=== PATIENT | female | born 1955 | race Caucasian/White ===

== ENCOUNTER → 2016-06-16 | Outpatient (CLI) | payer MEDICARE ==
[~2016-06-16] MED LIST: /CELE20CA PO; AFRI0.052; AMIT25TA10 PO; CELE-19 PO; CYCL10TA PO; FLON0.054; NEUR300C PO; OXYC15TA76 PO; OXYC20TA8 PO; PANT20TA PO; POTA75TA PO; REQU0.5T PO; SOMA350T PO; VITA100072 PO; VITA500T88 PO; amoxicillin PO; combination cream TOP; vitaminD PO
--- NOTE | 2016-07-06 02:08 | ECWPNPC ---
PATIENT NAME: ZANDER DUTTA : 1955 GENDER: FEMALE VISIT DATE: 06/16/2016 DISCHARGE DATE: 06/16/16 1444 VISIT LOCKED DATE TIME: PHYSICIAN: DANIELA COBURN PHYSICIAN PAGER NO: [phone] RESOURCE: DANIELA COBURN REASON FOR APPOINTMENT 1. BACK HISTORY OF PRESENT ILLNESS HISTORY OF PRESENT ILLNESS: PAIN THE PATIENT DESCRIBES THE PAIN... FALL RISK SCREENING: SCREENING :NO FALLS IN THE PAST YEAR TODAY'S VISIT: NOTES: RATES PAIN TODAY 6/10. NOTES PAIN ACROSS UPPER MID BACK AND ACROSS SHOULDERS AND BASE OF NECK. REPORTS MEDS ARE HELPFUL TO KEEP PAIN CONTROLLED. DENIES ADVERSE EFECTS WITH MEDS.. CURRENT MEDICATIONS TAKING PROAIR HFA 108 (90 BASE) MCG/ACT AEROSOL SOLUTION 2 PUFFS NEEDED INHALATION EVERY 6 HRS PRN COUGH WHEEZE TAKING SYMBICORT 80-4.5 MCG/ACT AEROSOL 2 PUFFS INHALATION TWICE A DAY TAKING FLONASE 50 MCG/DOSE INHALER 1 SPRAY IN EACH NOSTRIL NASALLY DAILY TAKING VITAMIN D 2000 UNIT TABLET 1 TABLET ORALLY ONCE A DAY TAKING VITAMIN B 12 1000 MCG TABLET 1 TAB(S) ORALLY DAILY TAKING MIRALAX 1 POWDER DIRECTED ORALLY TAKE 17 GRAMS IN 8 OZ FLIUD DAILY FOR CONSTIPATION LARGE BOTTLE TAKING CARISOPRODOL 350 MG TABLET 1 TABLET NEEDED ORALLY BEFORE BEDTIME TAKING PROTONIX 20 MG TABLET DELAYED RELEASE 1 TABLET ORALLY TWO TIMES A DAY SUSANA TAKING CELEBREX 200 MG CAPSULE 1 CAPSULE ORALLY ONCE A DAY NEEDED TAKING VITAMIN C 500 MG CAPSULE 1 CAPSULE ORALLY ONCE A DAY TAKING OXYCONTIN 20 MG TABLET EXTENDED RELEASE 12 HOUR 1 TABLET ORALLY EVERY 8 HOURS NEEDED, MDD 3 SUSANA TAKING OXYCODONE HCL 15 MG TABLET 1 TABLET ORALLY EVERY 6 - 8 HOURS PRN PAIN MDD =2 TAKING PREDNISONE 20 MG TABLET 2 TABS DAILY X 3 DAYS, THEN 1 TAB DAILY X 3 DAYS, THEN 1/2 TAB DAILY X 4 DAYS, THEN STOP ORALLY ONCE A DAY DIRECTED TAKING TESSALON PERLES 100 MG CAPSULE 1 CAPSULE NEEDED ORALLY Q8HRS PRN COUGH TAKING CEFDINIR 300 MG CAPSULE 1 CAPSULE ORALLY EVERY 12 HRS NOT-TAKING OXYCODONE HCL ER 20 MG TABLET ER 12 HOUR ABUSE-DETERRENT 1 TABLET ORALLY EVERY 8 HRS MDD=3 CHRONIC PAIN NOT-TAKING OXYCODONE HCL ER 20 MG TABLET ER 12 HOUR ABUSE-DETERRENT 1 TABLET ORALLY Q8H MDD3 NOT-TAKING LEVOFLOXACIN 500 MG TABLET 1 TABLET ORALLY ONCE A DAY NOT-TAKING AZELASTINE HCL 0.1 % SOLUTION 1 PUFF IN EACH NOSTRIL NASALLY TWICE A DAY NOT-TAKING AUGMENTIN 875-125 MG TABLET 1 TABLET ORALLY EVERY 12 HRS NOT-TAKING FLEXERIL 10 MG TABLET 1 TABLET ORALLY BID NOT-TAKING [id number] SUSPENSION 4 DROPS INTO AFFECTED EAR OTIC THREE TIMES A DAY NOT-TAKING PREDNISONE 20 MG TABLET 2 ORALLY ONCE A DAY MEDICATION LIST REVIEWED AND RECONCILED WITH THE PATIENT PAST MEDICAL HISTORY GERD RSD WITH CHRONIC NECK AND UE PAIN THYROID NODULE KIDNEY STONES S/P ESWL 03/2003, STENTS VITAMIN D DEFICIENCY MIGRAINES COPD FEV1 = 1.93 2005 SMOKER GENERALIZED OSTEOARTHRITIS HIPS, NECK, BACK, HANDS + LUPUS ANTICOAGULANT (CONFIRMED) 07/[address] CHEST 10/05; F/U PENDING 04/07 ALLERGIES REQUIP: DIZZINESS: SIDE EFFECTS SOCIAL HISTORY GENERAL: TOBACCO USE ARE YOU A:CURRENT SMOKER LEARNING BARRIERS / SPECIAL NEEDS ORIENTED TO PLAN OF CARE: PATIENT, PAIN MANAGEMENT PATIENT, ORIENTED TO PLAN OF CARE: PATIENT, PAIN MANAGEMENT PATIENT. NEW PATIENT PAIN DIARY TODAY'S VISITNOTES FROM 0-10, WHAT LEVEL IS YOUR PAIN TODAY?0 PAIN CLINIC PFS, CLERGY, PUBLIC HEALTH REFERRALS PFS REFERRAL NEEDED?NO CLERGY REFERRAL NEEDED?NO PUBLIC HEALTH REFERRAL NEEDED?NO WAS THE PROVIDER NOTIFIED OF ANY PERTINENT INFO?NO PFS REFERRAL NEEDED?NO CLERGY REFERRAL NEEDED?NO PUBLIC HEALTH REFERRAL NEEDED?NO WAS THE PROVIDER NOTIFIED OF ANY PERTINENT INFO?NO REVIEW OF SYSTEMS CONSTITUTIONAL: ANY CHANGE IN YOUR MEDICAL CONDITION? NO . CHILLS NO . FEVER NO . INFECTION: DO YOU HAVE NEW INFECTIONS? NO . DO YOU HAVE HISTORY OF MRSA? NO . MUSCULOSKELETAL: ANY NEW PATTERNS OF PAIN OR NUMBNESS? YES PAIN BETWEEN SHOULDER (BEEN GOING ON FOR COUPLE WEKS) . GASTROENTEROLOGY: ANY NEW CHANGE IN BOWEL CONTROL? NO - OCCASIONAL CONSTIPATION - USES MIRALAX WHEN NEEDED . ABDOMINAL PAIN SHARP EPIGASTRIC PAIN WITH RADIATION TO RIGHT UPPER QUADRANT . DIFFICULTY SWALLOWING INTERMITTANT - FEELS IF FOOD IS GETTIG STUCK . GENITOURINARY: ANY NEW CHANGE IN BLADDER CONTROL? NO . IS THERE A CHANCE YOU COULD BE ? NO . HEMATOLOGY/LYMPH: DO YOU TAKE ANY BLOOD THINNERS? (FOR EXAMPLE- COUMADIN, PLAVIX, AGGRENOX, PLATEL, PRADAXA, OR XARELTO) NO . WHEN WAS YOUR LAST DOSE? DATE: TIME: . NEUROLOGY: HAVE YOU FALLEN IN THE PAST 6 MONTHS? NO . ANY NEW EXTREMITY NUMBNESS OR WEAKNESS? NO . CARDIOLOGY: DO YOU HAVE A PACEMAKER OR DEFIBRILLATOR? NO . RESPIRATORY: HAVE YOU BEEN SICK IN THE PAST WEEK? NO . FEVER NO . FLU LIKE SYMPTOMS? NO . COUGH NO . INTEGUMENTARY: DO YOU HAVE ANY RASHES OR OPEN SORES? NO . ALLERGIC/IMMUNO: ARE YOU ALLERGIC TO SHELLFISH OR IV DYE? NO . ANY NEW ALLERGIES? NO . PSYCHIATRIC: DO YOU HAVE THOUGHTS OF HURTING YOURSELF OR SOMEONE ELSE? NO . ARE YOU ABUSED, NEGLECTED, OR IN AN UNSAFE ENVIRONMENT? NO . ENDOCRINOLOGY: ARE YOU DIABETIC? NO . OTHER: DO YOU NEED ANY PRESCRIPTIONS? NO . IF YES, PLEASE LIST: ____ . ANY NEW PROBLEMS WITH YOUR MEDICATIONS? NO . WHEN DID YOU LAST EAT? ____ . WHEN DID YOU LAST DRINK? ____ . WHAT DID YOU LAST DRINK? ____ . NAME OF PERSON DRIVING YOU HOME? ____ . DO YOU HAVE ANY OTHER QUESTIONS OR CONCERNS NO . REVIEWED BY: PROVIDER: DANIELA FATIMA . VITAL SIGNS WT 106.2 LBS, HT 61 IN, BMI 20.06 INDEX, BP 130/72 MM HG, HR 91 /MIN, RR 16 /MIN, TEMP 96.8 F, OXYGEN SAT % 99, NA INITIALS TL 1357. EXAMINATION GENERAL EXAMINATION: GENERAL APPEARANCE:COLOR IS PALE, APPEARS FATIGUED. PSYCHALERT , ORIENTED X 3 , APPROPRIATE MOOD AND AFFECT , SLIGHTLY ANXIOUS. LUNGS:CLEAR TO AUSCULTATION BILATERALLY. HEART:HEART RATE REGULAR. MUSCULOSKELETAL:WEAKNESS RIGHT UPPER EXTREMITY DISATALLY AND PROXIMALY, TRIGGER POINTS:, ELICITED WITH PALPATION OVER CERVICAL SPINOUS PROCESSES AND ACROSS THE TRAPEZIUS MUSCLES BILATERALLY. RESTRICTION OF ROM IS NOTED. AUDIBLE CREPITUS WITH ROTATION OF SHOULDERS.. ASSESSMENTS CERVICALGIA - M54.2 (PRIMARY) CHRONIC USE OF OPIATE DRUGS THERAPEUTIC PURPOSES - Z79.899 LOW BACK PAIN - M54.5 LUMBAR RADICULOPATHY - M54.16 TREATMENT CERVICALGIA REFILL OXYCONTIN TABLET EXTENDED RELEASE 12 HOUR, 20 MG, 1 TABLET, ORALLY, EVERY 8 HOURS NEEDED, MDD 3 SUSANA, 30 DAYS, 90, REFILLS 0 REFILL OXYCODONE HCL TABLET, 15 MG, 1 TABLET, ORALLY, EVERY 6 - 8 HOURS PRN PAIN MDD =2, 30 DAY(S), 60, REFILLS 0 TRIGGER POINT 3 + JOÃOELANDRO HONGLOS Lindsay 06/16/2016 2:26:45 PM > NECK, MID THORACIC NOTES: STOP SMOKING START YOGA. PROCEDURE CODES FA211 ESTABILISHED PATIENT [facility] CHARGE FOLLOW UP 4-6 WEEKS (REASON: CHECK AUTH FOR TPI - PT VERY CONCERND ABOUT CO-PAYS) ELECTRONICALLY SIGNED BY HAYLEY GANDARA ON 07/05/2016 AT 11:50 AM EST DISCLAIMER : THIS IS A VISIT SUMMARY EXTRACTED FROM THE [employer] CHART. IT IS NOT A COPY OF THE [employer] PROGRESS NOTE. ROBINSON
== END ==
LOC: M PAIN 14:20
PROVIDERS: ATTEND Nurse Practitioner Family
DX: Z09 Encounter for follow-up examination after completed treatment for conditions other than malignant neoplasm (principal); G89.29 Other chronic pain; M54.2 Cervicalgia; M54.16 Radiculopathy, lumbar region; K21.9 Gastro-esophageal reflux disease without esophagitis; G90.519 Complex regional pain syndrome I of unspecified upper limb; G43.909 Migraine, unspecified, not intractable, without status migrainosus; E55.9 Vitamin D deficiency, unspecified; J44.9 Chronic obstructive pulmonary disease, unspecified; F17.200 Nicotine dependence, unspecified, uncomplicated; M15.0 Primary generalized (osteo)arthritis; M32.9 Systemic lupus erythematosus, unspecified; R91.1 Solitary pulmonary nodule; Z88.8 Allergy status to other drugs, medicaments and biological substances; Z79.52 Long term (current) use of systemic steroids; Z79.891 Long term (current) use of opiate analgesic; Z79.899 Other long term (current) drug therapy

== ENCOUNTER → 2016-07-27 | Outpatient (REF) | payer OTHER ==
[2016-07-27 12:58] LABS: MEAN CORPUSCULAR HEMOGLOBIN 30.6 pg (27.0-33.0); MEAN CORPUSCULAR HGB CONC 34.4 g/dl (32.0-36.5); MEAN CORPUSCULAR VOLUME 89.1 fl (80.0-96.0); RED CELL DISTRIBUTION WIDTH 16.6 % (11.5-14.5); WHITE BLOOD COUNT 3.5 K/mm3 (4.0-10.0)
[2016-07-27 13:06] LABS: ALBUMIN/GLOBULIN RATIO 1.67 (1.00-1.93); ALKALINE PHOSPHATASE 59 U/L (45-117); ALT/SGPT 12 U/L (12-78); ANION GAP 5 MEQ/L (8-16); AST/SGOT 14 U/L (15-37); BLOOD UREA NITROGEN 8 MG/DL (7-18); CALCIUM LEVEL 8.7 MG/DL (8.8-10.2); CARBON DIOXIDE LEVEL 30 MEQ/L (21-32); CHLORIDE LEVEL 108 MEQ/L (98-107); CREATININE FOR GFR 0.64 MG/DL (0.55-1.02); GLOMERULAR FILTRATION RATE > 60.0 (>45); GLUCOSE, FASTING 92 MG/DL (80-110); POTASSIUM SERUM 4.9 MEQ/L (3.5-5.1); SODIUM LEVEL 143 MEQ/L (136-145); TOTAL PROTEIN 6.4 GM/DL (6.4-8.2)
== END ==
LOC: M SFHCADAM 10:50
PROVIDERS: ATTEND Family Medicine
DX: R10.13 Epigastric pain (principal)

== ENCOUNTER → 2016-08-12 | Outpatient (CLI) | payer MEDICARE, OTHER ==
--- NOTE | 2016-08-13 00:25 | ECWPNPC ---
PATIENT NAME: ZANDER DUTTA : 1955 GENDER: FEMALE VISIT DATE: 08/12/2016 DISCHARGE DATE: 08/12/16 1035 VISIT LOCKED DATE TIME: PHYSICIAN: DANIELA COBURN PHYSICIAN PAGER NO: [phone] RESOURCE: DANIELA COBURN REASON FOR APPOINTMENT 1. FOLLOW UP HISTORY OF PRESENT ILLNESS HISTORY OF PRESENT ILLNESS: PAIN THE PATIENT DESCRIBES THE PAIN... FALL RISK SCREENING: SCREENING :NO FALLS IN THE PAST YEAR TODAY'S VISIT: NOTES: RATES PAIN TODAY 7/10. DESCRIBES PAIN INTERMITTANT, ACHING, BURNING. PAIN IS CENTERED AT BASE OF NECK AND INTO RIGHT ARM, ABDOMENAL PAIN, AND LEFT LEG. . CURRENT MEDICATIONS TAKING PROAIR HFA 108 (90 BASE) MCG/ACT AEROSOL SOLUTION 2 PUFFS NEEDED INHALATION EVERY 6 HRS PRN COUGH WHEEZE TAKING SYMBICORT 80-4.5 MCG/ACT AEROSOL 2 PUFFS INHALATION TWICE A DAY TAKING FLONASE 50 MCG/DOSE INHALER 1 SPRAY IN EACH NOSTRIL NASALLY DAILY TAKING VITAMIN D 2000 UNIT TABLET 1 TABLET ORALLY ONCE A DAY TAKING VITAMIN B 12 1000 MCG TABLET 1 TAB(S) ORALLY DAILY TAKING MIRALAX 1 POWDER DIRECTED ORALLY TAKE 17 GRAMS IN 8 OZ FLIUD DAILY FOR CONSTIPATION LARGE BOTTLE TAKING CARISOPRODOL 350 MG TABLET 1 TABLET NEEDED ORALLY BEFORE BEDTIME TAKING PROTONIX 20 MG TABLET DELAYED RELEASE 1 TABLET ORALLY TWO TIMES A DAY PRN SUSANA TAKING CELEBREX 200 MG CAPSULE 1 CAPSULE ORALLY ONCE A DAY NEEDED TAKING VITAMIN C 500 MG CAPSULE 1 CAPSULE ORALLY ONCE A DAY TAKING OXYCODONE HCL 15 MG TABLET 1 TABLET ORALLY EVERY 6 - 8 HOURS PRN PAIN MDD =2 TAKING TESSALON PERLES 100 MG CAPSULE 1 CAPSULE NEEDED ORALLY Q8HRS PRN COUGH TAKING OXYCONTIN 20 MG TABLET ER 12 HOUR ABUSE-DETERRENT ORALLY BID TAKING AMOXICILLIN 1 TAB ORAL Q 12 H MEDICATION LIST REVIEWED AND RECONCILED WITH THE PATIENT PAST MEDICAL HISTORY GERD RSD WITH CHRONIC NECK AND UE PAIN THYROID NODULE KIDNEY STONES S/P ESWL 03/2003, STENTS VITAMIN D DEFICIENCY MIGRAINES COPD FEV1 = 1.93 2005 SMOKER GENERALIZED OSTEOARTHRITIS HIPS, NECK, BACK, HANDS + LUPUS ANTICOAGULANT (CONFIRMED) 07/[address] CHEST 10/05; F/U PENDING 04/07 ALLERGIES REQUIP: DIZZINESS: SIDE EFFECTS REVIEW OF SYSTEMS CONSTITUTIONAL: ANY CHANGE IN YOUR MEDICAL CONDITION? NO . CHILLS NO . FEVER NO . INFECTION: DO YOU HAVE NEW INFECTIONS? NO . DO YOU HAVE HISTORY OF MRSA? NO . MUSCULOSKELETAL: ANY NEW PATTERNS OF PAIN OR NUMBNESS? YES, PAIN IN NECK HAS INCREASED . GASTROENTEROLOGY: ANY NEW CHANGE IN BOWEL CONTROL? NO . ABDOMINAL PAIN SEVERE GI PAIN - WAITING ON REFERRAL TO GI FOR SCOPE. . GENITOURINARY: ANY NEW CHANGE IN BLADDER CONTROL? NO . IS THERE A CHANCE YOU COULD BE ? NO . HEMATOLOGY/LYMPH: DO YOU TAKE ANY BLOOD THINNERS? (FOR EXAMPLE- COUMADIN, PLAVIX, AGGRENOX, PLATEL, PRADAXA, OR XARELTO) NO . WHEN WAS YOUR LAST DOSE? DATE: TIME: . NEUROLOGY: HAVE YOU FALLEN IN THE PAST 6 MONTHS? NO . ANY NEW EXTREMITY NUMBNESS OR WEAKNESS? NO . CARDIOLOGY: DO YOU HAVE A PACEMAKER OR DEFIBRILLATOR? NO . RESPIRATORY: HAVE YOU BEEN SICK IN THE PAST WEEK? YES, SINUS INFECTION X 2 MONTHS. ON THIRD ANTIBIOTIC . FEVER NO . FLU LIKE SYMPTOMS? NO . DO YOU USE ANY TYPE OF TOBACCO (SMOKE, SMOKELESS, CHEW)? QUIT 2 WEEKS . COUGH NO . INTEGUMENTARY: DO YOU HAVE ANY RASHES OR OPEN SORES? NO . ALLERGIC/IMMUNO: ARE YOU ALLERGIC TO SHELLFISH OR IV DYE? NO . ANY NEW ALLERGIES? NO . PSYCHIATRIC: DO YOU HAVE THOUGHTS OF HURTING YOURSELF OR SOMEONE ELSE? NO . ARE YOU ABUSED, NEGLECTED, OR IN AN UNSAFE ENVIRONMENT? NO . ENDOCRINOLOGY: ARE YOU DIABETIC? NO . OTHER: DO YOU NEED ANY PRESCRIPTIONS? YES . IF YES, PLEASE LIST: ____OXYCODONE AND OXYCONTIN . ANY NEW PROBLEMS WITH YOUR MEDICATIONS? NO . WHEN DID YOU LAST EAT? ____ . WHEN DID YOU LAST DRINK? ____ . WHAT DID YOU LAST DRINK? ____ . NAME OF PERSON DRIVING YOU HOME? ____ . DO YOU HAVE ANY OTHER QUESTIONS OR CONCERNS NO . SKIN: EASY BRUISING LARGE [place] AREA OVER LEFT DORSAL SURFACE OF THE HAND . REVIEWED BY: PROVIDER: DANIELA FATIMA . VITAL SIGNS WT 107 LBS, HT 61 IN, BMI 20.22 INDEX, BP 129/64 MM HG, HR 77 /MIN, RR 16 /MIN, TEMP 98.8 F, OXYGEN SAT % 99%, NA INITIALS FL 09:59, REVIEWED BY: ELINA. EXAMINATION GENERAL EXAMINATION: GENERAL APPEARANCE:COLOR IS PALE, APPEARS FATIGUED. PSYCHALERT , ORIENTED X 3 , APPROPRIATE MOOD AND AFFECT , SLIGHTLY ANXIOUS. HEENT:VOICE RASPY. LUNGS:CLEAR TO AUSCULTATION BILATERALLY. HEART:HEART RATE REGULAR. MUSCULOSKELETAL:WEAKNESS RIGHT UPPER EXTREMITY DISATALLY AND PROXIMALY, TRIGGER POINTS:, ELICITED WITH PALPATION OVER CERVICAL SPINOUS PROCESSES AND ACROSS THE TRAPEZIUS MUSCLES BILATERALLY. RESTRICTION OF ROM IS NOTED. AUDIBLE CREPITUS WITH ROTATION OF SHOULDERS.. ASSESSMENTS CERVICALGIA - M54.2 (PRIMARY) MYALGIA - M79.1 TREATMENT CERVICALGIA STOP CELEBREX CAPSULE, 200 MG, 1 CAPSULE, ORALLY, ONCE A DAY NEEDED START DULOXETINE HCL CAPSULE DELAYED RELEASE PARTICLES, 30 MG, 1 CAPSULE, ORALLY, DAILY, 30 DAY(S), 30 CAPSULE, REFILLS 1 REFILL OXYCONTIN TABLET ER 12 HOUR ABUSE-DETERRENT, 20 MG, 1 TAB, ORALLY, BID MDD=2, 30 DAY(S), 60, REFILLS 0 NOTES: NO MORE THAN 3000 MG PER DAY OF TYLENOL. CLINICAL NOTES: ISTOP REGISTRY REVIEWED AND DEMNOSTRATES COMPLLIANCE. BRINGS IN MEDICATIONS WHICH IS APPROPRIATE FOR WHAT WAS DISPENSED. RECENT URINE TOXICOLOGY REVIEWED. NO UNAUTHORIZED MEDICATIONS. NO ILLICIT SUBSTANCES AND PRESCRIBED MEDICATIONS WERE PRESENT. PROCEDURE CODES FA211 ESTABILISHED PATIENT [facility] CHARGE DISPOSITION & COMMUNICATION FOLLOW UP 1 MONTH ELECTRONICALLY SIGNED BY HAYLEY GANDARA ON 08/12/2016 AT 04:33 PM EDT DISCLAIMER : THIS IS A VISIT SUMMARY EXTRACTED FROM THE [employer] CHART. IT IS NOT A COPY OF THE [employer] PROGRESS NOTE. ROBINSON
== END ==
LOC: M PAIN 09:40
PROVIDERS: ATTEND Nurse Practitioner Family
DX: Z09 Encounter for follow-up examination after completed treatment for conditions other than malignant neoplasm (principal); G89.29 Other chronic pain; M54.2 Cervicalgia; M79.1 Myalgia; K21.9 Gastro-esophageal reflux disease without esophagitis; E55.9 Vitamin D deficiency, unspecified; G43.909 Migraine, unspecified, not intractable, without status migrainosus; J44.9 Chronic obstructive pulmonary disease, unspecified; M19.90 Unspecified osteoarthritis, unspecified site; E53.8 Deficiency of other specified B group vitamins; D68.62 Lupus anticoagulant syndrome; Z79.899 Other long term (current) drug therapy; F17.210 Nicotine dependence, cigarettes, uncomplicated

== ENCOUNTER → 2016-09-15 | Outpatient (REF) | payer MEDICARE ==
[2016-09-15 19:58] LABS: RETIC HEMOGLOBIN CONTENT CHr 33.1 PG (24-36); RETICULOCYTE % ADVIA2120 3.5 % (0.5-1.5)
[2016-09-15 20:54] LABS: FOLATE 8.6 NG/ML
[2016-09-15 21:08] LABS: PERCENT SATURATION 20.7 % (13.2-37.4)
== END ==
LOC: M SFHCADAM 12:37
PROVIDERS: ATTEND Family Medicine
DX: D64.9 Anemia, unspecified (principal); M54.5 Low back pain; N39.0 Urinary tract infection, site not specified

== ENCOUNTER → 2016-09-16 | Outpatient (CLI) | payer MEDICARE ==
--- NOTE | 2016-10-05 00:53 | ECWPNPC ---
PATIENT NAME: ZANDER DUTTA : 1955 GENDER: FEMALE VISIT DATE: 09/16/2016 DISCHARGE DATE: 09/16/16 0000 VISIT LOCKED DATE TIME: PHYSICIAN: DANIELA COBURN PHYSICIAN PAGER NO: [phone] RESOURCE: DANIELA COBURN REASON FOR APPOINTMENT 1. CHRONIC PAIN HISTORY OF PRESENT ILLNESS HISTORY OF PRESENT ILLNESS: PAIN THE PATIENT DESCRIBES THE PAIN... FALL RISK SCREENING: SCREENING :NO FALLS IN THE PAST YEAR TODAY'S VISIT: NOTES: RATES PAIN TODAY 8/10. NOTES PAIN RADIATING DOWN LEFT ARM, SPINE AND ARM. . CURRENT MEDICATIONS TAKING PROAIR HFA 108 (90 BASE) MCG/ACT AEROSOL SOLUTION 2 PUFFS NEEDED INHALATION EVERY 6 HRS PRN COUGH WHEEZE TAKING SYMBICORT 80-4.5 MCG/ACT AEROSOL 2 PUFFS INHALATION TWICE A DAY TAKING VITAMIN D 2000 UNIT TABLET 1 TABLET ORALLY ONCE A DAY TAKING VITAMIN B 12 1000 MCG TABLET 1 TAB(S) ORALLY DAILY TAKING MIRALAX 1 POWDER DIRECTED ORALLY TAKE 17 GRAMS IN 8 OZ FLIUD DAILY FOR CONSTIPATION LARGE BOTTLE TAKING VITAMIN C 500 MG CAPSULE 1 CAPSULE ORALLY ONCE A DAY TAKING DULOXETINE HCL 30 MG CAPSULE DELAYED RELEASE PARTICLES 1 CAPSULE ORALLY DAILY TAKING OXYCONTIN 20 MG TABLET ER 12 HOUR ABUSE-DETERRENT 1 TAB ORALLY BID MDD=2 TAKING OXYCODONE HCL 15 MG TABLET 1 TABLET ORALLY TWICE A DAY MDD =2 TAKING FLONASE 50 MCG/DOSE INHALER 1 SPRAY IN EACH NOSTRIL NASALLY DAILY TAKING CLARITIN 10 MG TABLET 1 TABLET ORALLY ONCE A DAY TAKING PROTONIX 20 MG TABLET DELAYED RELEASE 1 TABLET ORALLY TWO TIMES A DAY PRN SUSANA TAKING MACROBID 100 MG CAPSULE 1 CAPSULE WITH FOOD ORALLY EVERY 12 HRS NOT-TAKING CARISOPRODOL 350 MG TABLET 1 TABLET NEEDED ORALLY BEFORE BEDTIME NOT-TAKING TESSALON PERLES 100 MG CAPSULE 1 CAPSULE NEEDED ORALLY Q8HRS PRN COUGH NOT-TAKING AMOXICILLIN 1 TAB ORAL Q 12 H MEDICATION LIST REVIEWED AND RECONCILED WITH THE PATIENT PAST MEDICAL HISTORY GERD RSD WITH CHRONIC NECK AND UE PAIN THYROID NODULE KIDNEY STONES S/P ESWL 03/2003, STENTS VITAMIN D DEFICIENCY MIGRAINES COPD FEV1 = 1.93 2005 SMOKER GENERALIZED OSTEOARTHRITIS HIPS, NECK, BACK, HANDS + LUPUS ANTICOAGULANT (CONFIRMED) 07/[address] CHEST 10/05; F/U PENDING 04/07 ALLERGIES REQUIP: DIZZINESS: ALLERGY REVIEW OF SYSTEMS CONSTITUTIONAL: ANY CHANGE IN YOUR MEDICAL CONDITION? YES,SINUS AND UTI ON ANTIBIOTICS . CHILLS NO . FEVER NO . INFECTION: DO YOU HAVE NEW INFECTIONS? NO . DO YOU HAVE HISTORY OF MRSA? NO . MUSCULOSKELETAL: ANY NEW PATTERNS OF PAIN OR NUMBNESS? YES, PAIN GOING IN LEFT HAND MORE . GASTROENTEROLOGY: ANY NEW CHANGE IN BOWEL CONTROL? NO . GENITOURINARY: ANY NEW CHANGE IN BLADDER CONTROL? NO . IS THERE A CHANCE YOU COULD BE ? NO . HEMATOLOGY/LYMPH: DO YOU TAKE ANY BLOOD THINNERS? (FOR EXAMPLE- COUMADIN, PLAVIX, AGGRENOX, PLATEL, PRADAXA, OR XARELTO) NO . WHEN WAS YOUR LAST DOSE? DATE: TIME: . NEUROLOGY: HAVE YOU FALLEN IN THE PAST 6 MONTHS? NO . ANY NEW EXTREMITY NUMBNESS OR WEAKNESS? NO . CARDIOLOGY: DO YOU HAVE A PACEMAKER OR DEFIBRILLATOR? NO . RESPIRATORY: HAVE YOU BEEN SICK IN THE PAST WEEK? NO . FEVER NO . FLU LIKE SYMPTOMS? NO . COUGH NO . INTEGUMENTARY: DO YOU HAVE ANY RASHES OR OPEN SORES? NO . ALLERGIC/IMMUNO: ARE YOU ALLERGIC TO SHELLFISH OR IV DYE? NO . ANY NEW ALLERGIES? NO . PSYCHIATRIC: DO YOU HAVE THOUGHTS OF HURTING YOURSELF OR SOMEONE ELSE? NO . ARE YOU ABUSED, NEGLECTED, OR IN AN UNSAFE ENVIRONMENT? NO . ENDOCRINOLOGY: ARE YOU DIABETIC? NO . OTHER: DO YOU NEED ANY PRESCRIPTIONS? YES . IF YES, PLEASE LIST: OXYCONTIN 20 MG . ANY NEW PROBLEMS WITH YOUR MEDICATIONS? NO . WHEN DID YOU LAST EAT? ____ . WHEN DID YOU LAST DRINK? ____ . WHAT DID YOU LAST DRINK? ____ . NAME OF PERSON DRIVING YOU HOME? ____ . DO YOU HAVE ANY OTHER QUESTIONS OR CONCERNS NO . REVIEWED BY: PROVIDER: DANIELA FATIMA . VITAL SIGNS WT 106 LBS, HT 61 IN, BMI 20.03 INDEX, BP 136/68 MM HG, HR 82 /MIN, RR 18 /MIN, TEMP 97.5 F, OXYGEN SAT % 98%, REVIEWED BY: CS. EXAMINATION GENERAL EXAMINATION: GENERAL APPEARANCE:COLOR IS PALE, APPEARS FATIGUED. PSYCHALERT , ORIENTED X 3 , APPROPRIATE MOOD AND AFFECT , SLIGHTLY ANXIOUS. HEENT:VOICE RASPY. LUNGS:CLEAR TO AUSCULTATION BILATERALLY. HEART:HEART RATE REGULAR. MUSCULOSKELETAL:WEAKNESS RIGHT UPPER EXTREMITY DISATALLY AND PROXIMALY, TRIGGER POINTS:, ELICITED WITH PALPATION OVER CERVICAL SPINOUS PROCESSES AND ACROSS THE TRAPEZIUS MUSCLES BILATERALLY. RESTRICTION OF ROM IS NOTED. AUDIBLE CREPITUS WITH ROTATION OF SHOULDERS.. ASSESSMENTS CERVICALGIA - M54.2 (PRIMARY) MYALGIA - M79.1 TREATMENT CERVICALGIA REFILL OXYCONTIN TABLET ER 12 HOUR ABUSE-DETERRENT, 20 MG, 1 TAB, ORALLY, BID MDD=2 CHRONIC PAIN, 30 DAY(S), 60, REFILLS 0 NOTES: STOP IBUPROFEN, STOP ALL SODA/ PEPSI. CLINICAL NOTES: ISTOP REGISTRY REVIEWED AND DEMNOSTRATES COMPLLIANCE. BRINGS IN MEDICATIONS WHICH IS APPROPRIATE FOR WHAT WAS DISPENSED. RECENT URINE TOXICOLOGY REVIEWED. NO UNAUTHORIZED MEDICATIONS. NO ILLICIT SUBSTANCES AND PRESCRIBED MEDICATIONS WERE PRESENT. PROCEDURE CODES FA211 ESTABILISHED PATIENT [facility] FACILITY CHARGE DISPOSITION & COMMUNICATION FOLLOW UP MID OCTOBER ELECTRONICALLY SIGNED BY HAYLEY GANDARA ON 10/04/2016 AT 05:45 PM EDT DISCLAIMER : THIS IS A VISIT SUMMARY EXTRACTED FROM THE [employer] CHART. IT IS NOT A COPY OF THE [employer] PROGRESS NOTE. ROBINSON
== END ==
LOC: M PAIN 14:20
PROVIDERS: ATTEND Nurse Practitioner Family
DX: G89.29 Other chronic pain (principal); M54.2 Cervicalgia; M79.1 Myalgia; K21.9 Gastro-esophageal reflux disease without esophagitis; E55.9 Vitamin D deficiency, unspecified; G43.909 Migraine, unspecified, not intractable, without status migrainosus; J44.9 Chronic obstructive pulmonary disease, unspecified; F17.291 Nicotine dependence, other tobacco product, in remission; M16.10 Unilateral primary osteoarthritis, unspecified hip; Z88.8 Allergy status to other drugs, medicaments and biological substances; G90.59 Complex regional pain syndrome I of other specified site; Z79.891 Long term (current) use of opiate analgesic; Z79.899 Other long term (current) drug therapy

== ENCOUNTER → 2016-10-11 | Outpatient (REF) | payer MEDICARE | LOC: M SFHCADAM 11:05 | PROVIDERS: ATTEND Family Medicine | DX: Z11.9 Encounter for screening for infectious and parasitic diseases, unspecified (principal); B95.2 Enterococcus as the cause of diseases classified elsewhere; Z79.899 Other long term (current) drug therapy ==

== ENCOUNTER → 2016-11-12 | Outpatient (CLI) | payer MEDICARE ==
[~2016-11-12] MED LIST changes: +ASPI81TA85 PO; -CELE-19 PO; +CELE1CAP4 PO; +CYMB1CAP5 PO; +FLON50SP; +LEVA1TAB2 PO; +LORA10TA2 PO; +NITR100C2 PO; +OXYC-141 PO; +OXYC-404 PO; +PHEN-501 PO; -REQU0.5T PO; +REQU1TAB15 PO; +SYMB80INH INH; +TYLE650T35 PO; +VITA100066 PO
--- NOTE | 2016-12-01 00:47 | ECWPNPC ---
PATIENT NAME: ZANDER DUTTA : 1955 GENDER: FEMALE VISIT DATE: 11/12/2016 DISCHARGE DATE: 11/12/16 1051 VISIT LOCKED DATE TIME: PHYSICIAN: DANIELA COBURN PHYSICIAN PAGER NO: [phone] RESOURCE: DANIELA COBURN HISTORY OF PRESENT ILLNESS HISTORY OF PRESENT ILLNESS: PAIN THE PATIENT DESCRIBES THE PAIN... FALL RISK SCREENING: SCREENING :NO FALLS IN THE PAST YEAR TODAY'S VISIT: NOTES: RATES PAIN LEVEL TODAY 8/10.PAIN IS CENTERED AT BASE OF NECK WITH RADIATION TO BOTH ARMS. DESCRIBES PAIN INTEMITTANT, SHARP, STABBING, ACHING, AND THROBBING. STATES HER PAIN MEDS KEEP THE PAIN MANAGEBLE AND THAT SHE HASNO ADVERSE REACTIONS. CURRENT MEDICATIONS TAKING PROAIR HFA 108 (90 BASE) MCG/ACT AEROSOL SOLUTION 2 PUFFS NEEDED INHALATION EVERY 6 HRS PRN COUGH WHEEZE TAKING SYMBICORT 80-4.5 MCG/ACT AEROSOL 2 PUFFS INHALATION TWICE A DAY TAKING VITAMIN D 2000 UNIT TABLET 1 TABLET ORALLY ONCE A DAY TAKING VITAMIN B 12 1000 MCG TABLET 1 TAB(S) ORALLY DAILY TAKING MIRALAX 1 POWDER DIRECTED ORALLY TAKE 17 GRAMS IN 8 OZ FLIUD DAILY FOR CONSTIPATION LARGE BOTTLE TAKING VITAMIN C 500 MG CAPSULE 1 CAPSULE ORALLY ONCE A DAY TAKING DULOXETINE HCL 30 MG CAPSULE DELAYED RELEASE PARTICLES 1 CAPSULE ORALLY DAILY, NOTES: NOT TAKING CONSISTENTLY TAKING FLONASE 50 MCG/DOSE INHALER 1 SPRAY IN EACH NOSTRIL NASALLY DAILY TAKING CLARITIN 10 MG TABLET 1 TABLET ORALLY ONCE A DAY TAKING PROTONIX 20 MG TABLET DELAYED RELEASE 1 TABLET ORALLY TWO TIMES A DAY PRN SUSANA TAKING MACROBID 100 MG CAPSULE 1 CAPSULE WITH FOOD ORALLY EVERY 12 HRS TAKING OXYCODONE HCL 15 MG TABLET 1 TABLET ORALLY EVERY 8-12 HOURS PRN PAIN MDD =2 TAKING OXYCONTIN 20 MG TABLET ER 12 HOUR ABUSE-DETERRENT 1 TAB ORALLY BID MDD=2 CHRONIC PAIN NOT-TAKING CARISOPRODOL 350 MG TABLET 1 TABLET NEEDED ORALLY BEFORE BEDTIME NOT-TAKING TESSALON PERLES 100 MG CAPSULE 1 CAPSULE NEEDED ORALLY Q8HRS PRN COUGH NOT-TAKING AMOXICILLIN 1 TAB ORAL Q 12 H MEDICATION LIST REVIEWED AND RECONCILED WITH THE PATIENT PAST MEDICAL HISTORY GERD 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 CONSTITUTIONAL: ANY CHANGE IN YOUR MEDICAL CONDITION? NO . CHILLS NO . FEVER NO . INFECTION: DO YOU HAVE NEW INFECTIONS? NO . DO YOU HAVE HISTORY OF MRSA? NO . MUSCULOSKELETAL: ANY NEW PATTERNS OF PAIN OR NUMBNESS? YES, NUMBNESS INTO RIGHT ARM.. HEAD AND NECK PAIN IS BAD . GASTROENTEROLOGY: ANY NEW CHANGE IN BOWEL CONTROL? NO . GENITOURINARY: ANY NEW CHANGE IN BLADDER CONTROL? NO . IS THERE A CHANCE YOU COULD BE ? NO . HEMATOLOGY/LYMPH: DO YOU TAKE ANY BLOOD THINNERS? (FOR EXAMPLE- COUMADIN, PLAVIX, AGGRENOX, PLATEL, PRADAXA, OR XARELTO) NO . WHEN WAS YOUR LAST DOSE? DATE: TIME: . NEUROLOGY: HAVE YOU FALLEN IN THE PAST 6 MONTHS? NO . ANY NEW EXTREMITY NUMBNESS OR WEAKNESS? NO . CARDIOLOGY: DO YOU HAVE A PACEMAKER OR DEFIBRILLATOR? NO . RESPIRATORY: HAVE YOU BEEN SICK IN THE PAST WEEK? NO . FEVER NO . FLU LIKE SYMPTOMS? NO . DO YOU USE ANY TYPE OF TOBACCO (SMOKE, SMOKELESS, CHEW)? IS WANTING TO QUITTING. TOOK SOME CHANTIX SHE HAD AT HOME BUT WHEN IT DIDN'T WORK AFTER 3 DAYS, STOPPED IT. . COUGH NO . INTEGUMENTARY: DO YOU HAVE ANY RASHES OR OPEN SORES? NO . ALLERGIC/IMMUNO: ARE YOU ALLERGIC TO SHELLFISH OR IV DYE? NO . ANY NEW ALLERGIES? NO . PSYCHIATRIC: DO YOU HAVE THOUGHTS OF HURTING YOURSELF OR SOMEONE ELSE? NO . ARE YOU ABUSED, NEGLECTED, OR IN AN UNSAFE ENVIRONMENT? NO . ENDOCRINOLOGY: ARE YOU DIABETIC? NO . OTHER: DO YOU NEED ANY PRESCRIPTIONS? YES . IF YES, PLEASE LIST: OXYCODONE , OXYCONTIN . ANY NEW PROBLEMS WITH YOUR MEDICATIONS? NO . WHEN DID YOU LAST EAT? ____ . WHEN DID YOU LAST DRINK? ____ . WHAT DID YOU LAST DRINK? ____ . NAME OF PERSON DRIVING YOU HOME? ____ . DO YOU HAVE ANY OTHER QUESTIONS OR CONCERNS NO . PSYCHOLOGY: DEPRESSION STATES IS HAVING PROBLEMS WITH DEPRESSION - REPORTS SHE IS WAKING OUP IN THE NIGHT WITH CRYING. HAS RIGHT EAR AND THROAT PAIN. . VITAL SIGNS WT 106.2 LBS, HT 61 IN, BMI 20.06 INDEX, BP 134/65 MM HG, HR 86 /MIN, RR 18 /MIN, TEMP 98.9 F, OXYGEN SAT % 98%, NA INITIALS SC 10:18, REVIEWED BY: NL. EXAMINATION GENERAL EXAMINATION: GENERAL APPEARANCE:COLOR IS PALE, APPEARS FATIGUED. PSYCHALERT , ORIENTED X 3 , APPROPRIATE MOOD AND AFFECT , SLIGHTLY ANXIOUS. HEENT:VOICE RASPY. LUNGS:CLEAR TO AUSCULTATION BILATERALLY. HEART:HEART RATE REGULAR. MUSCULOSKELETAL:WEAKNESS RIGHT UPPER EXTREMITY DISATALLY AND PROXIMALY, TRIGGER POINTS:, ELICITED WITH PALPATION OVER CERVICAL SPINOUS PROCESSES AND ACROSS THE TRAPEZIUS MUSCLES BILATERALLY. RESTRICTION OF ROM IS NOTED. AUDIBLE CREPITUS WITH ROTATION OF SHOULDERS.. ASSESSMENTS CERVICALGIA - M54.2 (PRIMARY) MYALGIA - M79.1 CHRONIC PRESCRIPTION OPIATE USE - Z79.891 TREATMENT CERVICALGIA REFILL OXYCODONE HCL TABLET, 15 MG, 1 TABLET, ORALLY, EVERY 8-12 HOURS PRN PAIN MDD =2, 30 DAY(S), 60, REFILLS 0 REFILL OXYCONTIN TABLET ER 12 HOUR ABUSE-DETERRENT, 20 MG, 1 TAB, ORALLY, BID MDD=2 CHRONIC PAIN, 30 DAY(S), 60, REFILLS 0 NOTES: TAKE DULOXETINE AT BEDTIME. CLINICAL NOTES: ISTOP REGISTRY REVIEWED AND DEMNOSTRATES COMPLLIANCE. BRINGS IN MEDICATIONS WHICH IS APPROPRIATE FOR WHAT WAS DISPENSED. RECENT URINE TOXICOLOGY REVIEWED. NO UNAUTHORIZED MEDICATIONS. NO ILLICIT SUBSTANCES AND PRESCRIBED MEDICATIONS WERE PRESENT. [facility] TO[facility] RE[facility]ON:RIGHT HAND NUMBNESS- EVAL FOR CARPAL TUNNEL SYNDROME PROCEDURE CODES FA211 ESTABILISHED PATIENT [facility] FACILITY CHARGE G8783 BP SCR PRFRM RCMDD DEFIND SCR INTVL G8730 PAIN ASSESS POS TOOL F/U PLAN DOC 3016F PT SCRND UNHLTHY OH USE G8509 DOC PAIN ASSESS NO DOC F/U PLAN RNS 1123F ACP DISCUSS/DSCN MKR DOCD G8427 DOC MEDS VERIFIED W/PT OR RE G8420 BMI<30 AND >=22 CALC & DOCU 4004F PT TOBACCO SCREEN RCVD TLK DISPOSITION & COMMUNICATION FOLLOW UP 26-28 DAYS (REASON: NECK BACK PAIN) ELECTRONICALLY SIGNED BY HAYLEY GANDARA ON 11/30/2016 AT 06:44 PM EDT DISCLAIMER : THIS IS A VISIT SUMMARY EXTRACTED FROM THE [employer] CHART. IT IS NOT A COPY OF THE [employer] PROGRESS NOTE. ROBINSON
== END ==
LOC: M PAIN 10:40
PROVIDERS: ATTEND Nurse Practitioner Family
DX: M54.2 Cervicalgia (principal); M79.1 Myalgia; Z79.891 Long term (current) use of opiate analgesic; Z79.899 Other long term (current) drug therapy; Z88.8 Allergy status to other drugs, medicaments and biological substances; J44.9 Chronic obstructive pulmonary disease, unspecified; K21.9 Gastro-esophageal reflux disease without esophagitis

== ENCOUNTER → 2016-12-10 | Outpatient (CLI) | payer MEDICARE ==
[~2016-12-10] MED LIST changes: +PHEN1SUP6 PR; +ZOFR4TAB3 PO
--- NOTE | 2017-01-07 01:59 | ECWPNPC ---
PATIENT NAME: ZANDER DUTTA : 1955 GENDER: FEMALE VISIT DATE: 12/10/2016 DISCHARGE DATE: 12/10/16 1144 VISIT LOCKED DATE TIME: PHYSICIAN: DANIELA COBURN PHYSICIAN PAGER NO: [phone] RESOURCE: DANIELA COBURN REASON FOR APPOINTMENT 1. NECK BACK PAIN HISTORY OF PRESENT ILLNESS HISTORY OF PRESENT ILLNESS: PAIN THE PATIENT DESCRIBES THE PAIN... FALL RISK SCREENING: SCREENING :NO FALLS IN THE PAST YEAR TODAY'S VISIT: NOTES: HAD RECURRENT SINUS INFECTION. TO SEE ENT NEXT MONTH. HAD EPISODE INCREASED LOW BACK BILATERALLY AND WAS IN BED FOR 3 DAYS. RATES BACK PAIN 6/10. DESCRIBES PAIN INTERMITTANT, ACHING, BURNING, SHARP, STABBING., TENDER AND SHOOTING.. CURRENT MEDICATIONS TAKING PROAIR HFA 108 (90 BASE) MCG/ACT AEROSOL SOLUTION 2 PUFFS NEEDED INHALATION EVERY 6 HRS PRN COUGH WHEEZE TAKING SYMBICORT 80-4.5 MCG/ACT AEROSOL 2 PUFFS INHALATION TWICE A DAY TAKING VITAMIN D 2000 UNIT TABLET 1 TABLET ORALLY ONCE A DAY TAKING VITAMIN B 12 1000 MCG TABLET 1 TAB(S) ORALLY DAILY TAKING MIRALAX 1 POWDER DIRECTED ORALLY TAKE 17 GRAMS IN 8 OZ FLIUD DAILY FOR CONSTIPATION LARGE BOTTLE TAKING VITAMIN C 500 MG CAPSULE 1 CAPSULE ORALLY ONCE A DAY TAKING DULOXETINE HCL 30 MG CAPSULE DELAYED RELEASE PARTICLES 1 CAPSULE ORALLY DAILY, NOTES: TAKES AT NIGHT TAKING FLONASE 50 MCG/DOSE INHALER 1 SPRAY IN EACH NOSTRIL NASALLY DAILY TAKING CLARITIN 10 MG TABLET 1 TABLET ORALLY ONCE A DAY TAKING PROTONIX 20 MG TABLET DELAYED RELEASE 1 TABLET ORALLY TWO TIMES A DAY PRN SUSANA TAKING OXYCODONE HCL 15 MG TABLET 1 TABLET ORALLY EVERY 8-12 HOURS PRN PAIN MDD =2, NOTES: PAIN CENTER TAKING OXYCONTIN 20 MG TABLET ER 12 HOUR ABUSE-DETERRENT 1 TAB ORALLY BID MDD=2 CHRONIC PAIN, NOTES: PAINCENTER TAKING CHANTIX STARTING MONTH SERJIO 0.5 MG X 11 & 1 MG X 42 TABLET DIRECTED ORALLY DIRECTED TAKING VARENICLINE TARTRATE 1 MG TABLET 1 TABLET ORALLY TWICE A DAY, NOTES: (THIS IS CHANTIX) TAKING CYCLOBENZAPRINE HCL 10 MG TABLET 1 TABLET NEEDED ORALLY BID NOT-TAKING AMOXICILLIN 875 MG TABLET 1 TABLET ORALLY EVERY 12 HRS NOT-TAKING MACROBID 100 MG CAPSULE 1 CAPSULE WITH FOOD ORALLY EVERY 12 HRS NOT-TAKING CARISOPRODOL 350 MG TABLET 1 TABLET NEEDED ORALLY BEFORE BEDTIME NOT-TAKING TESSALON PERLES 100 MG CAPSULE 1 CAPSULE NEEDED ORALLY Q8HRS PRN COUGH NOT-TAKING AMOXICILLIN 1 TAB ORAL Q 12 H MEDICATION LIST REVIEWED AND RECONCILED WITH THE PATIENT PAST MEDICAL HISTORY GERD 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 CONSTITUTIONAL: ANY CHANGE IN YOUR MEDICAL CONDITION? YES . CHILLS NO . FEVER NO . INFECTION: DO YOU HAVE NEW INFECTIONS? NO . DO YOU HAVE HISTORY OF MRSA? NO . MUSCULOSKELETAL: ANY NEW PATTERNS OF PAIN OR NUMBNESS? YES . GASTROENTEROLOGY: ANY NEW CHANGE IN BOWEL CONTROL? NO . GENITOURINARY: ANY NEW CHANGE IN BLADDER CONTROL? NO . IS THERE A CHANCE YOU COULD BE ? NO . HEMATOLOGY/LYMPH: DO YOU TAKE ANY BLOOD THINNERS? (FOR EXAMPLE- COUMADIN, PLAVIX, AGGRENOX, PLATEL, PRADAXA, OR XARELTO) NO . WHEN WAS YOUR LAST DOSE? DATE: TIME: . NEUROLOGY: HAVE YOU FALLEN IN THE PAST 6 MONTHS? NO . ANY NEW EXTREMITY NUMBNESS OR WEAKNESS? NO . CARDIOLOGY: DO YOU HAVE A PACEMAKER OR DEFIBRILLATOR? NO . RESPIRATORY: HAVE YOU BEEN SICK IN THE PAST WEEK? NO . FEVER NO . FLU LIKE SYMPTOMS? NO . COUGH NO . INTEGUMENTARY: DO YOU HAVE ANY RASHES OR OPEN SORES? YES . ALLERGIC/IMMUNO: ARE YOU ALLERGIC TO SHELLFISH OR IV DYE? NO . ANY NEW ALLERGIES? NO . PSYCHIATRIC: DO YOU HAVE THOUGHTS OF HURTING YOURSELF OR SOMEONE ELSE? NO . ARE YOU ABUSED, NEGLECTED, OR IN AN UNSAFE ENVIRONMENT? NO . ENDOCRINOLOGY: ARE YOU DIABETIC? NO . OTHER: DO YOU NEED ANY PRESCRIPTIONS? YES . IF YES, PLEASE LIST: OXYCODONE, OXYCONTIN, DULOXETINE . ANY NEW PROBLEMS WITH YOUR MEDICATIONS? NO . WHEN DID YOU LAST EAT? ____ . WHEN DID YOU LAST DRINK? ____ . WHAT DID YOU LAST DRINK? ____ . NAME OF PERSON DRIVING YOU HOME? ____ . DO YOU HAVE ANY OTHER QUESTIONS OR CONCERNS GOING ON CHANTIX . VITAL SIGNS WT 106.0 LBS, HT 61 IN, BMI 20.03 INDEX, BP 116/62 MM HG, HR 80 /MIN, RR 16 /MIN, TEMP 98.9 F, OXYGEN SAT % 98%, NA INITIALS TL 1113. EXAMINATION GENERAL EXAMINATION: GENERAL APPEARANCE:COLOR IS PALE, APPEARS FATIGUED. PSYCHALERT , ORIENTED X 3 , APPROPRIATE MOOD AND AFFECT , SLIGHTLY ANXIOUS. HEENT:VOICE RASPY. LUNGS:CLEAR TO AUSCULTATION BILATERALLY. HEART:HEART RATE REGULAR. MUSCULOSKELETAL:WEAKNESS RIGHT UPPER EXTREMITY DISATALLY AND PROXIMALY, TRIGGER POINTS:, ELICITED WITH PALPATION OVER CERVICAL SPINOUS PROCESSES AND ACROSS THE TRAPEZIUS MUSCLES BILATERALLY. RESTRICTION OF ROM IS NOTED. AUDIBLE CREPITUS WITH ROTATION OF SHOULDERS.. ASSESSMENTS CERVICALGIA - M54.2 (PRIMARY) MYALGIA - M79.1 CHRONIC PRESCRIPTION OPIATE USE - Z79.891 TREATMENT CERVICALGIA REFILL OXYCODONE HCL TABLET, 15 MG, 1 TABLET, ORALLY, EVERY 8-12 HOURS PRN PAIN MDD =2, 30 DAY(S), 60, REFILLS 0 REFILL OXYCONTIN TABLET ER 12 HOUR ABUSE-DETERRENT, 20 MG, 1 TAB, ORALLY, BID MDD=2 CHRONIC PAIN, 30 DAY(S), 60, REFILLS 0 NOTES: ASPERCREME TO LOW BACK. CLINICAL NOTES: ISTOP REGISTRY REVIEWED AND DEMNOSTRATES COMPLLIANCE. BRINGS IN MEDICATIONS WHICH IS APPROPRIATE FOR WHAT WAS DISPENSED. RECENT URINE TOXICOLOGY REVIEWED. NO UNAUTHORIZED MEDICATIONS. NO ILLICIT SUBSTANCES AND PRESCRIBED MEDICATIONS WERE PRESENT. PROCEDURE CODES FA211 ESTABILISHED PATIENT [facility] FACILITY CHARGE G8730 PAIN ASSESS POS TOOL F/U PLAN DOC G8427 DOC MEDS VERIFIED W/PT OR RE DISPOSITION & COMMUNICATION FOLLOW UP 26-28 DAYS (REASON: NECK/BACK PAIN) ELECTRONICALLY SIGNED BY HAYLEY GANDARA ON 01/06/2017 AT 08:10 PM EDT DISCLAIMER : THIS IS A VISIT SUMMARY EXTRACTED FROM THE [employer] CHART. IT IS NOT A COPY OF THE [employer] PROGRESS NOTE. [facility]
== END ==
LOC: M PAIN 10:20
PROVIDERS: ATTEND Nurse Practitioner Family
DX: M54.2 Cervicalgia (principal); M79.1 Myalgia; Z79.891 Long term (current) use of opiate analgesic; Z79.899 Other long term (current) drug therapy; Z88.8 Allergy status to other drugs, medicaments and biological substances; Z79.2 Long term (current) use of antibiotics

== ENCOUNTER → 2017-01-06 | Outpatient (REF) | payer MEDICARE | LOC: M LAB REF 16:12 | PROVIDERS: ATTEND Dermatology | DX: D49.2 Neoplasm of unspecified behavior of bone, soft tissue, and skin (principal) | CPT/HCPCS: 11100; 88305; G0463 ==

== ENCOUNTER → 2017-01-10 | Outpatient (CLI) | payer MEDICARE ==
--- NOTE | 2017-01-14 23:58 | ECWPNPC ---
PATIENT NAME: ZANDER DUTTA : 1955 GENDER: FEMALE VISIT DATE: 01/10/2017 DISCHARGE DATE: 01/10/17 1214 VISIT LOCKED DATE TIME: PHYSICIAN: DANIELA COBURN PHYSICIAN PAGER NO: [phone] RESOURCE: DANIELA COBURN REASON FOR APPOINTMENT 1. NECK BACK PAIN HISTORY OF PRESENT ILLNESS HISTORY OF PRESENT ILLNESS: PAIN THE PATIENT DESCRIBES THE PAIN... FALL RISK SCREENING: SCREENING :NO FALLS IN THE PAST YEAR TODAY'S VISIT: NOTES: RATES PAIN LEVEL 7/10. DESCRIBES PAIN INTERMITTANT, SHARP, ACHING, TENDER AND THROBBING. PAIN IS CENTERED AT BASE OF NECK LEFT SIDE, AND LOW BACK, LEFT SIDE.. CURRENT MEDICATIONS TAKING PROAIR HFA 108 (90 BASE) MCG/ACT AEROSOL SOLUTION 2 PUFFS NEEDED INHALATION EVERY 6 HRS PRN COUGH WHEEZE TAKING SYMBICORT 80-4.5 MCG/ACT AEROSOL 2 PUFFS INHALATION TWICE A DAY TAKING VITAMIN D 2000 UNIT TABLET 1 TABLET ORALLY ONCE A DAY TAKING VITAMIN B 12 1000 MCG TABLET 1 TAB(S) ORALLY DAILY TAKING MIRALAX 1 POWDER DIRECTED ORALLY TAKE 17 GRAMS IN 8 OZ FLIUD DAILY FOR CONSTIPATION LARGE BOTTLE TAKING VITAMIN C 500 MG CAPSULE 1 CAPSULE ORALLY ONCE A DAY TAKING DULOXETINE HCL 30 MG CAPSULE DELAYED RELEASE PARTICLES 1 CAPSULE ORALLY DAILY, NOTES: TAKES AT NIGHT TAKING FLONASE 50 MCG/DOSE INHALER 1 SPRAY IN EACH NOSTRIL NASALLY DAILY TAKING CLARITIN 10 MG TABLET 1 TABLET ORALLY ONCE A DAY TAKING PROTONIX 20 MG TABLET DELAYED RELEASE 1 TABLET ORALLY TWO TIMES A DAY PRN SUSANA TAKING CHANTIX STARTING MONTH SERJIO 0.5 MG X 11 & 1 MG X 42 TABLET DIRECTED ORALLY DIRECTED TAKING VARENICLINE TARTRATE 1 MG TABLET 1 TABLET ORALLY TWICE A DAY, NOTES: (THIS IS CHANTIX) TAKING CYCLOBENZAPRINE HCL 10 MG TABLET 1 TABLET NEEDED ORALLY BID TAKING OXYCODONE HCL 15 MG TABLET 1 TABLET ORALLY EVERY 8-12 HOURS PRN PAIN MDD =2 TAKING OXYCONTIN 20 MG TABLET ER 12 HOUR ABUSE-DETERRENT 1 TAB ORALLY BID MDD=2 CHRONIC PAIN NOT-TAKING AMOXICILLIN 875 MG TABLET 1 TABLET ORALLY EVERY 12 HRS NOT-TAKING MACROBID 100 MG CAPSULE 1 CAPSULE WITH FOOD ORALLY EVERY 12 HRS NOT-TAKING CARISOPRODOL 350 MG TABLET 1 TABLET NEEDED ORALLY BEFORE BEDTIME NOT-TAKING TESSALON PERLES 100 MG CAPSULE 1 CAPSULE NEEDED ORALLY Q8HRS PRN COUGH NOT-TAKING AMOXICILLIN 1 TAB ORAL Q 12 H PAST MEDICAL HISTORY GERD 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 . GASTROENTEROLOGY: TO SEE DR ALVES . PSYCHOLOGY: POSITIVE FOR, ANXIETY, HIGH STRESS LEVEL . REVIEWED BY: PROVIDER: DANIELA FATIMA . CONSTITUTIONAL: ANY CHANGE IN YOUR MEDICAL CONDITION? YES, BX DONE ON RIGHT SHOULDER AREA LAST TUESDAY . CHILLS NO . FEVER NO . INFECTION: DO YOU HAVE NEW INFECTIONS? NO . DO YOU HAVE HISTORY OF MRSA? NO . MUSCULOSKELETAL: ANY NEW PATTERNS OF PAIN OR NUMBNESS? NO . GASTROENTEROLOGY: ANY NEW CHANGE IN BOWEL CONTROL? NO . GENITOURINARY: ANY NEW CHANGE IN BLADDER CONTROL? NO . IS THERE A CHANCE YOU COULD BE ? NO . HEMATOLOGY/LYMPH: DO YOU TAKE ANY BLOOD THINNERS? (FOR EXAMPLE- COUMADIN, PLAVIX, AGGRENOX, PLATEL, PRADAXA, OR XARELTO) NO . WHEN WAS YOUR LAST DOSE? DATE: TIME: . NEUROLOGY: HAVE YOU FALLEN IN THE PAST 6 MONTHS? NO . ANY NEW EXTREMITY NUMBNESS OR WEAKNESS? NO . CARDIOLOGY: DO YOU HAVE A PACEMAKER OR DEFIBRILLATOR? NO . RESPIRATORY: HAVE YOU BEEN SICK IN THE PAST WEEK? NO . FEVER NO . FLU LIKE SYMPTOMS? NO . COUGH NO . INTEGUMENTARY: DO YOU HAVE ANY RASHES OR OPEN SORES? NO . ALLERGIC/IMMUNO: ARE YOU ALLERGIC TO SHELLFISH OR IV DYE? NO . ANY NEW ALLERGIES? NO . PSYCHIATRIC: DO YOU HAVE THOUGHTS OF HURTING YOURSELF OR SOMEONE ELSE? NO . ARE YOU ABUSED, NEGLECTED, OR IN AN UNSAFE ENVIRONMENT? NO . ENDOCRINOLOGY: ARE YOU DIABETIC? NO . OTHER: DO YOU NEED ANY PRESCRIPTIONS? YES . IF YES, PLEASE LIST: OXYCODONE , OXYCONTIN . ANY NEW PROBLEMS WITH YOUR MEDICATIONS? NO . WHEN DID YOU LAST EAT? ____ . WHEN DID YOU LAST DRINK? ____ . WHAT DID YOU LAST DRINK? ____ . NAME OF PERSON DRIVING YOU HOME? ____ . DO YOU HAVE ANY OTHER QUESTIONS OR CONCERNS NO . VITAL SIGNS WT 107 LBS, HT 61 IN, BMI 20.22 INDEX, BP 141/63 MM HG, HR 82 /MIN, RR 16 /MIN, TEMP 98.6 F, OXYGEN SAT % 100%, NA INITIALS SC 11:30, REVIEWED BY: NL. EXAMINATION GENERAL EXAMINATION: GENERAL APPEARANCE:COLOR IS PALE, APPEARS FATIGUED. PSYCHALERT , ORIENTED X 3 , APPROPRIATE MOOD AND AFFECT , SLIGHTLY ANXIOUS. LUNGS:CLEAR TO AUSCULTATION BILATERALLY. HEART:HEART RATE REGULAR. MUSCULOSKELETAL:WEAKNESS RIGHT UPPER EXTREMITY DISATALLY AND PROXIMALY, TRIGGER POINTS:, ELICITED WITH PALPATION OVER CERVICAL SPINOUS PROCESSES AND ACROSS THE TRAPEZIUS MUSCLES BILATERALLY. RESTRICTION OF ROM IS NOTED. AUDIBLE CREPITUS WITH ROTATION OF SHOULDERS.. ASSESSMENTS CERVICALGIA - M54.2 (PRIMARY) MYALGIA - M79.1 CHRONIC PRESCRIPTION OPIATE USE - Z79.891 TREATMENT CERVICALGIA REFILL CYCLOBENZAPRINE HCL TABLET, 10 MG, 1 TABLET NEEDED, ORALLY, BID, 30 DAY(S), 60 TABLET, REFILLS 1 REFILL OXYCODONE HCL TABLET, 15 MG, 1 TABLET, ORALLY, EVERY 8-12 HOURS PRN PAIN MDD =2, 30 DAY(S), 60, REFILLS 0 REFILL OXYCONTIN TABLET ER 12 HOUR ABUSE-DETERRENT, 20 MG, 1 TAB, ORALLY, BID MDD=2 CHRONIC PAIN, 30 DAY(S), 60, REFILLS 0 NOTES: UTOX TODAY. CLINICAL NOTES: ISTOP REGISTRY REVIEWED AND DEMNOSTRATES COMPLLIANCE. DOES NO BRINGS IN MEDICATIONS. INSTRUCTED THAT THIS IS REQUIRED. RECENT URINE TOXICOLOGY REVIEWED. NO UNAUTHORIZED MEDICATIONS. NO ILLICIT SUBSTANCES AND PRESCRIBED MEDICATIONS WERE PRESENT. PROCEDURE CODES FA211 ESTABILISHED PATIENT [facility] FACILITY CHARGE G8730 PAIN ASSESS POS TOOL F/U PLAN DOC G8427 DOC MEDS VERIFIED W/PT OR RE DISPOSITION & COMMUNICATION FOLLOW UP FEB 10 (REASON: NECK PAIN) ELECTRONICALLY SIGNED BY HAYLEY GANDARA ON 01/14/2017 AT 07:20 PM EDT DISCLAIMER : THIS IS A VISIT SUMMARY EXTRACTED FROM THE [employer] CHART. IT IS NOT A COPY OF THE [employer] PROGRESS NOTE. [place]
== END ==
LOC: M PAIN 11:30
PROVIDERS: ATTEND Nurse Practitioner Family
DX: G90.59 Complex regional pain syndrome I of other specified site (principal); M54.2 Cervicalgia; M79.1 Myalgia; Z79.891 Long term (current) use of opiate analgesic; K21.9 Gastro-esophageal reflux disease without esophagitis; E04.1 Nontoxic single thyroid nodule; E55.9 Vitamin D deficiency, unspecified; J44.9 Chronic obstructive pulmonary disease, unspecified; M15.0 Primary generalized (osteo)arthritis; Z79.899 Other long term (current) drug therapy; Z88.8 Allergy status to other drugs, medicaments and biological substances

== ENCOUNTER 2017-02-08 09:31 | Outpatient (CLI) | payer MEDICARE ==
[~2017-02-08] VITALS: Ht 162.6 cm; Wt 47.2 kg
[~2017-02-08 09:31] MED LIST changes: -ASPI81TA85 PO; -LEVA1TAB2 PO; -LORA10TA2 PO; -NITR100C2 PO; -OXYC-404 PO; -PHEN-501 PO; -PHEN1SUP6 PR; -TYLE650T35 PO; -VITA100066 PO; -ZOFR4TAB3 PO
[2017-02-08] MEDS ORDERED: NS 1,000 ML IV SCH (09:45)
[2017-02-08] MEDS ORDERED: ASPI81TA85 PO (10:37)
[2017-02-08] MEDS ORDERED: PROPOFOL 200 MG/20 ML VIAL As Ordered ONE (11:00)
[2017-02-08] MEDS ORDERED: LIDOCAINE 2% INJ 100 MG/5 ML SDV (FOR ANES.) As Ordered ONE (11:00)
--- NOTE | 2017-02-08 11:10 | ROOR ---
Patient Name: Adelaide Montoya Procedure Date: 02/08/2017 10:58 AM Date of : 1955 Age: 62 Room: [facility] Gender: Female Note Status: Finalized Procedure: Upper GI endoscopy Indications: Dysphagia, Heartburn Providers: Pipe STEINBERG MD Referring MD: Kody Chacon MD Requesting Provider: Medicines: Monitored Anesthesia Care Complications: No immediate complications. Procedure: Pre-Anesthesia Assessment: - The heart rate, respiratory rate, oxygen saturations, blood pressure, adequacy of pulmonary ventilation, and response to care were monitored throughout the procedure. The Endoscope was introduced through the mouth, and advanced to the third part of duodenum. The upper GI endoscopy was accomplished without difficulty. The patient tolerated the procedure well. Findings: The esophagus was normal. The stomach was normal. The examined duodenum was normal. Impression: - Normal esophagus. - Normal stomach. - Normal examined duodenum. - No specimens collected. Recommendation: - Observe patient's clinical course. - Continue present medications. Pipe Steinberg MD Pipe STEINBERG MD 02/08/2017 11:09:55 AM This report has been signed electronically. Number of Addenda: 0 Note Initiated On: 02/08/2017 10:58 AM Estimated Blood Loss: Estimated blood loss: none.
--- NOTE | 2017-02-08 11:26 | ROOR ---
Patient Name: Adelaide Montoya Procedure Date: 02/08/2017 10:59 AM Date of : 1955 Age: 62 Room: [facility] Gender: Female Note Status: Finalized Procedure: Colonoscopy Indications: Screening for colorectal malignant neoplasm Providers: Pipe STEINBERG MD Referring MD: Kody Chacon MD Requesting Provider: Medicines: Monitored Anesthesia Care Complications: No immediate complications. Procedure: Pre-Anesthesia Assessment: - The heart rate, respiratory rate, oxygen saturations, blood pressure, adequacy of pulmonary ventilation, and response to care were monitored throughout the procedure. The Colonoscope was introduced through the anus and advanced to 8 cm into the ileum. The colonoscopy was performed without difficulty. The patient tolerated the procedure well. The quality of the bowel preparation was good. Findings: The perianal and digital rectal examinations were normal. The terminal ileum appeared normal. The entire examined colon appeared normal on direct and retroflexion views. Impression: - The examined portion of the ileum was normal. - Small internal hemorrhoids. - The entire colon is normal on direct and retroflexion views. - No specimens collected. Recommendation: - Repeat colonoscopy in 10 years for screening purposes. Pipe Steinberg MD Pipe STEINBERG MD 02/08/2017 11:26:45 AM This report has been signed electronically. Number of Addenda: 0 Note Initiated On: 02/08/2017 10:59 AM Estimated Blood Loss: Estimated blood loss: none.
[2017-02-08 11:55] VITALS: BP 124/65
[2017-03-31] MEDS ORDERED: ZOFR4TAB3 PO (03:21)
== END 2017-02-08 11:57 | disposition home or self-care (01) ==
LOC: M OPP 09:31
PROVIDERS: ATTEND Internal Medicine Gastroenterology
DX: Z12.11 Encounter for screening for malignant neoplasm of colon (principal); K64.8 Other hemorrhoids; R13.10 Dysphagia, unspecified; R12 Heartburn; K21.9 Gastro-esophageal reflux disease without esophagitis; R19.4 Change in bowel habit; D64.9 Anemia, unspecified; M19.90 Unspecified osteoarthritis, unspecified site; M54.9 Dorsalgia, unspecified; R51 Headache; R06.02 Shortness of breath; Z95.1 Presence of aortocoronary bypass graft; Z87.442 Personal history of urinary calculi; F17.210 Nicotine dependence, cigarettes, uncomplicated; Z79.899 Other long term (current) drug therapy; Z79.891 Long term (current) use of opiate analgesic; Z79.82 Long term (current) use of aspirin; Z88.1 Allergy status to other antibiotic agents; Z80.0 Family history of malignant neoplasm of digestive organs; Z80.3 Family history of malignant neoplasm of breast
CPT/HCPCS: 43235; G0121

== ENCOUNTER 2017-02-21 19:49 | Inpatient (IN) | payer MEDICARE ==
[~2017-02-21] VITALS: Ht 152.4 cm; Wt 68.2 kg
[~2017-02-21 19:49] MED LIST changes: -LEVA1TAB2 PO; -LORA10TA2 PO; -NITR100C2 PO; -OXYC-404 PO; -PHEN-501 PO; -PHEN1SUP6 PR; -TYLE650T35 PO; -VITA100066 PO; -ZOFR4TAB3 PO
[2017-02-21] MEDS ORDERED: PHEN-501 PO (20:05)
[2017-02-21] MEDS ORDERED: NITR100C2 PO (20:05)
[2017-02-21] MEDS ORDERED: rOPINIRole 0.25 MG TAB(REQUIP) PO SCH (21:00)
[2017-02-21] MEDS: SYMBICORT 80/4.5MCG INHALER 6GM INH SCH (21:00)
[2017-02-21] MEDS ORDERED: NS 1,000 ML IV ONE (21:15)
[2017-02-21] MEDS ORDERED: KETOROLAC 30 MG/ML VIAL (J1885) IV ONE (21:15)
[2017-02-21] MEDS ORDERED: ONDANSETRON 4MG/2ML VIAL (J2405) IV ONE (21:15)
[2017-02-21 21:33] LABS: BASO # 0.1 10^3/uL (0.0-0.2); BASO % 0.4 % (0.0-1.0); EOS # 0.1 10^3/uL (0.0-0.50); EOS % 0.9 % (0.0-3.0); IMMATURE GRANULOCYTE % 0.7 % (0-0); LYMPH # 0.7 10^3/uL (1.5-4.5); LYMPH % 5.8 % (24.0-44.0); MEAN CORPUSCULAR HEMOGLOBIN 30.5 pg (27.0-33.0); MEAN CORPUSCULAR HGB CONC 32.8 g/dl (32.0-36.5); MEAN CORPUSCULAR VOLUME 92.8 fl (80.0-96.0); MONO # 0.4 10^3/uL (0.0-0.8); MONO % 3.7 % (0.0-5.0); NEUTROPHILS # 10.3 10^3/uL (1.8-7.7); NEUTROPHILS % 88.5 % (36.0-66.0); PLATELET COUNT, AUTOMATED 161 10^3/uL (150-450); RED CELL DISTRIBUTION WIDTH 17.3 % (11.5-14.5); WHITE BLOOD COUNT 11.7 10^3/uL (4.0-10.0)
--- NOTE | 2017-02-21 21:50 | REPUSA ---
CT of the abdomen and pelvis without contrast Clinical statement: Pain. Technique: Multiple axial CT images were obtained from the base of the lungs to the floor of the pelv is utilizing 5 mm axial slices without administration of contrast. Coronal and sagittal reconstructio ns were also obtained. Comparison: 11/04/2015. Findings: Chest: The visualized lung bases are clear. Abdomen: The kidneys are normal in size bilaterally. There our several large stones in the right kidn ey. The largest of these measures 1.9 cm in diameter. There is severe right-sided hydronephrosis, cau sed by 2 small stone in the right ureterovesical junction measuring up to 3 mm. The liver, spleen, pa ncreas, gallbladder and adrenal glands are unremarkable. The aorta demonstrates normal caliber and co ntour. There is no abdominal lymphadenopathy or ascites. Pelvis: The bowel is unremarkable, with no obstructive or inflammatory changes. The urinary bladder i s within normal limits. There is no pelvic lymphadenopathy or ascites. The other pelvic structures ap pear unremarkable. Bones: There are no suspicious osseous abnormalities seen. There is mild degenerative disc disease at L4/L5 with a small disc bulge noted. Impression: 1. Severe right-sided hydronephrosis caused by several small stones of the right ureterovesical junct ion. Additionally, there are several large new stones in the right renal pelvis, the largest measurin g 1.9 cm in diameter. 2. The left renal collecting system is unremarkable. 3. No obstructive or inflammatory bowel changes. 4. Mild stable degenerative disc disease at L4/L5 with small disc bulge appreciated.
[2017-02-21 21:59] LABS: ANION GAP 4 MEQ/L (8-16); BLOOD UREA NITROGEN 13 MG/DL (7-18); CALCIUM LEVEL 9.1 MG/DL (8.8-10.2); CARBON DIOXIDE LEVEL 30 MEQ/L (21-32); CHLORIDE LEVEL 105 MEQ/L (98-107); CREATININE FOR GFR 0.69 MG/DL (0.55-1.02); GLOMERULAR FILTRATION RATE > 60.0 (>45); GLUCOSE, FASTING 106 MG/DL (80-110); POTASSIUM SERUM 3.7 MEQ/L (3.5-5.1); SODIUM LEVEL 139 MEQ/L (136-145)
[2017-02-21] MEDS ORDERED: cefTRIAXone SOD 1 GM in D5W 50 ML IV ONE (22:30)
[2017-02-21] MEDS ORDERED: VITA100066 PO (23:36)
[2017-02-21] MEDS ORDERED: OXYC-404 PO (23:36)
[2017-02-21] MEDS ORDERED: LORA10TA2 PO (23:36)
[2017-02-22] VITALS (7 sets, daily range): BP systolic 126–150; BP diastolic 58–72
[2017-02-22] MEDS ORDERED: ONDANSETRON 4MG/2ML VIAL (J2405) IV PRN ×3 (00:15→20:30)
[2017-02-22] MEDS: KCL 20MEQ IN D5/0.45NS 1000ML 1,000 ML IV SCH ×3 (00:22→21:49)
[2017-02-22] MEDS: MORPHINE 4 MG/ML 1ML SYRINGE IV PRN ×4 (00:23→15:33)
[2017-02-22] MEDS: KETOROLAC 30 MG/ML VIAL (J1885) IV SCH ×3 (06:01→22:08)
[2017-02-22 07:02] LABS: MEAN CORPUSCULAR HEMOGLOBIN 30.4 pg (27.0-33.0); MEAN CORPUSCULAR HGB CONC 32.8 g/dl (32.0-36.5); MEAN CORPUSCULAR VOLUME 92.7 fl (80.0-96.0); RED CELL DISTRIBUTION WIDTH 17.2 % (11.5-14.5); WHITE BLOOD COUNT 6.4 10^3/uL (4.0-10.0)
[2017-02-22] MEDS: SYMBICORT 80/4.5MCG INHALER 6GM INH SCH ×2 (07:17→22:58)
[2017-02-22 07:33] LABS: ANION GAP 4 MEQ/L (8-16); BLOOD UREA NITROGEN 8 MG/DL (7-18); CALCIUM LEVEL 8.1 MG/DL (8.8-10.2); CARBON DIOXIDE LEVEL 27 MEQ/L (21-32); CHLORIDE LEVEL 111 MEQ/L (98-107); CREATININE FOR GFR 0.49 MG/DL (0.55-1.02); GLOMERULAR FILTRATION RATE > 60.0 (>45); GLUCOSE, FASTING 110 MG/DL (80-110); POTASSIUM SERUM 3.9 MEQ/L (3.5-5.1); SODIUM LEVEL 142 MEQ/L (136-145)
[2017-02-22] MEDS ORDERED: PANTOPRAZOLE 40MG INJ (PROTONIX) (C9113) IV SCH (09:00)
--- NOTE | 2017-02-22 12:33 | HPE ---
DATE OF ADMISSION: 02/21/2017 CHIEF COMPLAINT: Right flank pain. HISTORY OF PRESENT ILLNESS: This is a 62-year-old female patient that came to the emergency department at [facility] because of right flank pain, some chills and nausea. For this reason, a CT scan of the abdomen and pelvis was done without contrast and showed severe right sided hydronephrosis caused by several small stones of the right ureterovesical junction. Additionally, there are several large stones in the right renal pelvis, the largest measuring 1.9 cm in diameter. They also found the left renal collecting system, which is unremarkable. There is no obstructive or inflammatory bowel changes. There is mild stable degenerative disc disease at L4-L5 with small disc bulges appreciated also on the CT scan. The patient was given IV Rocephin 1 gram and pain medications. Due to her intractable pain, she was admitted to the urology service. ALLERGIES: 1. Known allergy to DOXYCYCLINE. PREVIOUS SURGICAL HISTORY: Thyroid, partial right side. Dorsal column stimulator. Bypass. Esophagogastroduodenoscopy (EGD). Colonoscopy. PAST MEDICAL HISTORY: Negative for glaucoma. Negative for thyroid disease. Negative for hypertension, heart disease, lung disease. Negative for diabetes. She has some history of gastrointestinal (GI) disease with reflux. Negative for liver disease. Negative for kidney disease except for stones. No steroid usage. No neurological disease. Has back problems due to herniations in the back. Negative for genitourinary () or bleeding disorders. She has arthritis, back problems and heart bypass also. FAMILY HISTORY: Family history of heart disease, diabetes, breast and colon cancer. REVIEW OF SYSTEMS: We have reviewed the 12 review of systems. There is no other symptomatology other than the history of present illness. PHYSICAL EXAMINATION: She is awake, oriented times three. Well nourished. Well hydrated. HEENT: Without alterations. LUNGS: Clear to auscultation. Respiratory movements are symmetrical. HEART: Regular rate and rhythm. S1 and S2 normal. No murmurs heard. ABDOMEN: Soft, nontender, nondistended. Right flank pain on percussion on the right side. MUSCULOSKELETAL: No restriction to active and passive movement of the upper and lower extremities. NEUROLOGICAL: Intact. IMPRESSION/PLAN: This is a patient with right flank pain and right hydronephrosis due to distal ureteral stones. The plan will be to admit the patient, treat the pain and give her IV antibiotics. Urine cultures have been sent. The patient will remain nothing by mouth after midnight. If the pain continues we will have to actively put a right ureteral stent in an elective fashion. The patient has agreed on this and we will actively observe how her pain and primary chief complaint evolves. At that moment in time, we will do medical therapy only versus a right double J stent placement.
[2017-02-22] MEDS ORDERED: GENTAMICIN SULF INJ 80MG/2ML VIAL (J1580) As Ordered ONE (18:39)
[2017-02-22] MEDS ORDERED: ONDANSETRON 4MG/2ML VIAL (J2405) As Ordered ONE (19:32)
[2017-02-22] MEDS ORDERED: dexameTHASONE 4 MG/ML 1ML VIAL (J1100) As Ordered ONE ×2 (19:32→19:33)
[2017-02-22] MEDS ORDERED: LIDOCAINE 2% INJ 100 MG/5 ML SDV (FOR ANES.) As Ordered ONE (19:33)
[2017-02-22] MEDS ORDERED: METOCLOPRAMIDE INJ 10MG/2ML VIAL (J2765) As Ordered ONE (19:33)
[2017-02-22] MEDS ORDERED: PROPOFOL 200 MG/20 ML VIAL As Ordered ONE (19:33)
[2017-02-22] MEDS ORDERED: LR 1,000 ML IV SCH (20:30)
[2017-02-22] MEDS ORDERED: PERCOCET 5MG/325MG TAB PO PRN (20:30)
[2017-02-22] MEDS ORDERED: fentaNYL 100 MCG/2 ML INJECTION (J3010) IV PRN (20:30)
[2017-02-22] MEDS ORDERED: METOCLOPRAMIDE INJ 10MG/2ML VIAL (J2765) IV PRN (20:30)
--- NOTE | 2017-02-22 20:41 | REP ---
Retrograde pyelogram: The study is performed by the urologist, Dr. Beltrán. There is a single intraoperative fluoroscopic view demonstrating a right ureteral stent with the proximal and distal pigtails in satisfactory locations. Fluoroscopic exposure time is 3 seconds. Fluoroscopic images performed with last image hold technology and requires no additional radiation. Signed by Rashaad Funes MD 02/22/2017 08:32 P
[2017-02-22] MEDS ORDERED: cefTRIAXone SOD 1 GM in D5W 50 ML IV SCH ×4 (21:00)
[2017-02-22] MEDS: oxyCODONE 5MG TAB PO PRN (21:48)
[2017-02-22] MEDS: ACETAMINOPHEN 650MG ER TAB (TYLENOL ARTHRITIS) PO SCH (22:08)
[2017-02-23 00:45] VITALS: BP 129/72
[2017-02-23] MEDS: ACETAMINOPHEN 650MG ER TAB (TYLENOL ARTHRITIS) PO SCH ×2 (05:37→14:01)
[2017-02-23] MEDS: oxyCODONE 5MG TAB PO PRN ×3 (05:38→15:16)
[2017-02-23] MEDS: KETOROLAC 30 MG/ML VIAL (J1885) IV SCH ×2 (05:38→14:01)
[2017-02-23] MEDS: KCL 20MEQ IN D5/0.45NS 1000ML 1,000 ML IV SCH ×2 (05:39→16:05)
[2017-02-23 06:00] VITALS: BP 121/58
--- NOTE | 2017-02-23 06:49 | RO ---
DATE OF PROCEDURE: 02/21/2017 PREOPERATIVE DIAGNOSIS: Right hydronephrosis, right ureteral stone. POSTOPERATIVE DIAGNOSIS: Right hydronephrosis, right ureteral stone and right renal pelvis stone. SURGERY PERFORMED: Cystoscopy, plus right double J stent placement, #6-Indonesian Raymond Cook. SURGEON: Alejandro Rain MD PRIVACY DIRECTOR: ANESTHESIA: General. FINDINGS: Right renal pelvis stone and right ureteral stone, plus right hydronephrosis. COMPLICATIONS: None. ESTIMATED BLOOD LOSS (EBL): N/A. HISTORY OF PRESENT ILLNESS: 62-year-old female patient with fever, chills, nausea, vomiting and severe pain on the right side due to right hydronephrosis due to a right renal stone and a right ureteral stone. For this reason, she has consented for a cystoscopy, plus right double J stent placement. PROCEDURE DESCRIPTION: In a patient in supine modified low lithotomy position after prepping and draping the area of concern, which included the entire genitalia and abdomen, we started by inserting a 21-Indonesian cystoscope under videoendoscopic guidance with a 30-degree lens. The urethra and bladder neck were totally normal. The bladder had no tumors, no stones, no foreign objects. Both ureteral orifices were seen. We then passed a Pollack catheter, 5-Indonesian up to the right ureteral orifice and through the Pollack catheter we passed a guidewire up to the kidney. We removed the Pollack catheter and loaded a 6-Indonesian Raymond Cook on the right side up to the kidney. Once the stent was in good position, we took the guidewire out. We could see the curl in the kidney and the curl in the bladder. We could see the radiopaque image of the large stone in the right renal pelvis and also a stone about 7-8 mm in the distal right ureter. We then emptied the bladder and took the cystoscope out. PLAN: The patient will pass to recovery and then to the floor. Once she is tolerating a regular diet, ambulating very well and pain is under control, she will be discharged home. She will be following up at [facility] for definite therapy of the right renal stone and right ureteral stone.
[2017-02-23 07:04] LABS: MEAN CORPUSCULAR HEMOGLOBIN 30.2 pg (27.0-33.0); MEAN CORPUSCULAR HGB CONC 32.3 g/dl (32.0-36.5); MEAN CORPUSCULAR VOLUME 93.6 fl (80.0-96.0); RED CELL DISTRIBUTION WIDTH 16.7 % (11.5-14.5); WHITE BLOOD COUNT 3.7 10^3/uL (4.0-10.0)
[2017-02-23 07:28] LABS: ANION GAP 3 MEQ/L (8-16); BLOOD UREA NITROGEN 7 MG/DL (7-18); CALCIUM LEVEL 8.7 MG/DL (8.8-10.2); CARBON DIOXIDE LEVEL 28 MEQ/L (21-32); CHLORIDE LEVEL 109 MEQ/L (98-107); GLOMERULAR FILTRATION RATE > 60.0 (>45); GLUCOSE, FASTING 157 MG/DL (80-110); POTASSIUM SERUM 4.5 MEQ/L (3.5-5.1); SODIUM LEVEL 140 MEQ/L (136-145)
[2017-02-23] MEDS: SYMBICORT 80/4.5MCG INHALER 6GM INH SCH (08:44)
[2017-02-23] MEDS ORDERED: PANTOPRAZOLE 40MG INJ (PROTONIX) (C9113) IV SCH (09:00)
[2017-02-23 10:00] VITALS: BP 152/67
[2017-02-23 14:00] VITALS: BP 140/65
[2017-02-23] MEDS ORDERED: LEVA1TAB2 PO (16:44)
[2017-02-23] MEDS ORDERED: TYLE650T35 PO (16:44)
--- NOTE | 2017-02-23 18:01 | DSES ---
DATE OF ADMISSION: 02/21/2017 DATE OF DISCHARGE: 02/23/2017 ADMISSION DIAGNOSES: 1. Right hydronephrosis. 2. Right ureteral stone. DISCHARGE DIAGNOSES: 1. Right hydronephrosis. 2. Right ureteral stone. SURGERY PERFORMED: Cystoscopy plus right JJ stent. ADMITTING SURGEON: Dr. Alejandro Rain DISCHARGING SURGEON: Dr. Alejandro Rain HISTORY OF PRESENT ILLNESS: This is a 62-year-old female patient who came to the emergency department at [facility] due to severe right flank pain, hydronephrosis, right renal pelvis stone, and also right ureteral stone causing obstruction. Her urine culture came out positive. For this reason she was taken to the operating room (OR) for a cystoscopy plus stent placement that was carried out on 02/22/2017. After this she was admitted. DESCRIPTION OF PROCEDURE: With patient under general anesthesia in supine modified lithotomy position, we actually placed a stent. After this stent procedure, we actually admitted the patient. HOSPITALIZATION COURSE: The patient did very well. By postoperative day #1 she was tolerating a regular diet and ambulating very well. Pain was controlled with oral pain medication. She voided very well. At that moment in time, we decided to discharge her home. Microbiology of the urine culture came back positive for Klebsiella pneumoniae sensitive to Levaquin. For this reason, we will change the ceftriaxone which is given intravenous (IV) to Levaquin 500 mg one tablet by mouth daily for 10 days. She will followup at [facility] in 1 week. At that moment in time, once we clear her out from a urinary tract infection, she will schedule for a right percutaneous nephrolithotripsy to remove the stone in the right renal pelvis and also in the right distal ureteral area. The patient agreed on the plan. We will sent her home with Levaquin 500 mg one tablet by mouth daily for 10 days and Tylenol extended release one tablet by mouth every 8 hours. [facility]
[2017-03-31] MEDS ORDERED: ZOFR4TAB3 PO (03:21)
== END 2017-02-23 17:55 | disposition home or self-care (01) | DRG 694 ==
LOC: M ED 19:49 → M ED INP 22:56 → M MS5PR 23:50
PROVIDERS: ADMIT Urology; ATTEND Urology
PROC: 0T768DZ Dilation of Right Ureter with Intraluminal Device, Via Natural or Artificial Opening Endoscopic (ICD-10-PCS; principal; 2017-02-21)
DX: N13.2 Hydronephrosis with renal and ureteral calculous obstruction (principal); N39.0 Urinary tract infection, site not specified; B96.1 Klebsiella pneumoniae [K. pneumoniae] as the cause of diseases classified elsewhere; Z88.1 Allergy status to other antibiotic agents; Z98.84 Bariatric surgery status; K21.9 Gastro-esophageal reflux disease without esophagitis

== ENCOUNTER → 2017-02-21 | Outpatient (REF) | payer MEDICARE ==
[~2017-02-21] MED LIST changes: +ASPI81TA85 PO; +LEVA1TAB2 PO; +LORA10TA2 PO; +NITR100C2 PO; +OXYC-404 PO; +PHEN-501 PO; +PHEN1SUP6 PR; +TYLE650T35 PO; +VITA100066 PO; +ZOFR4TAB3 PO
== END ==
LOC: M SFHCPLAZ 11:25
PROVIDERS: ATTEND Nurse Practitioner Family
DX: N39.0 Urinary tract infection, site not specified (principal); B96.1 Klebsiella pneumoniae [K. pneumoniae] as the cause of diseases classified elsewhere

== ENCOUNTER → 2017-02-21 | Outpatient (CLI) | payer MEDICARE ==
--- NOTE | 2017-02-21 14:11 | REP ---
KUB: SINGLE VIEW. HISTORY: Kidney calculus. COMPARISON STUDY: August 11, 2015 FINDINGS: There are two large heterogeneously calcific densities projecting over the right kidney. The largest of these measures 2.3 cm in diameter. The smaller measures 1.3 cm. No definite ureteral stone is seen. There is some vascular calcification. No left renal calculi are seen. Psoas margins and flank stripes are intact. No mass or organomegaly is seen. Normal bowel gas pattern. IMPRESSION: Two large intrarenal calculi right kidney measuring up to 2.3 cm. Signed by Micah Wiggins MD 02/21/2017 03:07 P
== END ==
LOC: M RAD 12:33
PROVIDERS: ATTEND Nurse Practitioner Family
DX: N20.0 Calculus of kidney (principal); R31.9 Hematuria, unspecified

== ENCOUNTER → 2017-03-14 | Outpatient (CLI) | payer MEDICARE ==
[~2017-03-14] MED LIST changes: +LEVA1TAB2 PO; +LORA10TA2 PO; +NITR100C2 PO; +OXYC-404 PO; +PHEN-501 PO; +PHEN1SUP6 PR; +TYLE650T35 PO; +VITA100066 PO; +ZOFR4TAB3 PO
== END ==
LOC: M PAIN 10:15
PROVIDERS: ATTEND Nurse Practitioner Family
DX: N20.0 Calculus of kidney (principal); M54.2 Cervicalgia; E55.9 Vitamin D deficiency, unspecified; F17.210 Nicotine dependence, cigarettes, uncomplicated; Z79.899 Other long term (current) drug therapy; Z88.8 Allergy status to other drugs, medicaments and biological substances

== ENCOUNTER 2017-03-31 06:27 | Emergency (ER) | payer MEDICARE ==
[~2017-03-31] VITALS: Ht 154.9 cm; Wt 47.7 kg
[~2017-03-31 06:27] MED LIST changes: -PHEN1SUP6 PR
[2017-03-31 07:44] LABS: BASO % 0.2 % (0.0-1.0); EOS % 0.2 % (0.0-3.0); IMMATURE GRANULOCYTE % 0.4 % (0-0); LYMPH # 0.3 10^3/uL (1.5-4.5); LYMPH % 6.2 % (24.0-44.0); MEAN CORPUSCULAR HEMOGLOBIN 30.3 pg (27.0-33.0); MEAN CORPUSCULAR HGB CONC 33.8 g/dl (32.0-36.5); MEAN CORPUSCULAR VOLUME 89.7 fl (80.0-96.0); MONO # 0.3 10^3/uL (0.0-0.8); NEUTROPHILS # 4.5 10^3/uL (1.8-7.7); PLATELET COUNT, AUTOMATED 124 10^3/uL (150-450); RED CELL DISTRIBUTION WIDTH 16.5 % (11.5-14.5); WHITE BLOOD COUNT 5.2 10^3/uL (4.0-10.0)
[2017-03-31] MEDS ORDERED: METOCLOPRAMIDE INJ 10MG/2ML VIAL (J2765) IV ONE (07:45)
[2017-03-31] MEDS ORDERED: NS 1,000 ML IV ONE (07:45)
[2017-03-31 07:48] LABS: INR 1.09
[2017-03-31 07:59] LABS: ALBUMIN 3.6 GM/DL (3.2-5.2); ALBUMIN/GLOBULIN RATIO 1.06 (1.00-1.93); ALKALINE PHOSPHATASE 48 U/L (45-117); ALT/SGPT 13 U/L (12-78); ANION GAP 6 MEQ/L (8-16); AST/SGOT 13 U/L (7-37); BILIRUBIN,DIRECT 0.4 MG/DL (0.0-0.2); BILIRUBIN,TOTAL 1.8 MG/DL (0.2-1.0); BLOOD UREA NITROGEN 6 MG/DL (7-18); CALCIUM LEVEL 8.8 MG/DL (8.8-10.2); CARBON DIOXIDE LEVEL 26 MEQ/L (21-32); CHLORIDE LEVEL 105 MEQ/L (98-107); CREATININE FOR GFR 0.46 MG/DL (0.55-1.02); GLOMERULAR FILTRATION RATE > 60.0 (>45); GLUCOSE, FASTING 137 MG/DL (80-110); POTASSIUM SERUM 3.2 MEQ/L (3.5-5.1); SODIUM LEVEL 137 MEQ/L (136-145)
[2017-03-31] MEDS ORDERED: ISOVUE-370 76% 100ML VIAL (Q9967) As Ordered ONE (08:20)
--- NOTE | 2017-03-31 08:29 | REP ---
Acute abdominal series three views including PA chest and supine upright abdomen: Compares are the supine abdomen dated 06/2016.and comparison CT of the abdomen/ pelvis dated 02/21/2017. PA chest: The lung de la o are clear. Cardiac size is normal. The jayashree, mediastinum, and bony thorax are unremarkable. There is no free subdiaphragmatic air. Impression: Negative PA chest. Supine upright abdomen: On the comparison study there were large calcifications in the abdomen on the right. By CT these were renal calculi. These are no longer present on the current study. The bowel gas pattern is normal. Skeletal structures and soft tissues are otherwise unremarkable. Impression: The previous calcifications in the abdomen on the right are no longer present. Signed by Rashaad Funes MD 03/31/2017 08:21 A
[2017-03-31] MEDS ORDERED: POTASSIUM CHLORIDE 10 MEQ SR TABLET PO ONE (09:15)
[2017-03-31] MEDS ORDERED: ONDANSETRON 4MG/2ML VIAL (J2405) IV ONE (09:15)
[2017-03-31] MEDS ORDERED: PHEN1SUP6 PR (09:56)
[2017-03-31] MEDS ORDERED: SODIUM CHLORIDE 0.9% 1000 ML IV ONE (10:00)
--- NOTE | 2017-03-31 10:02 | REP ---
CT ABDOMEN AND PELVIS WITH IV BUT WITHOUT ORAL CONTRAST: HISTORY: Abdomen pain. Two days status post open kidney stone removal. COMPARISON: CT study, February 21, 2017. FINDINGS: Digital preliminary medical device radiograph is unremarkable. There is minimal linear platelike atelectasis in the lower lobes of the lungs. Lung bases are otherwise clear. The liver and the spleen are homogeneous in texture. The spleen is at the upper range of normal in size 12.0 cm. No pancreatic abnormality is seen. The gallbladder is unremarkable. No adrenal lesion is observed. Left kidney is unremarkable and enhances normally. The right kidney shows mild swelling. There is a surgical cleft-like defect in the posterior-inferior cortex of the left kidney. There is some corresponding edema in a linear fashion through the right flank soft tissues overlying this. There is minimal hydronephrosis of the right kidney; however, this is improved from February 21, 2017. The stones have been removed. Today's study does show mild thickening and contrast enhancement in the wall of the renal pelvis and intrarenal collecting system as well as in the wall of the proximal ureter consistent with pyeloureteritis, likely postoperative inflammation. No perirenal hematoma or fluid collection is seen. No retroperitoneal mass or adenopathy is seen. Small and large intestinal bowel loops are unremarkable. There is some post instrumentation air in the urinary bladder. IMPRESSION: Postsurgical changes including a small wedge-shaped defect in the parenchyma of the lower pole of the right kidney status post right nephrolithotomy. Improved right-sided hydronephrosis. Right-sided pyeloureteritis pattern with contrast enhancement and thickening of the collecting system wall on the right side. Question postoperative inflammation . No perirenal or retroperitoneal hematoma or abnormal fluid collection. Signed by Micah Wiggins MD 03/31/2017 05:20 P
[2017-03-31 10:11] VITALS: BP 143/73
--- NOTE | 2017-04-01 12:26 | ECGEPIP ---
Stationary ECG Study [facility] - ED Test Date: 2017-03-31 Pat Name: ZANDER DUTTA Department: Room: - Gender: F Section Hand Helper: YAZMIN : 1955 Requested By: Rosy Fisher Order Number: [id number] Reading MD: Rosy Fisher Measurements Intervals [place] Rate: 71 P: 77 HI: 184 QRS: -24 QRSD: 87 T: 48 QT: 368 QTc: 401 Interpretive Statements SINUS RHYTHM WITH SINUS ARRHYTHMIA BORDERLINE LEFT AXIS DEVIATION DELAYED R PROGRESSION NO PRIOR FOR COMPARISON Electronically Signed On 04-01-2017 12:26:27 EST by Rosy Fisher
== END 2017-03-31 10:14 | disposition home or self-care (01) ==
LOC: M ED 06:27
DX: R11.2 Nausea with vomiting, unspecified (principal); J44.9 Chronic obstructive pulmonary disease, unspecified; K21.9 Gastro-esophageal reflux disease without esophagitis; G90.50 Complex regional pain syndrome I, unspecified; E07.9 Disorder of thyroid, unspecified; F17.210 Nicotine dependence, cigarettes, uncomplicated; Z79.51 Long term (current) use of inhaled steroids; Z79.899 Other long term (current) drug therapy; Z88.1 Allergy status to other antibiotic agents; Z95.1 Presence of aortocoronary bypass graft; Z98.890 Other specified postprocedural states; Z96.9 Presence of functional implant, unspecified; Z83.3 Family history of diabetes mellitus
CPT/HCPCS: 36415; 74022; 74177; 80048; 80076; 81001; 83690; 85025; 85610; 87040; 87086; 93005; 96374; 96375; 99282; 99284; J2405; J2765; Q9967

== ENCOUNTER → 2017-04-08 | Outpatient (REF) | payer MEDICARE ==
[~2017-04-08] MED LIST changes: +PHEN1SUP6 PR
[2017-04-08 16:15] LABS: BASO % 0.7 % (0.0-1.0); EOS # 0.1 10^3/uL (0.0-0.50); EOS % 1.4 % (0.0-3.0); IMMATURE GRANULOCYTE % 0.9 % (0-0); LYMPH % 16.8 % (24.0-44.0); MEAN CORPUSCULAR HEMOGLOBIN 30.9 pg (27.0-33.0); MEAN CORPUSCULAR HGB CONC 32.5 g/dl (32.0-36.5); MONO # 0.4 10^3/uL (0.0-0.8); MONO % 6.3 % (0.0-5.0); NEUTROPHILS # 4.2 10^3/uL (1.8-7.7); NEUTROPHILS % 73.9 % (36.0-66.0); PLATELET COUNT, AUTOMATED 212 10^3/uL (150-450); RED CELL DISTRIBUTION WIDTH 17.2 % (11.5-14.5); RETIC HEMOGLOBIN EQUIVALENT 31.9 pg (24-36); RETICULOCYTE % 3.1 % (0.5-1.5); WHITE BLOOD COUNT 5.7 10^3/uL (4.0-10.0)
[2017-04-08 16:33] LABS: ALBUMIN/GLOBULIN RATIO 1.48 (1.00-1.93); ALKALINE PHOSPHATASE 54 U/L (45-117); ALT/SGPT 16 U/L (12-78); ANION GAP 7 MEQ/L (8-16); AST/SGOT 12 U/L (7-37); BILIRUBIN,TOTAL 1.4 MG/DL (0.2-1.0); BLOOD UREA NITROGEN 9 MG/DL (7-18); CALCIUM LEVEL 8.8 MG/DL (8.8-10.2); CARBON DIOXIDE LEVEL 29 MEQ/L (21-32); CHLORIDE LEVEL 104 MEQ/L (98-107); CHOLESTEROL LEVEL 126 MG/DL (<200); CREATININE FOR GFR 0.61 MG/DL (0.55-1.02); FERRITIN 506 NG/ML (8-252); FREE T4 1.07 NG/DL (0.76-1.46); GLOMERULAR FILTRATION RATE > 60.0 (>45); GLUCOSE, FASTING 89 MG/DL (80-110); PERCENT SATURATION 44.1 % (13.2-45.0); SODIUM LEVEL 140 MEQ/L (136-145); TOTAL IRON BINDING CAPACITY 202 UG/DL (250-450); TOTAL PROTEIN 6.7 GM/DL (6.4-8.2); TRIGLYCERIDES LEVEL 79 MG/DL (<150)
[2017-04-08 16:35] LABS: VITAMIN B12 LEVEL 1788 PG/ML (247-911)
[2017-04-12 13:43] LABS: ALBUMIN % 62.7 % (55.8-66.1); GAMMA GLOBULIN % 12.5 % (11.1-18.8)
[2017-04-13 01:08] LABS: FREE KAPPA LIGHT CHAINS SERUM 28.4 mg/L (3.3-19.4); FREE LAMBDA LIGHT CHAINS SERUM 27.2 mg/L (5.7-26.3); KAPPA/LAMBDA RATIO SERUM 1.04 (0.26-1.65)
== END ==
LOC: M SFHCPLAZ 11:03
PROVIDERS: ATTEND Family Medicine
DX: D61.818 Other pancytopenia (principal); I65.23 Occlusion and stenosis of bilateral carotid arteries; J44.9 Chronic obstructive pulmonary disease, unspecified; F17.291 Nicotine dependence, other tobacco product, in remission; N20.0 Calculus of kidney; K21.9 Gastro-esophageal reflux disease without esophagitis; R16.1 Splenomegaly, not elsewhere classified; F43.23 Adjustment disorder with mixed anxiety and depressed mood; Z23 Encounter for immunization; Z79.891 Long term (current) use of opiate analgesic; Z79.899 Other long term (current) drug therapy
CPT/HCPCS: 80053; 80061; 82607; 82728; 82746; 83550; 83883; 84165; 84439; 84443; 85025; 85046; 99406; G0463

== ENCOUNTER → 2017-04-12 | Outpatient (REF) | payer MEDICARE | LOC: M SMT 13:06 | PROVIDERS: ATTEND Nurse Practitioner Women's Health | DX: N20.0 Calculus of kidney (principal) | CPT/HCPCS: 81001; 87086; G0463 ==

== ENCOUNTER → 2017-04-21 | Outpatient (CLI) | payer MEDICARE | LOC: M PAIN 10:15 | PROVIDERS: ATTEND Nurse Practitioner Family | DX: M54.2 Cervicalgia (principal); Z79.891 Long term (current) use of opiate analgesic; Z79.899 Other long term (current) drug therapy; Z79.82 Long term (current) use of aspirin; Z79.2 Long term (current) use of antibiotics; R10.9 Unspecified abdominal pain; F17.210 Nicotine dependence, cigarettes, uncomplicated; Z88.8 Allergy status to other drugs, medicaments and biological substances ==

== ENCOUNTER → 2017-05-09 | Outpatient (CLI) | payer MEDICARE ==
[2017-05-09 08:32] LABS: MEAN CORPUSCULAR HEMOGLOBIN 30.7 pg (27.0-33.0); MEAN CORPUSCULAR HGB CONC 32.8 g/dl (32.0-36.5); MEAN CORPUSCULAR VOLUME 93.6 fl (80.0-96.0); PLATELET COUNT, AUTOMATED 148 10^3/uL (150-450); RED CELL DISTRIBUTION WIDTH 17.9 % (11.5-14.5); WHITE BLOOD COUNT 4.3 10^3/uL (4.0-10.0)
[2017-05-09 08:52] LABS: ANION GAP 7 MEQ/L (8-16); BLOOD UREA NITROGEN 10 MG/DL (7-18); CALCIUM LEVEL 8.3 MG/DL (8.8-10.2); CARBON DIOXIDE LEVEL 27 MEQ/L (21-32); CHLORIDE LEVEL 111 MEQ/L (98-107); CREATININE FOR GFR 0.62 MG/DL (0.55-1.02); GLOMERULAR FILTRATION RATE > 60.0 (>45); GLUCOSE, FASTING 90 MG/DL (80-110); POTASSIUM SERUM 3.5 MEQ/L (3.5-5.1); SODIUM LEVEL 145 MEQ/L (136-145)
== END ==
LOC: M LAB 08:07
DX: H81.01 Meniere's disease, right ear (principal); D64.9 Anemia, unspecified
CPT/HCPCS: 80048

== ENCOUNTER → 2017-05-18 | Outpatient (CLI) | payer MEDICARE ==
[~2017-05-18] MED LIST changes: +PROHANCE 279.3MG/ML 5ML VIAL (A9576) As Ordered ONE
--- NOTE | 2017-05-18 17:34 | REP ---
MR BRAIN WITHOUT CONTRAST: HISTORY: Meniere's disease. CONTRAST: ProHance 10 mL. Areas of increased signal intensity on T2 weighted images are present in the periventricular and subcortical white matter. This represents small vessel ischemic disease. There is no intraparenchymal hemorrhage, infarct mass, or midline shift. There is no abnormal enhancement. The ventricular system is normal in appearance. There is no extracerebral collection. There is no cerebellopontine angle mass. The inner ear structures are normal in appearance. The mastoid air cells and visualized sinuses are clear. IMPRESSION: Small vessel ischemic disease. Signed by Lizandro Fischer MD 05/18/2017 05:35 P
== END ==
LOC: M RAD 15:17
PROVIDERS: ATTEND Family Medicine
DX: H81.01 Meniere's disease, right ear (principal); I67.82 Cerebral ischemia
CPT/HCPCS: 70553; A9576

== ENCOUNTER → 2017-06-13 | Outpatient (CLI) | payer MEDICARE | LOC: M RAD 09:51 | DX: I65.23 Occlusion and stenosis of bilateral carotid arteries (principal); S45.101A Unspecified injury of brachial artery, right side, initial encounter; Y93.9 Activity, unspecified; Y92.9 Unspecified place or not applicable | CPT/HCPCS: 93880 ==

== ENCOUNTER → 2017-06-14 | Outpatient (CLI) | payer MEDICARE | LOC: M PAIN 13:30 | DX: M54.2 Cervicalgia (principal); K21.9 Gastro-esophageal reflux disease without esophagitis; E55.9 Vitamin D deficiency, unspecified; J44.9 Chronic obstructive pulmonary disease, unspecified; F17.210 Nicotine dependence, cigarettes, uncomplicated; Z79.82 Long term (current) use of aspirin; Z79.891 Long term (current) use of opiate analgesic; Z79.899 Other long term (current) drug therapy; Z88.8 Allergy status to other drugs, medicaments and biological substances | CPT/HCPCS: G0463 ==

== ENCOUNTER → 2017-06-16 | Outpatient (REF) | payer MEDICARE ==
[2017-06-16 17:47] LABS: TOTAL PROTEIN 6.4 GM/DL (6.4-8.2)
[2017-06-16 17:49] LABS: FOLATE 12.8 NG/ML; VITAMIN B12 LEVEL 1266 PG/ML
[2017-06-16 17:55] LABS: FERRITIN 409 NG/ML (8-252); IRON (FE) 51 UG/DL (50-170); PERCENT SATURATION 23.5 % (13.2-45.0); TOTAL IRON BINDING CAPACITY 217 UG/DL (250-450)
[2017-06-16 20:33] LABS: REASON FOR REVIEW COMPREHENSIVE REVIEW; SLIDE REVIEW Report; SOURCE PERIPHERAL SMEAR
[2017-06-18 08:06] LABS: HAPTOGLOBIN < 10 mg/dL (34-200)
[2017-06-21 11:00] LABS: ALBUMIN 4.22 GM/DL (3.29-5.55); ALBUMIN % 65.9 % (55.8-66.1); ALPHA-1-GLOBULIN % 4.9 % (2.9-4.9); ALPHA-1-GLOBULINS 0.31 GM/DL (0.17-0.41); ALPHA-2-GLOBULINS 0.51 GM/DL (0.42-0.99); ALPHA-2-GLOBULINS % 7.9 % (7.1-11.8); BETA-1-GLOBULINS 0.34 GM/DL (0.28-0.60); BETA-1-GLOBULINS % 5.3 % (4.7-7.2); BETA-2-GLOBULINS % 3.9 % (3.2-6.5); GAMMA GLOBULIN % 12.1 % (11.1-18.8)
[2017-06-21 11:01] LABS: BETA-2-GLOBULINS 0.25 GM/DL (0.19-0.55); GAMMA GLOBULINS 0.77 GM/DL (0.65-1.58)
== END ==
LOC: M LAB REF 16:42
DX: D64.9 Anemia, unspecified (principal)
CPT/HCPCS: 82746

== ENCOUNTER → 2017-06-27 | Outpatient (REF) | payer MEDICARE | LOC: M LAB REF 12:56 | DX: D64.9 Anemia, unspecified (principal) | CPT/HCPCS: 88300 ==

== ENCOUNTER → 2017-07-11 | Outpatient (REF) | payer MEDICARE ==
[2017-07-13 14:14] LABS: ANTINUCLEAR ANTIBODIES DIRECT Negative (Negative)
== END ==
LOC: M LAB REF 18:10
DX: D64.9 Anemia, unspecified (principal)
CPT/HCPCS: 86038

== ENCOUNTER → 2017-07-15 | Outpatient (CLI) | payer MEDICARE | LOC: M PAIN 13:30 | DX: G89.29 Other chronic pain (principal); M54.2 Cervicalgia; K21.9 Gastro-esophageal reflux disease without esophagitis; E04.1 Nontoxic single thyroid nodule; E55.9 Vitamin D deficiency, unspecified; G43.909 Migraine, unspecified, not intractable, without status migrainosus; J44.9 Chronic obstructive pulmonary disease, unspecified; F17.210 Nicotine dependence, cigarettes, uncomplicated; I65.23 Occlusion and stenosis of bilateral carotid arteries; M15.0 Primary generalized (osteo)arthritis; D64.9 Anemia, unspecified; Z86.718 Personal history of other venous thrombosis and embolism; Z79.891 Long term (current) use of opiate analgesic; Z87.442 Personal history of urinary calculi; Z79.82 Long term (current) use of aspirin; Z79.899 Other long term (current) drug therapy; Z88.8 Allergy status to other drugs, medicaments and biological substances | CPT/HCPCS: G0463 ==

== ENCOUNTER → 2017-07-18 | Outpatient (CLI) | payer MEDICARE | LOC: M SMT 13:12 | DX: N20.0 Calculus of kidney (principal) | CPT/HCPCS: 74018 ==

== ENCOUNTER → 2017-07-26 | Outpatient (REF) | payer MEDICARE ==
[2017-07-26 14:31] LABS: FERRITIN 502 NG/ML (8-252); IRON (FE) 73 UG/DL (50-170); PERCENT SATURATION 32.3 % (13.2-45.0); TOTAL IRON BINDING CAPACITY 226 UG/DL (250-450)
[2017-07-27 14:15] LABS: ANTI DOUBLE STRAND-DNA AB 1 IU/mL (0-9)
== END ==
LOC: M LAB REF 12:44
DX: D64.9 Anemia, unspecified (principal)
CPT/HCPCS: 83550

== ENCOUNTER → 2017-08-12 | Outpatient (CLI) | payer MEDICARE | LOC: M PAIN 10:15 | DX: M54.2 Cervicalgia (principal); K21.9 Gastro-esophageal reflux disease without esophagitis; E55.9 Vitamin D deficiency, unspecified; G43.909 Migraine, unspecified, not intractable, without status migrainosus; J44.9 Chronic obstructive pulmonary disease, unspecified; M16.10 Unilateral primary osteoarthritis, unspecified hip; M19.049 Primary osteoarthritis, unspecified hand; R76.0 Raised antibody titer; I65.23 Occlusion and stenosis of bilateral carotid arteries; F17.210 Nicotine dependence, cigarettes, uncomplicated; Z79.891 Long term (current) use of opiate analgesic; Z79.82 Long term (current) use of aspirin; Z79.899 Other long term (current) drug therapy; Z88.8 Allergy status to other drugs, medicaments and biological substances | CPT/HCPCS: G0463 ==

== ENCOUNTER → 2017-08-25 | Outpatient (REF) | payer MEDICARE ==
[2017-08-25 14:28] LABS: LDH LACTATE DEHYDROGENASE 219 U/L (84-246)
[2017-08-26 08:06] LABS: HAPTOGLOBIN < 10 mg/dL (34-200)
== END ==
LOC: M LAB REF 13:26
DX: D64.9 Anemia, unspecified (principal)
CPT/HCPCS: 83010

== ENCOUNTER → 2017-09-07 | Outpatient (REF) | payer MEDICARE ==
[2017-09-09 08:11] LABS: G6PD2 3.62 x10E6/uL (3.77-5.28); G6PD3 350 (146-376)
== END ==
LOC: M LAB REF 13:03
DX: D59.9 Acquired hemolytic anemia, unspecified (principal)
CPT/HCPCS: 82955

== ENCOUNTER → 2017-09-12 | Outpatient (CLI) | payer MEDICARE | LOC: M PAIN 09:45 | DX: M79.1 Myalgia (principal); G90.59 Complex regional pain syndrome I of other specified site; M54.2 Cervicalgia; K21.9 Gastro-esophageal reflux disease without esophagitis; E55.9 Vitamin D deficiency, unspecified; G43.909 Migraine, unspecified, not intractable, without status migrainosus; F44.9 Dissociative and conversion disorder, unspecified; F17.200 Nicotine dependence, unspecified, uncomplicated; M19.90 Unspecified osteoarthritis, unspecified site; D68.62 Lupus anticoagulant syndrome; I65.23 Occlusion and stenosis of bilateral carotid arteries; Z79.82 Long term (current) use of aspirin; Z79.891 Long term (current) use of opiate analgesic; Z79.899 Other long term (current) drug therapy; Z88.8 Allergy status to other drugs, medicaments and biological substances; Z86.718 Personal history of other venous thrombosis and embolism | CPT/HCPCS: G0463 ==

== ENCOUNTER → 2017-10-11 | Outpatient (CLI) | payer MEDICARE ==
[~2017-10-11] MED LIST changes: -/CELE20CA PO; -AFRI0.052; -AMIT25TA10 PO; -ASPI81TA85 PO; +BUPIVACAINE HCL 0.25% 30 ML VIAL As Ordered; -CELE1CAP4 PO; -CYCL10TA PO; -CYMB1CAP5 PO; -FLON0.054; -FLON50SP; +ISOVUE-M 300 61% 15ML VIAL (Q9967) As Ordered; -LEVA1TAB2 PO; +LIDOCAINE 1% SDV INJ 30 ML VIAL As Ordered; -LORA10TA2 PO; -NEUR300C PO; -NITR100C2 PO; -OXYC-141 PO; -OXYC-404 PO; -OXYC15TA76 PO; -OXYC20TA8 PO; -PANT20TA PO; -PHEN-501 PO; -PHEN1SUP6 PR; -POTA75TA PO; -PROHANCE 279.3MG/ML 5ML VIAL (A9576) As Ordered ONE; -REQU1TAB15 PO; -SOMA350T PO; -SYMB80INH INH; +TRIAMCINOLONE ACETONIDE SUSP 40 MG/ML VIAL (J3301) As Ordered; -TYLE650T35 PO; -VITA100066 PO; -VITA100072 PO; -VITA500T88 PO; -ZOFR4TAB3 PO; -amoxicillin PO; -combination cream TOP; -vitaminD PO
== END ==
LOC: M PAIN 08:30
DX: Z53.8 Procedure and treatment not carried out for other reasons (principal)

== ENCOUNTER → 2017-10-28 | Outpatient (REF) | payer MEDICARE ==
[2017-10-28 13:21] LABS: COLLAGEN EPINEPHRINE 110 SECONDS (74-162)
== END ==
LOC: M LAB REF 12:46
DX: D64.9 Anemia, unspecified (principal)
CPT/HCPCS: 85576

== ENCOUNTER → 2017-11-01 | Outpatient (CLI) | payer MEDICARE ==
[~2017-11-01] MED LIST changes: +MIDAZOLAM INJ 2 MG/2 ML VIAL (J2250) As Ordered; +ONDANSETRON 4 MG ORAL DISINTEGRATING TAB (Q0162 PER 1MG) As Ordered; +fentaNYL 100 MCG/2 ML INJECTION (J3010) As Ordered
== END ==
LOC: M PAIN 14:00
DX: G89.29 Other chronic pain (principal); M47.812 Spondylosis without myelopathy or radiculopathy, cervical region; K21.9 Gastro-esophageal reflux disease without esophagitis; E04.1 Nontoxic single thyroid nodule; E55.9 Vitamin D deficiency, unspecified; G43.909 Migraine, unspecified, not intractable, without status migrainosus; D58.9 Hereditary hemolytic anemia, unspecified; J44.9 Chronic obstructive pulmonary disease, unspecified; F17.210 Nicotine dependence, cigarettes, uncomplicated; D68.62 Lupus anticoagulant syndrome; M15.0 Primary generalized (osteo)arthritis; R91.8 Other nonspecific abnormal finding of lung field; I65.23 Occlusion and stenosis of bilateral carotid arteries; Z79.899 Other long term (current) drug therapy; Z79.891 Long term (current) use of opiate analgesic; Z79.52 Long term (current) use of systemic steroids; Z86.718 Personal history of other venous thrombosis and embolism; Z88.8 Allergy status to other drugs, medicaments and biological substances
CPT/HCPCS: J3301

== ENCOUNTER → 2017-11-10 | Outpatient (REF) | payer MEDICARE | LOC: M SFHCLERA 09:03 | DX: D23.5 Other benign neoplasm of skin of trunk (principal) | CPT/HCPCS: 88305 ==

== ENCOUNTER → 2017-12-01 | Outpatient (CLI) | payer MEDICARE ==
[2017-12-01 19:40] LABS: APPEARANCE, URINE CLEAR (CLEAR); BACTERIA, URINE AUTO NEGATIVE (NEGATIVE); BILIRUBIN, URINE AUTO NEGATIVE (NEGATIVE); BLOOD, URINE BLOOD 1+ (NEGATIVE); COLOR, URINE STRAW (YELLOW); GLUCOSE, URINE (UA) AUTO NEGATIVE (NEGATIVE); KETONE, URINE AUTO NEGATIVE (NEGATIVE); LEUKOCYTE ESTERASE, URINE AUTO NEGATIVE (NEGATIVE); NITRITE, URINE AUTO NEGATIVE (NEGATIVE); PROTEIN, URINE AUTO NEGATIVE (NEGATIVE); RBC, URINE AUTO 0 /HPF (0-3); SPECIFIC GRAVITY URINE AUTO 1.003 (1.002-1.035); SQUAMOUS EPITHELIAL CELL UR AU 0 /HPF (0-6); UROBILINOGEN, URINE AUTO 0.2 mg/dL (0.0-2.0); WBC, URINE AUTO 0 /HPF (0-3)
== END ==
LOC: M SMT 13:26
DX: R35.0 Frequency of micturition (principal); N20.0 Calculus of kidney
CPT/HCPCS: 81001

== ENCOUNTER → 2017-12-08 | Outpatient (CLI) | payer MEDICARE | LOC: M RAD 13:00 | DX: M54.9 Dorsalgia, unspecified (principal); N20.0 Calculus of kidney; I70.0 Atherosclerosis of aorta | CPT/HCPCS: 74176 ==

== ENCOUNTER → 2017-12-22 | Outpatient (CLI) | payer MEDICARE | LOC: M RAD 06:45 | DX: R10.13 Epigastric pain (principal); K82.8 Other specified diseases of gallbladder | CPT/HCPCS: 76705 ==

== ENCOUNTER → 2017-12-23 | Outpatient (REF) | payer MEDICARE ==
[2017-12-23 14:22] LABS: ERYTHROCYTE SEDIMENTATION RATE 29 mm/hr (0-30)
[2017-12-23 14:23] LABS: FERRITIN 378 NG/ML (8-252); IRON (FE) 52 UG/DL (50-170); PERCENT SATURATION 23.1 % (13.2-45.0); TOTAL IRON BINDING CAPACITY 225 UG/DL (250-450)
== END ==
LOC: M LAB REF 13:52
DX: D59.9 Acquired hemolytic anemia, unspecified (principal)
CPT/HCPCS: 83550

== ENCOUNTER → 2017-12-29 | Outpatient (CLI) | payer MEDICARE ==
[~2017-12-29] MED LIST changes: -BUPIVACAINE HCL 0.25% 30 ML VIAL As Ordered; +E-Z-GAS II EFFERVESCENT PACKET (SODIUM BICARB./CITRIC ACID/SIMETHICONE) As Ordered; +E-Z-HD 98% w/w 340GM SUSP BTL As Ordered; +E-Z-PAQUE 96% w/w SUSP 176GM BTL As Ordered; -ISOVUE-M 300 61% 15ML VIAL (Q9967) As Ordered; -LIDOCAINE 1% SDV INJ 30 ML VIAL As Ordered; -MIDAZOLAM INJ 2 MG/2 ML VIAL (J2250) As Ordered; -ONDANSETRON 4 MG ORAL DISINTEGRATING TAB (Q0162 PER 1MG) As Ordered; -TRIAMCINOLONE ACETONIDE SUSP 40 MG/ML VIAL (J3301) As Ordered; -fentaNYL 100 MCG/2 ML INJECTION (J3010) As Ordered
== END ==
LOC: M RAD 09:58
DX: M25.78 Osteophyte, vertebrae (principal); K21.9 Gastro-esophageal reflux disease without esophagitis
CPT/HCPCS: 74220

== ENCOUNTER → 2018-01-10 | Outpatient (CLI) | payer MEDICARE | LOC: M PAIN 08:45 | DX: M47.812 Spondylosis without myelopathy or radiculopathy, cervical region (principal); M79.1 Myalgia; E55.9 Vitamin D deficiency, unspecified; G43.909 Migraine, unspecified, not intractable, without status migrainosus; J44.9 Chronic obstructive pulmonary disease, unspecified; M15.0 Primary generalized (osteo)arthritis; R76.0 Raised antibody titer; D63.8 Anemia in other chronic diseases classified elsewhere; F17.210 Nicotine dependence, cigarettes, uncomplicated; Z79.52 Long term (current) use of systemic steroids; Z79.891 Long term (current) use of opiate analgesic; Z79.899 Other long term (current) drug therapy; Z88.8 Allergy status to other drugs, medicaments and biological substances | CPT/HCPCS: G0463 ==

== ENCOUNTER → 2018-01-18 | Outpatient (REF) | payer MEDICARE ==
[2018-01-18 15:07] LABS: FERRITIN 307 NG/ML (8-252); IRON (FE) 74 UG/DL (50-170); PERCENT SATURATION 31.9 % (13.2-45.0); TOTAL IRON BINDING CAPACITY 232 UG/DL (250-450)
[2018-01-21 00:07] LABS: HAPTOGLOBIN < 10 mg/dL (34-200); HEMOGLOBIN A 96.2 % (96.4-98.8); HEMOGLOBIN A2 2.6 % (1.8-3.2); HEMOGLOBIN F (FETAL) 1.2 % (0.0-2.0); HGB SOLUBILITY Negative (Negative)
== END ==
LOC: M LAB REF 13:30
DX: F64.9 Gender identity disorder, unspecified (principal); D59.9 Acquired hemolytic anemia, unspecified; J30.9 Allergic rhinitis, unspecified; Z79.899 Other long term (current) drug therapy
CPT/HCPCS: 83010

== ENCOUNTER 2018-01-20 07:52 | Day surgery (SDC) | payer MEDICARE ==
[2018-01-20] MEDS: NS 1,000 ML IV (08:32)
[2018-01-20] MEDS ORDERED: METOCLOPRAMIDE INJ 10MG/2ML VIAL (J2765) As Ordered (09:21)
[2018-01-20] MEDS ORDERED: ONDANSETRON 4MG/2ML VIAL (J2405) As Ordered (09:21)
[2018-01-20] MEDS ORDERED: LIDOCAINE 2% INJ 100 MG/5 ML SDV (FOR ANES.) As Ordered (09:21)
[2018-01-20] MEDS ORDERED: PROPOFOL 500 MG/50 ML VIAL As Ordered (09:21)
[2018-01-20] MEDS ORDERED: fentaNYL 100 MCG/2 ML INJECTION (J3010) As Ordered (09:21)
== END 2018-01-20 10:00 | disposition home or self-care (01) ==
LOC: M OPP 07:52
DX: R13.12 Dysphagia, oropharyngeal phase (principal); K22.8 Other specified diseases of esophagus; E04.1 Nontoxic single thyroid nodule; R10.13 Epigastric pain; K21.9 Gastro-esophageal reflux disease without esophagitis; R12 Heartburn; D58.9 Hereditary hemolytic anemia, unspecified; M19.90 Unspecified osteoarthritis, unspecified site; G90.50 Complex regional pain syndrome I, unspecified; M32.9 Systemic lupus erythematosus, unspecified; F41.9 Anxiety disorder, unspecified; R51 Headache; J44.9 Chronic obstructive pulmonary disease, unspecified; R06.02 Shortness of breath; Z87.442 Personal history of urinary calculi; R39.15 Urgency of urination; J01.90 Acute sinusitis, unspecified; F17.210 Nicotine dependence, cigarettes, uncomplicated; Z88.1 Allergy status to other antibiotic agents; Z79.899 Other long term (current) drug therapy; Z80.3 Family history of malignant neoplasm of breast; Z80.0 Family history of malignant neoplasm of digestive organs
CPT/HCPCS: 43450

== ENCOUNTER → 2018-02-01 | Outpatient (CLI) | payer MEDICARE | LOC: M RAD 13:53 | DX: J01.00 Acute maxillary sinusitis, unspecified (principal) | CPT/HCPCS: 71046 ==

== ENCOUNTER → 2018-03-10 | Outpatient (CLI) | payer MEDICARE | LOC: M PAIN 13:45 | DX: M54.2 Cervicalgia (principal); M47.812 Spondylosis without myelopathy or radiculopathy, cervical region; M79.18 Myalgia, other site; K21.9 Gastro-esophageal reflux disease without esophagitis; E55.9 Vitamin D deficiency, unspecified; G43.909 Migraine, unspecified, not intractable, without status migrainosus; J44.9 Chronic obstructive pulmonary disease, unspecified; M15.0 Primary generalized (osteo)arthritis; R76.0 Raised antibody titer; F17.210 Nicotine dependence, cigarettes, uncomplicated; Z79.52 Long term (current) use of systemic steroids; Z79.891 Long term (current) use of opiate analgesic; Z79.899 Other long term (current) drug therapy; Z88.8 Allergy status to other drugs, medicaments and biological substances; Z90.5 Acquired absence of kidney; Z86.79 Personal history of other diseases of the circulatory system | CPT/HCPCS: G0463 ==

== ENCOUNTER → 2018-03-31 | Outpatient (CLI) | payer MEDICARE | LOC: M RAD 12:37 | DX: J32.4 Chronic pansinusitis (principal); J34.2 Deviated nasal septum | CPT/HCPCS: 70486 ==

== ENCOUNTER → 2018-04-03 | Outpatient (CLI) | payer MEDICARE | LOC: M LAB 13:34 | DX: M50.322 Other cervical disc degeneration at C5-C6 level (principal); M50.323 Other cervical disc degeneration at C6-C7 level; M43.12 Spondylolisthesis, cervical region; M53.82 Other specified dorsopathies, cervical region; M25.78 Osteophyte, vertebrae | CPT/HCPCS: 72052 ==

== ENCOUNTER → 2018-04-06 | Outpatient (CLI) | payer MEDICARE | LOC: M WHC 09:51 | DX: Z13.820 Encounter for screening for osteoporosis (principal); M85.9 Disorder of bone density and structure, unspecified | CPT/HCPCS: 77080 ==

== ENCOUNTER 2018-04-18 09:24 | Outpatient (RCR) | payer MEDICARE | END 2018-04-21 | LOC: M PT 09:24 | DX: M54.2 Cervicalgia (principal) | CPT/HCPCS: 97110 ==

== ENCOUNTER → 2018-04-25 | Outpatient (CLI) | payer MEDICARE ==
[2018-04-25 09:46] LABS: ANION GAP 8 MEQ/L (8-16); BLOOD UREA NITROGEN 16 MG/DL (7-18); CALCIUM LEVEL 8.5 MG/DL (8.8-10.2); CARBON DIOXIDE LEVEL 29 MEQ/L (21-32); CHLORIDE LEVEL 105 MEQ/L (98-107); CREATININE FOR GFR 1.08 MG/DL (0.55-1.30); GLOMERULAR FILTRATION RATE 54.4 (>45); GLUCOSE, FASTING 121 MG/DL (70-100); MAGNESIUM LEVEL 1.5 MG/DL (1.8-2.4); POTASSIUM SERUM 3.1 MEQ/L (3.5-5.1); SODIUM LEVEL 142 MEQ/L (136-145)
== END ==
LOC: M LAB 07:50
DX: E87.6 Hypokalemia (principal)
CPT/HCPCS: 83735

== ENCOUNTER → 2018-04-27 | Outpatient (REF) | payer MEDICARE ==
[2018-04-27 14:09] LABS: APPEARANCE, URINE HAZY (CLEAR); BACTERIA, URINE AUTO NEGATIVE (NEGATIVE); BILIRUBIN, URINE AUTO NEGATIVE (NEGATIVE); BLOOD, URINE BLOOD 2+ (NEGATIVE); CALCIUM OXALATE CRYSTALS LARGE; COLOR, URINE YELLOW (YELLOW); GLUCOSE, URINE (UA) AUTO NEGATIVE (NEGATIVE); KETONE, URINE AUTO NEGATIVE (NEGATIVE); LEUKOCYTE ESTERASE, URINE AUTO NEGATIVE (NEGATIVE); MUCUS, URINE SMALL (NEGATIVE); NITRITE, URINE AUTO NEGATIVE (NEGATIVE); PROTEIN, URINE AUTO NEGATIVE (NEGATIVE); RBC, URINE AUTO 4 /HPF (0-3); SPECIFIC GRAVITY URINE AUTO 1.017 (1.002-1.035); SQUAMOUS EPITHELIAL CELL UR AU 1 /HPF (0-6); WBC, URINE AUTO 1 /HPF (0-3)
== END ==
LOC: M LAB REF 13:54
DX: R35.0 Frequency of micturition (principal)
CPT/HCPCS: 81001

== ENCOUNTER → 2018-04-27 | Outpatient (CLI) | payer MEDICARE | LOC: M SMT 08:25 | DX: N20.0 Calculus of kidney (principal) | CPT/HCPCS: 74018; 81001 ==

== ENCOUNTER 2018-05-09 08:45 | Outpatient (RCR) | payer MEDICARE ==
[~2018-05-09 08:45] MED LIST changes: -POTA1TAB23 PO; -REQU0.5T PO; +REQU1TAB15 PO
[2018-05-12] MEDS ORDERED: PRED10PA PO (10:54)
[2018-05-25] MEDS ORDERED: POTA1TAB23 PO (10:40)
[2018-05-25] MEDS ORDERED: AMOX875T2 PO (10:40)
[2018-05-25] MEDS ORDERED: HYDR-3363 PO (10:42)
== END 2018-05-22 ==
LOC: M PT 08:45
PROVIDERS: ATTEND Family Medicine
DX: M54.2 Cervicalgia (principal)

== ENCOUNTER → 2018-05-09 | Outpatient (REF) | payer MEDICARE ==
[~2018-05-09] MED LIST changes: +/CELE20CA PO; +AFRI0.052; +AMIT25TA10 PO; +AMOX875T2 PO; +ASPI81TA85 PO; +CBD OIL PO; +CELE1CAP4 PO; +CYCL10TA PO; +CYMB1CAP5 PO; +DITR1TAB PO; +DOXY100C PO; -E-Z-GAS II EFFERVESCENT PACKET (SODIUM BICARB./CITRIC ACID/SIMETHICONE) As Ordered; -E-Z-HD 98% w/w 340GM SUSP BTL As Ordered; -E-Z-PAQUE 96% w/w SUSP 176GM BTL As Ordered; +FLON0.054; +FLON50SP; +HYDR-3363 PO; +K-TA10TA2 PO; +LEVA1TAB2 PO; +LORA-243 PO; +NEUR300C PO; +NITR100C2 PO; +OXYC-141 PO; +OXYC-404 PO; +OXYC15TA76 PO; +OXYC20TA8 PO; +PANT20TA PO; +PHEN-501 PO; +PHEN1SUP6 PR; +POTA1TAB23 PO; +POTA75TA PO; +PRED10PA PO; +PRED20TA PO; +PRED5TA PO; +PROT20TA11 PO; +REQU0.5T PO; +SOMA350T PO; +SYMB80INH INH; +TYLE650T35 PO; +VITA100066 PO; +VITA100072 PO; +VITA500T88 PO; +ZOFR4TAB14 PO; +amoxicillin PO; +combination cream TOP; +vitaminD PO
[2018-05-09 13:26] LABS: HEMATOCRIT 40.3 % (36.0-47.0); HEMOGLOBIN 13.6 g/dl (12.0-15.5); MEAN CORPUSCULAR HEMOGLOBIN 31.7 pg (27.0-33.0); MEAN CORPUSCULAR HGB CONC 33.7 g/dl (32.0-36.5); MEAN CORPUSCULAR VOLUME 93.9 fl (80.0-96.0); PLATELET COUNT, AUTOMATED 168 10^3/uL (150-450); RED BLOOD COUNT 4.29 10^6/uL (4.00-5.40)
[2018-05-09 13:46] LABS: HEMOGLOBIN A1c 5.4 %
[2018-05-09 14:02] LABS: BLOOD UREA NITROGEN 23 MG/DL (7-18); CALCIUM LEVEL 9.2 MG/DL (8.8-10.2); CARBON DIOXIDE LEVEL 30 MEQ/L (21-32); CHLORIDE LEVEL 103 MEQ/L (98-107); CREATININE FOR GFR 0.95 MG/DL (0.55-1.30); GLOMERULAR FILTRATION RATE > 60.0 (>45); GLUCOSE, FASTING 67 MG/DL (70-100); POTASSIUM SERUM 3.7 MEQ/L (3.5-5.1); SODIUM LEVEL 141 MEQ/L (136-145)
== END ==
LOC: M SFHCADAM 10:21
PROVIDERS: ATTEND Family Medicine
DX: E87.6 Hypokalemia (principal); E83.42 Hypomagnesemia; D59.9 Acquired hemolytic anemia, unspecified; R73.9 Hyperglycemia, unspecified
CPT/HCPCS: 80048; 83036; 83735; 85027; G0463

== ENCOUNTER → 2018-05-10 | Outpatient (CLI) | payer MEDICARE | LOC: M PAIN 10:00 | DX: G90.59 Complex regional pain syndrome I of other specified site (principal); M54.2 Cervicalgia; K21.9 Gastro-esophageal reflux disease without esophagitis; E55.9 Vitamin D deficiency, unspecified; G43.909 Migraine, unspecified, not intractable, without status migrainosus; J44.9 Chronic obstructive pulmonary disease, unspecified; M15.0 Primary generalized (osteo)arthritis; F17.210 Nicotine dependence, cigarettes, uncomplicated; Z79.891 Long term (current) use of opiate analgesic; Z79.899 Other long term (current) drug therapy; Z88.8 Allergy status to other drugs, medicaments and biological substances; Z87.39 Personal history of other diseases of the musculoskeletal system and connective tissue | CPT/HCPCS: G0463 ==

== ENCOUNTER 2018-06-08 08:15 | Outpatient (RCR) | payer MEDICARE ==
[~2018-06-08 08:15] MED LIST changes: +POTA1TAB23 PO; +REQU0.5T PO; -REQU1TAB15 PO
== END 2018-06-22 ==
LOC: M PT 08:15
PROVIDERS: ATTEND Family Medicine
DX: M54.2 Cervicalgia (principal)

== ENCOUNTER → 2018-07-14 | Outpatient (REF) | payer MEDICARE ==
[~2018-07-14] MED LIST changes: +AMIT10TA PO; +ATOR1TAB19 PO; +FOLI1TAB11 PO; +MECL-68 PO; +POTA1TAB14 PO; +PRED5PAK PO
[2018-07-14 14:15] LABS: AMORPHOUS SEDIMENT SMALL (NEGATIVE); APPEARANCE, URINE TURBID (CLEAR); BACTERIA, URINE AUTO 2+ (NEGATIVE); BILIRUBIN, URINE AUTO NEGATIVE (NEGATIVE); BLOOD, URINE BLOOD 1+ (NEGATIVE); CALCIUM OXALATE CRYSTALS MODERATE; COLOR, URINE YELLOW (YELLOW); GLUCOSE, URINE (UA) AUTO NEGATIVE (NEGATIVE); KETONE, URINE AUTO NEGATIVE (NEGATIVE); LEUKOCYTE ESTERASE, URINE AUTO TRACE (NEGATIVE); MUCUS, URINE SMALL (NEGATIVE); NITRITE, URINE AUTO NEGATIVE (NEGATIVE); PROTEIN, URINE AUTO NEGATIVE (NEGATIVE); RBC, URINE AUTO 0 /HPF (0-3); SQUAMOUS EPITHELIAL CELL UR AU 0 /HPF (0-6); WBC, URINE AUTO 16 /HPF (0-3)
== END ==
LOC: M SMT 13:17
PROVIDERS: ATTEND Nurse Practitioner Women's Health
DX: R10.9 Unspecified abdominal pain (principal)
CPT/HCPCS: 81001; 87086; G0463

== ENCOUNTER → 2018-07-18 | Outpatient (CLI) | payer MEDICARE ==
[~2018-07-18] MED LIST changes: -AMIT10TA PO; -ATOR1TAB19 PO; -MECL-68 PO
[2018-07-18 12:57] LABS: ALBUMIN 4.2 GM/DL (3.2-5.2); ALT/SGPT 21 U/L (12-78); BILIRUBIN,TOTAL 1.1 MG/DL (0.2-1.0); BLOOD UREA NITROGEN 16 MG/DL (7-18); CALCIUM LEVEL 9.3 MG/DL (8.8-10.2); CARBON DIOXIDE LEVEL 30 MEQ/L (21-32); CHLORIDE LEVEL 106 MEQ/L (98-107); COMPLEMENT C3 105 MG/DL (90-180); COMPLEMENT C4 16 MG/DL (10-40); GLOMERULAR FILTRATION RATE > 60.0 (>45); GLUCOSE, FASTING 81 MG/DL (70-100); POTASSIUM SERUM 4.1 MEQ/L (3.5-5.1); RHEUMATOID FACTOR QUANT < 10.0 IU/ML (<15.0); SODIUM LEVEL 140 MEQ/L (136-145); TOTAL PROTEIN 6.5 GM/DL (6.4-8.2)
== END ==
LOC: M LAB 11:54
PROVIDERS: ATTEND Nurse Practitioner Family
DX: M54.2 Cervicalgia (principal)

== ENCOUNTER 2018-07-19 10:54 | Outpatient (RCR) | payer MEDICARE | END 2018-07-20 | LOC: M PT 10:54 | PROVIDERS: ATTEND Family Medicine | DX: M26.69 Other specified disorders of temporomandibular joint (principal) ==

== ENCOUNTER → 2018-07-21 | Outpatient (CLI) | payer MEDICARE ==
[~2018-07-21] MED LIST changes: +AMIT10TA PO; +ATOR1TAB19 PO; +MECL-68 PO
[2018-07-21 15:55] LABS: APPEARANCE, URINE CLEAR (CLEAR); BACTERIA, URINE AUTO NEGATIVE (NEGATIVE); BILIRUBIN, URINE AUTO NEGATIVE (NEGATIVE); BLOOD, URINE BLOOD 1+ (NEGATIVE); COLOR, URINE YELLOW (YELLOW); GLUCOSE, URINE (UA) AUTO NEGATIVE (NEGATIVE); KETONE, URINE AUTO NEGATIVE (NEGATIVE); LEUKOCYTE ESTERASE, URINE AUTO NEGATIVE (NEGATIVE); MUCUS, URINE SMALL (NEGATIVE); NITRITE, URINE AUTO NEGATIVE (NEGATIVE); PROTEIN, URINE AUTO NEGATIVE (NEGATIVE); RBC, URINE AUTO 4 /HPF (0-3); SPECIFIC GRAVITY URINE AUTO 1.018 (1.002-1.035); SQUAMOUS EPITHELIAL CELL UR AU 0 /HPF (0-6); UROBILINOGEN, URINE AUTO 0.2 mg/dL (0.0-2.0); WBC, URINE AUTO 0 /HPF (0-3)
--- NOTE | 2018-07-21 16:21 | REP ---
Clinical: Frontal AP weightbearing view of the right and left knee. Findings: Visualized osseous structures and joint spaces are relatively symmetric and normal for age. No overt osteoarthritic or inflammatory arthritic degenerative changes are appreciated. Impression: Symmetric, essentially age-appropriate bilateral knee radiographs. Electronically Signed by Juarez Pedro MD 07/21/2018 04:12 P
--- NOTE | 2018-07-21 16:23 | REP ---
Clinical: Arthralgia. Technique: AP, lateral, bilateral oblique and sunrise views of the right and left knee. Findings: Minimal subchondral sclerosis and medial joint space narrowing is suggested bilaterally. Remainder examination appears relatively normal for age and symmetric. Impression: Minimal bilateral medial joint space narrowing. Electronically Signed by Juarez Pedro MD 07/21/2018 04:14 P
[2018-07-21 16:25] LABS: FREE T4 0.81 NG/DL (0.76-1.46); THYROID STIMULATING HORMONE 1.19 uIU/ML (0.358-3.740)
[2018-07-21 16:26] LABS: TOTAL PROTEIN,RANDOM URINE 13.5 MG/DL (0.0-12.0)
--- NOTE | 2018-07-21 16:40 | REP ---
Clinical: Arthralgia. Technique: AP, lateral, and bilateral oblique views of the right and left hand. Findings: Moderate to early advanced osteoarthritic degenerative changes include subchondral sclerosis, joint space narrowing, and marginal spurring primarily involving the distal interphalangeal joints and to a lesser extent the proximal interphalangeal joints. Findings are most pronounced involving the right and left third and fifth DIP joints. No significant periarticular soft tissue swelling, lucencies or erosive changes are appreciated. No acute fracture dislocation. Impression: Moderate early advanced osteoarthritic degenerative changes. Electronically Signed by Juarez Pedro MD 07/21/2018 04:32 P
[2018-07-25 10:08] LABS: DRVV SCREEN 46.9 SEC
[2018-07-25 10:14] LABS: PTT LUPUS TYPE ANTICOAG SCREEN 1.1 (0-1.2)
[2018-07-26 00:06] LABS: BETA-2 GLYCOPROTEIN I ABY IGA <9 (0-25); BETA-2 GLYCOPROTEIN I ABY IGG <9 (0-20); BETA-2 GLYCOPROTEIN I ABY IGM <9 (0-32); CARDIOLIPIN IGA ANTIBODY <9 APL U/mL (0-11); CARDIOLIPIN IGG ANTIBODY <9 GPL U/mL (0-14); CARDIOLIPIN IGM ANTIBODY 28 MPL U/mL (0-12); CYCLIC CITRULLINATED PEPTIDE 24 units (0-19); RNP ANTIBODY < 0.2 AI (0.0-0.9); SMITHS ANTIBODY < 0.2 AI (0.0-0.9)
== END ==
LOC: M LAB 15:13
PROVIDERS: ATTEND Internal Medicine Rheumatology
DX: R76.0 Raised antibody titer (principal); M25.50 Pain in unspecified joint

== ENCOUNTER → 2018-07-24 | Outpatient (CLI) | payer MEDICARE ==
[~2018-07-24] MED LIST changes: -AMIT10TA PO; -ATOR1TAB19 PO; -MECL-68 PO
--- NOTE | 2018-07-24 17:37 | REP ---
CT ABDOMEN AND PELVIS WITHOUT CONTRAST: CT abdomen and pelvis was performed without oral or IV contrast. Sagittal and coronal reconstruction images are performed. In the visualized lung bases there are mild interstitial fibrotic changes. The liver, spleen, adrenals and pancreas are grossly unremarkable. A tiny calcific density a few millimeters in diameter is again seen in the posterior aspect of the right kidney unchanged since prior study of 12/08/2017, of uncertain etiology. No other renal calculus is seen. There is no ureteral or bladder calculus. There is no hydroureteronephrosis. There is moderate atherosclerotic calcifications of the abdominal aorta without aneurysm. No adenopathy, free air or free fluid is seen. There is no bowel wall thickening. I see no pelvic mass. Urinary bladder is not distended and not evaluated. There are degenerative changes of the spine. IMPRESSION: Tiny calcification in the posterior lower pole right kidney is of uncertain etiology and is unchanged since 12/08/2017 exam. No ureteral or bladder calculus. No hydroureteronephrosis. I see no other significant finding. Electronically Signed by Rashaad Gifford MD 07/26/2018 09:07 A
== END ==
LOC: M RAD 15:27
PROVIDERS: ATTEND Nurse Practitioner Women's Health
DX: N20.0 Calculus of kidney (principal)

== ENCOUNTER → 2018-08-02 | Outpatient (CLI) | payer MEDICARE ==
[~2018-08-02] MED LIST changes: +AMIT10TA PO; +ATOR1TAB19 PO; +GABA-1171; +MECL-68 PO; +ROBA500T PO
--- NOTE | 2018-08-02 10:30 | REP ---
LEFT FOOT, FOUR VIEWS: HISTORY: Foot pain. The patient is status post osteotomy of the first metatarsal. Metal pins are present. There is no acute fracture or dislocation. There is narrowing of the first metatarsophalangeal joint space. The remaining joint spaces are normal in appearance. IMPRESSION: Degenerative change as described above. Electronically Signed by Lizandro Fischer MD 08/02/2018 10:39 A
== END ==
LOC: M RAD 09:32
PROVIDERS: ATTEND Family Medicine
DX: M79.672 Pain in left foot (principal)

== ENCOUNTER → 2018-08-08 | Outpatient (CLI) | payer MEDICARE ==
[~2018-08-08] MED LIST changes: -/CELE20CA PO; +VITA100018 PO; -VITA100072 PO
--- NOTE | 2018-08-24 01:28 | ECWPNPC ---
PATIENT NAME: ZANDER DUTTA : 1955 GENDER: FEMALE VISIT DATE: 08/08/2018 DISCHARGE DATE: 08/08/18937 VISIT LOCKED DATE TIME: PHYSICIAN: CHELSEA WALTERS PHYSICIAN PAGER NO: [phone] RESOURCE: CHELSEA WALTERS REASON FOR APPOINTMENT 1. 3 MONTHS HISTORY OF PRESENT ILLNESS HISTORY OF PRESENT ILLNESS: HERE FOR F/U OF CHRONIC NECK PAIN.REPORTING NEW ONSET OF SEVERE LEFT LOW BACK PAIN THAT RADIATES DOWN LEFT LEG.THIS BEGAN 2 WEEKS AGO WITHOUT PRECIPITATING EVENT.RATING PAIN VAS 7/10.IS IN PROCESS OF WEANING DOWN OFF PREDNISONE WITH PRIMARY CARE AND IS EXPERIENCING A FLARE UP OF GENERALIZED BODY PAIN. PAIN THE PATIENT DESCRIBES THE PAIN... FALL RISK SCREENING: SCREENING : NO FALLS IN THE PAST YEAR. CURRENT MEDICATIONS TAKING VITAMIN D 2000 UNIT TABLET 1 TABLET ORALLY ONCE A DAY TAKING VITAMIN B 12 1000 MCG TABLET 1 TAB(S) ORALLY DAILY TAKING VITAMIN C 1000 MG TABLET 1 CAPSULE ORALLY ONCE A DAY TAKING FLONASE 50 MCG/DOSE INHALER 1 SPRAY IN EACH NOSTRIL NASALLY DAILY TAKING PROAIR HFA 108 (90 BASE) MCG/ACT AEROSOL SOLUTION 2 PUFFS NEEDED INHALATION EVERY 6 HRS PRN COUGH WHEEZE TAKING SYMBICORT 80-4.5 MCG/ACT AEROSOL 2 PUFFS INHALATION TWICE A DAY TAKING CHLORTHALIDONE 25 MG TABLET 1/2 TABLET ORALLY ONCE A DAY TAKING MAY HAVE CBD OIL NEEDED, NOTES: USES EVERY DAY TAKING ATORVASTATIN CALCIUM 10 MG TABLET TAKE ONE TABLET BY MOUTH EVERY DAY TAKING POTASSIUM CHLORIDE ER 20 MEQ TABLET EXTENDED RELEASE 1 TABLET WITH FOOD ORALLY TWICE A DAY TAKING MECLIZINE HCL 25 MG CAPSULE 1 TABLET NEEDED ORALLY NEEDED, NOTES: 25MG TAKING PROTONIX 20 MG TABLET DELAYED RELEASE TAKE ONE TABLET BY MOUTH TWICE A DAY NEEDED TAKING OXYCONTIN 20 MG TABLET ER 12 HOUR ABUSE-DETERRENT 1 TAB ORALLY BID MDD=2 CHRONIC PAIN TAKING OXYCODONE HCL 15 MG TABLET 1 TABLET ORALLY EVERY 6 HOURS PRN PAIN MDD =4 TAKING PREDNISONE 2.5 MG TABLET 1 TABLET ORALLY ONCE A DAY NOT-TAKING OXYBUTYNIN CHLORIDE ER 10 MG TABLET EXTENDED RELEASE 24 HOUR 1 TABLET ORALLY ONCE A DAY NOT-TAKING PREDNISONE 5 MG TABLET 1 TABLET ORALLY ONCE A DAY, NOTES: HAS BEEN ON FOR 1 YEAR NOT-TAKING AMITRIPTYLINE HCL , NOTES: HAS NOT ACTUALLY STARTED-RELUCNANT NOT-TAKING TIZANIDINE HCL 2 MG TABLET 1 TABLET NEEDED ORALLY TAKE 1 IN AM, 2 AT BEDTIME NOT-TAKING NICODERM CQ 7 MG/24HR PATCH 24 HOUR 1 PATCH TO SKIN TRANSDERMAL ONCE A DAY MEDICATION LIST REVIEWED AND RECONCILED WITH THE PATIENT PAST MEDICAL HISTORY G6PD DEFICIENCY HEMOLYTIC ANEMIA, REFERRED [facility], HAD BONE MARROW BX 06/09. SUSPECTED HEMOLYSIS. (? 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 THYROID NODULE- (THYROIDECTOMY) KIDNEY STONES S/P ESWL 03/2003, STENTS VITAMIN D DEFICIENCY MIGRAINES COPD FEV1 = 1.93 2005 SMOKER GENERALIZED OSTEOARTHRITIS HIPS, NECK, BACK, HANDS LUNG NODULE ON CT CHEST 10/05; F/U PENDING 04/07 50-69% BILAT CAROTID STENOSIS DVT RT UE 1995 BA SWALLOW 01/07: SMALL PULSION ESOPAGEAL DIVERTICULUM, ASPIRATED A DROPLET OF BARIUM, REFLUX PRESENT RHEUMATOID ARTHRITIS OSTEOPOROSIS ALLERGIES REQUIP: DIZZINESS - ALLERGY ATORVASTATIN (HIGHER DOSE): LIZAMA - SIDE EFFECTS HAS G6PD DEFIECIENCY-- AVOID HEMOLYSIS INDUCERS: HEMOLYSIS - CONTRAINDICATION SURGICAL HISTORY 1995 CORNONARY CATH - NORMAL 1995 RIGHT ARM BRACHIAL BYPASS 1995 DORSAL COLUMN STIMULATOR 1995 CYSTOSCOPY & LEFT URETEROSCOPY WITH LITHO AND STONE EXTRACTION 2004 LEFT URETERAL STENT PLACED, THEN CHANGED DUE TO OBSTRUCTION () 2005 LEFT URETERAL STENT REMOVED 2005 PARTIAL THYROIDECTOMY - NEGATIVE FOR CANCER 2008 EGD/COLONOSCOPY - GASTRIC AND COLON" POLYPS" (PER PATIENT NEEDS F/U IN 5 YEARS) 2010 LEFT URETERAL STENT PLACED 06/2013 DORSAL COLUMN STIMULATOR REMOVED DUE TO SEVERE KIDNEY PROBLEMS FROM STONES (WIRES LEFT IN, THEY WERE REMOVED 10/04) 2004, 2014 PARTIAL HYSTERECTOMY S REMOVAL OF THE WIRES TO THE STIMULATOR 08/2014 EGD/COLONOSCOPY-- BOTH NORMAL 01/2017 RIGHT KIDNEY DOUBLE J STENT X2 02/22/[address] GUIDED NEPHROLITHOTOMY AT [facility] 04/08 RIGHT KIDNEY STONE REMOVED 03/2017 FAMILY HISTORY FATHER: , RHEUMATOID, DIAGNOSED WITH DIABETES, HEART DISEASE MOTHER: , RHEUMATOID, HEART DISEASE, DIABETES MATERNAL GRAND MOTHER: BREAST CANCER, CANCER SIBLINGS: DIABETES PATERNAL GRAND FATHER: DIABETES PATERNAL GRAND MOTHER: DIABETES PATERNAL GRANDMOTHER SKIN CANCER\\N1 SISTER- RHEUMATOID \\/ PSORIATIC ARTHRITISMULTIPLE SIBLINGS WITH HEART DISEASE. SOCIAL HISTORY GENERAL: TOBACCO USE ARE YOU A:CURRENT SMOKER HOW MANY CIGARETTES A DAY DO YOU SMOKE?5 OR LESS ARE YOU INTERESTED IN QUITTING?READY TO QUIT PT STATES GOING BACK ON NICOTINE PATCH STARTING THIS COMING Tuesday03/10/18 JS PATIENT COUNSELED ON THE DANGERS OF TOBACCO USE AND URGED TO QUIT:04/03/2018 COUNSELED THE PATIENT ON TOBACCO USE, CESSATION PVVESAXY49/12/2018 SMOKING CESSATION INFORMATION GIVEN01/18/2018 LATEX QUESTIONNAIRE LATEX ALLERGY : HAVE YOU EVER DEVELOPED ANY TYPE OF REACTION AFTER HANDLING LATEX PRODUCTS SUCH RUBBER GLOVES, CONDOMS, DIAPHRAGMS, BALLOONS, SOCKS, OR UNDERWEAR?NO LATEX ALLERGY : HAVE YOU EVER DEVELOPED ANY TYPE OF REACTION DURING OR AFTER DENTAL APPOINTMENT, VAGINAL/RECTAL EXAMINATION, SURGICAL PROCEDURE, OR ANY OTHER EXPOSURE?NO LATEX RISK : HAVE YOU EVER HAD ANY DIFFICULTY BREATHING OR HIVES AFTER EATING OR HANDLING ANY FRUITS, OR VEGETABLES; SUCH KIWI, BANANAS, STONE FRUITS, OR CHESTNUTSNO LATEX RISK : DO YOU HAVE A PREVIOUS PERSONAL HISTORY OF MORE THAN NINE SURGERIES, SPINA BIFIDA, OR REPEATED CATHERTIZATIONS? NO LATEX RISK : ARE YOU FREQUENTLY EXPOSED TO LATEX PRODUCTS IN YOUR OCCUPATION?NO DATE ASKED : 08/08/2018 BMI CARE GOAL FOLLOW-UP BELOW NORMAL BMI FOLLOW-UPDIETARY EDUCATION FOR WEIGHT GAIN ALCOHOL SCREENING POINTS: 0, INTERPRETATION: NEGATIVE. RECREATIONAL DRUG USE DRUG USE?NO CAFFEINE CAFFEINE USE?YES ABOUT 1/2 BOTTLE SODA DAILY SEXUAL HX HAD SEX IN THE LAST 12 MONTHS (VAGINAL, ORAL, OR ANAL)?: NO, HAVE YOU EVER HAD AN STD?: NO. HIV / HEP-C SCREENING HIV TEST OFFERED TO PATIENT:NO N/A HEP-C TEST OFFERED TO PATIENT:YES DATE OFFERED:06/01/2016 TEST ACCEPTED:NO REASON:PATIENT DECLINED TAOISM NO CONFUCIANISM BELIEFS THAT WOULD IMPACT HEALTH CARE. LANGUAGE AZERBAIJANI. EDUCATION HIGH SCHOOL. LEARNING BARRIERS / SPECIAL NEEDS CHANGE FROM LAST VISIT?YES URI SYMPTOMS BARRIERS TO LEARNING?NO HEARING IMPAIRED?NO VISION IMPAIRED?YES COGNITIVELY IMPAIRED?NO :CORRECTIVE LENSES READINESS TO LEARN?YES LEARNING PREFERENCES?NO LEARNING CAPABILITIES PRESENT?YES EMOTIONAL BARRIERS?NO SPECIAL DEVICES?NO ROOFING LABORER NEEDED?NO DOMESTIC VIOLENCE NONE. OCCUPATION: DISABLED. DIET: REGULAR. EXERCISE: NO REGULAR EXERCISE. MARITAL STATUS: . PAIN CLINIC PFS, CLERGY, PUBLIC HEALTH REFERRALS HAS THE PATIENT BEEN EDUCATED REGARDING HIS/HER PLAN OF CARE?YES HAS THE PATIENT BEEN EDUCATED REGARDING PAIN, THE RISK FOR PAIN, THE IMPORTANCE OF EFFECTIVE PAIN MANAGEMENT, AND THE PAIN ASSESSMENT PROCESS?YES ADVANCE DIRECTIVE ADVANCE DIRECTIVE DISCUSSED WITH PATIENT:YES DECLINED INFORMATION, STATES SHE HAS PAPERWORK AT HOME. ASSISTANCE WITH FILLING OUT OFFERED. PT DECLINES AT THIS TIME. 08/08/18 REVIEWED WITH PATIENT 03/10/18 1327 JSREVIEWED WITH PATIENT 05/10/18 0933 BVREVIEWED WITH PT 08/08/18 0908 BV. HOSPITALIZATION/MAJOR DIAGNOSTIC PROCEDURE SURGERY RELATED REVIEW OF SYSTEMS REVIEWED BY: PROVIDER: CHELSEA FATIMA . CONSTITUTIONAL: ANY CHANGE IN YOUR MEDICAL CONDITION? NO . CHILLS NO . FEVER NO . INFECTION: DO YOU HAVE NEW INFECTIONS? NO . DO YOU HAVE HISTORY OF MRSA? NO . MUSCULOSKELETAL: ANY NEW PATTERNS OF PAIN OR NUMBNESS? YES, PT HAS BEEN TAPERING OFF OF PREDNISONE AND HAS NOTICED INCREASE IN PAIN. ESPECIALLY IN LEFT LEG AND LEFT HIP. . GASTROENTEROLOGY: ANY NEW CHANGE IN BOWEL CONTROL? NO . GENITOURINARY: ANY NEW CHANGE IN BLADDER CONTROL? NO . IS THERE A CHANCE YOU COULD BE ? NO . HEMATOLOGY/LYMPH: DO YOU TAKE ANY BLOOD THINNERS? (FOR EXAMPLE- COUMADIN, PLAVIX, AGGRENOX, PLATEL, PRADAXA, OR XARELTO) NO . WHEN WAS YOUR LAST DOSE? DATE: TIME: . NEUROLOGY: HAVE YOU FALLEN IN THE PAST 12 MONTHS? NO . ANY NEW EXTREMITY NUMBNESS OR WEAKNESS? NO . CARDIOLOGY: DO YOU HAVE A PACEMAKER OR DEFIBRILLATOR? NO . RESPIRATORY: HAVE YOU BEEN SICK IN THE PAST WEEK? NO . FEVER NO . FLU LIKE SYMPTOMS? NO . COUGH NO . INTEGUMENTARY: DO YOU HAVE ANY RASHES OR OPEN SORES? NO . ALLERGIC/IMMUNO: ARE YOU ALLERGIC TO IV DYE? NO . ANY NEW ALLERGIES? NO . PSYCHIATRIC: DO YOU HAVE THOUGHTS OF HURTING YOURSELF OR SOMEONE ELSE? NO . ARE YOU ABUSED, NEGLECTED, OR IN AN UNSAFE ENVIRONMENT? NO . ENDOCRINOLOGY: ARE YOU DIABETIC? NO . OTHER: DO YOU NEED ANY PRESCRIPTIONS? NO . IF YES, PLEASE LIST: ____ . ANY NEW PROBLEMS WITH YOUR MEDICATIONS? NO . WHEN DID YOU LAST EAT? ____ . WHEN DID YOU LAST DRINK? ____ . WHAT DID YOU LAST DRINK? ____ . NAME OF PERSON DRIVING YOU HOME? ____ . DO YOU HAVE ANY OTHER QUESTIONS OR CONCERNS NO . VITAL SIGNS WT 124.4 LBS, HT 61 IN, BMI 23.50 INDEX, BP 122/62 MM HG, HR 78 /MIN, RR 18 /MIN, TEMP 97.4 F, OXYGEN SAT % 95%, NA INITIALS AW 0915, REVIEWED BY: BV. EXAMINATION GENERAL EXAMINATION: GENERAL APPEARANCE: ALERT,NO DISTRESS . PSYCH AFFECT NORMAL . LUNGS: LUNG SOUNDS ARE CLEAR . HEART: HEART RATE REGULAR . MUSCULOSKELETAL: MST 5/5 BILAT. LOWER EXTREMITIES . LUMBAR SACRAL SPINE SEVERETENDERNESS LEFT SIJ POSITIVE JUAN TEST LEFT LEG. ASSESSMENTS SACROILIAC JOINT PAIN - M53.3 (PRIMARY) CERVICALGIA - M54.2 CHRONIC USE OF OPIATE DRUGS THERAPEUTIC PURPOSES - Z79.899 TREATMENT SACROILIAC JOINT PAIN REFILL OXYCONTIN TABLET ER 12 HOUR ABUSE-DETERRENT, 20 MG, 1 TAB, ORALLY, BID MDD=2 CHRONIC PAIN, 30 DAY(S), 60, REFILLS 0 REFILL OXYCODONE HCL TABLET, 15 MG, 1 TABLET, ORALLY, EVERY 6 HOURS PRN PAIN MDD =4, 30 DAY(S), 120, REFILLS 0 START GABAPENTIN CAPSULE, 100 MG, 1 CAPSULE, ORALLY, THREE TIMES A DAY, 30 DAY(S), 90, REFILLS 5 [facility] SPINE, L.S. WITHOUT [id number] NOTES: ISTOP REGISTRY REVIEWED AND DEMONSTRATES COMPLLIANCE. (REF #[id number] ) BRINGS IN MEDICATIONS WHICH IS APPROPRIATE FOR WHAT WAS DISPENSED. RECENT URINE TOXICOLOGY REVIEWED. NO UNAUTHORIZED MEDICATIONS. NO ILLICIT SUBSTANCES AND PRESCRIBED MEDICATIONS WERE PRESENT., RISKS AND BENEFITS OF NARCOTIC/OPIOD MEDICATIONS WERE REVIEWED WITH PATIENT - THIS INCLUDES BUT IS NOT LIMITED TO RISK OF DEPENDANCE/DEVELOPMENT OF ADDICTION, MOOD DISTURBANCE AND DEPRESSION, OSTEOPOROSIS, HORMONAL AND LABIDAL CHANGES, RESPIRATORY DEPRESSION AND . PATIENT IS ADVISED NOT TO DRIVE OR DRINK ALCOHOL WHILE ON THESE MEDICATIONS. PROCEDURE CODES FA211 ESTABILISHED PATIENT [facility] CHARGE DISPOSITION & COMMUNICATION FOLLOW UP 6 WEEKS (REASON: REVIEW MRI/?SIJ) ELECTRONICALLY SIGNED BY CHELSEA FATIMA, AKUA ON 08/23/2018 AT 09:27 AM EDT DISCLAIMER : THIS IS A VISIT SUMMARY EXTRACTED FROM THE [employer] CHART. IT IS NOT A COPY OF THE [employer] PROGRESS NOTE. ROBINSON
== END ==
LOC: M PAIN 08:45
PROVIDERS: ATTEND Nurse Practitioner Family
DX: M53.3 Sacrococcygeal disorders, not elsewhere classified (principal); M54.2 Cervicalgia; G89.29 Other chronic pain; K21.9 Gastro-esophageal reflux disease without esophagitis; E55.9 Vitamin D deficiency, unspecified; G43.909 Migraine, unspecified, not intractable, without status migrainosus; J44.9 Chronic obstructive pulmonary disease, unspecified; D59.9 Acquired hemolytic anemia, unspecified; M16.0 Bilateral primary osteoarthritis of hip; M19.041 Primary osteoarthritis, right hand; M19.042 Primary osteoarthritis, left hand; M06.9 Rheumatoid arthritis, unspecified; M81.0 Age-related osteoporosis without current pathological fracture; F17.210 Nicotine dependence, cigarettes, uncomplicated; Z79.891 Long term (current) use of opiate analgesic; Z79.899 Other long term (current) drug therapy; Z88.8 Allergy status to other drugs, medicaments and biological substances; Z86.79 Personal history of other diseases of the circulatory system; R76.0 Raised antibody titer; M25.50 Pain in unspecified joint; D59.1 Other autoimmune hemolytic anemias
CPT/HCPCS: G0463 ×2

== ENCOUNTER 2018-08-10 04:25 | Emergency (ER) | payer MEDICARE ==
[~2018-08-10] VITALS: Ht 154.9 cm; Wt 56.4 kg
[~2018-08-10 04:25] MED LIST changes: +/CELE20CA PO; -GABA-1171; -ROBA500T PO; -VITA100018 PO; +VITA100072 PO
[2018-08-10 04:26] VITALS: BP 134/83
[2018-08-10] MEDS ORDERED: GABA-1171 (04:33)
[2018-08-10] MEDS ORDERED: PRED20TA PO (05:12)
[2018-08-10] MEDS ORDERED: ROBA500T PO (05:12)
[2018-08-10] MEDS ORDERED: predniSONE 20 MG TAB PO ONE (05:15)
[2018-08-10] MEDS ORDERED: METHOCARBAMOL 500 MG TAB PO ONE (05:15)
== END 2018-08-10 05:48 | disposition home or self-care (01) ==
LOC: M ED 04:25
DX: M54.32 Sciatica, left side (principal); M16.12 Unilateral primary osteoarthritis, left hip; Z79.899 Other long term (current) drug therapy

== ENCOUNTER → 2018-08-14 | Outpatient (REF) | payer MEDICARE ==
[~2018-08-14] MED LIST changes: +GABA-1171; +ROBA500T PO
[2018-08-14 19:57] LABS: BASO # 0.1 10^3/uL (0.0-0.2); BASO % 0.4 % (0.0-1.0); EOS % 0.1 % (0.0-3.0); HEMATOCRIT 41.2 % (36.0-47.0); HEMOGLOBIN 13.5 g/dl (12.0-15.5); LYMPH # 0.4 10^3/uL (1.5-4.5); MEAN CORPUSCULAR HEMOGLOBIN 30.8 pg (27.0-33.0); MEAN CORPUSCULAR HGB CONC 32.8 g/dl (32.0-36.5); MEAN CORPUSCULAR VOLUME 94.1 fl (80.0-96.0); MONO # 0.3 10^3/uL (0.0-0.8); MONO % 2.5 % (0.0-5.0); NEUTROPHILS # 12.4 10^3/uL (1.8-7.7); NEUTROPHILS % 93.3 % (36.0-66.0); PLATELET COUNT, AUTOMATED 163 10^3/uL (150-450); RED BLOOD COUNT 4.38 10^6/uL (4.00-5.40); WHITE BLOOD COUNT 13.3 10^3/uL (4.0-10.0)
[2018-08-14 20:00] LABS: C REACTIVE PROTEIN QUANTITATIV < 0.30 MG/DL (0.00-0.30)
[2018-08-14 20:39] LABS: ERYTHROCYTE SEDIMENTATION RATE 4 mm/hr (0-30)
== END ==
LOC: M SFHCADAM 11:49
PROVIDERS: ATTEND Physician Assistant Medical
DX: M79.672 Pain in left foot (principal)

== ENCOUNTER → 2018-08-23 | Outpatient (REF) | payer MEDICARE ==
[~2018-08-23] MED LIST changes: -/CELE20CA PO; +VITA100018 PO; -VITA100072 PO
[2018-08-23 18:22] LABS: BASO % 0.4 % (0.0-1.0); EOS % 0.1 % (0.0-3.0); HEMATOCRIT 41.3 % (36.0-47.0); HEMOGLOBIN 13.6 g/dl (12.0-15.5); LYMPH # 0.6 10^3/uL (1.5-4.5); LYMPH % 6.3 % (24.0-44.0); MEAN CORPUSCULAR HEMOGLOBIN 30.8 pg (27.0-33.0); MEAN CORPUSCULAR HGB CONC 32.9 g/dl (32.0-36.5); MEAN CORPUSCULAR VOLUME 93.7 fl (80.0-96.0); MONO # 0.4 10^3/uL (0.0-0.8); NEUTROPHILS # 8.9 10^3/uL (1.8-7.7); NEUTROPHILS % 87.9 % (36.0-66.0); PLATELET COUNT, AUTOMATED 138 10^3/uL (150-450); RED BLOOD COUNT 4.41 10^6/uL (4.00-5.40); WHITE BLOOD COUNT 10.2 10^3/uL (4.0-10.0)
[2018-08-23 18:27] LABS: C REACTIVE PROTEIN QUANTITATIV < 0.30 MG/DL (0.00-0.30); URIC ACID 3.3 MG/DL (2.6-6.0)
[2018-08-23 19:09] LABS: ERYTHROCYTE SEDIMENTATION RATE 3 mm/hr (0-30)
[2018-08-26 00:08] LABS: Lyme Disease IgG/IgM Antibodie <0.91 ISR (0.00-0.90); Lyme Disease IgM Ab Quantitati <0.80 index (0.00-0.79)
== END ==
LOC: M LABDRAW1 17:09
PROVIDERS: ATTEND Physician Assistant Medical
DX: M79.672 Pain in left foot (principal)

== ENCOUNTER → 2018-09-19 | Outpatient (CLI) | payer MEDICARE ==
[~2018-09-19] MED LIST changes: +PROHANCE 279.3MG/ML 15ML VIAL (A9576) As Ordered ONE
--- NOTE | 2018-09-19 15:26 | REP ---
REASON: Severe hip pain COMPARISON: None. There is moderate asymmetric hip joint space narrowing with buttressing. There is no fracture, dislocation or subluxation. IMPRESSION: Chronic changes as described above. Electronically Signed by Lalo Espinoza DO 09/19/2018 04:34 P
--- NOTE | 2018-09-19 17:21 | REP ---
MRI LEFT HI WITH AND WITHOUT CONTRAST: TECHNIQUE: Coronal T1, STIR through the pelvis, post arthrogram axial T1 fat sat, T2 fat sat, coronal T1 fat sat, T2 fat sat, sagittal T1 fat sat, axial oblique T1 fat sat left hip. Axial T1 fat sat, post-IV Gadolinium axial and coronal T1 fat sat following the intravenous administration of 11 mL ProHance. There is no bone marrow edema or occult fracture. There is no evidence of avascular necrosis. There is a small joint effusion on the right side. The superior labrum of the left hip appears diffusely frayed. There is no paralabral cyst. There is mild increased signal in the soft-tissues along the greater trochanters bilaterally suggesting mild greater trochanter tendinobursitis. The other surrounding soft tissues are unremarkable. The visualized intrapelvic structures are unremarkable. No abnormal enhancement or enhancing mass is seen. IMPRESSION: No occult fracture or avascular necrosis. Small right hip joint effusion. There are findings suggesting mild bilateral greater trochanteric tendinobursitis. There appears to be diffuse fraying of the superior left hip labrum. I see no other significant finding. Electronically Signed by Rashaad Gifford MD 09/20/2018 04:49 P
== END ==
LOC: M RAD 14:34
PROVIDERS: ATTEND Internal Medicine Hematology & Oncology
DX: M16.12 Unilateral primary osteoarthritis, left hip (principal); M25.452 Effusion, left hip; Z79.52 Long term (current) use of systemic steroids
CPT/HCPCS: 73502; 73723; A9576

== ENCOUNTER → 2018-09-26 | Outpatient (CLI) | payer MEDICARE ==
[~2018-09-26] MED LIST changes: +GABA-1171 PO; +METH4PACK PO; +PRED25TA PO; -PROHANCE 279.3MG/ML 15ML VIAL (A9576) As Ordered ONE
--- NOTE | 2018-09-26 14:34 | REP ---
REASON: Carotid arterial disease. COMPARISON: 06/13/2017 which showed a 16-49% stenosis of the right internal carotid artery and a 16-49% stenosis of the left internal carotid artery. Once again, echogenic material is seen along the carotid arterial ayers status quo. The echogenic material is seen in the form of both soft non-shadowing a calcified shadowing plaque formation. RIGHT LEFT CCA Systolic 71.5 cm/s 100.5 cm/s CCA Diastolic 19.5 cm/s 23.8 cm/s ICA Systolic 93.4 cm/s 106.3 cm/s ICA Diastolic 33.8 cm/s 38.8 cm/s ICA/CCA Ratio 1.5 1.5 Analysis of the spectral wave form shows no significant spectral broadening. There is antegrade flow seen in both vertebral arteries. IMPRESSION: According to the NASCET consensus criteria there is less than 50% stenosis of the internal carotid artery bilaterally. This is secondary to both soft and calcified plaque formation. There does not appear to be a significant change compared to the prior exam. Electronically Signed by Lalo Espinoza DO 09/26/2018 03:45 P
--- NOTE | 2018-09-26 17:19 | REP ---
RIGHT UPPER EXTREMITY DUPLEX DOPPLER ARTERIAL ULTRASOUND: Real-time ultrasound evaluation of and duplex Doppler interrogation of the right upper extremity arterial system is performed. Reportedly there is a graft from the proximal aspect of the right brachial artery to the region of the proximal forearm feeding the radial and ulnar arteries. Normal flow is seen in the right subclavian and axillary arteries, with normal flow velocities and triphasic waveforms. Normal flow is seen in the proximal right brachial artery. The [place] mid and distal right brachial artery are occluded. There is patent flow through the aforementioned graft with triphasic waveforms and normal flow velocities. In the forearm right radial artery demonstrates normal flow velocity with monophasic waveforms. Biphasic waveform is seen in the proximal right ulnar artery with normal flow velocity. 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 Other [place] arteries demonstrate relatively normal flow velocities and waveforms. There is patent flow through the graft connecting the proximal right brachial artery to the radial and ulnar arteries in the forearm. Electronically Signed by Rashaad Gifford MD 09/27/2018 03:32 P
== END ==
LOC: M RAD 13:30
PROVIDERS: ATTEND Surgery Vascular Surgery
DX: I65.23 Occlusion and stenosis of bilateral carotid arteries (principal); Z95.828 Presence of other vascular implants and grafts

== ENCOUNTER → 2018-10-06 | Outpatient (CLI) | payer MEDICARE ==
[~2018-10-06] MED LIST changes: -METH4PACK PO; -PRED25TA PO
--- NOTE | 2018-10-26 00:45 | ECWPNPC ---
PATIENT NAME: ZANDER DUTTA : 1955 GENDER: FEMALE VISIT DATE: 10/06/2018 DISCHARGE DATE: 10/06/18 1049 VISIT LOCKED DATE TIME: PHYSICIAN: CHELSEA WALTERS PHYSICIAN PAGER NO: [phone] RESOURCE: CHELSEA WALTERS REASON FOR APPOINTMENT 1. REVIEW MRI/SIJ HISTORY OF PRESENT ILLNESS HISTORY OF PRESENT ILLNESS: HERE FOR F/U OF CHRONIC GENERALIZED JOINT PAIN.RATING PAIN VAS 6-8/10.DESCRIBES A HEAVY AND TIGHT FEELING IN HER LEGS.DESCRIBES GENERALIZED BACK /NECK PAIN CONTINUOUS,SHARP,ACHING AND STABBING.FINDS CURRENT CHRONIC PAIN MEDICATION SOMEWHAT HELPFUL.REVIEWED RECENT IMAGING -MRI LEFT HIP-09/19/18.DISCUSSED TREATMENT OPTIONS. PAIN THE PATIENT DESCRIBES THE PAIN... FALL RISK SCREENING: SCREENING :NO FALLS REPORTED IN THE LAST YEAR CURRENT MEDICATIONS TAKING GABAPENTIN 300 MG CAPSULE 2 CAPSULE ORALLY TAKING VITAMIN D 2000 UNIT TABLET 1 TABLET ORALLY ONCE A DAY TAKING VITAMIN B 12 1000 MCG TABLET 1 TAB(S) ORALLY DAILY TAKING VITAMIN C 1000 MG TABLET 1 CAPSULE ORALLY ONCE A DAY TAKING FLONASE 50 MCG/DOSE INHALER 1 SPRAY IN EACH NOSTRIL NASALLY DAILY TAKING PROAIR HFA 108 (90 BASE) MCG/ACT AEROSOL SOLUTION 2 PUFFS NEEDED INHALATION EVERY 6 HRS PRN COUGH WHEEZE TAKING SYMBICORT 80-4.5 MCG/ACT AEROSOL 2 PUFFS INHALATION TWICE A DAY TAKING CHLORTHALIDONE 25 MG TABLET 1/2 TABLET ORALLY ONCE A DAY TAKING POTASSIUM CHLORIDE ER 20 MEQ TABLET EXTENDED RELEASE 1 TABLET WITH FOOD ORALLY TWICE A DAY TAKING MECLIZINE HCL 25 MG CAPSULE 1 TABLET NEEDED ORALLY NEEDED, NOTES: 25MG TAKING PREDNISONE 2.5 MG TABLET 1 TABLET ORALLY ONCE A DAY TAKING OXYCONTIN 20 MG TABLET ER 12 HOUR ABUSE-DETERRENT 1 TAB ORALLY BID MDD=2 CHRONIC PAIN TAKING HYDROXYZINE HCL 25 MG TABLET 1 TABLET NEEDED ORALLY BEFORE BEDTIME PRN TAKING OXYCODONE HCL 15 MG TABLET 1 TABLET ORALLY EVERY 6 HOURS PRN PAIN MDD =4 NOT-TAKING MAY HAVE CBD OIL NEEDED, NOTES: USES EVERY DAY NOT-TAKING METHOCARBAMOL 500 MG TABLET DIRECTED, 2 TABLETS ORALLY THREE TIMES DAILY NEEDED, NOTES: [facility] ED NOT-TAKING PREDNISONE 10 MG TABLET DIR (ADJUSTMENT TO TAPER) ORALLY 2 TABS DAILY X3D, THEN 1 TAB DAILY X5D NOT-TAKING PROTONIX 20 MG TABLET DELAYED RELEASE TAKE ONE TABLET BY MOUTH TWICE A DAY NEEDED NOT-TAKING PREDNISONE 20 MG TABLET 2 TABLETS, TAPER ORALLY , NOTES: [facility] ED NOT-TAKING ATORVASTATIN CALCIUM 10 MG TABLET TAKE ONE TABLET BY MOUTH EVERY DAY ORALLY DAILY NOT-TAKING OXYBUTYNIN CHLORIDE ER 10 MG TABLET EXTENDED RELEASE 24 HOUR 1 TABLET ORALLY ONCE A DAY NOT-TAKING PREDNISONE 5 MG TABLET 1 TABLET ORALLY ONCE A DAY, NOTES: HAS BEEN ON FOR 1 YEAR NOT-TAKING AMITRIPTYLINE HCL , NOTES: HAS NOT ACTUALLY STARTED-RELUCNANT NOT-TAKING TIZANIDINE HCL 2 MG TABLET 1 TABLET NEEDED ORALLY TAKE 1 IN AM, 2 AT BEDTIME NOT-TAKING NICODERM CQ 7 MG/24HR PATCH 24 HOUR 1 PATCH TO SKIN TRANSDERMAL ONCE A DAY MEDICATION LIST REVIEWED AND RECONCILED WITH THE PATIENT PAST MEDICAL HISTORY G6PD DEFICIENCY-ARTORVA WAS D/C BY HEMATOLOGY 09/08 HEMOLYTIC ANEMIA, REFERRED [facility] HEME/ONC, HAD BONE MARROW BX 06/09. SUSPECTED HEMOLYSIS. (? 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 THYROID NODULE- (THYROIDECTOMY) KIDNEY STONES S/P ESWL 03/2003, STENTS VITAMIN D DEFICIENCY MIGRAINES COPD FEV1 = 1.93 2005 SMOKER GENERALIZED OSTEOARTHRITIS HIPS, NECK, BACK, HANDS LUNG NODULE ON CT CHEST 10/05; F/U PENDING 04/07 50-69% BILAT CAROTID STENOSIS DVT RT UE 1995 BA SWALLOW 01/07: SMALL PULSION ESOPAGEAL DIVERTICULUM, ASPIRATED A DROPLET OF BARIUM, REFLUX PRESENT RHEUMATOID ARTHRITIS OSTEOPOROSIS HYPERLIPIDEMIA--WAS ON ATORVA, THIS WAS D/C BY HEMATOLOGY (POSSIBLE G6PD DEFIC CONTRIBUTOR) ALLERGIES REQUIP: DIZZINESS - ALLERGY ATORVASTATIN (HIGHER DOSE): LIZAMA - SIDE EFFECTS HAS G6PD DEFIECIENCY-- AVOID HEMOLYSIS INDUCERS: HEMOLYSIS - CONTRAINDICATION SURGICAL HISTORY 1995 CORNONARY CATH - NORMAL 1995 RIGHT ARM BRACHIAL BYPASS 1995 DORSAL COLUMN STIMULATOR 1995 CYSTOSCOPY & LEFT URETEROSCOPY WITH LITHO AND STONE EXTRACTION 2004 LEFT URETERAL STENT PLACED, THEN CHANGED DUE TO OBSTRUCTION () 2005 LEFT URETERAL STENT REMOVED 2005 PARTIAL THYROIDECTOMY - NEGATIVE FOR CANCER 2008 EGD/COLONOSCOPY - GASTRIC AND COLON" POLYPS" (PER PATIENT NEEDS F/U IN 5 YEARS) 2010 LEFT URETERAL STENT PLACED 06/2013 DORSAL COLUMN STIMULATOR REMOVED DUE TO SEVERE KIDNEY PROBLEMS FROM STONES (WIRES LEFT IN, THEY WERE REMOVED 10/04) 2004, 2014 PARTIAL HYSTERECTOMY REMOVAL OF THE WIRES TO THE STIMULATOR 08/2014 EGD/COLONOSCOPY-- BOTH NORMAL 01/2017 RIGHT KIDNEY DOUBLE J STENT X2 02/22/[address] GUIDED NEPHROLITHOTOMY AT [facility] 04/08 RIGHT KIDNEY STONE REMOVED 03/2017 FAMILY HISTORY FATHER: , RHEUMATOID, DIAGNOSED WITH DIABETES, HEART DISEASE MOTHER: , RHEUMATOID, HEART DISEASE, DIABETES MATERNAL GRAND MOTHER: BREAST CANCER, CANCER SIBLINGS: DIABETES PATERNAL GRAND FATHER: DIABETES PATERNAL GRAND MOTHER: DIABETES PATERNAL GRANDMOTHER SKIN CANCER\\\\\\\\N1 SISTER- RHEUMATOID \\\\\\\\\\\\\\/ PSORIATIC ARTHRITISMULTIPLE SIBLINGS WITH HEART DISEASE. SOCIAL HISTORY GENERAL: TOBACCO USE ARE YOU A:CURRENT SMOKER ARE YOU INTERESTED IN QUITTING?READY TO QUIT PT STATES GOING BACK ON NICOTINE PATCH STARTING THIS COMING Tuesday03/10/18 JS COUNSELED THE PATIENT ON TOBACCO USE, CESSATION [id number]/17/2019 HOW MANY CIGARETTES A DAY DO YOU SMOKE?5 OR LESS PATIENT COUNSELED ON THE DANGERS OF TOBACCO USE AND URGED TO QUIT:04/03/2018 SMOKING CESSATION INFORMATION GIVEN01/18/2018 HIV / HEP-C SCREENING HIV TEST OFFERED TO PATIENT:NO N/A HEP-C TEST OFFERED TO PATIENT:YES DATE OFFERED:06/01/2016 TEST ACCEPTED:NO REASON:PATIENT DECLINED EDUCATION [employer]. DIET: REGULAR. LANGUAGE PASHTO. DOMESTIC VIOLENCE NONE. BMI CARE GOAL FOLLOW-UP BELOW NORMAL BMI FOLLOW-UPDIETARY EDUCATION FOR WEIGHT GAIN RECREATIONAL DRUG USE DRUG USE?NO EXERCISE: NO REGULAR EXERCISE. LEARNING BARRIERS / SPECIAL NEEDS CHANGE FROM LAST VISIT?YES URI SYMPTOMS BARRIERS TO LEARNING?NO HEARING IMPAIRED?NO VISION IMPAIRED?YES COGNITIVELY IMPAIRED?NO :CORRECTIVE LENSES READINESS TO LEARN?YES LEARNING PREFERENCES?NO LEARNING CAPABILITIES PRESENT?YES EMOTIONAL BARRIERS?NO SPECIAL DEVICES?NO TROUBLE SHOOTER NEEDED?NO PAIN CLINIC PFS, CLERGY, PUBLIC HEALTH REFERRALS HAS THE PATIENT BEEN EDUCATED REGARDING HIS/HER PLAN OF CARE?YES HAS THE PATIENT BEEN EDUCATED REGARDING PAIN, THE RISK FOR PAIN, THE IMPORTANCE OF EFFECTIVE PAIN MANAGEMENT, AND THE PAIN ASSESSMENT PROCESS?YES LATEX QUESTIONNAIRE LATEX ALLERGY : HAVE YOU EVER DEVELOPED ANY TYPE OF REACTION AFTER HANDLING LATEX PRODUCTS SUCH RUBBER GLOVES, CONDOMS, DIAPHRAGMS, BALLOONS, SOCKS, OR UNDERWEAR?NO LATEX ALLERGY : HAVE YOU EVER DEVELOPED ANY TYPE OF REACTION DURING OR AFTER DENTAL APPOINTMENT, VAGINAL/RECTAL EXAMINATION, SURGICAL PROCEDURE, OR ANY OTHER EXPOSURE?NO DATE ASKED : 08/08/2018 LATEX RISK : HAVE YOU EVER HAD ANY DIFFICULTY BREATHING OR HIVES AFTER EATING OR HANDLING ANY FRUITS, OR VEGETABLES; SUCH KIWI, BANANAS, STONE FRUITS, OR CHESTNUTSNO LATEX RISK : DO YOU HAVE A PREVIOUS PERSONAL HISTORY OF MORE THAN NINE SURGERIES, SPINA BIFIDA, OR REPEATED CATHERTIZATIONS? NO LATEX RISK : ARE YOU FREQUENTLY EXPOSED TO LATEX PRODUCTS IN YOUR OCCUPATION?NO CAFFEINE CAFFEINE USE?YES ABOUT 1/2 BOTTLE SODA DAILY ADVANCE DIRECTIVE ADVANCE DIRECTIVE DISCUSSED WITH PATIENT:YES DECLINED INFORMATION, STATES SHE HAS PAPERWORK AT HOME. ASSISTANCE WITH FILLING OUT OFFERED. PT DECLINES AT THIS TIME. MANDAEN NO SIKH BELIEFS THAT WOULD IMPACT HEALTH CARE. MARITAL STATUS: . ALCOHOL SCREENING POINTS: 0, INTERPRETATION: NEGATIVE. OCCUPATION: DISABLED. SEXUAL HX HAD SEX IN THE LAST 12 MONTHS (VAGINAL, ORAL, OR ANAL)?: NO, HAVE YOU EVER HAD AN STD?: NO. REVIEWED WITH PATIENT 03/10/18 1327 JSREVIEWED WITH PATIENT 05/10/18 0933 BVREVIEWED WITH PT 08/08/18 0908 BV. HOSPITALIZATION/MAJOR DIAGNOSTIC PROCEDURE SURGERY RELATED REVIEW OF SYSTEMS REVIEWED BY: PROVIDER: CHELSEA FATIMA . CONSTITUTIONAL: ANY CHANGE IN YOUR MEDICAL CONDITION? NO . CHILLS NO . FEVER NO . INFECTION: DO YOU HAVE NEW INFECTIONS? NO . DO YOU HAVE HISTORY OF MRSA? NO . MUSCULOSKELETAL: ANY NEW PATTERNS OF PAIN OR NUMBNESS? NO . GASTROENTEROLOGY: ANY NEW CHANGE IN BOWEL CONTROL? NO . GENITOURINARY: ANY NEW CHANGE IN BLADDER CONTROL? NO . IS THERE A CHANCE YOU COULD BE ? NO . HEMATOLOGY/LYMPH: DO YOU TAKE ANY BLOOD THINNERS? (FOR EXAMPLE- COUMADIN, PLAVIX, AGGRENOX, PLATEL, PRADAXA, OR XARELTO) NO . WHEN WAS YOUR LAST DOSE? DATE: TIME: . NEUROLOGY: HAVE YOU FALLEN IN THE PAST 12 MONTHS? NO . ANY NEW EXTREMITY NUMBNESS OR WEAKNESS? NO . CARDIOLOGY: DO YOU HAVE A PACEMAKER OR DEFIBRILLATOR? NO . RESPIRATORY: HAVE YOU BEEN SICK IN THE PAST WEEK? NO . FEVER NO . FLU LIKE SYMPTOMS? NO . COUGH NO . INTEGUMENTARY: DO YOU HAVE ANY RASHES OR OPEN SORES? NO . ALLERGIC/IMMUNO: ARE YOU ALLERGIC TO IV DYE? NO . ANY NEW ALLERGIES? NO . PSYCHIATRIC: DO YOU HAVE THOUGHTS OF HURTING YOURSELF OR SOMEONE ELSE? NO . ARE YOU ABUSED, NEGLECTED, OR IN AN UNSAFE ENVIRONMENT? NO . ENDOCRINOLOGY: ARE YOU DIABETIC? NO . OTHER: DO YOU NEED ANY PRESCRIPTIONS? NO . IF YES, PLEASE LIST: ____ . ANY NEW PROBLEMS WITH YOUR MEDICATIONS? NO . WHEN DID YOU LAST EAT? ____ . WHEN DID YOU LAST DRINK? ____ . WHAT DID YOU LAST DRINK? ____ . NAME OF PERSON DRIVING YOU HOME? ____ . DO YOU HAVE ANY OTHER QUESTIONS OR CONCERNS NO . VITAL SIGNS WT 124 LBS, HT 61 IN, BMI 23.43 INDEX, BP 129/76 MM HG, HR 74 /MIN, RR 18 /MIN, TEMP 98.4 F, OXYGEN SAT % 98.4, NA INITIALS SC 10:00, REVIEWED BY: KG. EXAMINATION GENERAL EXAMINATION: GENERAL APPEARANCE:AWAKE,ALERT ,PLEAASANT . PSYCHAFFECT NORMAL . LUNGS:LUNG MACK[place] ARE CLEAR TO AUSCULTATION BILATERALLY. GOOD MOVEMENT OF AIR . HEART:S1, S2 IN A REGULAR RATE AND RHYTHM. NO SIGNIFICANT MURMURS, RUBS OR GALLOPS NOTED . ASSESSMENTS SPONDYLOSIS OF CERVICAL REGION WITHOUT MYELOPATHY OR RADICULOPATHY - M47.812 (PRIMARY) INFLAMMATORY ARTHROPATHY - M19.90 TREATMENT SPONDYLOSIS OF CERVICAL REGION WITHOUT MYELOPATHY OR RADICULOPATHY CONTINUE GABAPENTIN CAPSULE, 300 MG, 2 CAPSULE, ORALLY REFILL OXYCONTIN TABLET ER 12 HOUR ABUSE-DETERRENT, 20 MG, 1 TAB, ORALLY, BID MDD=2 CHRONIC PAIN, 30 DAY(S), 60, REFILLS 0 REFILL HYDROXYZINE HCL TABLET, 25 MG, 1 TO 2, ORALLY, BEFORE BEDTIME PRN, 30 DAY(S), 60, REFILLS 2 REFILL OXYCODONE HCL TABLET, 15 MG, 1 TABLET, ORALLY, EVERY 6 HOURS PRN PAIN MDD =4, 30 DAY(S), 120, REFILLS 0 START ROPINIROLE HCL TABLET, 0.25 MG, 1 TO 2 TAB 3 HR PRE BEDTIME, ORALLY, ONCE A DAY, 30 DAY(S), 60, REFILLS 2 [facility] MRI SPINE, L.S. WITHOUT [id number] NOTES: ISTOP REGISTRY REVIEWED AND DEMONSTRATES COMPLLIANCE. BRINGS IN MEDICATIONS WHICH IS APPROPRIATE FOR WHAT WAS DISPENSED. RECENT URINE TOXICOLOGY REVIEWED. NO UNAUTHORIZED MEDICATIONS. NO ILLICIT SUBSTANCES AND PRESCRIBED MEDICATIONS WERE PRESENT. , [facility] NARCOTIC AGREEMENT WAS REVIEWED AND SIGNED TODAY BY THE PATIENT. SEE ATTACHED DOCUMENT FOR FULL DETAILS; SPECIFIC ISSUES WERE REVIEWED: 1) KEEP PAIN MEDS IN THEIR ORIGINAL BOTTLES AND ANY WEEKLY PLANNERS ARE TO BE BROUGHT TO THE PAIN CENTER AT EVERY VISIT. 2) THE PATIENT IS NOT TO INCREASE DOSING OR TIMING OF THEIR PAIN MEDICATION WITHOUT SPECIFIC DIRECTION OF THEIR PAIN CENTERPROVIDER (NOT ER OR OTHER PROVIDERS). 3) ALL PAIN MEDS ARE TO BE KEPT SECURED, IN A LOCKED BOX. 4) NO PAIN MEDS ARE TO BE SHARED WITH ANY OTHER PERSON FOR ANY REASON. 5) NO PAIN MEDS MAY BE TAKEN FROM ANY FRIENDS OR RELATIVES FOR ANY REASON 6) NO MEDS OR SUBSTANCES WHICH ARE NOT LEGAL ARE TO BE USED- NO MARIJUANA, NO COCAINE, AMPHETAMINES, HEROIN, OR OTHERS ARE EVER TO BE USED. 7)URINE TESTING IS DONE TO ACCOUNT FOR MEDS AND SUBSTANCES BEING TAKEN AND WILL BE DONE RANDOMLY. PROCEDURE CODES FA211 ESTABILISHED PATIENT [facility] CHARGE DISPOSITION & COMMUNICATION FOLLOW UP 10WK ELECTRONICALLY SIGNED BY AKUA DIEHL ON 10/25/2018 AT 08:52 AM EDT DISCLAIMER : THIS IS A VISIT SUMMARY EXTRACTED FROM THE [employer] CHART. IT IS NOT A COPY OF THE [employer] PROGRESS NOTE. ROBINSON
== END ==
LOC: M PAIN 09:30
PROVIDERS: ATTEND Nurse Practitioner Family
DX: M47.812 Spondylosis without myelopathy or radiculopathy, cervical region (principal); M19.90 Unspecified osteoarthritis, unspecified site; J44.9 Chronic obstructive pulmonary disease, unspecified; F17.210 Nicotine dependence, cigarettes, uncomplicated; Z79.899 Other long term (current) drug therapy; Z79.891 Long term (current) use of opiate analgesic; Z88.8 Allergy status to other drugs, medicaments and biological substances

== ENCOUNTER → 2018-10-24 | Outpatient (CLI) | payer MEDICARE ==
[~2018-10-24] MED LIST changes: +PRED25TA PO
--- NOTE | 2018-10-24 15:48 | REP ---
MAXILLOFACIAL CT WITHOUT CONTRAST: HISTORY: Chronic pansinusitis. COMPARISON: 03/31/2018. The sinuses are clear. The osteomeatal units are patent. The middle and inferior nasal turbinates are partially paradoxical. There is vinnie bullosa of the left middle nasal turbinate. There is mild deviation of the nasal septum to the left. The cribriform plate, medial ayers of the orbits and optic canals are intact. The carotid canals form a segment of the posterolateral ayers of the sphenoid sinus. IMPRESSION: There is no acute or chronic sinusitis. Electronically Signed by Lizandro Fischer MD 10/24/2018 03:53 P
== END ==
LOC: M RAD 14:55
PROVIDERS: ATTEND Otolaryngology
DX: J32.4 Chronic pansinusitis (principal)

== ENCOUNTER → 2018-10-30 | Outpatient (CLI) | payer MEDICARE ==
[2018-10-30 15:40] LABS: BASO # 0.1 10^3/uL (0.0-0.2); BASO % 0.6 % (0.0-1.0); EOS # 0.1 10^3/uL (0.0-0.50); EOS % 0.6 % (0.0-3.0); HEMATOCRIT 41.1 % (36.0-47.0); HEMOGLOBIN 13.4 g/dl (12.0-15.5); LYMPH # 0.8 10^3/uL (1.5-4.5); LYMPH % 9.8 % (24.0-44.0); MEAN CORPUSCULAR HEMOGLOBIN 29.6 pg (27.0-33.0); MEAN CORPUSCULAR HGB CONC 32.6 g/dl (32.0-36.5); MEAN CORPUSCULAR VOLUME 90.9 fl (80.0-96.0); MONO # 0.5 10^3/uL (0.0-0.8); MONO % 5.7 % (0.0-5.0); NEUTROPHILS # 7.1 10^3/uL (1.8-7.7); NEUTROPHILS % 82.8 % (36.0-66.0); PLATELET COUNT, AUTOMATED 161 10^3/uL (150-450); RED BLOOD COUNT 4.52 10^6/uL (4.00-5.40); WHITE BLOOD COUNT 8.6 10^3/uL (4.0-10.0)
[2018-10-30 15:54] LABS: C REACTIVE PROTEIN QUANTITATIV < 0.30 MG/DL (0.00-0.30); URIC ACID 3.8 MG/DL (2.6-6.0)
[2018-10-30 16:01] LABS: ERYTHROCYTE SEDIMENTATION RATE 4 mm/hr (0-30)
== END ==
LOC: M LAB 15:15
PROVIDERS: ATTEND Physician Assistant Medical
DX: M79.672 Pain in left foot (principal)

== ENCOUNTER 2018-11-10 11:26 | Outpatient (RCR) | payer MEDICARE ==
[2018-11-15] MEDS ORDERED: METH4PACK PO (10:39)
== END 2018-11-19 ==
LOC: M PT 11:26
PROVIDERS: ATTEND Physician Assistant
DX: M25.552 Pain in left hip (principal)

== ENCOUNTER 2018-12-13 08:31 | Outpatient (RCR) | payer MEDICARE ==
[~2018-12-13 08:31] MED LIST changes: -CHLO125TA PO; -ECOT81TA5 PO; -FLON1SPR; -PANT20TA51 PO; -PROHANCE 279.3MG/ML 5ML VIAL (A9576) As Ordered ONE; -ROPI0.253 PO
[2018-12-14] MEDS ORDERED: CHLO125TA PO (10:20)
[2018-12-14] MEDS ORDERED: FLON1SPR (10:20)
[2018-12-14] MEDS ORDERED: POTA1TAB14 PO (10:20)
[2018-12-14] MEDS ORDERED: HYDR-3363 PO (10:20)
[2018-12-14] MEDS ORDERED: ECOT81TA5 PO (10:20)
[2018-12-14] MEDS ORDERED: ROPI0.253 PO (10:20)
[2018-12-14] MEDS ORDERED: PANT20TA51 PO (10:20)
[2018-12-14] MEDS ORDERED: PRED25TA PO (10:20)
== END 2018-12-20 ==
LOC: M PT 08:31
PROVIDERS: ATTEND Orthopaedic Surgery
DX: Z51.89 Encounter for other specified aftercare (principal); M25.552 Pain in left hip

== ENCOUNTER → 2018-12-13 | Outpatient (CLI) | payer MEDICARE ==
[~2018-12-13] MED LIST changes: +CHLO125TA PO; +ECOT81TA5 PO; +FLON1SPR; +METH4PACK PO; +PANT20TA51 PO; +PROHANCE 279.3MG/ML 5ML VIAL (A9576) As Ordered ONE; +ROPI0.253 PO
--- NOTE | 2018-12-13 14:08 | REP ---
REASON: Pain and swelling. DEEP VENOUS ULTRASOUND RIGHT UPPER EXTREMITY: TECHNIQUE: Multiple ultrasonographic images of the deep venous structures of the right upper extremity were obtained to rule out deep venous thrombosis. FINDINGS: There is no abnormal echogenic material seen in any of the visualized deep venous structures of the right upper extremity. Coaptation where applicable is appropriate throughout. Augmentation shows an expected response throughout. The brachial bypass is seen with abnormal echogenic material within it and distally to the radioulnar bifurcation. IMPRESSION: 1. The exam is limited. The brachial veins are not imaged. Brachial vein occlusion cannot be rule out. However, no definite venous occlusion is seen. 2. There is evidence of an occluded bypass graft. This would need to be correlated clinically. Electronically Signed by Lalo Espinoza DO 12/13/2018 04:20 P
--- NOTE | 2018-12-13 16:37 | IPNPDOC ---
Date Seen The patient was seen on 12/13/18. Progress Note SUBJECTIVE: Patient is a 63yoF at [facility] Hematology clinic today for a FU shadia and reported RUE pain. 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 Last US 10/08 indicated patent graft. H/O hemolytic anemia follows with Oncology. The pt had noted pain for about 1 week worse with activity. She also noticed she did not feel a radial pulse. The pt was sent from Hematology clinic for an US RUE which was negative for DVT but indicated graft occlusion. Vascular Surgery was called for further recommendations. RUE arterial US was requested. Pt states she has been off [id number] for past couple months as per Hematology. OBJECTIVE PHYSICAL EXAMINATION: VITAL SIGNS: Please see below. GENERAL: NAD CARDIOVASCULAR: S1S2 RRR. RESPIRATORY: CTA. EXTREMITIES: Radial pulse is not palpable, ulnar pulse is palpable. Hand is pink in color and warm to touch. Motor and sensation intact. LABORATORY DATA, IMAGING STUDIES, MICROBIOLOGY: Please see below. RUE US 1. The exam is limited. The brachial veins are not imaged. Brachial vein occlusion cannot be rule out. However, no definite venous occlusion is seen. 2. There is evidence of an occluded bypass graft. This would need to be correlated clinically. Unreviewed DD: Lalo Espinoza MD DO 12/13/18 1301 RUE arterial US. Indicates occlusion of graft RUE. Collateral flow noted. distal flow radial and ulanar intact but minimal. report pending but images reviewed with Dr Meza. Vein mapping RLE pending. ASSESSMENT AND PLAN: PROBLEMS: 1. 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 Occlusion of RUE graft indicated with US today. Rt hand is not acutely in jeopardy as U/S confirms distal flow to radial and ulnar arteries, but minimal. The pt is reviewed and examined by Dr Meza, would like to pursue thrombolysis of RUE graft to preserve graft. Pending result of thrombolysis could potentially consider bypass procedure. In preparation for potential procedure, vein mapping RLE is requested and pending at this time. Plan is to arrange for the pt to return for thrombolysis procedure at 6 AM 7/25/19. NPO after MN ASA 81mg this PM and in AM. Dr Meza spoke with Hematology, Edith Bustamante NP, who confirms that there would be no contraindications to thrombolysis. Also, no contraindication for ASA 81 mg daily. 12/13/18 Hgb 12.8. Pt verbalizes understanding and agreement. Dr Meza also relayed plan to Pt's son Florencio, per her request. Sheryl Grover Dec 13, 2018 16:37
--- NOTE | 2018-12-13 18:27 | REP ---
HISTORY: Vein mapping study. No DVT study was ordered or performed. The technologist has labeled the following: Greater saphenous vein parenthetically GSV, lesser saphenous vein parenthetically LSV. GSV proximal thigh: 2.8 mm GSV mid thigh: 2.8 mm GSV distal thigh: 3.6 mm GSV proximal calf: 3.1 mm GSV mid calf: 2.6 mm GSV distal calf: 1.3 mm LSV proximal: 1.6 mm LSV mid: 1.1 mm LSV distal: 1.8 mm Electronically Signed by Lalo Espinoza DO 12/13/2018 06:37 P
--- NOTE | 2018-12-13 18:59 | REP ---
RIGHT UPPER EXTREMITY DUPLEX DOPPLER ARTERIAL ULTRASOUND: Real-time ultrasound evaluation and duplex Doppler interrogation of the right upper extremity arterial system is performed. There is a history of a bypass graft from proximal right brachial artery to the region of the proximal forearm, feeding the radial and ulnar arteries. There is occlusion of this bypass graft currently. There is flow in the visualized right subclavian artery and axillary artery, subclavian artery measures 7 mm with a peak systolic velocity of 56.8 cm/s and axillary artery 5 mm with peak systolic velocity 44.1 cm/s. Two collateral arterial vessels are seen from the right axillary artery extending into the forearm. Right radial artery is occluded proximally with reconstitution at the level of the mid forearm. There is reversal of flow in the proximal right ulnar artery with normal direction of flow in the mid to distal aspect. Ulnar artery measures 2 mm throughout. Radial artery also measures 2 mm throughout. IMPRESSION: Occlusion of right upper arm brachial bypass graft. Collateral vessels from the right axillary artery reconstitute the right ulnar and radial arteries in the forearm. Electronically Signed by Rashaad Gifford MD 12/14/2018 12:41 P
== END ==
LOC: M RAD 11:53
PROVIDERS: ATTEND Nurse Practitioner Family
DX: M79.601 Pain in right arm (principal); Z95.1 Presence of aortocoronary bypass graft; T82.898A Other specified complication of vascular prosthetic devices, implants and grafts, initial encounter

== ENCOUNTER 2018-12-14 06:24 | Inpatient (IN) | payer MEDICARE ==
[~2018-12-14] VITALS: Ht 157.5 cm; Wt 54.3 kg
[2018-12-14] VITALS (16 sets, daily range): BP systolic 117–175; BP diastolic 59–82
[~2018-12-14 06:24] MED LIST changes: +ALTEPLASE 2 MG/2 ML VIAL (J2997 PER 1MG) As Ordered ONE; +HEPARIN 1,000 UNITS/ML 10ML VIAL (FOR RADIOLOGY& DIALYSIS ONLY) As Ordered ONE; +HEPARIN 25,000 UNITS/250 ML D5W BAG (100 UNITS/ML) As Ordered ONE; +ISOVUE-300 61% 50ML VIAL (Q9967) As Ordered ONE; +LIDOCAINE 2% MDV 20 ML VIAL As Ordered ONE; +MIDAZOLAM INJ 2 MG/2 ML VIAL (J2250) As Ordered ONE; +fentaNYL 100 MCG/2 ML INJECTION (J3010) As Ordered ONE
[2018-12-14] MEDS: ALTEPLASE RECOMBINANT IV SCH ×3 (07:00→17:11)
[2018-12-14] MEDS: NS IV SCH ×3 (07:00→17:11)
--- NOTE | 2018-12-14 07:10 | HPEPDOC ---
General Date of Admission Dec 14, 2018 at 06:24 Date of Service: Dec 14, 2018 Attending Physician: SANTIAGO RUSSO MD Chief Complaint The patient is a 63-year-old female admitted with a reason for visit of right brachial radial artery bypass thrombosis with claudication and pain. History of Present Illness Ms Montoya is a 63yo patient with hemolytic anemia who underwent a right br achial radial artery bypass in [place] in 1995 after an iatrogenic injury to her brachial artery s/p cardiac cath. She was followed up in here in September of this year and her bypass was patent on US. Subsequently, she went off of her aspirin due to her hemolytic anemia and a week ago started having significant aching pain in her right arm and claudication. Duplex US yesterday reveals subacute thrombosis of her bypass graft with pretty large collaterals from the brachial artery to the radial and ulnar arteries, but flow was still fairly limited. We then discussed the risks, benefits and alternatives to an attempt at thrombolysis with catheter directed TPA, and if we could not cross the bypass or were unsuccessful with lysis due to the chronicity of the clot, we would recommend another bypass with saphenous vein. The patient was extensively counseled. I discussed the procedure with her son, and her telecommunications technician. All questions were answered. Patient denies any recent bleeding episodes, specifically denies hemoptysis, blood in her stool or urine (but she does have a h/o hematuria with kidney stones), bleeding gums or nose bleeds, trauma falls or MVC, stroke, recent surgeries. Will proceed with attempt to place thrombolysis catheter, and I have warned her that because the [place] brachial artery is patent a short distance distal to the origin of the bypass and the clot may be more chronic than we think, it may be challenging to get into the bypass because the patent brachial artery is the path of least resistance. we will US her arm pre-procedure and zay the origin of the bypass with a radial opaque marker to help with placement of the catheter. Home Medications Scheduled Ascorbic Acid (Vitamin C) 500 Mg Tab, 500 MG PO DAILY, (Reported) Budesonide/Formoterol (Symbicort 80-4.5 Mcg Inhaler) 60 Puff/Inhaler Aers, 2 PUFF INH BID, (Reported) Cholecalciferol (Vitamin D3) (Vitamin D3) 1,000 Unit Tab, 1,000 UNIT PO DAILY, (Reported) Cyanocobalamin (Vitamin B-12) (Vitamin B-12) 1,000 Mcg Tab, 1,000 MCG PO DAILY, (Reported) Fluticasone Propionate (Children's Flonase Allergy Rlf) 50 Mcg/Act Spr, 2 SPRAY NA DAILY, (Reported) TAKES AROUND NOONTIME Gabapentin (Gabapentin) 100 Mg Capsule, 300 MG PO DAILY, (Reported) Meclizine HCl (Meclizine HCl) 25 Mg Tab, 25 MG PO TIDP, (Reported) Oxycodone HCl (Oxycodone HCl ER) 20 Mg Tab, 20 MG PO BID, (Reported) Potassium Chloride (Potassium Chloride) 10 Meq Tab, 20 MEQ PO BID, (Reported) Prednisone (Prednisone) 2.5 Mg Tablet, 2.5 MG PO DAILY Scheduled PRN Acetaminophen (Tylenol Arthritis) 650 Mg Tab, 650 MG PO Q8H PRN for PAIN, (Reported) Oxycodone Hcl (Oxycodone HCl) 15 Mg Tab, 15 MG PO Q4HP PRN for PAIN, (Reported) Allergies Coded Allergies: doxycycline (Verified Allergy, Mild, ITCHING, 08/16/18) Past Medical History Medical History hemolytic anemia, tobacco abuse, CAD, hypercholesterolemia, osteoarthritis, sciatica, kidney stones, h/o UTIs Surgical History RUE brachial radial bypass 1995 Family History Significant Family History: Cancer, Heart disease Social History * Smoker: current smoker Alcohol: Denies Drugs: denies Review of Systems Constitutional: Reports: Fatigue; Denies: Chills, Fever, Malaise, Night Sweats, Weakness, Weight Loss, Lethargy, Other Eyes: Denies: Pain, Vision change, Conjunctivae inflammation, Eyelid inflammation, Redness, Other ENT: Denies: Head Aches, Ear Pain, Dysphagia, Sinus Congestion, Post Nasal Drip, Sore Throat, Epistaxis, Other Symptoms Skin: Denies: Rash, Lesions, Jaundice, Bruising, Itching, Dry, Breakdown, Nail Changes, Other Pulmonary: Reports: Cough; Denies: Dyspnea, Pleuritic Chest Pain, Other Symptoms Cardiovascular: Denies: Chest Pain, Palpitations, Orthopnea, Paroxysmal Noc. Dyspnea, Edema, Lt Headedness, Other Symptoms Gastrointestinal: Denies: Nausea, Vomiting, Abdominal Pain, Diarrhea, Constipation, Melena, Hematochezia, Other Symptoms Genitourinary: Denies: Dysuria, Frequency, Incontinence, Hematuria, Retention, Other Symptoms Hematologic: Reports: Other Hematologic; Denies: Bruising, Bleeding Excessively, Petecchia, Purpura, Enlarged Lymph Nodes Endocrine: Denies: Polydipsia, Polyphagia, Polyuria, Heat Intolerance, Cold Intolerance, Other Endocrine Sx Musculoskeletal: Reports: Back Pain, Arm Pain, Leg Pain; Denies: Neck Pain, Shoulder Pain, Hand Pain, Foot Pain, Joint Pain, Muscle Pain, Spasms, Other Symptoms Neurological: Denies: Weakness, Numbness, Incoordination, Change in speech, Confusion, Seizures, Other Symptoms Psych: Reports: Anxiety; Denies: Mood Normal, Depression, Memory Issues, Thoughts of Self Harm, Anger, Thoughts of Harming Other, Other Psych Physical Examination General Exam: Positive: Cooperative, No Acute Distress Eye Exam: Positive: PERRLA ENT Exam: Positive: Mucous membr. moist/pink Neck Exam: Positive: Supple Chest Exam: Positive: Clear to auscultation Heart Exam: Positive: Rate Normal, Regular Rhythm Telemetry: Positive: Sinus Abdomen Exam: Positive: Normal bowel sounds, Soft Extremity Exam: Positive: Other Skin Exam: Positive: Nl turgor and temperature Neuro Exam: Positive: Normal Speech, Normal Tone, Sensation Intact Psych Exam: Positive: Mental status NL Other physical findings RUE radial pulse not palpable but monphasic signal present with doppler. Ulnar pulse is weakly palpable and monophasic signal present. Fingers are perfused with 2 sec cap refill. Vital Signs AF, VSS Laboratory Data CBC/BMP CBC 6.1/12.8/37/128 Chem 7 138/3.9/101/30/11/0.91/120 Assessment/Plan Very pleasant 63yo patient with subacute thrombosis of RUE brachial radial bypass. 1. Attempt catheter directed thrombolysis Rue bypass and if unsuccessful, will need an open thrombectomy vs new brachial radial bypass with GSV. 2. ICU admission if thrombolysis, otherwise surgical floor is fine. 3. Monitor labs closely due to h/o hemolytic anemia. Plan / VTE VTE Prophylaxis Ordered?: Yes VTE Exclusion Mechanical Proph: Other VTE Exclusion Pharmacological: Other SANTIAGO RUSSO MD Dec 14, 2018 07:10
[2018-12-14] MEDS ORDERED: CYANOCOBALAMIN 500 MCG TAB PO SCH (09:00)
[2018-12-14] MEDS ORDERED: FLUTICASONE PROP 0.05% NASAL SPRAY 16 GM (FLONASE) SCH (09:00)
[2018-12-14] MEDS ORDERED: ASCORBIC ACID 500 MG TAB PO SCH (09:00)
[2018-12-14] MEDS ORDERED: SODIUM CHLORIDE 0.9% INJ 10 ML SYR IV PRN (09:00)
[2018-12-14] MEDS ORDERED: VITAMIN D 1,000 INTERNATIONAL UNITS TABLET PO SCH (09:00)
[2018-12-14] MEDS ORDERED: predniSONE 2.5 MG TAB PO SCH (09:00)
[2018-12-14] MEDS ORDERED: ONDANSETRON 4MG/2ML VIAL (J2405) IV PRN (09:00)
[2018-12-14] MEDS ORDERED: HEPARIN DRIP 25,000 UNITS in APPROPRIATE DILUENT 1 EA IV SCH (09:30)
[2018-12-14] MEDS: diazePAM 5 MG TAB PO PRN ×2 (09:40→16:10)
[2018-12-14] MEDS: fentaNYL 100 MCG/2 ML INJECTION (J3010) IV PRN ×10 (09:41→23:50)
[2018-12-14] MEDS: PERCOCET 5MG/325MG TAB PO PRN ×3 (09:43→21:36)
[2018-12-14] MEDS ORDERED: PRED25TA PO (10:20)
[2018-12-14] MEDS ORDERED: ECOT81TA5 PO (10:20)
[2018-12-14] MEDS ORDERED: POTA1TAB14 PO (10:20)
[2018-12-14] MEDS ORDERED: CHLO125TA PO (10:20)
[2018-12-14] MEDS ORDERED: FLON1SPR (10:20)
[2018-12-14] MEDS ORDERED: HYDR-3363 PO (10:20)
[2018-12-14] MEDS ORDERED: PANT20TA51 PO (10:20)
[2018-12-14] MEDS ORDERED: ROPI0.253 PO (10:20)
[2018-12-14] MEDS ORDERED: MECLIZINE 25 MG TABLET PO PRN (11:00)
[2018-12-14] MEDS ORDERED: oxyCODONE 5MG TAB PO PRN (11:00)
[2018-12-14] MEDS ORDERED: rOPINIRole 0.25 MG TAB(REQUIP) PO PRN (11:00)
--- NOTE | 2018-12-14 11:49 | ROOPDOC ---
[facility] Report Of Operation Report of Operation DATE OF PROCEDURE: 12/14/18 PREPROCEDURE DIAGNOSES: Subacute thrombosis of right brachial radial arterial bypass graft, symptomatic. POSTPROCEDURE DIAGNOSES: Same. PROCEDURE: 1. Ultrasound-guided access left brachial vein 2. Placement of a dual lumen left brachial vein 42 cm PICC line 3. Ultrasound-guided access right common femoral artery 4. Right upper extremity arteriogram and select view of the radial artery 5. Placement of a 20 cm TPA lysis catheter, right brachial bypass graft 6. Completion imaging SURGEON: Santiago Meza MD ANESTHESIA: 2% lidocaine 15 mL local anesthesia. Moderate intravenous conscious sedation was supervised by Dr. Meza. The patient was independently monitored by registered nurse assigned to the Department of radiology using automated blood pressure, EKG, and pulse oximetry. The detailed conscious sedation record is permanently stored in the hospital information system. The following is the conscious sedation record: Start time 07:34, stop time 07:56, fentanyl 50 g IV, Versed 2 mg IV. INDICATION FOR PROCEDURE: Ms. Montoya is a very pleasant 63-year-old patient with a history of iatrogenic injury to the right brachial artery status post cardiac catheterization, and underwent a right brachial to radial artery bypass with saphenous vein in 1995. Recent imaging in September of this year is suggested the bypass was widely patent, but the patient recently went off of her aspirin due to hemolytic anemia, and subsequently thrombosed her bypass. We estimate she's had 7-14 days of thrombosis, which puts her in the subacute category, and I discussed with her that we may or may not be successful with thrombolysis if we are able to cross the clot and place a TPA catheter. She understands that we may need to do an open thrombectomy or a new bypass depending on our success with this procedure today. Risks benefits and alternatives to TPA lysis catheter and PICC placement were explained to the patient and she is agreeable to proceed. We had an extensive conversation about bleeding risks and she has no contraindications. Informed consent was obtained. INTERPRETATION: 1. Successful placement of a 42 cm dual-lumen PICC line through the brachial vein with the tip freely mobile in the SVC/right atrial junction. 2. Right upper extremity arteriogram reveals thrombosis the bypass at its origin and throughout the bypass graft with collateral circulation arising proximal to the bypass and supplying the ulnar artery with reflux flow into the radial artery. 3. After crossing the occluded bypass, we selected the radial artery and contrast injection confirmed the radial artery was patent. 4. Successful placement of 20 cm TPA thrombolysis catheter across the thrombosed bypass. PROCEDURE: The patient was brought to the angiographic suite in stable condition. Ultrasound was used to examine her right upper arm and identify the origin of the bypass. A radiopaque marker was placed at this location to help us guide placement of the catheter. Her left upper extremity and right groin were prepped and draped in a sterile fashion. A timeout was performed. 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 Local anesthesia was administered to the skin and subcutaneous tissue over the right femoral artery. Ultrasound was used to guide access with a microneedle to the right common femoral artery. A wire was passed through this access and a micro-sheath was placed. Through this, we placed a long stiff Glidewire and the sheath was exchanged for a short 6 [place] sheath. Sheath was flushed with saline. We then navigated the Glidewire and glide cath up through the aortic arch into the right subclavian artery and arteriogram revealed occlusion of the brachial artery, occlusion of the bypass at its origin, and a large collateral supplying the ulnar artery. There was some reflux up through the proximal ulnar artery into the radial artery and this supplied flow to the radial artery. We advanced her wire as far as we safely could, and then we exchanged her sheath for 90 cm destination sheath. The sheath was flushed with saline. We then carefully navigated the catheter and wire into the bypass and were able to pass it down through into the radial artery. A quick arteriogram confirmed we were in the radial artery. We then removed the catheter and placed a 20 cm infusion length thrombolysis catheter over the wire so that the proximal end was just proximal to proximal anastomosis, and the distal end was just distal to the distal anastomosis. We then turned our attention to the left upper extremity. Local anesthesia was assistant chief nursing officer to the skin and subcutaneous tissue in the left upper extremity just above the antecubital crease and ultrasound was used to guide access with a microneedle to the brachial vein. A wire was passed through this access the needle was removed and the sheath was placed. We measured the catheter to 42 cm and this was cut to length. We then flushed the catheter and placed it over the wire through the sheath into the central system and the wire was removed and the peel-away sheath was removed. Both ports kathleen back and flushed easily and were heparin locked. Appropriate caps were placed. Sterile dressings were applied. We then returned to the arterial access. 6 mg of TPA was injected directly through the catheter across the thrombosed bypass graft. We then started a drip of TPA at 1 mg an hour through the catheter. A heparin drip at 400 units an hour was started through the sheath and this will not be titrated. The catheter and sheath were secured to the skin with Tegaderms. The patient was then transferred to the ICU in stable condition. ESTIMATED BLOOD LOSS: Approximately 5 mL. COMPLICATIONS: None. PLAN: The patient will be admitted to the ICU for TPA thrombolysis over the next 12-24 hours. She will have TPA running at 1 mg an hour, and heparin through the sheath at 400 units per hour. These will not be titrated. We will follow her labs and exam closely. We will bring her back this afternoon or in the morning depending on progress. At that time we'll perform a repeat arteriogram, possible angioplasty or intervention to improve inflow and or outflow from the bypass to the radial artery. It is okay to use the PICC line in the left upper extremity for blood draws and medication administration as needed. Do not use the sheath for blood draws. SANTIAGO MEZA MD Dec 14, 2018 11:49
[2018-12-14] MEDS: SYMBICORT 80/4.5MCG INHALER 6GM INH SCH ×2 (12:00→21:14)
[2018-12-14] MEDS: POTASSIUM CHLORIDE 10 MEQ SR TABLET PO SCH ×2 (12:21→21:25)
[2018-12-14] MEDS: GABAPENTIN 100 MG CAP PO SCH ×3 (12:37→21:24)
[2018-12-14 13:27] LABS: HEMATOCRIT 32.4 % (36.0-47.0); HEMOGLOBIN 10.7 g/dl (12.0-15.5); MEAN CORPUSCULAR HEMOGLOBIN 29.8 pg (27.0-33.0); MEAN CORPUSCULAR VOLUME 90.3 fl (80.0-96.0); PLATELET COUNT, AUTOMATED 128 10^3/uL (150-450); RED BLOOD COUNT 3.59 10^6/uL (4.00-5.40); WHITE BLOOD COUNT 5.2 10^3/uL (4.0-10.0)
[2018-12-14] MEDS ORDERED: diazePAM 5 MG TAB PO PRN (17:15)
--- NOTE | 2018-12-14 17:23 | IPNPDOC ---
Date Seen The patient was seen on 12/14/18. Progress Note Patient seen and examined. Sleeping when I came in the room, but then crying and c/o 10/10 pain once aroused. She says her hand hurts so bad that she can't take it. I examined her arm- no visible hematoma. She has excellent ulnar pulse and triphasic signal and monophasic radial artery signal. I took a quick look at her arm with US and there is still some thrombus noted around the catheter, but no brachial sheath hematoma or other pain inducing pathology noted at this time. Pain may be from reperfusion, and we will monitor closely. Forearm is soft, and I do not suspect compartment syndrome at this time. No s/o bleeding sheath or PICC line. 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 VSS. Mental status stable and neurologic exam are stable. Will plan for ongoing TPA overnight and takeback for arteriogram tomorrow morning. Ok to eat tonight, NPO p MN for procedure. Will follow closely. VS, I&O, 24H, [facility] Vital Signs/I&O Vital Signs Date Time Temp Pulse Resp B/P (MAP) Pulse Ox O2 Delivery O2 Flow Rate FiO2 12/14/18 16:59 20 99 12/14/18 16:10 2.0 12/14/18 16:00 97.5 71 167/75 (105) 12/14/18 09:43 94 Laboratory Data 24H LABS Laboratory Tests 2 12/14/18 13:00: Nucleated Red Blood Cells % (auto) 0.0, Fibrinogen 319 CBC/BMP Laboratory Tests 12/14/18 13:00 Red Blood Count 3.59 L, Mean Corpuscular Volume 90.3, Mean Corpuscular Hemoglobin 29.8, Mean Corpuscular Hemoglobin Concent 33.0, Red Cell Distribution Width 15.2 H SANTIAGO RUSSO MD Dec 14, 2018 17:23
[2018-12-14] MEDS: oxyCODONE 5MG TAB PO PRN ×2 (17:42→23:49)
[2018-12-14] MEDS: SODIUM CHLORIDE 0.9% INJ 10 ML SYR IV SCH (17:49)
[2018-12-14] MEDS ORDERED: NS 1,000 ML IV SCH (19:15)
[2018-12-14 19:31] LABS: HEMATOCRIT 33.3 % (36.0-47.0); MEAN CORPUSCULAR HEMOGLOBIN 30.5 pg (27.0-33.0); MEAN CORPUSCULAR VOLUME 92.2 fl (80.0-96.0); PLATELET COUNT, AUTOMATED 111 10^3/uL (150-450); RED BLOOD COUNT 3.61 10^6/uL (4.00-5.40); WHITE BLOOD COUNT 7.3 10^3/uL (4.0-10.0)
[2018-12-14] MEDS ORDERED: rOPINIRole 0.25 MG TAB(REQUIP) PO SCH (21:00)
[2018-12-14] MEDS ORDERED: hydrOXYzine 25 MG TAB PO SCH (21:00)
[2018-12-14] MEDS ORDERED: CHLORTHALIDONE 12.5MG PER 1/2 TABLET PO SCH (21:00)
[2018-12-15] VITALS (15 sets, daily range): BP systolic 104–198; BP diastolic 65–103
[2018-12-15 01:47] LABS: HEMATOCRIT 32.3 % (36.0-47.0); HEMOGLOBIN 10.8 g/dl (12.0-15.5); MEAN CORPUSCULAR HEMOGLOBIN 30.7 pg (27.0-33.0); MEAN CORPUSCULAR HGB CONC 33.4 g/dl (32.0-36.5); MEAN CORPUSCULAR VOLUME 91.8 fl (80.0-96.0); PLATELET COUNT, AUTOMATED 108 10^3/uL (150-450); RED BLOOD COUNT 3.52 10^6/uL (4.00-5.40); WHITE BLOOD COUNT 5.1 10^3/uL (4.0-10.0)
[2018-12-15] MEDS: fentaNYL 100 MCG/2 ML INJECTION (J3010) IV PRN ×2 (02:11→07:09)
[2018-12-15] MEDS: ALTEPLASE RECOMBINANT IV SCH (02:53)
[2018-12-15] MEDS: NS IV SCH (02:53)
[2018-12-15] MEDS ORDERED: PANTOPRAZOLE 40MG INJ (PROTONIX) (C9113) IV ONE (03:15)
--- NOTE | 2018-12-15 03:58 | REPVR ---
EXAM: CT Head Without Contrast EXAM DATE/TIME: 12/15/2018 3:15 AM CLINICAL HISTORY: 63 years old, female; Pain; Headache not specified; Patient HX: Active tpa; Additional info: Tpa/headache TECHNIQUE: Imaging protocol: Computed tomography images of the head without contrast. Radiation optimization: All CT scans at this facility use at least one of these dose optimization techniques: automated exposure control; mA and/or kV adjustment per patient size (includes targeted exams where dose is matched to clinical indication); or iterative reconstruction. Other technique: STROKE PROTOCOL was implemented. COMPARISON: MRI-Brain W/O FOLL BY WITH 11/08/2017 7:36 AM FINDINGS: Brain: There is minimal patchy low attenuation of deep white matter. Ovoid mass in the posterior right cerebellum measuring approximately 3.8 x 2.4 cm with slight surrounding edema. Within the apparent mass, there is patchy high attenuation which may reflect hemorrhage within a mass or resolving hematoma.There is slight mass effect on the fourth ventricle. No abnormality is evident in this area on a prior MR of 11/08/2017. Asymmetric high attenuation focus is seen in the left anterior basal ganglia which may reflect calcification or possible petechial hemorrhage measuring 4 x 6 mm. No surrounding edema is noted. Ventricles: Normal. No ventriculomegaly. Bones/joints: Unremarkable. No acute fracture. Sinuses: Visualized sinuses are unremarkable. No fluid levels. Mastoid air cells: Visualized mastoid air cells are well aerated. No mastoid effusion. Soft tissues: See Brain Finding. IMPRESSION: 1. Asymmetric density in the anterior left basal ganglia measuring 4 x 6 mm which may reflect calcification or possibly small focus of hemorrhage. 2. Ovoid mass in the posterior right cerebellum with mild surrounding edema and slight mass effect with patchy high attenuation internally. Findings may reflect partially calcified or hemorrhagic mass although no mass or abnormality is noted on a prior MR of 11/08/2017. Resolving hematoma may be a consideration. 3. Minimal chronic ischemic white matter change. 4. [place] Stroke Program Early CT Score (ASPECTS) = 10/10. Electronically signed by: Julián Marr On 12/15/2018 03:57:52 AM
[2018-12-15] MEDS ORDERED: hydrALAZINE INJ 20 MG/ML VIAL IV STA ×4 (05:22→09:35)
[2018-12-15] MEDS ORDERED: hydrALAZINE INJ 20 MG/ML VIAL As Ordered ONE (05:24)
[2018-12-15] MEDS: SODIUM CHLORIDE 0.9% INJ 10 ML SYR IV SCH (06:00)
[2018-12-15 06:29] LABS: HEMATOCRIT 34.7 % (36.0-47.0); HEMOGLOBIN 11.9 g/dl (12.0-15.5); MEAN CORPUSCULAR HEMOGLOBIN 30.7 pg (27.0-33.0); MEAN CORPUSCULAR HGB CONC 34.3 g/dl (32.0-36.5); MEAN CORPUSCULAR VOLUME 89.7 fl (80.0-96.0); PLATELET COUNT, AUTOMATED 157 10^3/uL (150-450); RED BLOOD COUNT 3.87 10^6/uL (4.00-5.40)
[2018-12-15 06:49] LABS: BLOOD UREA NITROGEN 8 MG/DL (7-18); CALCIUM LEVEL 8.8 MG/DL (8.8-10.2); CARBON DIOXIDE LEVEL 25 MEQ/L (21-32); CHLORIDE LEVEL 107 MEQ/L (98-107); CREATININE FOR GFR 0.56 MG/DL (0.55-1.30); GLOMERULAR FILTRATION RATE > 60.0 (>45); GLUCOSE, FASTING 236 MG/DL (70-100); POTASSIUM SERUM 3.3 MEQ/L (3.5-5.1); SODIUM LEVEL 141 MEQ/L (136-145)
--- NOTE | 2018-12-15 06:59 | IPNPDOC ---
Date Seen The patient was seen on 12/15/18. Progress Note Ms Montoya is a 63yo patient POD #1 s/p RUE arteriogram and placement of a TPA thrombolysis catheter through thombosed R brachial-radial artery bypass. Patient did well initially and had triphasic signals at her ulnar artery and radial artery yesterday evening, but has continually c/o various pains and screams constantly for more narcotics throughout the day and night. She is narcotic dependent and takes large doses at home for a myriad of complaints, including headaches, migraines, neck pain, back pain, sciatica etc. Around 2:30am she started c/o a headache, but would drift back to sleep shortly thereafter and did not have any new exam findings or focal deficits. Around 3am she had nausea and emesis x2. At that point, she still did not have new exam findings or focal deficits, but I felt the safest thing was to check a CT of the brain to make sure we did not have new bleed. She went for CT and the concrete foreman radiologist called me to discuss her findings- she has a few punctate basal ganglia enhancements that may or may not be acute, and an ovoid lesion in the right cerebellum with a bit of surrounding edema and possibly a resolving hematoma centrally, unclear if this is a tumor or hematoma or other etiology, and MRI w/wo contrast is pending. She had some bradycardia intermittently after CT, 30s-50s, and it would resolve spontaneously. She also had HTN and we gave 2 doses of hydralazine and she was back to her baseline. I am quite concerned, and stopped her TPA until we know if she has a bleed. This is absolutely not ideal from a vascular standpoint. After stopping the TPA, her RUE perfusion has become very concerning. I cannot doppler a signal at the radial, and have only a monophasic signal at the ulnar artery. She has cool blue fingertips, and this is very worrisome, but we do not have an option to give sufficient heparin or additional anticoagulation if she has an acute ICH. I spoke to Dr Dinh hospitalist and Dr Berrios neurologist and they were kind enough to consult. Throughout our assessments this morning and waiting for MRI, patient has remained at her baseline neurologic function and no new focal deficits noted. She is still c/o significant headache, constantly screaming out for narcotics as she has for most of the day and night. We are giving her medication judiciously so we can accurately assess her neurologically. At this point, the patient will likely need transfer to [place] for a higher level of care. My concern is sending her with her sheath in place. It is a 90cm sheath from the R PRODUCTION MATERIAL COORDINATOR to the R axillary artery, and without full heparin or TPA running, she is high risk for worsening thrombosis if the sheath remains in place. However, if any additional procedures are needed, they may prefer to have the sheath in place. The safest thing may be to remove the sheath for now and if she is stabilized for a new intervention, new access can be obtained at that time. She had a fairly good sized collateral from the proximal brachial artery to the proximal ulnar artery noted on pre-procedure US and arteriogram, and her current exam findings suggest there is either upstream flow limitation or thrombosis/obstruction of the proximal brachial artery limiting the collateral flow to the hand. We are very concerned about her perfusion, but at this point, it is life over limb and we need to shift focus to her neurologic changes. VS, I&O, 24H, [facility] Vital Signs/I&O Vital Signs Date Time Temp Pulse Resp B/P (MAP) Pulse Ox O2 Delivery O2 Flow Rate FiO2 12/15/18 05:48 167/72 12/15/18 02:16 17 12/15/18 00:00 2.0 12/14/18 21:16 75 12/14/18 19:32 98 12/14/18 16:00 97.5 12/14/18 09:43 94 I&O- Last 24 Hours up to 6 AM 12/15/18 06:00 Intake Total 1153 ml Output Total 1025 ml Balance 128 ml Laboratory Data 24H LABS Laboratory Tests 2 12/14/18 13:00: Nucleated Red Blood Cells % (auto) 0.0, Fibrinogen 319 12/14/18 18:48: Nucleated Red Blood Cells % (auto) 0.0, Fibrinogen 300 12/15/18 01:28: Nucleated Red Blood Cells % (auto) 0.0, Fibrinogen 275 CBC/BMP Laboratory Tests 12/14/18 13:00 Red Blood Count 3.59 L, Mean Corpuscular Volume 90.3, Mean Corpuscular He moglobin 29.8, Mean Corpuscular Hemoglobin Concent 33.0, Red Cell Distribution Width 15.2 H 12/14/18 18:48 Red Blood Count 3.61 L, Mean Corpuscular Volume 92.2, Mean Corpuscular Hemoglobin 30.5, Mean Corpuscular Hemoglobin Concent 33.0, Red Cell Distribution Width 15.2 H 12/15/18 01:28 Red Blood Count 3.52 L, Mean Corpuscular Volume 91.8, Mean Corpuscular Hemoglobin 30.7, Mean Corpuscular Hemoglobin Concent 33.4, Red Cell Distribution Width 15.2 H SANTIAGO RUSSO MD Dec 15, 2018 06:59
[2018-12-15] MEDS: SYMBICORT 80/4.5MCG INHALER 6GM INH SCH (08:10)
--- NOTE | 2018-12-15 08:33 | REPVR ---
EXAM: MR Head Without and With Contrast EXAM DATE/TIME: 12/15/2018 6:15 AM CLINICAL HISTORY: 63 years old, female; Abnormal findings; Abnormal radiologic findings of head/skull; Intracranial mass / space-occupying lesion; Patient HX: Abnormal CT; Additional info: New CT brain findings S/P tpa thrombolysis rue bypass graft TECHNIQUE: Imaging protocol: MR of the head without and with intravenous contrast. Contrast material: PROHANCE;Contrast volume: 10 ml;Contrast route: IV; COMPARISON: MRI-Brain W/O FOLL BY WITH 11/08/2017 7:36 AM FINDINGS: Brain: Degraded by motion. There is a 5.4 x 3 x 2 cm likely acute to subacute hematoma in the right cerebellum with a hematocrit level. There is extensive surrounding vasogenic edema and approximately 1 cm right to left midline shift in the posterior cranial fossa. Postcontrast images demonstrate no appreciable enhancement. Generalized parenchymal atrophy and evidence of microvascular ischemic disease involving periventricular and subcortical white matter bilaterally. Ventricles: Normal. No ventriculomegaly. Bones/joints: Unremarkable. Soft tissues: Normal. Sinuses: Normal as visualized. No acute sinusitis. Mastoid air cells: Normal as visualized. No mastoid effusion. Orbits: Unremarkable. IMPRESSION: Degraded by motion. 5.4 x 3 x 2 cm likely acute to subacute hematoma in the right cerebellum with a hematocrit level. There is extensive surrounding vasogenic edema and approximately 1 cm right to left midline shift in the posterior cranial fossa. Postcontrast images demonstrate no appreciable enhancement. Electronically signed by: Jeevan Carver On 12/15/2018 08:33:10 AM
[2018-12-15] MEDS ORDERED: ASPIRIN 81 MG ENTERIC TAB PO SCH (09:00)
[2018-12-15] MEDS ORDERED: PANTOPRAZOLE 40MG INJ (PROTONIX) (C9113) IV SCH (09:00)
[2018-12-15] MEDS ORDERED: MANNITOL 20% 100GM/500 ML BAG IV ONE (09:30)
--- NOTE | 2018-12-15 09:42 | DS.PDOC ---
Discharge Summary General Date of Admission Dec 14, 2018 at 06:24 Date of Discharge Dec 15, 2018 Attending Physician: NEHA MEZA MD Specialist/Consultants Involve: KALEB DUENAS MD Specialist/Consultants Involve Dr Berrios Neurology Discharge Summary ADMITTING DIAGNOSES: 1. Subacute thrombosis R brachial-radial bypass graft 2. Hemolytic anemia 3. COPD 4. Chronic pain with narcotic dependence DISCHARGE DIAGNOSES: 1. Acute intracranial hemorrhage- right cerebellum 2. Subacute thrombosis R brachial-radial bypass graft 3. Hemolytic anemia 4. COPD 5. Chronic pain with narcotic dependence CHIEF COMPLAINT: Right Arm Thrombosis. HISTORY OF PRESENT ILLNESS: Ms Montoya is a 63yo patient with hemolytic anemia who underwent a right brachial radial artery bypass in [place] in 1995 after an iatrogenic injury to her brachial artery s/p cardiac cath. She was followed up in here in September of this year and her bypass was patent on US. Subsequently, she went off of her aspirin due to her hemolytic anemia and a week ago started having significant aching pain in her right arm and claudication. Duplex US 12/13/18 reveals subacute thrombosis of her bypass graft with pretty large collaterals from the brachial artery to the ulnar artery, but flow was still fairly limited. The patient c/o significant pain both with activity and at rest, and said it keeps her up at night. We then discussed the risks, benefits and alternatives to an attempt at thrombolysis with catheter directed TPA, and if we could not cross the bypass or were unsuccessful with lysis due to the chronicity of the clot, we would recommend another bypass with saphenous vein. The patient was extensively counseled. I discussed the procedure with her son, and her office engineer. All questions were answered. Patient denies any recent bleeding episodes, speci fically denies hemoptysis, blood in her stool or urine (but she does have a h/o hematuria with kidney stones), bleeding gums or nose bleeds, trauma falls or MVC, stroke, recent surgeries. She was admitted to proceed with attempt to place thrombolysis catheter. HOSPITAL COURSE: Ms Montoya is a 63yo patient POD #1 s/p RUE arteriogram and placement of a TPA thrombolysis catheter through thombosed R brachial-radial artery bypass. Patient did well initially and had triphasic signals at her ulnar artery and radial artery yesterday evening, but has continually c/o various pains and screams constantly for more narcotics throughout the day and night. She is narcotic dependent and takes large doses at home for a myriad of complaints, including headaches, migraines, neck pain, back pain, sciatica etc. Around 2:30am she started c/o a headache, but would drift back to sleep shortly thereafter and did not have any new exam findings or focal deficits. Around 3am she had nausea and emesis x2. At that point, she still did not have new exam findings or focal deficits, but I felt the safest thing was to check a CT of the brain to make sure we did not have new bleed. She went for CT and the automation sales manager radiologist called me to discuss her findings- she has a few punctate basal ganglia enhancements that may or may not be acute, and an ovoid lesion in the right cerebellum with a bit of surrounding edema and possibly a resolving hematoma centrally, unclear if this is a tumor or hematoma or other etiology, and MRI w/wo contrast was ordered stat. She had some bradycardia intermittently after CT, 30s-50s, and it would resolve spontaneously. She also had HTN and we gave multiple doses of IV hydralazine and she was back to her baseline SBP 150s. I am quite concerned, and stopped her TPA immediately. This is absolutely not ideal from a vascular standpoint. After stopping the TPA, her RUE perfusion has become very concerning. I cannot doppler a signal at the radial, and have only a monophasic signal at the ulnar artery. She has cool blue fingertips, and this is very worrisome, but we do not have an option to give sufficient heparin or additional anticoagulation if she has an acute ICH. I spoke to Dr Duenas hospitalist and Dr Berrios neurologist and they were kind enough to consult. Throughout our assessments this morning and waiting for MRI, patient has remained at her baseline neurologic function and no new focal deficits noted. She is still c/o significant headache, constantly screaming out for narcotics as she has for most of the day and night. We are giving her medication judiciously so we can accurately assess her neurologically. We were able to get an MRI later in the morning and there is a 5.4cm x 3cm x 2cm acute hematoma in the right cerebellum with surrounding edema and 1cm midline shift. This is very concerning she remained neuro intact until about a 1/2 hour ago when her speech became a bit more slurred and she started answering her orientation questions incorrectly. By this time, we had arranged transfer to [facility] and Dr Deann Monae will accept the patient to the neuro ICU. She requested we give Mannitol, which has been ordered stat. I also spoke to Dr Whitney with vascular surgery because we could not continue intervention for her RUE graft thrombosis, but at this point it is a priority of life over limb. He was also kind enough to follow her while she is in [place] along with Dr Monae. I have spoken to the patient's son, Stan, and her daughter, Nicolle, and they are aware of her status and the need to transfer. DISCHARGE MEDICATIONS: Please see below. ALLERGIES: Please see below. PHYSICAL EXAMINATION ON DISCHARGE: VITAL SIGNS: Please see below. GENERAL: Well developed, condition critical HEENT: NC, EDGAR NECK: limited ROM at baseline, c/o pain in neck CARDIOVASCULAR EXAMINATION: RRR with occasional runs of bradycardia HR 40s RESPIRATORY EXAMINATION: CTA, O2 sat 100% on 1 L NC O2 ABDOMINAL EXAMINATION: soft, NT, ND. EXTREMITIES: chronic PVD LLE, RLE warm and well perfused after d/c sheath R HOSPICE DIRECTOR. DP/PT signals biphasic. LLE DP/PT signals monophasic. RUE hand/fingers are warm but cooler than left hand, fingertips slight bluish tinge and some mottling, monophasic R ulnar signal but cannot doppler radial signal. SKIN: No rashes NEUROLOGICAL EXAMINATION: speech slurred, oriented to place and person but not t abigail, MAEE, sensation slightly diminished RUE distally. PSYCHIATRIC EXAMINATION: Agitated LABORATORY DATA: Please see below. PROCEDURES PERFORMED DURING STAY: RUE arteriogram, Thrombolysis catheter placement RUE brachial-radial bypass graft Report of Operation DATE OF PROCEDURE: 12/14/18 PREPROCEDURE DIAGNOSES: Subacute thrombosis of right brachial radial arterial bypass graft, symptomatic. POSTPROCEDURE DIAGNOSES: Same. PROCEDURE: 1. Ultrasound-guided access left brachial vein 2. Placement of a dual lumen left brachial vein 42 cm PICC line 3. Ultrasound-guided access right common femoral artery 4. Right upper extremity arteriogram and select view of the radial artery 5. Placement of a 20 cm TPA lysis catheter, right brachial bypass graft 6. Completion imaging SURGEON: Neha Meza MD ANESTHESIA: 2% lidocaine 15 mL local anesthesia. Moderate intravenous conscious sedation was supervised by Dr. Meza. The patient was independently monitored by registered nurse assigned to the Department of radiology using automated blood pressure, EKG, and pulse oximetry. The detailed conscious sedation record is permanently stored in the hospital information system. The following is the conscious sedation record: Start time 07:34, stop time 07:56, fentanyl 50 g IV, Versed 2 mg IV. INDICATION FOR PROCEDURE: Ms. Montoya is a very pleasant 63-year-old patient with a history of iatrogenic injury to the right brachial artery status post cardiac catheterization, and underwent a right brachial to radial artery bypass with saphenous vein in 1995. Recent imaging in September of this year is suggested the bypass was widely patent, but the patient recently went off of her aspirin due to hemolytic anemia, and subsequently thrombosed her bypass. We estimate she's had 7-14 days of thrombosis, which puts her in the subacute category, and I d iscussed with her that we may or may not be successful with thrombolysis if we are able to cross the clot and place a TPA catheter. She understands that we may need to do an open thrombectomy or a new bypass depending on our success with this procedure today. Risks benefits and alternatives to TPA lysis catheter and PICC placement were explained to the patient and she is agreeable to proceed. We had an extensive conversation about bleeding risks and she has no contraindications. Informed consent was obtained. INTERPRETATION: 1. Successful placement of a 42 cm dual-lumen PICC line through the brachial vein with the tip freely mobile in the SVC/right atrial junction. 2. Right upper extremity arteriogram reveals thrombosis the bypass at its origin and throughout the bypass graft with collateral circulation arising proximal to the bypass and supplying the ulnar artery with reflux flow into the radial artery. 3. After crossing the occluded bypass, we selected the radial artery and contrast injection confirmed the radial artery was patent. 4. Successful placement of 20 cm TPA thrombolysis catheter across the thrombosed bypass. PROCEDURE: The patient was brought to the angiographic suite in stable condition. Ultrasound was used to examine her right upper arm and identify the origin of the bypass. A radiopaque marker was placed at this location to help us guide placement of the catheter. Her left upper extremity and right groin were prepped and draped in a sterile fashion. A timeout was performed. 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 Local anesthesia was administered to the skin and subcutaneous tissue over the right femoral artery. Ultrasound was used to guide access with a microneedle to the right common femoral artery. A wire was passed through this access and a micro-sheath was placed. Through this, we placed a long stiff Glidewire and the sheath was exchanged for a short 6 Sinhala sheath. Sheath was flushed with saline. We then navigated the Glidewire and glide cath up through the aortic arch into the right subclavian artery and arteriogram revealed occlusion of the brachial artery, occlusion of the bypass at its origin, and a large collateral supplying the ulnar artery. There was some reflux up through the proximal ulnar artery into the radial artery and this supplied flow to the radial artery. We advanced her wire as far as we safely could, and then we exchanged her sheath for 90 cm destination sheath. The sheath was flushed with saline. We then carefully navigated the catheter and wire into the bypass and were able to pass it down through into the radial artery. A quick arteriogram confirmed we were in the radial artery. We then removed the catheter and placed a 20 cm infusion length thrombolysis catheter over the wire so that the proximal end was just proximal to proximal anastomosis, and the distal end was just distal to the distal anastomosis. We then turned our attention to the left upper extremity. Local anesthesia was transcription coordinator to the skin and subcutaneous tissue in the left upper extremity just above the antecubital crease and ultrasound was used to guide access with a microneedle to the brachial vein. A wire was passed through this access the needle was removed and the sheath was placed. We measured the catheter to 42 cm and this was cut to length. We then flushed the catheter and placed it over the wire through the sheath into the central system and the wire was removed and the peel-away sheath was removed. Both ports kathleen back and flushed easily and were heparin locked. Appropriate caps were placed. Sterile dressings were applied. We then returned to the arterial access. 6 mg of TPA was injected directly through the catheter across the thrombosed bypass graft. We then started a drip of TPA at 1 mg an hour thr ough the catheter. A heparin drip at 400 units an hour was started through the sheath and this will not be titrated. The catheter and sheath were secured to the skin with Tegaderms. The patient was then transferred to the ICU in stable condition. ESTIMATED BLOOD LOSS: Approximately 5 mL. COMPLICATIONS: None. PLAN: The patient will be admitted to the ICU for TPA thrombolysis over the next 12-24 hours. She will have TPA running at 1 mg an hour, and heparin through the sheath at 400 units per hour. These will not be titrated. We will follow her labs and exam closely. We will bring her back this afternoon or in the morning depending on progress. At that time we'll perform a repeat arteriogram, possible angioplasty or intervention to improve inflow and or outflow from the bypass to the radial artery. It is okay to use the PICC line in the left upper extremity for blood draws and medication administration as needed. Do not use the sheath for blood draws. IMAGING: CT brain reveals ovoid enhancing area R cerebellum, and MRI confirms new R cerebellar ICH- please see HPI for further details. PROGNOSIS: guarded DISPOSITION: [facility] DISCHARGE CONDITION: Critical TIME SPENT ON DISCHARGE: Greater than 120 minutes. Vital Signs/I&Os Vital Signs Date Time Temp Pulse Resp B/P (MAP) Pulse Ox O2 Delivery O2 Flow Rate FiO2 12/15/18 09:09 197/77 12/15/18 08:10 51 12/15/18 06:01 98 2.0 12/15/18 04:01 97.3 18 12/14/18 09:43 94 I&O- Last 24 Hours up to 6 AM 12/15/18 06:00 Intake Total 1153 ml Output Total 1350 ml Balance -197 ml Laboratory Data Labs 24H Laboratory Tests 2 12/14/18 13:00: Nucleated Red Blood Cells % (auto) 0.0, Fibrinogen 319 12/14/18 18:48: Nucleated Red Blood Cells % (auto) 0.0, Fibrinogen 300 12/15/18 01:28: Nucleated Red Blood Cells % (auto) 0.0, Fibrinogen 275 12/15/18 06:10: Nucleated Red Blood Cells % (auto) 0.0, Fibrinogen 231, Activated Partial Thromboplast Time 55.6H, Anion Gap 9, Glomerular Filtration Rate > 60.0, Blood Urea Nitrogen 8, Creatinine 0.56, Sodium Level 141, Potassium Level 3.3L, Chloride Level 107, Carbon Dioxide Level 25, Calcium Level 8.8 CBC/BMP Laboratory Tests 12/14/18 13:00 Red Blood Count 3.59 L, Mean Corpuscular Volume 90.3, Mean Corpuscular Hemoglobin 29.8, Mean Corpuscular Hemoglobin Concent 33.0, Red Cell Distribution Width 15.2 H 12/14/18 18:48 Red Blood Count 3.61 L, Mean Corpuscular Volume 92.2, Mean Corpuscular Hemoglobin 30.5, Mean Corpuscular Hemoglobin Concent 33.0, Red Cell Distribution Width 15.2 H 12/15/18 01:28 Red Blood Count 3.52 L, Mean Corpuscular Volume 91.8, Mean Corpuscular Hemoglobin 30.7, Mean Corpuscular Hemoglobin Concent 33.4, Red Cell Distribution Width 15.2 H 12/15/18 06:10 Red Blood Count 3.87 L, Mean Corpuscular Volume 89.7, Mean Corpuscular Hemoglobin 30.7, Mean Corpuscular Hemoglobin Concent 34.3, Red Cell Distribution Width 15.2 H, Calcium Level 8.8 Discharge Medications Scheduled Ascorbic Acid (Vitamin C) 500 Mg Tab, 500 MG PO DAILY, (Reported) Aspirin (Ecotrin) 81 Mg Tablet.dr, 81 MG PO DAILY, (Reported) Budesonide/Formoterol (Symbicort 80-4.5 Mcg Inhaler) 60 Puff/Inhaler Aers, 2 PUFF INH BID, (Reported) Chlorthalidone (Chlorthalidone) 25 Mg Tablet, 12.5 MG PO QHS, (Reported) Cholecalciferol (Vitamin D3) (Vitamin D3) 1,000 Unit Tab, 1,000 UNIT PO DAILY, (Reported) Cyanocobalamin (Vitamin B-12) (Vitamin B-12) 1,000 Mcg Tab, 1,000 MCG PO DAILY, (Reported) Fluticasone Propionate (Flonase Allergy Relief) 9.9 Ml [place].susp, 2 SPRAY NA DAILY, (Reported) Gabapentin (Gabapentin) 100 Mg Capsule, 100 MG PO TID, (Reported) Hydroxyzine HCl (Hydroxyzine HCl) 25 Mg Tablet, 25 MG PO QHS, (Reported) Oxycodone HCl (Oxycodone HCl ER) 20 Mg Tab, 20 MG PO BID, (Reported) Potassium Chloride (Potassium Chloride) 20 Meq Tablet.er, 20 MEQ PO BID, (Reported) Prednisone (Prednisone) 2.5 Mg Tablet, 2.5 MG PO DAILY, (Reported) Ropinirole HCl (Ropinirole HCl) 0.25 Mg Tablet, 0.25 MG PO QHS, (Reported) Scheduled PRN Acetaminophen (Tylenol Arthritis) 650 Mg Tab, 650 MG PO Q8H PRN for PAIN, (Reported) Meclizine HCl (Meclizine HCl) 25 Mg Tab, 25 MG PO TID PRN for DIZZINESS, (Reported) Oxycodone Hcl (Oxycodone HCl) 15 Mg Tab, 15 MG PO Q6H PRN for PAIN, (Reported) Pantoprazole Sodium (Pantoprazole Sodium) 20 Mg Tablet.dr, 20 MG PO BID PRN for HEARTBURN, (Reported) Ropinirole HCl (Ropinirole HCl) 0.25 Mg Tablet, 0.25 MG PO QHS PRN for RESTLESS LEGS, (Reported) MAY TAKE A SECOND TAB IF NEEDED Allergies Coded Allergies: No Known Drug Allergies (Verified Allergy, Unknown, 12/14/18) NEHA MEZA MD Dec 15, 2018 09:42
[2019-01-08] MEDS ORDERED: PRED25TA PO (11:41)
== END 2018-12-15 10:18 | disposition short-term general hospital (02) | DRG 314 ==
LOC: M ICU 06:24 → EDSTATUS 16:59
PROVIDERS: ADMIT Surgery Vascular Surgery; ATTEND Surgery Vascular Surgery
PROC: B548ZZA Ultrasonography of Superior Vena Cava, Guidance (ICD-10-PCS; 2018-12-14)
PROC: B31H1ZZ Fluoroscopy of Right Upper Extremity Arteries using Low Osmolar Contrast (ICD-10-PCS; 2018-12-14)
PROC: 3E05317 Introduction of Other Thrombolytic into Peripheral Artery, Percutaneous Approach (ICD-10-PCS; 2018-12-14)
PROC: 02HV33Z Insertion of Infusion Device into Superior Vena Cava, Percutaneous Approach (ICD-10-PCS; principal; 2018-12-14 07:00)
DX: T82.868A Thrombosis due to vascular prosthetic devices, implants and grafts, initial encounter (principal); G93.6 Cerebral edema; I63.9 Cerebral infarction, unspecified; D58.9 Hereditary hemolytic anemia, unspecified; F11.20 Opioid dependence, uncomplicated; D59.9 Acquired hemolytic anemia, unspecified; J44.9 Chronic obstructive pulmonary disease, unspecified; G89.29 Other chronic pain; Z79.899 Other long term (current) drug therapy; Z88.8 Allergy status to other drugs, medicaments and biological substances; F17.200 Nicotine dependence, unspecified, uncomplicated; I25.10 Atherosclerotic heart disease of native coronary artery without angina pectoris; E78.00 Pure hypercholesterolemia, unspecified; M19.90 Unspecified osteoarthritis, unspecified site

== ENCOUNTER 2019-01-11 13:02 | Inpatient (IN) | payer MEDICARE ==
[~2019-01-11] VITALS: Ht 154.9 cm; Wt 50.9 kg
[~2019-01-11 13:02] MED LIST changes: -ALTEPLASE 2 MG/2 ML VIAL (J2997 PER 1MG) As Ordered ONE; +CHLO125TA PO; +ECOT81TA5 PO; +FLON1SPR; -HEPARIN 1,000 UNITS/ML 10ML VIAL (FOR RADIOLOGY& DIALYSIS ONLY) As Ordered ONE; -HEPARIN 25,000 UNITS/250 ML D5W BAG (100 UNITS/ML) As Ordered ONE; -ISOVUE-300 61% 50ML VIAL (Q9967) As Ordered ONE; -LIDOCAINE 2% MDV 20 ML VIAL As Ordered ONE; -MIDAZOLAM INJ 2 MG/2 ML VIAL (J2250) As Ordered ONE; +PANT20TA51 PO; +ROPI0.253 PO; -fentaNYL 100 MCG/2 ML INJECTION (J3010) As Ordered ONE
[2019-01-11 22:15] VITALS: BP 141/74
[2019-01-11] MEDS ORDERED: ONDANSETRON 4MG/2ML VIAL (J2405) IV PRN (23:00)
[2019-01-12] VITALS (7 sets, daily range): BP systolic 135–172; BP diastolic 63–90
[2019-01-12] MEDS ORDERED: ONDA4TAB6 PO (01:15)
[2019-01-12] MEDS ORDERED: NITR25SU3 PO (01:15)
[2019-01-12] MEDS ORDERED: ONDA4TAB5 PO (01:15)
[2019-01-12] MEDS ORDERED: ONDA2VL IV (01:15)
[2019-01-12] MEDS ORDERED: ATOR1TAB19 PO (01:15)
[2019-01-12] MEDS ORDERED: METO10VL IV (01:15)
[2019-01-12] MEDS ORDERED: [UNRECOGNIZED DRUG - CODE] IV (01:15)
[2019-01-12 01:30] LABS: HEMATOCRIT 25.6 % (36.0-47.0); HEMOGLOBIN 8.3 g/dl (12.0-15.5); MEAN CORPUSCULAR HGB CONC 32.4 g/dl (32.0-36.5); MEAN CORPUSCULAR VOLUME 95.5 fl (80.0-96.0); PLATELET COUNT, AUTOMATED 102 10^3/uL (150-450); RED BLOOD COUNT 2.68 10^6/uL (4.00-5.40); WHITE BLOOD COUNT 7.1 10^3/uL (4.0-10.0)
[2019-01-12 01:44] LABS: INR 1.06; PROTHROMBIN TIME 13.5 SECONDS (11.8-14.0)
[2019-01-12 02:02] LABS: ALT/SGPT 42 U/L (12-78); BILIRUBIN,TOTAL 1.5 MG/DL (0.2-1.0); BLOOD UREA NITROGEN 19 MG/DL (7-18); CALCIUM LEVEL 8.5 MG/DL (8.8-10.2); CARBON DIOXIDE LEVEL 22 MEQ/L (21-32); CHLORIDE LEVEL 121 MEQ/L (98-107); CREATININE FOR GFR 0.44 MG/DL (0.55-1.30); GLOMERULAR FILTRATION RATE > 60.0 (>45); GLUCOSE, FASTING 69 MG/DL (70-100); SODIUM LEVEL 152 MEQ/L (136-145); TOTAL PROTEIN 5.5 GM/DL (6.4-8.2)
[2019-01-12 02:06] LABS: BASOPHILS 1 % (0-1); EOSINOPHILS 1 % (0-3); LYMPHOCYTES 9 % (16-44); MONOCYTES 8 % (0-5); NEUTROPHILS 81 % (28-66); PLATELET ESTIMATE NORMAL (NORMAL); POLYCHROMASIA 1+
[2019-01-12 02:07] LABS: ANISOCYTOSIS 1+
[2019-01-12] MEDS: hydrOXYzine 25 MG TAB PO SCH ×2 (02:23→21:25)
[2019-01-12] MEDS: METOCLOPRAMIDE INJ 10MG/2ML VIAL (J2765) IV SCH ×4 (02:24→21:25)
[2019-01-12] MEDS ORDERED: POTASSIUM CHLORIDE 10% LIQ 20 MEQ/15 ML UDC FT ONE (02:30)
[2019-01-12] MEDS: D5W 1,000 ML IV SCH ×2 (03:27→21:23)
[2019-01-12] MEDS: rOPINIRole 0.25 MG TAB(REQUIP) PO SCH ×2 (03:36→21:24)
[2019-01-12] MEDS: VALPROATE SOD INJ 250 MG in D5W 50 ML IV SCH ×4 (03:36→21:23)
[2019-01-12] MEDS: ACETAMINOPHEN 500 MG TAB PO SCH ×3 (06:21→21:43)
[2019-01-12 06:47] LABS: HEMATOCRIT 25.3 % (36.0-47.0); HEMOGLOBIN 8.3 g/dl (12.0-15.5); MEAN CORPUSCULAR HEMOGLOBIN 31.1 pg (27.0-33.0); MEAN CORPUSCULAR HGB CONC 32.8 g/dl (32.0-36.5); MEAN CORPUSCULAR VOLUME 94.8 fl (80.0-96.0); PLATELET COUNT, AUTOMATED 112 10^3/uL (150-450); RED BLOOD COUNT 2.67 10^6/uL (4.00-5.40); WHITE BLOOD COUNT 7.1 10^3/uL (4.0-10.0)
[2019-01-12 06:55] LABS: ANISOCYTOSIS 1+; ATYPICAL LYMPH 1 % (0-5); LYMPHOCYTES 12 % (16-44); METAMYELOCYTES 2 % (0-0); MONOCYTES 2 % (0-5); MYELOCYTES 3 % (0-0); NEUTROPHILS 77 % (28-66); POLYCHROMASIA 1+
[2019-01-12 06:56] LABS: PLATELET ESTIMATE DECREASED (NORMAL)
[2019-01-12 07:12] LABS: BLOOD UREA NITROGEN 18 MG/DL (7-18); CALCIUM LEVEL 8.4 MG/DL (8.8-10.2); CARBON DIOXIDE LEVEL 23 MEQ/L (21-32); CHLORIDE LEVEL 120 MEQ/L (98-107); CREATININE FOR GFR 0.49 MG/DL (0.55-1.30); GLOMERULAR FILTRATION RATE > 60.0 (>45); GLUCOSE, FASTING 77 MG/DL (70-100); POTASSIUM SERUM 3.6 MEQ/L (3.5-5.1); SODIUM LEVEL 149 MEQ/L (136-145)
[2019-01-12] MEDS: SYMBICORT 80/4.5MCG INHALER 6GM INH SCH ×2 (07:19→20:00)
[2019-01-12] MEDS ORDERED: HEPARIN SOD (PORCINE) 5000 UNITS/ML VIAL SC SCH (09:00)
[2019-01-12] MEDS ORDERED: oxyCODONE 20 MG CR TAB PO SCH (09:00)
[2019-01-12] MEDS ORDERED: GABAPENTIN 100 MG CAP PO SCH (09:00)
[2019-01-12] MEDS: POTASSIUM CHLORIDE 10% LIQ 20 MEQ/15 ML UDC PO SCH ×2 (09:57→21:23)
[2019-01-12] MEDS: CYANOCOBALAMIN 500 MCG TAB PO SCH (09:58)
[2019-01-12] MEDS: NITROFURANTOIN (MACROBID) 100 MG CAP PO SCH ×2 (09:58→21:25)
[2019-01-12] MEDS: predniSONE 2.5 MG TAB PO SCH (09:59)
[2019-01-12] MEDS: CHLORTHALIDONE 12.5MG PER 1/2 TABLET PO SCH (09:59)
[2019-01-12] MEDS: GABAPENTIN 100 MG CAP PO SCH ×3 (09:59→21:24)
[2019-01-12] MEDS: oxyCODONE 20 MG CR TAB PO SCH ×2 (09:59→21:24)
[2019-01-12] MEDS: ASCORBIC ACID 500 MG TAB PO SCH (10:00)
[2019-01-12] MEDS ORDERED: E-Z-PAQUE 96% w/w SUSP 176GM BTL As Ordered ONE (13:31)
[2019-01-12] MEDS ORDERED: VARIBAR NECTAR 40% w/v 240ML SUSP BTL As Ordered ONE (13:31)
[2019-01-12] MEDS ORDERED: VARIBAR PUDDING 40% w/v 230ML TUBE As Ordered ONE (13:31)
[2019-01-12] MEDS ORDERED: BARIUM SULFATE 700 MG TABLET (E-Z-DISK) As Ordered ONE (13:32)
--- NOTE | 2019-01-12 13:45 | IPN ---
DATE: 01/12/2019 [facility] She was transferred from [facility] yesterday and I am waiting for the history and physical, which has not been transcribed. I spent a long time with her and visiting with her family and getting their input. She has had a significant improvement in the last 24 to 48 hours. There was some paperwork sent from [facility] from 01/10/2019 that indicated she was unresponsive and encephalopathic. Today, she is alert and conversant. She recognizes me immediately. She is certainly dysarthric and encephalopathic, but she answers appropriately and cusses at appropriate times, which is baseline for Adelaide, and the family is quite happy with her current improvement. She has a G tube that is not currently being used. She apparently failed a swallowing study at [facility], but we are repeating that now that she is more alert. The original plan was for her to be transferred directly to the [facility] ([facility]), but because there is question of a CSF leak from her external ventricular drainage procedure (done twice), she was admitted medically instead. PHYSICAL EXAMINATION: Afebrile. 152/90, pulse 90, respiratory rate 18, oxygen saturation 100% on room air. GENERAL APPEARANCE: She is resting comfortably and visiting with her family member. She has two ventriculostomies placed on the right side of her scalp without any drainage. They are clean, dry and intact. There is no CSF drainage at all. Speech is dysarthric. Lungs are clear. Heart has regular rhythm. Abdomen is soft and nontender. Neurological exam shows that she moves arms and legs with equal strength and coordination. Surprisingly good at finger to nose testing bilaterally. We did not test her gait. She has a G tube in place, nontender around it. Stomach is nondistended. LABORATORIES: Sodium 149, potassium 3.6, BUN 18, creatinine 0.5, glucose 77, white count 7.1, hemoglobin 8.3, platelets 112. Urinalysis positive for nitrites, white cells. IMPRESSION: 1. 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 We will consult neurology, speech and occupational therapy, physical therapy. The case has been discussed with Dr. Meza yesterday as well. 2. Presumed urinary tract infection (UTI). She is currently on nitrofurantoin. We will wait for the culture results. She has had a prolonged hospitalization and is at risk of nosocomial/drug resistant urinary infection. 3. Feeding difficulties. Swallowing study ordered. Speech therapy ordered. We will use her G tube for now. 4. Hypernatremia. We will add water to her feedings and slowly progress this. 5. Hyperlipidemia. Continue atorvastatin 10 mg daily. 6. Seizure. She is currently on IV valproic acid 250 mg every 6 hours. Once we confirm the G tube is working well, we will switch this tomorrow. A more comprehensive problem list is pending the history and physical.
[2019-01-12 14:41] LABS: BLOOD UREA NITROGEN 13 MG/DL (7-18); CALCIUM LEVEL 8.6 MG/DL (8.8-10.2); CARBON DIOXIDE LEVEL 24 MEQ/L (21-32); CHLORIDE LEVEL 115 MEQ/L (98-107); CREATININE FOR GFR 0.46 MG/DL (0.55-1.30); GLOMERULAR FILTRATION RATE > 60.0 (>45); GLUCOSE, FASTING 89 MG/DL (70-100); POTASSIUM SERUM 3.3 MEQ/L (3.5-5.1); SODIUM LEVEL 144 MEQ/L (136-145)
[2019-01-12] MEDS ORDERED: POTASSIUM CHLORIDE 10% LIQ 20 MEQ/15 ML UDC PO ONE (18:00)
--- NOTE | 2019-01-12 19:37 | HPEPDOC ---
General Date of Admission 01/11/19 Date of Service: Jan 11, 2019 Chief Complaint The patient is a 63-year-old female admitted with a reason for visit of Encephalopathy After Stroke. Source: Family, RN/MD, Old records Exam Limitations: Clinical conditions Severity: Severe History of Present Illness 63 year old female with Multiple PMH including G6pd deficiency, Autoimmune hemolytic anemia, Lupus erythematous, RA, Kidney stones, H/o DVT, hyperlipidemia not on statin, right brachial- radial bypass in 1995 after an iatrogenic injury to her brachial artery s/p cardiac cath, chronic back pain , neck pain , opioid dependence prior to this admission.She was followed up in here in September of this year and her bypass was patent on US. Subsequently, she went off of her aspirin due to her hemolytic anemia and a week ago started having significant aching pain in her right arm and claudication. Duplex US yesterday reveals subacute thrombosis of her bypass graft with pretty large collaterals from the brachial artery to the radial and ulnar arteries, but flow was still fairly limited. She was originally admitted to [facility] on 12/14/18 for subacute thrombosis of the bypass graft for elective catheter directed TPA treatment. . Patient initially did well then around 2;30 am developed severe headache, nausea and vomiting with bradycardia and hypertension, CT head showed right cerebellar hemorrhage. Tpa was stopped and patient was transferred to [facility]. There she rapidly became drowsy after arrival . CTA stat showed obstructive hydrocephalus, she was intubated and neurosurgery placed EVD on 12/15/18. She was stable so EVD was removed on 12/21/18. She was again noted to have decline in mental status with more drowsiness, disorientation and dysarthria . Repeat CT showed increase in ventricle size requiring EVD replacement on 12/26/18. She was also given mannitol. EVD was removed on 01/01/19. the most recent CT head on 01/02/19 showed slight decrease in ventricle size. She was given a 5 day course of diamox till 01/08/19. Patient failed swallow evaluation so PEG tube was placed on 01/05/19. Tube feeding was started however patient was having profuse diarrhea with tube feeding so rectal tube was placed as she developed excoriations of her sacral area. Pateint was also have persistent hypernatremia from piror 3% saline treatment which was managed with increased free water flushes. She also developed anemia with hh down to 5.7 and received 2 units of PRBC. Hemolytic work up was negative . It was thought to be iatrogenic from blood draws. She was also having intermittent episodes of painful distress so was seen by pain management they recommended gabapentin 200 tid and tylenol 975 tid. On 01/10 she started having nausea and vomiting and diarrhea. : Axr was negative for any SBO, USG doppler of the PEG site was negative for any abscess, CT head was negative for worsening hydrocephalus, CT abd/pelvis was negative for SBO. C diff was negative. patient was having profuse diarrhea with tube feeding so rectal tube was placed as she developed excoriations of her sacral area. She was found to have UTI so started on nitrofurantoin. Tube feeding was restarted with reglan and zofran. On my interview she complained of back pain, which she could not quantify but just said very severe, aching and throbbing in nature mostly in the lower back causing her trouble in laying down in bed in one position without any radiation. She did say she also had abdominal pain but was a little better. Her history is not reliable as she is still encephalopathic knows she is in a hospital but said the wrong name, could recognize family members correctly . She was saying she is hungry and wanted to eat by mouth. Patient was transferred here for further management of her electrolyte imbalance s, UTI, Anemia, Post cerebellar hemorrhage encephalopathy, her diarrhea and vomiting, her chronic pain issues, and subsequent rehab placement when deemed appropriate. Home Medications Scheduled Ascorbic Acid (Vitamin C) 500 Mg Tab, 1,000 MG PO DAILY, (Reported) Atorvastatin Calcium (Atorvastatin Calcium) 10 Mg Tablet, 10 MG PO DAILY, (Reported) Chlorthalidone (Chlorthalidone) 25 Mg Tablet, 12.5 MG PO DAILY, (Reported) Cholecalciferol (Vitamin D3) (Vitamin D3) 1,000 Unit Tab, 2,000 UNIT PO DAILY, (Reported) Cyanocobalamin (Vitamin B-12) (Vitamin B-12) 1,000 Mcg Tab, 1,000 MCG PO DAILY, (Reported) Fluticasone Propionate (Flonase Allergy Relief) 9.9 Ml [place].susp, 2 SPRAY NA DAILY, (Reported) Gabapentin (Gabapentin) 100 Mg Capsule, 100 MG PO TID, (Reported) Metoclopramide HCl (Metoclopramide HCl) 5 Mg/1 Ml Vial, 10 MG IV Q6H, (Reported) NEW ORDER FROM [facility] [place] Nitrofurantoin (Nitrofurantoin) 25 Mg/5 Ml Oral.susp, 50 MG PO Q6H, (Reported) NEW ORDER FROM [facility] [place]: FOR 10 DAYS Oxycodone HCl (Oxycodone HCl ER) 20 Mg Tab, 20 MG PO BID, (Reported) Potassium Chloride (Potassium Chloride) 20 Meq Tablet.er, 20 MEQ PO BID, (Reported) Prednisone (Prednisone) 2.5 Mg Tablet, 2.5 MG PO DAILY, (Reported) Ropinirole HCl (Ropinirole HCl) 0.25 Mg Tablet, 0.25 MG PO QHS, (Reported) Valproic Acid (As Sodium Salt) (Valproate Sodium INJ) 500 Mg/5 Ml Vial, 250 MG IV Q6H, (Reported) NEW ORDER FROM [facility] [place] Scheduled PRN Hydroxyzine HCl (Hydroxyzine HCl) 25 Mg Tablet, 25 MG PO QHS PRN for ITCHING, (Reported) CAN TAKE UP TO 50MG Ondansetron (Ondansetron Odt) 4 Mg Tab.rapdis, 4 MG PO Q8H PRN for NAUSEA, (Reported) NEW ORDER FROM [facility] [place] Ondansetron (Ondansetron HCl) 2 Mg/1 Ml Vial, 4 MG IV Q8H PRN for NAUSEA, (Reported) NEW ORDER FROM [facility] [place] Ondansetron HCl (Ondansetron HCl) 4 Mg Tablet, 4 MG PO Q8H PRN for NAUSEA, (Reported) FOR UP TO 7 DAYS Oxycodone Hcl (Oxycodone HCl) 15 Mg Tab, 15 MG PO Q6H PRN for PAIN, (Reported) Pantoprazole Sodium (Pantoprazole Sodium) 20 Mg Tablet.dr, 20 MG PO BID PRN for HEARTBURN, (Reported) Ropinirole HCl (Ropinirole HCl) 0.25 Mg Tablet, 0.25 MG PO QHS PRN for RESTLESS LEGS, (Reported) MAY TAKE A SECOND TAB IF NEEDED Allergies Uncoded Allergies: G6PD DEFICIENCY (Allergy, Severe, PLEASE REVIEW ALL MEDS, 01/13/19) Past Medical History Medical History G6PD DEFICIENCY HEMOLYTIC ANEMIA + LUPUS ANTICOAGULANT (CONFIRMED) 07/07 GERD RSD WITH CHRONIC NECK AND UE PAIN THYROID NODULE- (THYROIDECTOMY) KIDNEY STONES S/P ESWL 03/2003, STENTS VITAMIN D DEFICIENCY MIGRAINES COPD FEV1 = 1.93 2006 SMOKER GENERALIZED OSTEOARTHRITIS HIPS, NECK, BACK, HANDS LUNG NODULE ON CT CHEST 10/05 followed out patient 50-69% BILAT CAROTID STENOSIS DVT RT UE 1995 BA SWALLOW 01/07: SMALL PULSION ESOPAGEAL DIVERTICULUM, ASPIRATED A DROPLET OF BARIUM, REFLUX PRESENT OSTEOPOROSIS HYPERLIPIDEMIA--WAS ON ATORVA, THIS WAS D/C BY HEMATOLOGY (POSSIBLE G6PD DEFIC CONTRIBUTOR) Surgical History CORONARY CATH - NORMAL 1995 RIGHT ARM BRACHIAL BYPASS 1995 DORSAL COLUMN STIMULATOR 1995 now removed. CYSTOSCOPY & LEFT URETEROSCOPY WITH LITHO AND STONE EXTRACTION 2004 LEFT URETERAL STENT PLACED, THEN CHANGED DUE TO OBSTRUCTION () 2005 LEFT URETERAL STENT REMOVED 2005 PARTIAL THYROIDECTOMY - NEGATIVE FOR CANCER 2008 EGD/COLONOSCOPY - GASTRIC AND COLON" POLYPS" (PER PATIENT NEEDS F/U IN 5 YEARS) 2010 LEFT URETERAL STENT PLACED 06/2013 DORSAL COLUMN STIMULATOR REMOVED DUE TO SEVERE KIDNEY PROBLEMS FROM STONES (WIRES LEFT IN, THEY WERE REMOVED 10/04) 2004, 2014 PARTIAL HYSTERECTOMY REMOVAL OF THE WIRES TO THE STIMULATOR 08/2014 EGD/COLONOSCOPY-- BOTH NORMAL 01/2017 RIGHT KIDNEY DOUBLE J STENT X2 02/22/[address] GUIDED NEPHROLITHOTOMY AT [facility] 04/08 RIGHT KIDNEY STONE REMOVED 03/2017 Family History FATHER: , RHEUMATOID, DIAGNOSED WITH DIABETES, HEART DISEASE MOTHER: , RHEUMATOID, HEART DISEASE, DIABETES MATERNAL GRAND MOTHER: BREAST CANCER, CANCER SIBLINGS: DIABETES PATERNAL GRAND FATHER: DIABETES PATERNAL GRAND MOTHER: DIABETES PATERNAL GRANDMOTHER SKIN CANCER N1 SISTER- RHEUMATOID PSORIATIC ARTHRITIS MULTIPLE SIBLINGS WITH HEART DISEASE. Social History * Smoker: current smoker Alcohol: Denies Drugs: denies A-FIB/CHADSVASC A-FIB History Current/History of A-Fib/PAF?: No Review of Systems Constitutional: Denies: Chills, Fever, Night Sweats Eyes: Denies: Pain, Vision change ENT: Reports: Head Aches Skin: Denies: Rash, Lesions, Breakdown Pulmonary: Denies: Dyspnea, Cough Cardiovascular: Denies: Chest Pain, Palpitations, Orthopnea, Paroxysmal Noc. Dyspnea, Lt Headedness Gastrointestinal: Reports: Vomiting, Diarrhea Genitourinary: Reports: Other Symptoms (molina in place) Musculoskeletal: Reports: Neck Pain, Back Pain Neurological: Reports: Confusion Physical Examination General Exam: Positive: Alert, Cooperative, No Acute Distress, Other (oiented to self but not to place or emile, knows family members, knows she is in the hospital wrong name.) Eye Exam: Positive: Conjunctiva & lids normal, EOMI ENT Exam: Positive: Mucous membr. moist/pink, Tongue Midline, Other ENT (surgical incition with sutures on prema scalp) Neck Exam: Positive: Supple; Negative: JVD, thyromegaly Chest Exam: Positive: Clear to auscultation, Normal air movement Heart Exam: Positive: Rate Normal, Regular Rhythm, Normal S1, Normal S2; Negative: Murmurs, Rubs Telemetry: Positive: No significant arrhythmia Abdomen Exam: Positive: Normal bowel sounds, Soft; Negative: Tenderness, Hepatospenomegaly Extremity Exam: Negative: Clubbing, Cyanosis, Edema Skin Exam: Positive: Nl turgor and temperature; Negative: Breakdown, Lesion Neuro Exam: Positive: Normal Speech, Normal Tone, Other (moving all 4 extremities spontaneously) Vital Signs Vital Signs Label Value Date Time Patient Temperature 98.3 degrees F 01/11/192214 Temperature Source Temporal 01/11/192214 Pulse 101 01/11/192214 Respiratory Rate 17 bpm 01/11/192214 Blood Pressure Assessment 141/74 (96) 01/11/192214 Bedside Pulse Oximetry 99 % 01/11/192214 Laboratory Data CBC/BMP Item Value Date Time White Blood Count 7.1 10^3/uL 01/12/19115 Red Blood Count 2.68 10^6/uL L 01/12/19115 Hemoglobin 8.3 g/dl L 01/12/19115 Hematocrit 25.6 % L 01/12/19115 Mean Corpuscular Volume 95.5 fl 01/12/19115 Mean Corpuscular Hemoglobin 31.0 pg 01/12/19115 Mean Corpuscular Hemoglobin Concent 32.4 g/dl 01/12/19115 Red Cell Distribution Width 16.1 % H 01/12/19115 Platelet Count 102 10^3/uL L 01/12/19 011 Nucleated Red Blood Cells % (auto) 0.7 % H 01/12/19115 Neutrophils 81 % H 01/12/19 011 Lymphocytes (Manual) 9 % L 01/12/19 011 Monocytes (Manual) 8 % H 01/12/19 0116 Eosinophils (Manual) 1 % 01/12/19115 Basophils (Manual) 1 % 01/12/19115 Polychromasia 1+ 01/12/19115 Platelet Estimate NORMAL 01/12/19115 Anisocytosis 1+ 01/12/19115 Sodium Level 149 MEQ/L H 01/12/19 0631 Sodium Level 152 MEQ/L H 01/12/19115 Potassium Level 3.0 MEQ/L L 01/12/19115 Chloride Level 121 MEQ/L H 01/12/19115 Carbon Dioxide Level 22 MEQ/L 01/12/19115 Anion Gap 9 MEQ/L 01/12/19115 Blood Urea Nitrogen 19 MG/DL H 01/12/19115 Creatinine 0.44 MG/DL L 01/12/19115 Glomerular Filtration Rate > 60.0 01/12/19115 Fasting Glucose 69 MG/DL L 01/12/19115 Calcium Level 8.5 MG/DL L 01/12/19115 Total Bilirubin 1.5 MG/DL H 01/12/19115 Aspartate Amino Transf (AST/SGOT) 25 U/L 01/12/19115 Alanine Aminotransferase (ALT/SGPT) 42 U/L 01/12/19115 Alkaline Phosphatase 53 U/L 01/12/19115 Total Protein 5.5 GM/DL L 01/12/19115 Albumin 3.0 GM/DL L 01/12/19115 Albumin/Globulin Ratio 1.20 01/12/19115 Assessment/Plan 63 year old female with Multiple PMH including G6PD deficiency, Autoimmune hemolytic anemia, lupus anticoagulant positive, Lupus erythematous, RA, Kidney stones, H/o DVT, hyperlipidemia not on statin, right brachial- radial bypass in 1995 after an iatrogenic injury to her brachial artery s/p cardiac cath, chronic back pain , neck pain , opioid dependence prior to this admission.She was followed up in here in September of this year and her bypass was patent on US. Sub sequently, she went off of her aspirin due to her hemolytic anemia and a week ago started having significant aching pain in her right arm and claudication. Duplex US yesterday reveals subacute thrombosis of her bypass graft with pretty large collaterals from the brachial artery to the radial and ulnar arteries, but flow was still fairly limited. She was originally admitted to [facility] on 12/14/18 for subacute thrombosis of the bypass graft for elective catheter directed TPA treatment. . Patient initially did well then around 2;30 am developed severe headache, nausea and vomiting with bradycardia and hypertension, CT head showed right cerebellar hemorrhage. Tpa was stopped and patient was transferred to [facility]. There she rapidly became drowsy after arrival . CTA stat showed obstructive hydrocephalus, she was intubated and neurosurgery placed EVD on 12/15/18. She was stable so EVD was removed on 12/21/18. She was again noted to have decline in mental status with more drowsiness, disorientation and dysarthria . Repeat CT showed increase in ventricle size requiring EVD replacement on 12/26/18. She was also given mannitol. EVD was removed on 01/01/19. the most recent CT head on 01/02/19 showed slight decrease in ventricle size. She was given a 5 day course of diamox till 01/08/19. Patient failed swallow evaluation so PEG tube was placed on 01/05/19. Tube feeding was started however patient was having profuse diarrhea with tube feeding so rectal tube was placed as she developed excoriations of her sacral area. Pateint was also have persistent hypernatremia from piror 3% saline treatment which was managed with increased free water flushes. She also developed anemia with hh down to 5.7 and received 2 units of PRBC. Hemolytic work up was negative . It was thought to be iatrogenic from blood draws. She was also having intermittent episodes of painful distress so was seen by pain management they recommended gabapentin 200 tid and tylenol 975 tid. On 01/10 she started having nausea and vomiting and diarrhea. : Axr was negative for any SBO, USG doppler of the PEG site was negative for any abscess, CT head was negative for worsening hydrocephalus, CT abd/pelvis was negative for SBO. C diff was negative. patient was having profuse diarrhea with tube feeding so rectal tube was placed as she developed excoriations of her sacral area. She was found to have UTI so started on nitrofurantoin. Tube feeding was re started with reglan and zofran. Patient was transferred here for further management of her electrolyte imbalances, UTI, Anemia, Post cerebellar hemorrhage encephalopathy, her diarrhea and vomiting, her chronic pain issues, and subsequent rehab placement when deemed appropriate. Post cerebellar hemorrhage encephalopathy with intermittent painful distress sitter. continue opiates as per discharge meds pain management there had recommended tylenol 975 mg tid and gabapentin dosage to be increased to 200 tid. I have made the changes. Though these recommendations were not reflected in their discharge medications Post acute right cerebellar hemorrhage will need follow up MRI of brain with and without contrast after resolution of bleed to evaluate for any underlying tumor. neurosurgery follow up on 01/17 Scalp stitches removal in 7 days from 01/09/19 valproate Hypernatremia dextrose infusion free water flushes Hypokalemia replaced. UTI on nitrofurantoin will continue Patient has molina UA and U cultrure sent. this can cause nausea and vomiting . if persists would suggest to change antibiotics. Anemia and thrombocytopenia monitor Diarrhea , vomiting Negative for any SBO by AXR and Abd CT scan, negative C diff, negative PEG site abscess. continue reglan , zofran, will restart tube feeds slowly with osmolyte. diarrhea possibly due to tube feeding Opiate dependence was seen by pain management recommended outpatient addiction medicine referral Autoimmune hemolytic anemia/ RA/lupus anticoagulant continue prednisone. Right brachio- radial bypass graft with sub acute thrombosis. vascular follow up at a later date. Plan / VTE VTE Prophylaxis Ordered?: Yes TAM JOEL MD Jan 11, 2019 23:31
[2019-01-12] MEDS ORDERED: ATORVASTATIN 10 MG TAB PO SCH (21:00)
--- NOTE | 2019-01-12 21:05 | REPVR ---
EXAM: CT Head Without Contrast EXAM DATE/TIME: 01/12/2019 8:37 PM CLINICAL HISTORY: 63 years old, female; Condition or disease; Other: Cerebellar hemorrhage, hydrocephalus; Prior surgery; Surgery date: <1 month; Surgery type: Removed clot per PT TECHNIQUE: Imaging protocol: Computed tomography images of the head without contrast. Radiation optimization: All CT scans at this facility use at least one of these dose optimization techniques: automated exposure control; mA and/or kV adjustment per patient size (includes targeted exams where dose is matched to clinical indication); or iterative reconstruction. COMPARISON: CT Head without contrast 12/15/2018 3:36 AM FINDINGS: Brain: Evolution of prior right hemispheric intra-axial hemorrhage since the prior CT and MRI. The area measures roughly 4.5 x 2.5 cm presently with minimal residual mass effect upon the fourth ventricle. This has decreased in the interim. No new hemorrhage and no evidence of new infarct No intracranial mass, focal mass effect or midline shift. Mild decreased attenuation in periventricular/centrum semiovale white matter. No focal effacement of cortical sulci to indicate acute cortical infarct. Ventricles: Prominent ventricles and CSF spaces suggest parenchymal volume loss. Bones/joints: No calvarial fracture or destructive process. Right frontal calvarial defect consistent with prior intracranial pressure monitor Sinuses: Visualized paranasal sinuses are unremarkable. Mastoid air cells: Mastoid air cells are normally aerated. Orbits: Visualized globes and orbits are unremarkable. Soft tissues: No focal extracranial soft tissue swelling. IMPRESSION: 1. No acute intracranial abnormality. 2. Resolving left cerebellar hemisphere intra-axial hemorrhage with decreased mass effect upon the fourth ventricle and no new abnormality 3. Atrophy and chronic microangiopathic change in supratentorial white matter. Electronically signed by: Fernando Ford On 01/12/2019 21:05:17 PM
[2019-01-13] MEDS: METOCLOPRAMIDE INJ 10MG/2ML VIAL (J2765) IV SCH ×4 (02:00→20:46)
[2019-01-13] MEDS: VALPROATE SOD INJ 250 MG in D5W 50 ML IV SCH ×4 (03:15→20:46)
[2019-01-13 04:00] VITALS: BP 124/60
[2019-01-13 04:47] LABS: HEMATOCRIT 23.9 % (36.0-47.0); HEMOGLOBIN 7.9 g/dl (12.0-15.5); MEAN CORPUSCULAR HEMOGLOBIN 30.2 pg (27.0-33.0); MEAN CORPUSCULAR HGB CONC 33.1 g/dl (32.0-36.5); MEAN CORPUSCULAR VOLUME 91.2 fl (80.0-96.0); PLATELET COUNT, AUTOMATED 113 10^3/uL (150-450); RED BLOOD COUNT 2.62 10^6/uL (4.00-5.40); WHITE BLOOD COUNT 5.7 10^3/uL (4.0-10.0)
[2019-01-13 04:56] LABS: ANISOCYTOSIS 1+; ATYPICAL LYMPH 2 % (0-5); EOSINOPHILS 3 % (0-3); LYMPHOCYTES 26 % (16-44); METAMYELOCYTES 1 % (0-0); MONOCYTES 5 % (0-5); MYELOCYTES 4 % (0-0); NEUTROPHILS 59 % (28-66); POIKILOCYTOSIS 1+; POLYCHROMASIA 1+
[2019-01-13 04:57] LABS: PLATELET ESTIMATE DECREASED (NORMAL)
[2019-01-13 05:07] LABS: BLOOD UREA NITROGEN 9 MG/DL (7-18); CARBON DIOXIDE LEVEL 25 MEQ/L (21-32); CHLORIDE LEVEL 107 MEQ/L (98-107); GLOMERULAR FILTRATION RATE > 60.0 (>45); GLUCOSE, FASTING 101 MG/DL (70-100); POTASSIUM SERUM 3.5 MEQ/L (3.5-5.1); SODIUM LEVEL 140 MEQ/L (136-145)
[2019-01-13] MEDS: ACETAMINOPHEN 500 MG TAB PO SCH ×3 (06:03→22:00)
[2019-01-13 08:00] VITALS: BP 130/42
[2019-01-13] MEDS: SYMBICORT 80/4.5MCG INHALER 6GM INH SCH ×2 (08:00→20:00)
[2019-01-13] MEDS ORDERED: [UNRECOGNIZED DRUG - REMARK] XX SCH (08:30)
[2019-01-13] MEDS: POTASSIUM CHLORIDE 10% LIQ 20 MEQ/15 ML UDC PO SCH ×2 (09:23→20:46)
[2019-01-13] MEDS: oxyCODONE 20 MG CR TAB PO SCH ×2 (09:23→20:46)
[2019-01-13] MEDS: CHLORTHALIDONE 12.5MG PER 1/2 TABLET PO SCH (09:24)
[2019-01-13] MEDS: CYANOCOBALAMIN 500 MCG TAB PO SCH (09:24)
[2019-01-13] MEDS: ASCORBIC ACID 500 MG TAB PO SCH (09:24)
[2019-01-13] MEDS: predniSONE 2.5 MG TAB PO SCH (09:24)
[2019-01-13] MEDS: NITROFURANTOIN (MACROBID) 100 MG CAP PO SCH (09:24)
[2019-01-13] MEDS: GABAPENTIN 100 MG CAP PO SCH ×3 (09:24→20:47)
--- NOTE | 2019-01-13 10:54 | CR ---
DATE OF CONSULTATION: 01/12/2019 REFERRING PHYSICIAN: Dr. Kody Chacon REASON FOR CONSULTATION: Cerebellar hemorrhage. HISTORY OF PRESENT ILLNESS: Adelaide Montoya is a 63-year-old woman who was admitted initially at [facility] in the last week of November 2018 for right brachial-radial bypass thrombosis and had attempted TPA infusion to remove the clot. She developed acute right cerebellar hemorrhage with mass effect, edema and compression of fourth ventricle. I was called about this patient early in the morning to review the scans, and I recommended the patient to be transferred to [facility]. The patient was transferred to [facility] and had external ventricular drainage (EVD). It appears from discussion with the family that this was performed twice due to development of hydrocephalus. It was seen on the testing that blood flow to her right arm had improved from 3% to 12%, so it was left alone. The patient remains nonverbal, unresponsive and slept throughout her hospital course at [facility]. She was sent back for rehabilitation. According to family, 2 days ago the patient was still nonverbal and unresponsive, but since then has improved significantly and has woken up and is able to have conversation and follow commands. The patient has a history of neck and back pain in the past. She feels slight trouble with swallowing. She has slurring of speech at times. She appears significantly better over the last few days. She has slight headache. She denies any numbness, weakness of her arms and legs. PAST MEDICAL HISTORY: Hemolytic anemia. Chronic obstructive pulmonary disease (COPD). Chronic pain with narcotic dependence. Right brachial-radial bypass graft status post thrombosis. Peripheral arterial disease. Right cerebellar hemorrhage with hydrocephalus. HOME MEDICATIONS: - chlorthalidone - vitamin B12 - vitamin D3 - Symbicort inhaler - gabapentin - Flonase nasal spray - hydroxyzine - oxycodone - prednisone - Requip SOCIAL HISTORY: She denies alcohol or illicit drugs. She smokes tobacco. FAMILY HISTORY: Noncontributory. REVIEW OF SYSTEMS: All systems were reviewed with family and were found to be noncontributory except as mentioned in history of present illness. PHYSICAL EXAMINATION: Temperature 98, pulse 80, respiratory rate 16, blood pressure 172/78, 100% saturation on room air. Heart: Regular rate and rhythm. Lungs: Clear to auscultation. Abdomen: Soft, nontender, nondistended. No pedal edema. No musculoskeletal abnormalities. No rash. No signs of meningeal irritation. The patient has scars visible from EVD on her scalp. The patient is awake, alert, oriented to person. She is unable to tell me the year. She thinks it is January 18, 2029. She thinks that she is at [facility] in [place]. She is able to follow commands. Speech is normal with normal comprehension and expression. Distant memory is intact. Extraocular muscles are intact. No facial weakness. Tongue and uvula are midline. There is no nystagmus. 5/5 strength in all four extremities. Deep tendon flexes are 1+ throughout. Gait could not be tested. DIAGNOSTIC STUDIES: CT scan of her head and MRI scan of brain from November 2018 before her transfer were reviewed and showed a large right cerebellar hemorrhage with mass effect, edema, and compression of fourth ventricle and slight hydrocephalus. Blood WBCs 7.1, platelet count 112, hemoglobin 8.3 with normal metabolic profile. Urinalysis showed 1+ bacteria, 36 WBCs and 1+ leukocyte esterase. ASSESSMENT: 1. Large right cerebellar hemorrhage with mass effect, edema and hydrocephalus status post external ventricular drainage twice at [facility]. 2. Peripheral arterial disease and right arm thrombosis for which she had attempted recanalization with TPA, resulting in right cerebellar hemorrhage. PLAN: 1. Repeat CT scan of the head. 2. Physical, occupational therapy and rehabilitation. 3. Follow with our office in 2-4 weeks after hospital discharge.
[2019-01-13 12:00] VITALS: BP 140/70
--- NOTE | 2019-01-13 13:12 | IPN ---
DATE OF SERVICE: 01/13/2019 Adelaide was seen in progressive care unit (PCU). She is really doing well. Mental status remains good. She gets confused at night and had to have a sitter. She also has a rectal tube and a Scott in which I have not given an order for, so those are coming out. She is tolerating her tube feedings well. Oral intake is poor per nursing staff. PHYSICAL EXAMINATION: 124/60, vital signs stable. She is alert, conversant. She recognizes me from the hallway. No facial droop or weakness. Lungs clear. Heart: Regular rhythm. Abdomen: Soft, nontender. Moves arms and legs with equal strength. Abdomen nondistended. LABS: Hemoglobin 7.9, platelets 113. Electrolytes unremarkable. IMPRESSION: 1. 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 Clinically she is stable and much better than she was last week. She is fully alert and though she gets confused at times, she does answer questions and follows commands well. She will be a good candidate for rehabilitation in my opinion and ARU has been consulted. 2. Anemia. She has a history of hemolytic anemia. She has G6PD deficiency, has been followed by hematology most recently on 08/2018. She had a positive lupus anticoagulant 04/2014 and a slightly low G6PD level 08/2017 and with a weakly positive direct antiglobulin TIMMY at [facility] 01/2018. She is on prednisone from hematology oncology. 3. I made pharmacy aware of the G6PD deficiency. I have reviewed her medicines. We will keep an eye on her hemoglobin. She might require a transfusion. Needs to avoid medicines known to provoke hemolysis from G6PD deficiency. 4. Reflux sympathetic dystrophy with chronic neck and extremity pain. She has been weaned off her opiates and would recommend non-opiate pain relief in the future. 5. History of migraine headaches. These have been stable. 6. Chronic obstructive pulmonary disease (COPD) from smoking. Last FEV1 was 1.93. She is not symptomatic currently. 7. History of deep venous thrombosis (DVT) right upper extremity 1995. She is on sequentials for DVT prophylaxis. Avoid pharmacologic DVT prophylaxis due to the hemorrhagic stroke. 8. Swallowing difficulty. This actually predates her stroke. On 12/2017, she had a barium swallow which showed a small pulsion esophageal diverticulum, aspirated a small droplet of barium, reflux was present. [facility] but no intervention was planned. 9. Hyperlipidemia. Atorvastatin was discontinued by hematology earlier this year as a possible contributor to G6PD deficiency. She was restarted on atorvastatin on admission but admitting physician did not have the historical information as far as this being discontinued by hematology oncology so we will stop this. 10. Possible urinary tract infection. She is on Macrodantin. I will ask pharmacy to review this as far as the G6PD situation. Urine culture is pending.
[2019-01-13] MEDS: D5W 1,000 ML IV SCH (13:28)
[2019-01-13 15:30] VITALS: BP 147/60
[2019-01-13] MEDS: oxyCODONE 5MG TAB PO PRN (16:42)
[2019-01-13 20:00] VITALS: BP 133/58
[2019-01-13] MEDS: hydrOXYzine 25 MG TAB PO SCH (20:46)
[2019-01-13] MEDS: rOPINIRole 0.25 MG TAB(REQUIP) PO SCH (20:47)
[2019-01-13 23:59] VITALS: BP 132/61
[2019-01-14] MEDS: METOCLOPRAMIDE INJ 10MG/2ML VIAL (J2765) IV SCH ×4 (02:00→20:33)
[2019-01-14] MEDS: VALPROATE SOD INJ 250 MG in D5W 50 ML IV SCH ×4 (03:42→20:33)
[2019-01-14 04:00] VITALS: BP 142/70
[2019-01-14 04:47] LABS: HEMOGLOBIN 8.7 g/dl (12.0-15.5); MEAN CORPUSCULAR HGB CONC 33.5 g/dl (32.0-36.5); MEAN CORPUSCULAR VOLUME 89.7 fl (80.0-96.0); PLATELET COUNT, AUTOMATED 160 10^3/uL (150-450); WHITE BLOOD COUNT 8.6 10^3/uL (4.0-10.0)
[2019-01-14 04:56] LABS: BLOOD UREA NITROGEN 11 MG/DL (7-18); CALCIUM LEVEL 8.2 MG/DL (8.8-10.2); CARBON DIOXIDE LEVEL 27 MEQ/L (21-32); CHLORIDE LEVEL 108 MEQ/L (98-107); CREATININE FOR GFR 0.51 MG/DL (0.55-1.30); GLOMERULAR FILTRATION RATE > 60.0 (>45); GLUCOSE, FASTING 103 MG/DL (70-100); POTASSIUM SERUM 4.1 MEQ/L (3.5-5.1); SODIUM LEVEL 139 MEQ/L (136-145)
[2019-01-14 05:14] LABS: EOSINOPHILS 1 % (0-3); LYMPHOCYTES 14 % (16-44); METAMYELOCYTES 1 % (0-0); MONOCYTES 11 % (0-5); MYELOCYTES 1 % (0-0); NEUTROPHILS 70 % (28-66)
[2019-01-14 05:15] LABS: ANISOCYTOSIS 1+; PLATELET ESTIMATE NORMAL (NORMAL); POLYCHROMASIA 1+
[2019-01-14] MEDS: ACETAMINOPHEN 500 MG TAB PO SCH ×3 (06:19→22:00)
[2019-01-14] MEDS: D5W 1,000 ML IV SCH ×2 (06:19→20:36)
[2019-01-14] MEDS: SYMBICORT 80/4.5MCG INHALER 6GM INH SCH ×2 (07:10→20:00)
[2019-01-14 08:00] VITALS: BP 140/72
[2019-01-14] MEDS ORDERED: LevoFLOXacin 250 MG TABLET PO SCH (08:00)
[2019-01-14] MEDS: POTASSIUM CHLORIDE 10% LIQ 20 MEQ/15 ML UDC PO SCH ×2 (08:02→20:33)
[2019-01-14] MEDS: CHLORTHALIDONE 12.5MG PER 1/2 TABLET PO SCH (08:02)
[2019-01-14] MEDS: CYANOCOBALAMIN 500 MCG TAB PO SCH (08:03)
[2019-01-14] MEDS: GABAPENTIN 100 MG CAP PO SCH ×3 (08:03→20:33)
[2019-01-14] MEDS: predniSONE 2.5 MG TAB PO SCH (08:03)
[2019-01-14] MEDS: oxyCODONE 20 MG CR TAB PO SCH ×2 (08:03→20:34)
--- NOTE | 2019-01-14 10:52 | IPN ---
DATE OF SERVICE: 01/14/2019 Adelaide is seen in progressive care unit (PCU). She continues to improve clinically. Mental status remains good. Blood pressure is good. Nursing staff says her oral intake is still poor. She is on feedings through the G tube and a pureed diet. Getting Jevity at 15 mL/hr with free water 250 mg four times daily. She has G6PD deficiency and has had hemolytic anemia. Medications are a consequence of this. She has a Citrobacter urinary tract infection. She came to use from [facility] on nitrofurantoin which is a known offender for G6PD deficient patients. I stopped this. We cultured a urine. She was found to run out Citrobacter. I was going to put her on Levaquin but clinical pharmacology called and they indicated Levaquin is an unlikely though known possible cause of hemolysis in G6PD deficient patients so we are going to have to go with something intravenous such as Rocephin. PHYSICAL EXAMINATION: Afebrile. Vital signs stable. Lungs clear. Heart: Regular rhythm. Abdomens soft, nontender. G tube in place. Moves arms and legs with equal strength. She is alert and conversant. LABS: White count 8.6, hemoglobin 8.7, platelets 160, sodium 143. Potassium 4.1. BUN 11, creatinine 0.5, glucose 103. Urine culture showed Citrobacter. Neurology consultation was reviewed. Appreciate their input. CT of the brain showed resolving left cerebellar hemisphere intra-axial hemorrhage with decreased mass effect upon fourth ventricle. IMPRESSION: 1. Encephalopathy following cerebellar hemorrhagic stroke with obstructive hydrocephalus on two occasions requiring external ventricular drainage. Clinically she is stable and she could be considered for rehabilitation at this point. I am moving her out of progressive care unit up to medical/surgical floor. Hopefully rehabilitation will evaluate her tomorrow (original plan was for her to be transferred to rehabilitation but because there was a concern about CSF leak, she was admitted to the surgical service. There is no CSF leak). 2. G6PD deficiency with history of hemolytic anemia. Appreciate clinical pharmacology's input on this who have been very helpful choosing medications. 3. Citrobacter urinary tract infection. Will stop Levaquin I ordered this morning after discussion of rare but still existent possibility of quinolones provoking hemolytic anemia with G6PD deficiency. IV Rocephin has been ordered. 4. Reflux simplex dystrophy. Chronic neck and extremity pain. She has been weaned off her opiates. We need to keep her off opiates in the future. 5. Chronic obstructive pulmonary disease (COPD) from smoking. She is asymptomatic. 6. Swallowing difficulties, she is being tube fed. She had a barium swallow 01/07 that showed a small pulsion esophageal diverticulum. She aspirated a small drop of barium at that time. She saw Dr. Pearson. No intervention was done. 7. Hyperlipidemia. Atorvastatin was discontinued due to possibility of G6PD deficiency provoking hemolysis factor from atorvastatin.
[2019-01-14 12:00] VITALS: BP 140/60
[2019-01-14] MEDS: cefTRIAXone SOD 1 GM in D5W MINI-BAG PLUS 50 ML IV SCH (12:14)
[2019-01-14 15:30] VITALS: BP 147/60
[2019-01-14] MEDS: oxyCODONE 5MG TAB PO PRN (18:58)
[2019-01-14 20:00] VITALS: BP 125/76
[2019-01-14] MEDS: rOPINIRole 0.25 MG TAB(REQUIP) PO SCH (20:33)
[2019-01-14] MEDS: hydrOXYzine 25 MG TAB PO SCH (20:33)
[2019-01-15] VITALS: BP 124/55
[2019-01-15] MEDS: VALPROATE SOD INJ 250 MG in D5W 50 ML IV SCH ×4 (02:05→21:52)
[2019-01-15] MEDS: METOCLOPRAMIDE INJ 10MG/2ML VIAL (J2765) IV SCH ×4 (02:05→21:12)
[2019-01-15 04:00] VITALS: BP 118/63
[2019-01-15] MEDS: ACETAMINOPHEN 500 MG TAB PO SCH ×3 (05:14→21:53)
[2019-01-15 05:39] LABS: HEMATOCRIT 26.5 % (36.0-47.0); HEMOGLOBIN 8.6 g/dl (12.0-15.5); MEAN CORPUSCULAR HEMOGLOBIN 30.5 pg (27.0-33.0); MEAN CORPUSCULAR HGB CONC 32.5 g/dl (32.0-36.5); PLATELET COUNT, AUTOMATED 134 10^3/uL (150-450); RED BLOOD COUNT 2.82 10^6/uL (4.00-5.40); WHITE BLOOD COUNT 8.5 10^3/uL (4.0-10.0)
[2019-01-15 05:56] LABS: BLOOD UREA NITROGEN 9 MG/DL (7-18); CALCIUM LEVEL 8.5 MG/DL (8.8-10.2); CARBON DIOXIDE LEVEL 27 MEQ/L (21-32); CHLORIDE LEVEL 105 MEQ/L (98-107); CREATININE FOR GFR 0.52 MG/DL (0.55-1.30); GLOMERULAR FILTRATION RATE > 60.0 (>45); GLUCOSE, FASTING 106 MG/DL (70-100); POTASSIUM SERUM 4.1 MEQ/L (3.5-5.1); SODIUM LEVEL 138 MEQ/L (136-145)
[2019-01-15 06:16] LABS: ANISOCYTOSIS 1+; EOSINOPHILS 2 % (0-3); LYMPHOCYTES 19 % (16-44); METAMYELOCYTES 1 % (0-0); MONOCYTES 4 % (0-5); NEUTROPHILS 72 % (28-66); PLATELET ESTIMATE DECREASED (NORMAL)
[2019-01-15 07:51] VITALS: BP 135/66
[2019-01-15] MEDS: SYMBICORT 80/4.5MCG INHALER 6GM INH SCH ×2 (08:00→20:00)
--- NOTE | 2019-01-15 08:10 | IPNPDOC ---
Subjective Date Seen The patient was seen on 01/15/19. Subjective Chief Complaint/HPI Patient resting in bed as I entered the room. She offers no complaints. Per nursing patient remains confused and requires supervision via camera and sitter on occasion Constitutional: Denies: Chills, Fever Pulmonary: Denies: Dyspnea, Cough Cardiovascular: Denies: Chest Pain, Palpitations, Orthopnea, Edema Gastrointestinal: Reports: Other Symptoms (Feeding tube); Denies: Nausea, Vomiting, Abdominal Pain Psych: Reports: Mood Normal Objective Physical Examination General Exam: Positive: Alert, Cooperative, No Acute Distress, Other Eye Exam: Positive: Conjunctiva & lids normal, EOMI ENT Exam: Positive: Mucous membr. moist/pink, Tongue Midline, Other ENT Neck Exam: Positive: Supple Chest Exam: Positive: Clear to auscultation, Normal air movement Heart Exam: Positive: Rate Normal, Regular Rhythm, Normal S1, Normal S2 Telemetry: Positive: No significant arrhythmia Abdomen Exam: Positive: Normal bowel sounds, Soft, Other (Feeding tube noted) Extremity Exam: Negative: Clubbing, Cyanosis, Edema Skin Exam: Positive: Nl turgor and temperature Neuro Exam: Positive: Normal Speech, Normal Tone Psych Exam: Positive: Mood NL Assessment /Plan Problems (1) Encephalopathy Status: Acute Response to Treatment: Stable Problem Text: 01/15/19: Encephalopathy following cerebellar hemorrhagic stroke with obstructive hydrocephalus on two occasions requiring external ventricular drainage. Clinically she remains stable and she is being considered for rehabilitation at this time. She was to be transferred to [facility] yesterday, however, the transfer order was not complete. We will transfer her today. Rehab to evaluate (2) Hemorrhagic stroke Status: Acute Response to Treatment: Stable Problem Text: 01/15/19: Stable. Rehab as stated above (3) UTI (urinary tract infection) Status: Acute Response to Treatment: Stable Problem Text: 01/15/19: Citrobacter urinary tract infection. Day #2 of IV Rocephin (4) Swallowing difficulty Status: Acute Response to Treatment: Stable Problem Text: 01/15/19: She had a barium swallow 01/07 that showed a small pulsion esophageal diverticulum. She aspirated a small drop of barium at that time. Her oral intake is still poor. She is on feedings through the G tube and a pureed diet. Getting Jevity at 15 mL/hr with free water 250 mg four times daily (5) COPD (chronic obstructive pulmonary disease) Status: Chronic Response to Treatment: Stable Problem Text: 01/15/19: Breathing stable (6) G6PD deficiency Status: Chronic Response to Treatment: Stable Problem Text: 01/15/19: Hx of hemolytic anemia. Pharmacy is assisting with medication management Plan/VTE VTE Prophylaxis Ordered?: Yes (TEDS and Sequentials) VS, I&O, 24H, Fishbone Vital Signs/I&O Vital Signs Date Time Temp Pulse Resp B/P (MAP) Pulse Ox O2 Delivery O2 Flow Rate FiO2 01/15/19 07:51 97.0 89 18 135/66 (89) 93 I&O- Last 24 Hours up to 6 AM 01/15/19 06:00 Intake Total 4669.0 ml Output Total 2501 ml Balance 2168.0 ml Laboratory Data 24H LABS Laboratory Tests 2 01/15/19 05:20: Immature Granulocyte % (Auto) , Nucleated Red Blood Cells % (auto) 0.6H, Neutrophils 72H, Band Neutrophils 2, Lymphocytes (Manual) 19, Monocytes (Manual) 4, Eosinophils (Manual) 2, Metamyelocytes 1H, Platelet Estimate DECREASED, Anisocytosis 1+, Macrocytosis 1+, Anion Gap 6L, Glomerular Filtration Rate > 60.0, Blood Urea Nitrogen 9, Creatinine 0.52L, Sodium Level 138, Potassium Level 4.1, Chloride Level 105, Carbon Dioxide Level 27, Calcium Level 8.5L CBC/BMP Laboratory Tests 01/15/19 05:20 Red Blood Count 2.82 L, Mean Corpuscular Volume 94.0, Mean Corpuscular Hemoglobin 30.5, Mean Corpuscular Hemoglobin Concent 32.5, Red Cell Distribution Width 15.9 H, Calcium Level 8.5 L Microbiology Microbiology 01/12/19 Urine Culture - Final, Complete Citrobacter Amalonaticus KENDY BEST Jan 15, 2019 08:10
[2019-01-15] MEDS: CHLORTHALIDONE 12.5MG PER 1/2 TABLET PO SCH (08:28)
[2019-01-15] MEDS: POTASSIUM CHLORIDE 10% LIQ 20 MEQ/15 ML UDC PO SCH ×2 (08:28→21:53)
[2019-01-15] MEDS: CYANOCOBALAMIN 500 MCG TAB PO SCH (08:28)
[2019-01-15] MEDS: predniSONE 2.5 MG TAB PO SCH (08:30)
[2019-01-15] MEDS: GABAPENTIN 100 MG CAP PO SCH ×3 (08:30→21:55)
[2019-01-15] MEDS: oxyCODONE 20 MG CR TAB PO SCH ×2 (08:30→21:54)
[2019-01-15] MEDS: cefTRIAXone SOD 1 GM in D5W MINI-BAG PLUS 50 ML IV SCH (12:48)
[2019-01-15 15:28] VITALS: BP 131/58
[2019-01-15] MEDS: D5W 1,000 ML IV SCH (18:45)
[2019-01-15 20:00] VITALS: BP 124/58
[2019-01-15] MEDS: rOPINIRole 0.25 MG TAB(REQUIP) PO SCH (21:53)
[2019-01-15] MEDS: hydrOXYzine 25 MG TAB PO SCH (21:55)
[2019-01-15 23:59] VITALS: BP 117/52
[2019-01-16] VITALS (7 sets, daily range): BP systolic 86–144; BP diastolic 53–73
[2019-01-16] MEDS: VALPROATE SOD INJ 250 MG in D5W 50 ML IV SCH ×2 (02:47→09:20)
[2019-01-16] MEDS: METOCLOPRAMIDE INJ 10MG/2ML VIAL (J2765) IV SCH ×4 (02:47→21:52)
[2019-01-16 05:46] LABS: HEMOGLOBIN 8.9 g/dl (12.0-15.5); MEAN CORPUSCULAR VOLUME 94.1 fl (80.0-96.0); PLATELET COUNT, AUTOMATED 148 10^3/uL (150-450); RED BLOOD COUNT 2.87 10^6/uL (4.00-5.40)
[2019-01-16 06:16] LABS: BLOOD UREA NITROGEN 10 MG/DL (7-18); CARBON DIOXIDE LEVEL 30 MEQ/L (21-32); CHLORIDE LEVEL 102 MEQ/L (98-107); CREATININE FOR GFR 0.62 MG/DL (0.55-1.30); GLOMERULAR FILTRATION RATE > 60.0 (>45); GLUCOSE, FASTING 90 MG/DL (70-100); LDH LACTATE DEHYDROGENASE 399 U/L (84-246); POTASSIUM SERUM 4.2 MEQ/L (3.5-5.1); SODIUM LEVEL 136 MEQ/L (136-145)
[2019-01-16 06:23] LABS: BASOPHILS 2 % (0-1); EOSINOPHILS 2 % (0-3); LYMPHOCYTES 20 % (16-44); METAMYELOCYTES 5 % (0-0); MONOCYTES 6 % (0-5); NEUTROPHILS 64 % (28-66)
[2019-01-16 06:24] LABS: ANISOCYTOSIS 1+; POLYCHROMASIA 1+
[2019-01-16 06:26] LABS: GIANT PLATELETS 1+; PLATELET ESTIMATE NORMAL (NORMAL)
[2019-01-16] MEDS: ACETAMINOPHEN 500 MG TAB PO SCH ×3 (06:36→21:51)
[2019-01-16] MEDS: SYMBICORT 80/4.5MCG INHALER 6GM INH SCH ×2 (08:00→20:44)
[2019-01-16] MEDS: CHLORTHALIDONE 12.5MG PER 1/2 TABLET PO SCH (09:18)
[2019-01-16] MEDS: POTASSIUM CHLORIDE 10% LIQ 20 MEQ/15 ML UDC PO SCH ×2 (09:18→21:50)
[2019-01-16] MEDS: predniSONE 2.5 MG TAB PO SCH (09:18)
[2019-01-16] MEDS: GABAPENTIN 100 MG CAP PO SCH ×3 (09:18→21:51)
[2019-01-16] MEDS: CYANOCOBALAMIN 500 MCG TAB PO SCH (09:19)
[2019-01-16] MEDS: oxyCODONE 20 MG CR TAB PO SCH (09:20)
--- NOTE | 2019-01-16 10:09 | IPNPDOC ---
Subjective Date Seen The patient was seen on 01/16/19. Subjective Chief Complaint/HPI Patient lying in bed as I entered the room. Nursing at bedside administering medications. Patient is requesting to reduce her scheduled Oxycodone dose Constitutional: Denies: Chills, Fever Pulmonary: Denies: Dyspnea, Cough Cardiovascular: Denies: Chest Pain, Palpitations, Orthopnea, Edema Gastrointestinal: Reports: Other Symptoms (PEG tube); Denies: Nausea, Abdominal Pain Psych: Reports: Mood Normal Objective Physical Examination General Exam: Positive: Alert, Cooperative, No Acute Distress, Other Eye Exam: Positive: Conjunctiva & lids normal ENT Exam: Positive: Mucous membr. moist/pink Neck Exam: Positive: Supple Chest Exam: Positive: Clear to auscultation, Normal air movement Heart Exam: Positive: Rate Normal, Regular Rhythm, Normal S1, Normal S2 Telemetry: Positive: No significant arrhythmia Abdomen Exam: Positive: Normal bowel sounds, Soft, Other (Feeding tube noted) Extremity Exam: Negative: Clubbing, Cyanosis, Edema Skin Exam: Positive: Nl turgor and temperature Neuro Exam: Positive: Normal Speech, Normal Tone Psych Exam: Positive: Mood NL Assessment /Plan Problems (1) Encephalopathy Status: Acute Response to Treatment: Stable Problem Text: 01/16/19: Patient was declined admission to ARU. We are working for subacute rehab at [facility] 01/15/19: Encephalopathy following cerebellar hemorrhagic stroke with obstructive hydrocephalus on two occasions requiring external ventricular drainage. Clinically she remains stable and she is being considered for rehabilitation at this time. She was to be transferred to [facility] yesterday, however, the transfer order was not complete. We will transfer her today. Rehab to evaluate (2) Seizure Status: Chronic Response to Treatment: Stable Problem Text: 01/16/19: Change Valporate IV to Depakote 250mg q6 via Gtube. Depakote level in 3 days (3) Hemorrhagic stroke Status: Acute Response to Treatment: Stable Problem Text: 01/15/19: Stable. Rehab as stated above (4) UTI (urinary tract infection) Status: Acute Response to Treatment: Stable Problem Text: 01/16/19: Day #3 of Rocephin 01/15/19: Citrobacter urinary tract infection. Day #2 of IV Rocephin (5) Swallowing difficulty Status: Acute Response to Treatment: Stable Problem Text: 01/16/19: Patient receiving tube feedings. Jevity at 15 mL/hr with free water 250 mg four times daily 01/15/19: She had a barium swallow 01/07 that showed a small pulsion esophageal diverticulum. She aspirated a small drop of barium at that time. Her oral intake is still poor. She is on feedings through the G tube and a pureed diet. Getting Jevity at 15 mL/hr with free water 250 mg four times daily (6) COPD (chronic obstructive pulmonary disease) Status: Chronic Response to Treatment: Stable Problem Text: 01/15/19: Breathing stable (7) G6PD deficiency Status: Chronic Response to Treatment: Stable Problem Text: 01/15/19: Hx of hemolytic anemia. Pharmacy is assisting with medication management Plan/VTE VTE Prophylaxis Ordered?: Yes (TEDS and Sequentials) VS, I&O, 24H, Fishbone Vital Signs/I&O Vital Signs Date Time Temp Pulse Resp B/P (MAP) Pulse Ox O2 Delivery O2 Flow Rate FiO2 01/16/19 09:20 20 01/16/19 07:53 97.5 89 144/68 (93) 96 I&O- Last 24 Hours up to 6 AM 01/16/19 06:00 Intake Total 2735 ml Output Total 750 ml Balance 1985 ml Laboratory Data 24H LABS Laboratory Tests 2 01/16/19 05:19: Anion Gap 4L, Glomerular Filtration Rate > 60.0, Blood Urea Nitrogen 10, Creatinine 0.62, Sodium Level 136, Potassium Level 4.2, Chloride Level 102, Carbon Dioxide Level 30, Calcium Level 9.0, Lactate Dehydrogenase 399H 01/16/19 05:20: Immature Granulocyte % (Auto) , Nucleated Red Blood Cells % (auto) 0.7H, Neutrophils 64, Band Neutrophils 1, Lymphocytes (Manual) 20, Monocytes (Manual) 6H, Eosinophils (Manual) 2, Basophils (Manual) 2H, Metamyelocytes 5H, Platelet Estimate NORMAL, Giant Platelets 1+, Polychromasia 1+, Basophilic Stippling 1+, Anisocytosis 1+ 01/16/19 05:50: CBC/BMP Laboratory Tests 01/16/19 05:19 Calcium Level 9.0 01/16/19 05:20 Red Blood Count 2.87 L, Mean Corpuscular Volume 94.1, Mean Corpuscular Hemoglobin 31.0, Mean Corpuscular Hemoglobin Concent 33.0, Red Cell Distribution Width 15.8 H Microbiology Microbiology 01/12/19 Urine Culture - Final, Complete Citrobacter Amalonaticus [facility] Jan 16, 2019 10:09
[2019-01-16] MEDS: cefTRIAXone SOD 1 GM in D5W MINI-BAG PLUS 50 ML IV SCH (12:25)
[2019-01-16] MEDS: DIVALPROEX SPRINKLE 125 MG CAP GT SCH ×3 (12:26→21:51)
[2019-01-16] MEDS: D5W 1,000 ML IV SCH (14:28)
[2019-01-16] MEDS: rOPINIRole 0.25 MG TAB(REQUIP) PO SCH (21:51)
[2019-01-16] MEDS: hydrOXYzine 25 MG TAB PO SCH (21:51)
[2019-01-16] MEDS: oxyCODONE 10 MG CR TAB PO SCH (21:53)
[2019-01-17] MEDS: METOCLOPRAMIDE INJ 10MG/2ML VIAL (J2765) IV SCH ×4 (02:18→20:30)
[2019-01-17 04:00] VITALS: BP 127/66
[2019-01-17] MEDS: D5W 1,000 ML IV SCH (06:07)
[2019-01-17 06:11] LABS: HEMATOCRIT 25.8 % (36.0-47.0); HEMOGLOBIN 8.5 g/dl (12.0-15.5); MEAN CORPUSCULAR HEMOGLOBIN 31.3 pg (27.0-33.0); MEAN CORPUSCULAR HGB CONC 32.9 g/dl (32.0-36.5); MEAN CORPUSCULAR VOLUME 94.9 fl (80.0-96.0); PLATELET COUNT, AUTOMATED 133 10^3/uL (150-450); RED BLOOD COUNT 2.72 10^6/uL (4.00-5.40); WHITE BLOOD COUNT 6.8 10^3/uL (4.0-10.0)
[2019-01-17] MEDS: ACETAMINOPHEN 500 MG TAB PO SCH ×3 (06:13→20:29)
[2019-01-17 06:33] LABS: BLOOD UREA NITROGEN 8 MG/DL (7-18); CARBON DIOXIDE LEVEL 32 MEQ/L (21-32); CHLORIDE LEVEL 103 MEQ/L (98-107); CREATININE FOR GFR 0.53 MG/DL (0.55-1.30); GLOMERULAR FILTRATION RATE > 60.0 (>45); GLUCOSE, FASTING 90 MG/DL (70-100); POTASSIUM SERUM 4.4 MEQ/L (3.5-5.1); SODIUM LEVEL 137 MEQ/L (136-145)
[2019-01-17 06:39] LABS: ANISOCYTOSIS 1+; EOSINOPHILS 1 % (0-3); LYMPHOCYTES 16 % (16-44); METAMYELOCYTES 7 % (0-0); MONOCYTES 5 % (0-5); MYELOCYTES 3 % (0-0); NEUTROPHILS 65 % (28-66)
[2019-01-17 06:40] LABS: GIANT PLATELETS 1+; POLYCHROMASIA 1+
[2019-01-17 06:43] LABS: PLATELET ESTIMATE NORMAL (NORMAL)
[2019-01-17 08:00] VITALS: BP 112/57
[2019-01-17] MEDS: SYMBICORT 80/4.5MCG INHALER 6GM INH SCH ×2 (08:00→20:00)
[2019-01-17] MEDS: CYANOCOBALAMIN 500 MCG TAB PO SCH (09:34)
[2019-01-17] MEDS: DIVALPROEX SPRINKLE 125 MG CAP GT SCH ×4 (09:35→20:29)
[2019-01-17] MEDS: oxyCODONE 10 MG CR TAB PO SCH ×2 (09:35→20:29)
[2019-01-17] MEDS: CHLORTHALIDONE 12.5MG PER 1/2 TABLET PO SCH (09:36)
[2019-01-17] MEDS: GABAPENTIN 100 MG CAP PO SCH ×3 (09:36→20:30)
[2019-01-17] MEDS: predniSONE 2.5 MG TAB PO SCH (09:36)
[2019-01-17] MEDS: POTASSIUM CHLORIDE 10% LIQ 20 MEQ/15 ML UDC PO SCH ×2 (09:36→20:30)
--- NOTE | 2019-01-17 11:31 | IPNPDOC ---
Subjective Date Seen The patient was seen on 01/17/19. Subjective Chief Complaint/HPI Patient lying in bed as I entered the room. She states she is ready to be transferred to rehab Constitutional: Denies: Chills, Fever Pulmonary: Denies: Dyspnea, Cough Cardiovascular: Denies: Chest Pain, Palpitations, Orthopnea Gastrointestinal: Denies: Nausea, Vomiting, Abdominal Pain Psych: Reports: Mood Normal Objective Physical Examination General Exam: Positive: Alert, Cooperative, No Acute Distress, Other Eye Exam: Positive: Conjunctiva & lids normal ENT Exam: Positive: Mucous membr. moist/pink Neck Exam: Positive: Supple Chest Exam: Positive: Clear to auscultation, Normal air movement Heart Exam: Positive: Rate Normal, Regular Rhythm, Normal S1, Normal S2 Telemetry: Positive: No significant arrhythmia Abdomen Exam: Positive: Normal bowel sounds, Soft, Other (Feeding tube noted) Extremity Exam: Negative: Clubbing, Cyanosis, Edema Skin Exam: Positive: Nl turgor and temperature Neuro Exam: Positive: Normal Speech, Normal Tone Psych Exam: Positive: Mood NL Assessment /Plan Problems (1) Encephalopathy Status: Acute Response to Treatment: Stable Problem Text: 01/17/19: Plan is for rehab 01/16/19: Patient was declined admission to ARU. We are working for subacute rehab at [facility] 01/15/19: Encephalopathy following cerebellar hemorrhagic stroke with obstructive hydrocephalus on two occasions requiring external ventricular drainage. Clinically she remains stable and she is being considered for rehabilitation at this time. She was to be transferred to [facility] yesterday, however, the transfer order was not complete. We will transfer her today. Rehab to evaluate (2) UTI (urinary tract infection) Status: Acute Response to Treatment: Stable Problem Text: 01/17/19: Day # 4 of Rocephin, day #6 of total abx therapy. D/C IV abx treatment tomorrow 01/16/19: Day #3 of Rocephin 01/15/19: Citrobacter urinary tract infection. Day #2 of IV Rocephin (3) Seizure Status: Chronic Response to Treatment: Stable Problem Text: 01/16/19: Change Valporate IV to Depakote 250mg q6 via Gtube. Depakote level in 3 days (4) Hemorrhagic stroke Status: Acute Response to Treatment: Stable Problem Text: 01/15/19: Stable. Rehab as stated above (5) Swallowing difficulty Status: Acute Response to Treatment: Stable Problem Text: 01/16/19: Patient receiving tube feedings. Jevity at 15 mL/hr with free water 250 mg four times daily 01/15/19: She had a barium swallow 01/07 that showed a small pulsion esophageal diverticulum. She aspirated a small drop of barium at that time. Her oral intake is still poor. She is on feedings through the G tube and a pureed diet. Getting Jevity at 15 mL/hr with free water 250 mg four times daily (6) COPD (chronic obstructive pulmonary disease) Status: Chronic Response to Treatment: Stable Problem Text: 01/15/19: Breathing stable (7) G6PD deficiency Status: Chronic Response to Treatment: Stable Problem Text: 01/15/19: Hx of hemolytic anemia. Pharmacy is assisting with medication management Plan/VTE VTE Prophylaxis Ordered?: Yes (TEDS and Sequentials) VS, I&O, 24H, Fishbone Vital Signs/I&O Vital Signs Date Time Temp Pulse Resp B/P (MAP) Pulse Ox O2 Delivery O2 Flow Rate FiO2 01/17/19 09:35 18 01/17/19 08:00 97.2 71 112/57 (75) 97 I&O- Last 24 Hours up to 6 AM 01/17/19 06:00 Intake Total 3285 ml Output Total 2000 ml Balance 1285 ml Laboratory Data 24H LABS Laboratory Tests 2 01/17/19 05:37: Immature Granulocyte % (Auto) , Nucleated Red Blood Cells % (auto) 0.7H, Neutrophils 65, Band Neutrophils 3, Lymphocytes (Manual) 16, Monocytes (Manual) 5, Eosinophils (Manual) 1, Metamyelocytes 7H, Myelocytes 3H, Platelet Estimate NORMAL, Giant Platelets 1+, Polychromasia 1+, Basophilic Stippling 1+, Anisocytosis 1+, Anion Gap 2L, Glomerular Filtration Rate > 60.0, Blood Urea Nitrogen 8, Creatinine 0.53L, Sodium Level 137, Potassium Level 4.4, Chloride Level 103, Carbon Dioxide Level 32, Calcium Level 9.0 CBC/BMP Laboratory Tests 01/17/19 05:37 Red Blood Count 2.72 L, Mean Corpuscular Volume 94.9, Mean Corpuscular Hemoglobin 31.3, Mean Corpuscular Hemoglobin Concent 32.9, Red Cell Distribution Width 15.8 H, Calcium Level 9.0 Microbiology Microbiology 01/12/19 Urine Culture - Final, Complete Citrobacter Amalonaticus KENDY [facility] Jan 17, 2019 11:31
[2019-01-17 12:00] VITALS: BP 126/60
[2019-01-17] MEDS: cefTRIAXone SOD 1 GM in D5W MINI-BAG PLUS 50 ML IV SCH (12:31)
[2019-01-17 16:00] VITALS: BP 127/56
[2019-01-17 20:00] VITALS: BP 139/60
[2019-01-17] MEDS: rOPINIRole 0.25 MG TAB(REQUIP) PO SCH (20:30)
[2019-01-17] MEDS: hydrOXYzine 25 MG TAB PO SCH (20:30)
[2019-01-18] MEDS: D5W 1,000 ML IV SCH ×2 (00:55→21:06)
[2019-01-18] MEDS: METOCLOPRAMIDE INJ 10MG/2ML VIAL (J2765) IV SCH ×4 (01:00→21:00)
[2019-01-18 04:00] VITALS: BP 131/60
[2019-01-18 04:24] LABS: HEMATOCRIT 22.8 % (36.0-47.0); HEMOGLOBIN 7.5 g/dl (12.0-15.5); MEAN CORPUSCULAR HEMOGLOBIN 30.9 pg (27.0-33.0); MEAN CORPUSCULAR HGB CONC 32.9 g/dl (32.0-36.5); MEAN CORPUSCULAR VOLUME 93.8 fl (80.0-96.0); RED BLOOD COUNT 2.43 10^6/uL (4.00-5.40); WHITE BLOOD COUNT 5.3 10^3/uL (4.0-10.0)
[2019-01-18 04:45] LABS: BLOOD UREA NITROGEN 8 MG/DL (7-18); CALCIUM LEVEL 7.9 MG/DL (8.8-10.2); CARBON DIOXIDE LEVEL 29 MEQ/L (21-32); CHLORIDE LEVEL 104 MEQ/L (98-107); CREATININE FOR GFR 0.53 MG/DL (0.55-1.30); GLOMERULAR FILTRATION RATE > 60.0 (>45); GLUCOSE, FASTING 87 MG/DL (70-100); POTASSIUM SERUM 4.1 MEQ/L (3.5-5.1); SODIUM LEVEL 140 MEQ/L (136-145)
[2019-01-18 04:50] LABS: LYMPHOCYTES 19 % (16-44); METAMYELOCYTES 2 % (0-0); MONOCYTES 5 % (0-5); MYELOCYTES 4 % (0-0); NEUTROPHILS 70 % (28-66); PLATELET CLUMPS SMALL AMT; PLATELET ESTIMATE DECREASED (NORMAL)
[2019-01-18 04:52] LABS: ANISOCYTOSIS 1+; POLYCHROMASIA 1+
[2019-01-18] MEDS: ACETAMINOPHEN 500 MG TAB PO SCH ×3 (06:00→21:02)
--- NOTE | 2019-01-18 07:39 | IPNPDOC ---
Subjective Date Seen The patient was seen on 01/18/19. Subjective Chief Complaint/HPI The patient lying in bed as I entered the room. She was confused this morning. She was not oriented to time or place. She stated she was nervous because she didn't know why she was lying on a hill. She knew her name and date of Pulmonary: Denies: Cough Gastrointestinal: Denies: Nausea, Abdominal Pain Psych: Reports: Other Psych (confused) Objective Physical Examination General Exam: Positive: Alert, Cooperative, No Acute Distress, Other Eye Exam: Positive: Conjunctiva & lids normal ENT Exam: Positive: Mucous membr. moist/pink Neck Exam: Positive: Supple Chest Exam: Positive: Clear to auscultation, Normal air movement Heart Exam: Positive: Rate Normal, Regular Rhythm, Normal S1, Normal S2 Telemetry: Positive: No significant arrhythmia Abdomen Exam: Positive: Normal bowel sounds, Soft, Other (Feeding tube noted) Extremity Exam: Negative: Clubbing, Cyanosis, Edema Skin Exam: Positive: Nl turgor and temperature Neuro Exam: Positive: Normal Speech, Normal Tone Psych Exam: Positive: Mood NL, Other (confused ) Assessment /Plan Problems (1) Encephalopathy Status: Acute Response to Treatment: Stable Problem Text: 01/18/19: Plan remains to transfer to [facility] for rehab. We will defer further imaging to neurology 01/17/19: Plan is for rehab 01/16/19: Patient was declined admission to ARU. We are working for subacute rehab at [facility] 01/15/19: Encephalopathy following cerebellar hemorrhagic stroke with obstructive hydrocephalus on two occasions requiring external ventricular drainage. Clinically she remains stable and she is being considered for rehabilitation at this time. She was to be transferred to med-surg yesterday, however, the transfer order was not complete. We will transfer her today. Rehab to evaluate (2) UTI (urinary tract infection) Status: Acute Response to Treatment: Stable Problem Text: 01/18/19: Stop Rocephin today 01/17/19: Day # 4 of Rocephin, day #6 of total abx therapy. D/C IV abx treatment tomorrow 01/16/19: Day #3 of Rocephin 01/15/19: Citrobacter urinary tract infection. Day #2 of IV Rocephin (3) Anemia Status: Acute Response to Treatment: Stable Problem Text: 01/17/19: Secondary to her G6PD deficiency and possible abx. Her Hgb down this morning. We will transfuse 1 unit PRBC. Verbal consent was obtained from health care proxy Kelsie Keller (4) G6PD deficiency Status: Chronic Response to Treatment: Stable Problem Text: 01/18/19: Hgb dropped to 7.5 this morning. Patient is unable to consent to transfusion. We will repeat H&H this morning and reach out to her children for consent if needed 01/15/19: Hx of hemolytic anemia. Pharmacy is assisting with medication management (5) Seizure Status: Chronic Response to Treatment: Stable Problem Text: 01/16/19: Change Valporate IV to Depakote 250mg q6 via Gtube. Depakote level in 3 days (6) Hemorrhagic stroke Status: Acute Response to Treatment: Stable Problem Text: 01/15/19: Stable. Rehab as stated above. We will defer further imaging to neurology (7) Swallowing difficulty Status: Acute Response to Treatment: Stable Problem Text: 01/16/19: Patient receiving tube feedings. Jevity at 15 mL/hr with free water 250 mg four times daily 01/15/19: She had a barium swallow 01/07 that showed a small pulsion esophageal diverticulum. She aspirated a small drop of barium at that time. Her oral intake is still poor. She is on feedings through the G tube and a pureed diet. Getting Jevity at 15 mL/hr with free water 250 mg four times daily (8) COPD (chronic obstructive pulmonary disease) Status: Chronic Response to Treatment: Stable Problem Text: 01/15/19: Breathing stable Plan/VTE VTE Prophylaxis Ordered?: Yes (TEDS and Sequentials) VS, I&O, 24H, Fishbone Vital Signs/I&O Vital Signs Date Time Temp Pulse Resp B/P (MAP) Pulse Ox O2 Delivery O2 Flow Rate FiO2 01/18/19 04:00 97.4 89 18 131/60 (83) 99 I&O- Last 24 Hours up to 6 AM 01/18/19 06:00 Intake Total 2826 ml Output Total 1600 ml Balance 1226 ml Laboratory Data 24H LABS Laboratory Tests 2 01/18/19 03:49: Immature Granulocyte % (Auto) , Nucleated Red Blood Cells % (auto) 0.6H, Neutrophils 70H, Lymphocytes (Manual) 19, Monocytes (Manual) 5, Metamyelocytes 2H, Myelocytes 4H, Platelet Estimate DECREASED, Clumped Platelets SMALL AMT, Polychromasia 1+, Anisocytosis 1+, Anion Gap 7L, Glomerular Filtration Rate > 60.0, Blood Urea Nitrogen 8, Creatinine 0.53L, Sodium Level 140, Potassium Level 4.1, Chloride Level 104, Carbon Dioxide Level 29, Calcium Level 7.9L CBC/BMP Laboratory Tests 01/18/19 03:49 Red Blood Count 2.43 L, Mean Corpuscular Volume 93.8, Mean Corpuscular Hemoglobin 30.9, Mean Corpuscular Hemoglobin Concent 32.9, Red Cell Distribution Width 15.6 H, Calcium Level 7.9 L Microbiology Microbiology 01/12/19 Urine Culture - Final, Complete Citrobacter Amalonaticus KENDY [facility] Jan 18, 2019 07:39
[2019-01-18 08:00] VITALS: BP 135/65
[2019-01-18] MEDS: SYMBICORT 80/4.5MCG INHALER 6GM INH SCH ×2 (08:48→21:55)
[2019-01-18] MEDS: DIVALPROEX SPRINKLE 125 MG CAP GT SCH ×4 (08:56→21:01)
[2019-01-18] MEDS: oxyCODONE 10 MG CR TAB PO SCH ×2 (08:57→21:05)
[2019-01-18] MEDS: GABAPENTIN 100 MG CAP PO SCH ×3 (08:57→21:01)
[2019-01-18] MEDS: CHLORTHALIDONE 12.5MG PER 1/2 TABLET PO SCH (08:58)
[2019-01-18] MEDS: POTASSIUM CHLORIDE 10% LIQ 20 MEQ/15 ML UDC PO SCH ×2 (08:58→21:03)
[2019-01-18] MEDS: CYANOCOBALAMIN 500 MCG TAB PO SCH (08:58)
[2019-01-18] MEDS: predniSONE 2.5 MG TAB PO SCH (09:22)
[2019-01-18 09:37] LABS: HEMATOCRIT 22.3 % (36.0-47.0); HEMOGLOBIN 7.3 g/dl (12.0-15.5)
[2019-01-18 16:00] VITALS: BP 99/55
[2019-01-18] MEDS: hydrOXYzine 25 MG TAB PO SCH (21:01)
[2019-01-18] MEDS: rOPINIRole 0.25 MG TAB(REQUIP) PO SCH (21:01)
[2019-01-18 23:59] VITALS: BP 100/64
[2019-01-19] MEDS: D5W 1,000 ML IV SCH (01:10)
[2019-01-19] MEDS: METOCLOPRAMIDE INJ 10MG/2ML VIAL (J2765) IV SCH ×3 (02:54→12:42)
[2019-01-19 06:14] LABS: HEMATOCRIT 27.9 % (36.0-47.0); MEAN CORPUSCULAR HEMOGLOBIN 32.6 pg (27.0-33.0); MEAN CORPUSCULAR HGB CONC 35.1 g/dl (32.0-36.5); MEAN CORPUSCULAR VOLUME 92.7 fl (80.0-96.0); PLATELET COUNT, AUTOMATED 122 10^3/uL (150-450); RED BLOOD COUNT 3.01 10^6/uL (4.00-5.40)
[2019-01-19 06:15] LABS: HEMOGLOBIN 9.8 g/dl (12.0-15.5)
[2019-01-19 06:29] LABS: ANISOCYTOSIS 1+; ATYPICAL LYMPH 1 % (0-5); BASOPHILS 1 % (0-1); EOSINOPHILS 2 % (0-3); LYMPHOCYTES 27 % (16-44); METAMYELOCYTES 2 % (0-0); MONOCYTES 2 % (0-5); MYELOCYTES 2 % (0-0); NEUTROPHILS 63 % (28-66); PLATELET ESTIMATE DECREASED (NORMAL); POLYCHROMASIA 1+
[2019-01-19 06:30] LABS: POIKILOCYTOSIS 1+
[2019-01-19 06:32] LABS: BLOOD UREA NITROGEN 9 MG/DL (7-18); CALCIUM LEVEL 8.2 MG/DL (8.8-10.2); CARBON DIOXIDE LEVEL 26 MEQ/L (21-32); CHLORIDE LEVEL 105 MEQ/L (98-107); CREATININE FOR GFR 0.63 MG/DL (0.55-1.30); GLOMERULAR FILTRATION RATE > 60.0 (>45); GLUCOSE, FASTING 84 MG/DL (70-100); POTASSIUM SERUM 4.3 MEQ/L (3.5-5.1); SODIUM LEVEL 139 MEQ/L (136-145)
[2019-01-19] MEDS: ACETAMINOPHEN 500 MG TAB PO SCH ×2 (06:47→12:42)
[2019-01-19 08:00] VITALS: BP 94/60
[2019-01-19] MEDS: SYMBICORT 80/4.5MCG INHALER 6GM INH SCH (08:00)
[2019-01-19] MEDS: CHLORTHALIDONE 12.5MG PER 1/2 TABLET PO SCH (08:56)
[2019-01-19] MEDS: GABAPENTIN 100 MG CAP PO SCH (08:56)
[2019-01-19] MEDS: CYANOCOBALAMIN 500 MCG TAB PO SCH (08:57)
[2019-01-19] MEDS: POTASSIUM CHLORIDE 10% LIQ 20 MEQ/15 ML UDC PO SCH (08:57)
[2019-01-19] MEDS: oxyCODONE 10 MG CR TAB PO SCH (08:57)
[2019-01-19] MEDS: predniSONE 2.5 MG TAB PO SCH (08:57)
[2019-01-19] MEDS: DIVALPROEX SPRINKLE 125 MG CAP GT SCH ×2 (08:58→12:42)
[2019-01-19] MEDS ORDERED: DIVA1CAP GT (10:08)
[2019-01-19] MEDS ORDERED: ACET-683 PO (10:08)
[2019-01-19] MEDS ORDERED: OXYC-403 PO (10:08)
[2019-01-19] MEDS ORDERED: REGL10TA6 PO (10:08)
[2019-01-19] MEDS ORDERED: POTA20EL PO (10:08)
[2019-01-19] MEDS ORDERED: SYMB80INH INH (10:08)
[2019-01-19] MEDS ORDERED: GABA-1171 PO (10:08)
[2019-01-19] MEDS ORDERED: HYDR-3363 PO (10:08)
--- NOTE | 2019-01-19 11:08 | DS.PDOC ---
Discharge Summary General Date of Admission Jan 11, 2019 at 23:32 Date of Discharge 01/19/19 Attending Physician: Kody Chacon MD Specialist/Consultants Involve: CARLO BAUGH MD Discharge Summary PROCEDURES PERFORMED DURING STAY: Swallow Eval DIAGNOSES: 1. Encephalopathy 2. UTI (urinary tract infection) 3. Anemia 4. G6PD deficiency 5. Seizure 6. Hemorrhagic stroke 7. Swallowing difficulty 8. COPD HISTORY OF PRESENT ILLNESS: 63-year-old woman who was admitted initially at [facility] the last week of November 2018 for right brachial-radial bypass thrombosis and had attempted TPA infusion to remove the clot. She developed acute right cerebellar hemorrhage with mass effect, edema and compression of fourth ventricle. Neurology was called about this patient early to review the scans, and it was recommended the patient be transferred to [facility]. The patient was transferred to [facility] Neurological Intensive Care Unit and had external ventricular drainage (EVD). External Ventricular drainage was performed twice due to development of hydrocephalus. The patient remained nonverbal, unresponsive and slept throughout her hospital course at [facility]. She was transferred back to [facility] for rehabilitation. Hospital course: Patient was s/p encephalopathy following cerebellar hemorrhagic stroke with two episodes of obstructive hydrocephalus requiring external ventricular drainage. Clinically she remained stable. She remained fully alert and though she did have bouts of confusion throughout her hospital course. She was able to answer questions and she followed command well. She has a hx of hemo lytic anemia secondary to her G6PD deficiency. She did require one unit of PRBC on the day prior to her d/c d/t Hgb of 7.2, (consent was given by her daughter, Kelsie Keller) with her Hgb improving to 9.8 on day of discharge. Pharmacy did assist with medication management to avoid medicines known to provoke histolysis. Patient had some swallowing difficulties (that actually predated her stroke), however, she failed a swallow study at [facility] and a G tube was placed. We repeated a swallow eval during this hospitalization and dysphagia precautions were implemented. She did receive Jevity via PEG tube. She has reflux sympathetic dystrophy with chronic neck and extremity pain. She was being weaned off her opiates with the plan to start non-opiate pain relief in the near future. She was started on inhaler for her COPD. She remained on sequential for DVT prophylaxis. No pharmacologic intervention for DVT prophylaxis was started d/t the hemorrhagic stroke. She was also treated for a UTI, initially with Macrobid, then Ceftriaxone for a total of 6 days. She did not qualify for acute rehab. She was considered a good candidate for subacute rehab and was discharged to [facility] on 01/19/19. PICC line was discontinued on day of discharge. IV meds were changed to PO meds. DISCHARGE MEDICATIONS: Please see below. ALLERGIES: Please see below. PHYSICAL EXAMINATION ON DISCHARGE: VITAL SIGNS: Please see below. GENERAL: Alert, responsive to questions, confused to place and time HEENT: unremarkable NECK: soft, supple, no lymphadenopathy CARDIOVASCULAR EXAMINATION: RRR RESPIRATORY EXAMINATION: CTA ABDOMINAL EXAMINATION: PEG tube in-situ EXTREMITIES: no edema SKIN: warm, dry NEUROLOGICAL EXAMINATION: confusion noted PSYCHIATRIC EXAMINATION: mood normal LABORATORY DATA: Please see below. IMAGING: Head CT: IMPRESSION: 1. No acute intracranial abnormality. 2. Resolving left cerebellar hemisphere intra-axial hemorrhage with decreased mass effect upon the fourth ventricle and no new abnormality 3. Atrophy and chronic microangiopathic change in supratentorial white matter. PROGNOSIS: Good ACTIVITY: As tolerated DIET: Pureed, tube feed, dysphasia protocol DISCHARGE PLAN: Discharge to [facility] for rehab DISCHARGE INSTRUCTIONS: 1. Transfer to [facility] for rehab 2. F/U with neurology in 2-4 weeks 3. Continue to wean patient off narcotics DISCHARGE CONDITION: Stable Vital Signs/I&Os Vital Signs Date Time Temp Pulse Resp B/P (MAP) Pulse Ox O2 Delivery O2 Flow Rate FiO2 01/19/19 08:57 18 01/19/19 08:00 97.8 80 94/60 (71) 99 I&O- Last 24 Hours up to 6 AM 01/19/19 06:00 Intake Total 1745 ml Output Total 1000 ml Balance 745 ml Laboratory Data Labs 24H Laboratory Tests 2 01/19/19 05:09: Immature Granulocyte % (Auto) , Nucleated Red Blood Cells % (auto) 0.4H, Neutrophils 63, Lymphocytes (Manual) 27, Monocytes (Manual) 2, Eosinophils (Manual) 2, Basophils (Manual) 1, Metamyelocytes 2H, Myelocytes 2H, Atypical Lymphocytes 1, Platelet Estimate DECREASED, Polychromasia 1+, Poikilocytosis 1+, Anisocytosis 1+, Anion Gap 8, Glomerular Filtration Rate > 60.0, Blood Urea Nitrogen 9, Creatinine 0.63, Sodium Level 139, Potassium Level 4.3, Chloride Level 105, Carbon Dioxide Level 26, Calcium Level 8.2L, Valproic Acid (Depakene) Level 48.0L CBC/BMP Laboratory Tests 01/19/19 05:09 Red Blood Count 3.01 L, Mean Corpuscular Volume 92.7, Mean Corpuscular Hemoglobin 32.6, Mean Corpuscular Hemoglobin Concent 35.1, Red Cell Distribution Width 15.1 H, Calcium Level 8.2 L Microbiology Microbiology 01/12/19 Urine Culture - Final, Complete Citrobacter Amalonaticus Discharge Medications Scheduled Ascorbic Acid (Vitamin C) 500 Mg Tab, 1,000 MG PO DAILY, (Reported) Atorvastatin Calcium (Atorvastatin Calcium) 10 Mg Tablet, 10 MG PO DAILY, (Reported) Budesonide/Formoterol (Symbicort 80-4.5 Mcg Inhaler) 6.9 Gm Hfa.aer.ad, 2 PUFF INH RBID Chlorthalidone (Chlorthalidone) 25 Mg Tablet, 12.5 MG PO DAILY, (Reported) Cholecalciferol (Vitamin D3) (Vitamin D3) 1,000 Unit Tab, 2,000 UNIT PO DAILY, (Reported) Cyanocobalamin (Vitamin B-12) (Vitamin B-12) 1,000 Mcg Tab, 1,000 MCG PO DAILY, (Reported) Divalproex Sodium (Divalproex Sodium) 125 Mg Cap.spr, 250 MG GT QID Fluticasone Propionate (Flonase Allergy Relief) 9.9 Ml [place].susp, 2 SPRAY NA DAILY, (Reported) Gabapentin (Gabapentin) 100 Mg Capsule, 200 MG PO TID Hydroxyzine HCl (Hydroxyzine HCl) 25 Mg Tablet, 25 MG PO QHS Metoclopramide HCl (Reglan) 10 Mg Tablet, 10 MG PO QID before food and bedtime Oxycodone HCl (Oxycodone HCl ER) 10 Mg Tab.er.12h, 10 MG PO BID Potassium Chloride (Potassium Chloride) 20 Meq/15 Ml Liquid, 20 MEQ PO BID Prednisone (Prednisone) 2.5 Mg Tablet, 2.5 MG PO DAILY, (Reported) Ropinirole HCl (Ropinirole HCl) 0.25 Mg Tablet, 0.25 MG PO QHS, (Reported) Scheduled PRN Acetaminophen (Acetaminophen) 500 Mg Tablet, 1,000 MG PO Q8HP PRN for PAIN Ondansetron (Ondansetron Odt) 4 Mg Tab.rapdis, 4 MG PO Q8H PRN for NAUSEA, (Reported) NEW ORDER FROM [facility] Pantoprazole Sodium (Pantoprazole Sodium) 20 Mg Tablet.dr, 20 MG PO BID PRN for HEARTBURN, (Reported) Ropinirole HCl (Ropinirole HCl) 0.25 Mg Tablet, 0.25 MG PO QHS PRN for RESTLESS LEGS, (Reported) MAY TAKE A SECOND TAB IF NEEDED Allergies Uncoded Allergies: G6PD DEFICIENCY (Allergy, Severe, PLEASE REVIEW ALL MEDS, 01/13/19) KENDY BEST TIN ASSORTER Jan 19, 2019 10:11
== END 2019-01-19 13:07 | DRG 71 ==
LOC: M PCU 23:32 → M MSPAV 01-19 09:10
PROVIDERS: ADMIT Family Medicine; ATTEND Family Medicine
PROC: 30233N1 Transfusion of Nonautologous Red Blood Cells into Peripheral Vein, Percutaneous Approach (ICD-10-PCS; principal; 2019-01-18)
DX: G93.49 Other encephalopathy (principal); E74.01 von Gierke disease; D59.0 Drug-induced autoimmune hemolytic anemia; N39.0 Urinary tract infection, site not specified; D68.62 Lupus anticoagulant syndrome; E87.0 Hyperosmolality and hypernatremia; L93.0 Discoid lupus erythematosus; J44.9 Chronic obstructive pulmonary disease, unspecified; Z87.442 Personal history of urinary calculi; K21.9 Gastro-esophageal reflux disease without esophagitis; M81.0 Age-related osteoporosis without current pathological fracture; M15.0 Primary generalized (osteo)arthritis; M54.5 Low back pain; M06.9 Rheumatoid arthritis, unspecified; I69.118 Other symptoms and signs involving cognitive functions following nontraumatic intracerebral hemorrhage; F17.200 Nicotine dependence, unspecified, uncomplicated; G43.909 Migraine, unspecified, not intractable, without status migrainosus; I65.23 Occlusion and stenosis of bilateral carotid arteries; K22.5 Diverticulum of esophagus, acquired; E55.9 Vitamin D deficiency, unspecified; B96.89 Other specified bacterial agents as the cause of diseases classified elsewhere; I73.9 Peripheral vascular disease, unspecified; E87.6 Hypokalemia; M54.2 Cervicalgia; R19.7 Diarrhea, unspecified; G89.29 Other chronic pain; Z79.891 Long term (current) use of opiate analgesic; Z79.899 Other long term (current) drug therapy; Z86.718 Personal history of other venous thrombosis and embolism; Z93.1 Gastrostomy status; Z79.52 Long term (current) use of systemic steroids

== ENCOUNTER → 2019-01-23 | Outpatient (REF) ==
[~2019-01-23] MED LIST changes: +ACET-683 PO; +DIVA1CAP GT; +METO10VL IV; +NITR25SU3 PO; +ONDA2VL IV; +ONDA4TAB5 PO; +ONDA4TAB6 PO; +OXYC-403 PO; +POTA20EL PO; +REGL10TA6 PO; +[UNRECOGNIZED DRUG - CODE] IV
[2019-01-23 11:45] LABS: HEMATOCRIT 30.4 % (36.0-47.0); HEMOGLOBIN 9.9 g/dl (12.0-15.5); MEAN CORPUSCULAR HEMOGLOBIN 31.2 pg (27.0-33.0); MEAN CORPUSCULAR HGB CONC 32.6 g/dl (32.0-36.5); MEAN CORPUSCULAR VOLUME 95.9 fl (80.0-96.0); PLATELET COUNT, AUTOMATED 151 10^3/uL (150-450); RED BLOOD COUNT 3.17 10^6/uL (4.00-5.40); WHITE BLOOD COUNT 7.3 10^3/uL (4.0-10.0)
[2019-01-23 12:17] LABS: ALBUMIN 3.3 GM/DL (3.2-5.2); ALT/SGPT 18 U/L (12-78); BILIRUBIN,TOTAL 1.2 MG/DL (0.2-1.0); BLOOD UREA NITROGEN 11 MG/DL (7-18); CALCIUM LEVEL 8.5 MG/DL (8.8-10.2); CARBON DIOXIDE LEVEL 28 MEQ/L (21-32); CHLORIDE LEVEL 103 MEQ/L (98-107); CREATININE FOR GFR 0.59 MG/DL (0.55-1.30); GLOMERULAR FILTRATION RATE > 60.0 (>45); GLUCOSE, FASTING 85 MG/DL (70-100); POTASSIUM SERUM 4.3 MEQ/L (3.5-5.1); SODIUM LEVEL 138 MEQ/L (136-145); TOTAL PROTEIN 6.1 GM/DL (6.4-8.2)
== END ==
LOC: SKLAB3 10:39
PROVIDERS: ATTEND Family Medicine
DX: R56.9 Unspecified convulsions (principal); I10 Essential (primary) hypertension; E87.6 Hypokalemia

== ENCOUNTER 2019-01-31 13:06 | Outpatient (CLI) | payer MEDICARE ==
--- NOTE | 2019-01-31 13:49 | REP ---
CT of the head without contrast Indication: Double vision, dizziness, recent CVA. Comparison: CT head of 01/12/2019. Technique: Axial CT of the head was performed without contrast. Findings: There is no visible soft tissue swelling or calvarial fracture. There is no evidence of acute intracranial hemorrhage or extra-axial fluid collection. There is similar hypodense collection involving the right cerebellar hemisphere consistent with resolving hematoma, slightly smaller in size. There are a similar hypodensities within the periventricular subcortical white matter which are nonspecific but suggestive of microvascular ischemic disease. Note is made of intracranial vascular calcification. There is no midline shift. There is similar crowding of the foramen magnum without evidence of downward on an herniation. There is no hydrocephalus. The visualized paranasal sinuses and mastoid air cells are clear. Impression: No acute intracranial hemorrhage, hydrocephalous or herniation. Slight decrease in size of the right cerebellar hemisphere hypodense lesion consistent with known resolving hematoma. Similar white matter changes. Electronically Signed by Renan Barnett MD 01/31/2019 01:41 P
== END 2019-02-01 05:02 | disposition other institution (70) ==
LOC: M RAD 13:06 → M MSPAV 18:11 → M PM&R 18:30 → M RAD 02-01 05:02
PROVIDERS: ATTEND Nurse Practitioner Family
DX: R42 Dizziness and giddiness (principal); H53.2 Diplopia; I61.2 Nontraumatic intracerebral hemorrhage in hemisphere, unspecified

== ENCOUNTER 2019-01-31 16:21 | Outpatient (CLI) | payer MEDICARE ==
[~2019-01-31] VITALS: Ht 157.5 cm; Wt 50.9 kg
[~2019-01-31 16:21] MED LIST changes: -MECL-68 PO; +MECL1TAB31 PO; +ONDA-83 PO; -ONDA4TAB5 PO
[2019-01-31 16:25] VITALS: BP 114/54
[2019-01-31] MEDS ORDERED: diphenhydrAMINE 25 MG CAP PO ONE (16:30)
[2019-01-31] MEDS ORDERED: ACETAMINOPHEN TAB 650MG DOSE (2X325MG) PO ONE (16:30)
[2019-02-15] MEDS ORDERED: POTA20EL PO (10:33)
[2019-02-15] MEDS ORDERED: PRED10TA2 PO (11:25)
[2019-03-02] MEDS ORDERED: PRED25TA PO (10:20)
[2019-04-25] MEDS ORDERED: AMIT-255 PO (14:48)
[2019-04-25] MEDS ORDERED: OXYC-403 PO (14:48)
[2019-04-25] MEDS ORDERED: FOLGTAB5 PO (14:48)
[2019-04-25] MEDS ORDERED: CELE10TA PO (15:04)
== END 2019-01-31 23:11 ==
LOC: M INFU 16:21 → M MSPAV 18:30 → M INFU 23:11
PROVIDERS: ATTEND Nurse Practitioner Family
DX: D64.9 Anemia, unspecified (principal)
CPT/HCPCS: 36430; P9016

== ENCOUNTER → 2019-01-31 | Outpatient (REF) ==
[2019-01-31 14:43] LABS: HEMATOCRIT 20.1 % (36.0-47.0); MEAN CORPUSCULAR HEMOGLOBIN 31.3 pg (27.0-33.0); MEAN CORPUSCULAR HGB CONC 32.3 g/dl (32.0-36.5); MEAN CORPUSCULAR VOLUME 96.6 fl (80.0-96.0); PLATELET COUNT, AUTOMATED 135 10^3/uL (150-450); RED BLOOD COUNT 2.08 10^6/uL (4.00-5.40); WHITE BLOOD COUNT 6.3 10^3/uL (4.0-10.0)
[2019-01-31 14:45] LABS: HEMOGLOBIN 6.5 g/dl (12.0-15.5)
== END ==
LOC: SKLAB3 13:24
PROVIDERS: ATTEND Family Medicine
DX: D64.9 Anemia, unspecified (principal)

== ENCOUNTER → 2019-02-01 | Outpatient (REF) ==
[~2019-02-01] MED LIST changes: +MECL-68 PO; -MECL1TAB31 PO; -ONDA-83 PO; +ONDA4TAB5 PO; +PRED10TA2 PO
[2019-02-01 08:43] LABS: HEMATOCRIT 28.3 % (36.0-47.0); HEMOGLOBIN 9.7 g/dl (12.0-15.5); MEAN CORPUSCULAR HEMOGLOBIN 31.3 pg (27.0-33.0); MEAN CORPUSCULAR HGB CONC 34.3 g/dl (32.0-36.5); MEAN CORPUSCULAR VOLUME 91.3 fl (80.0-96.0); PLATELET COUNT, AUTOMATED 128 10^3/uL (150-450); WHITE BLOOD COUNT 4.6 10^3/uL (4.0-10.0)
== END ==
LOC: SKLAB3 07:00
PROVIDERS: ATTEND Family Medicine
DX: D64.9 Anemia, unspecified (principal)

== ENCOUNTER → 2019-02-06 | Outpatient (REF) ==
[~2019-02-06] MED LIST changes: -PRED10TA2 PO
[2019-02-06 15:40] LABS: APPEARANCE, URINE HAZY (CLEAR); BACTERIA, URINE AUTO NEGATIVE (NEGATIVE); BILIRUBIN, URINE AUTO NEGATIVE (NEGATIVE); BLOOD, URINE BLOOD NEGATIVE (NEGATIVE); COLOR, URINE YELLOW (YELLOW); GLUCOSE, URINE (UA) AUTO NEGATIVE (NEGATIVE); KETONE, URINE AUTO NEGATIVE (NEGATIVE); LEUKOCYTE ESTERASE, URINE AUTO 2+ (NEGATIVE); NITRITE, URINE AUTO NEGATIVE (NEGATIVE); PROTEIN, URINE AUTO NEGATIVE (NEGATIVE); RBC, URINE AUTO 17 /HPF (0-3); SPECIFIC GRAVITY URINE AUTO 1.015 (1.002-1.035); SQUAMOUS EPITHELIAL CELL UR AU 1 /HPF (0-6); UROBILINOGEN, URINE AUTO 0.2 mg/dL (0.0-2.0); WBC, URINE AUTO 157 /HPF (0-3)
== END ==
LOC: SKLAB3 14:35
PROVIDERS: ATTEND Family Medicine
DX: R30.9 Painful micturition, unspecified (principal)

== ENCOUNTER → 2019-02-07 | Outpatient (REF) ==
[~2019-02-07] MED LIST changes: +PRED10TA2 PO
[2019-02-07 07:51] LABS: HEMATOCRIT 24.1 % (36.0-47.0); HEMOGLOBIN 7.9 g/dl (12.0-15.5); MEAN CORPUSCULAR HEMOGLOBIN 31.3 pg (27.0-33.0); MEAN CORPUSCULAR HGB CONC 32.8 g/dl (32.0-36.5); MEAN CORPUSCULAR VOLUME 95.6 fl (80.0-96.0); PLATELET COUNT, AUTOMATED 176 10^3/uL (150-450); RED BLOOD COUNT 2.52 10^6/uL (4.00-5.40); WHITE BLOOD COUNT 4.5 10^3/uL (4.0-10.0)
[2019-02-07 08:11] LABS: ALBUMIN 3.2 GM/DL (3.2-5.2); ALT/SGPT 13 U/L (12-78); BILIRUBIN,TOTAL 1.8 MG/DL (0.2-1.0); BLOOD UREA NITROGEN 9 MG/DL (7-18); CALCIUM LEVEL 8.7 MG/DL (8.8-10.2); CARBON DIOXIDE LEVEL 27 MEQ/L (21-32); CHLORIDE LEVEL 108 MEQ/L (98-107); CREATININE FOR GFR 0.67 MG/DL (0.55-1.30); GLOMERULAR FILTRATION RATE > 60.0 (>45); GLUCOSE, FASTING 75 MG/DL (70-100); SODIUM LEVEL 144 MEQ/L (136-145); TOTAL PROTEIN 5.6 GM/DL (6.4-8.2)
[2019-02-07 08:25] LABS: ATYPICAL LYMPH 2 % (0-5); BASOPHILS 2 % (0-1); EOSINOPHILS 1 % (0-3); LYMPHOCYTES 24 % (16-44); METAMYELOCYTES 2 % (0-0); MONOCYTES 1 % (0-5); MYELOCYTES 1 % (0-0); NEUTROPHILS 66 % (28-66)
[2019-02-07 08:26] LABS: ANISOCYTOSIS 1+; PLATELET ESTIMATE NORMAL (NORMAL); POLYCHROMASIA 1+
== END ==
LOC: SKLAB3 07:00
PROVIDERS: ATTEND Family Medicine
DX: R10.9 Unspecified abdominal pain (principal)

== ENCOUNTER → 2019-02-16 | Outpatient (CLI) | payer MEDICARE ==
--- NOTE | 2019-02-16 16:07 | REP ---
Right lower extremity Duplex Doppler venous ultrasound: Real time compression and duplex Doppler interrogation of the right lower extremity deep venous system is performed. The right common femoral, superficial femoral and popliteal veins are fully compressible with transducer pressure and demonstrate normal spontaneous and phasic flow, without evidence of deep venous thrombosis. Impression: No evidence of deep venous thrombosis of the right lower extremity femoral popliteal venous system. Electronically Signed by Rashaad Gifford MD 02/16/2019 03:59 P
== END ==
LOC: M RAD 13:11
PROVIDERS: ATTEND Internal Medicine Medical Oncology
DX: R22.41 Localized swelling, mass and lump, right lower limb (principal); D64.9 Anemia, unspecified; Z86.718 Personal history of other venous thrombosis and embolism

== ENCOUNTER → 2019-02-19 | Outpatient (CLI) | payer MEDICARE, MEDICAID | LOC: M PAIN 11:00 | PROVIDERS: ATTEND Nurse Practitioner Family | DX: G90.59 Complex regional pain syndrome I of other specified site (principal); M47.812 Spondylosis without myelopathy or radiculopathy, cervical region; M54.5 Low back pain; D55.0 Anemia due to glucose-6-phosphate dehydrogenase [G6PD] deficiency; E55.9 Vitamin D deficiency, unspecified; Z79.891 Long term (current) use of opiate analgesic; Z79.899 Other long term (current) drug therapy; Z88.8 Allergy status to other drugs, medicaments and biological substances; Z87.891 Personal history of nicotine dependence ==

== ENCOUNTER → 2019-03-26 | Outpatient (CLI) | payer MEDICARE, MEDICAID ==
--- NOTE | 2019-04-10 02:30 | ECWPNPC ---
PATIENT NAME: ZANDER DUTTA : 1955 GENDER: FEMALE VISIT DATE: 03/26/2019 DISCHARGE DATE: 03/26/19 1122 VISIT LOCKED DATE TIME: PHYSICIAN: CHELSEA WALTERS PHYSICIAN PAGER NO: [phone] RESOURCE: CHELSEA WALTERS REASON FOR APPOINTMENT 1. MED MGMNT HISTORY OF PRESENT ILLNESS HISTORY OF PRESENT ILLNESS: HERE FOR F/U OF CHRONIC NECK AND LBP.RATING PAIN VAS 7/10.HAS BEEN THROUGH ALOT OF MEDICAL PROBLEMS OVER THE PAST 3 MONTHS.FELT OXYCODONE WAS INEFFECTIVE AT 5/325 AND GABAPENTIN WAS CAUSING SIDE EFFECTS SO WE STOPPED THEM AT LAST VISIT.REPORTING AN INCREASE IN NUMBNESDS/TINGLING IN HANDS /FEET LATELY.DISCUSSED MEDICATION TREATMENT PLAN. PAIN THE PATIENT DESCRIBES THE PAIN... THE PATIENT DESCRIBES THE PAIN... FALL RISK SCREENING: SCREENING :NO FALLS REPORTED IN THE LAST YEAR CURRENT MEDICATIONS TAKING PROAIR HFA 108 (90 BASE) MCG/ACT AEROSOL SOLUTION 2 PUFFS NEEDED INHALATION EVERY 6 HRS PRN COUGH WHEEZE TAKING TUB TRANSFER BOARD - MISCELLANEOUS DIRECTED _ DX: I62.9 , R26.89 TAKING ALEKSANDR ROLLING WALKER PREMIUM 4 WHEEL WITH BRAKES AND SEAT DX: I62.9 , R26.89 TAKING SYMBICORT 80-4.5 MCG/ACT AEROSOL 2 PUFFS INHALATION TWICE A DAY TAKING POTASSIUM CHLORIDE ER 20 MEQ TABLET EXTENDED RELEASE 1 TABLET WITH FOOD ORALLY TWICE A DAY TAKING VITAMIN C 1000 MG TABLET 1 TAB ORALLY ONCE A DAY TAKING CHLORTHALIDONE 25 MG TABLET 1/2 TABLET ORALLY ONCE A DAY TAKING VITAMIN D 2000 UNIT TABLET 1 TABLET ORALLY ONCE A DAY TAKING VITAMIN B 12 1000 MCG TABLET 1 TAB(S) ORALLY DAILY TAKING FLONASE 50 MCG/DOSE INHALER 2 SPRAY IN EACH NOSTRIL NASALLY DAILY TAKING ZOFRAN 4 MG TABLET 1 TABLET ORALLY TID PRN NAUSEA TAKING ACETAMINOPHEN 500 MG TABLET 2 TABLET NEEDED ORALLY EVERY 8 HRS TAKING HYDROXYZINE HCL 25 MG TABLET 1 CAP ORALLY BEFORE BEDTIME PRN TAKING ROPINIROLE HCL 0.25 MG TABLET 1 TAB ORALLY BEFORE BED AND 1 PRN FOR RESLESS LEGS TAKING OXYCODONE HCL 15 MG TABLET 1 TABLET ORALLY Q8H MDD3 TAKING ASPIRIN 81 81 MG TABLET DELAYED RELEASE 1 TABLET ORALLY ONCE A DAY NOT-TAKING PREDNISONE 2.5 MG TABLET 1 TABLET ORALLY ONCE A DAY NOT-TAKING GABAPENTIN 100 MG CAPSULE TAKE ONE CAPSULE BY MOUTH THREE TIMES A DAY ORAL NOT-TAKING DIVALPROEX SODIUM 125 MG TABLET DELAYED RELEASE 2 TABLET ORALLY FOUR TIMES DAILY NOT-TAKING CEPHALEXIN 500 MG CAPSULE 1 CAPSULE ORALLY EVERY 12 HRS, NOTES: FOR UTI NOT-TAKING PREDNISONE 5 MG TABLET 1/2 TABLET ORALLY ONCE A DAY, NOTES: HAS BEEN ON FOR 1 YEAR NOT-TAKING NICODERM CQ 7 MG/24HR PATCH 24 HOUR 1 PATCH TO SKIN TRANSDERMAL ONCE A DAY NOT-TAKING MAY HAVE CBD OIL NEEDED, NOTES: USES EVERY DAY NOT-TAKING METHOCARBAMOL 500 MG TABLET DIRECTED, 2 TABLETS ORALLY THREE TIMES DAILY NEEDED, NOTES: [facility] ED NOT-TAKING PREDNISONE 10 MG TABLET DIR (ADJUSTMENT TO TAPER) ORALLY 2 TABS DAILY X3D, THEN 1 TAB DAILY X5D NOT-TAKING PREDNISONE 20 MG TABLET 2 TABLETS, TAPER ORALLY , NOTES: [facility] ED NOT-TAKING OXYBUTYNIN CHLORIDE ER 10 MG TABLET EXTENDED RELEASE 24 HOUR 1 TABLET ORALLY ONCE A DAY NOT-TAKING AMITRIPTYLINE HCL , NOTES: HAS NOT ACTUALLY STARTED-RELUCNANT NOT-TAKING TIZANIDINE HCL 2 MG TABLET 1 TABLET NEEDED ORALLY TAKE 1 IN AM, 2 AT BEDTIME MEDICATION LIST REVIEWED AND RECONCILED WITH THE PATIENT PAST MEDICAL HISTORY G6PD DEFICIENCY-ATORVASTATIN WAS D/C BY HEMATOLOGY 09/08 HEMOLYTIC ANEMIA, REFERRED [facility] HEME/ONC, HAD BONE MARROW BX 06/09. SUSPECTED HEMOLYSIS. (? 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 THYROID NODULE- (THYROIDECTOMY) KIDNEY STONES S/P ESWL 03/2003, STENTS VITAMIN D DEFICIENCY MIGRAINES COPD FEV1 = 1.93 2005 SMOKER GENERALIZED OSTEOARTHRITIS HIPS, NECK, BACK, HANDS LUNG NODULE ON CT CHEST 10/05; F/U PENDING 04/07 50-69% BILAT CAROTID STENOSIS DVT RT UE 1995 BA SWALLOW 01/07: SMALL PULSION ESOPAGEAL DIVERTICULUM, ASPIRATED A DROPLET OF BARIUM, REFLUX PRESENT; SAW ENT/WEIR 2018 RHEUMATOID ARTHRITIS OSTEOPOROSIS HYPERLIPIDEMIA--WAS ON ATORVA, THIS WAS D/C BY HEMATOLOGY (POSSIBLE G6PD DEFIC CONTRIBUTOR) 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, WAS ON DEPAKOTE UNTIL PT D/C 01/08 W/O RECURRENCE ALLERGIES REQUIP: DIZZINESS - ALLERGY ATORVASTATIN (HIGHER DOSE): LIZAMA - SIDE EFFECTS HAS G6PD DEFIECIENCY-- AVOID HEMOLYSIS INDUCERS: HEMOLYSIS - CONTRAINDICATION SURGICAL HISTORY 1995 CORNONARY CATH - NORMAL 1995 RIGHT ARM BRACHIAL BYPASS 1995 DORSAL COLUMN STIMULATOR 1995 CYSTOSCOPY & LEFT URETEROSCOPY WITH LITHO AND STONE EXTRACTION 2004 LEFT URETERAL STENT PLACED, THEN CHANGED DUE TO OBSTRUCTION () 2005 LEFT URETERAL STENT REMOVED 2005 PARTIAL THYROIDECTOMY - NEGATIVE FOR CANCER 2008 EGD/COLONOSCOPY - GASTRIC AND COLON" POLYPS" (PER PATIENT NEEDS F/U IN 5 YEARS) 2010 LEFT URETERAL STENT PLACED 06/2013 DORSAL COLUMN STIMULATOR REMOVED DUE TO SEVERE KIDNEY PROBLEMS FROM STONES (WIRES LEFT IN, THEY WERE REMOVED 10/04) 2004, 2014 PARTIAL HYSTERECTOMY REMOVAL OF THE WIRES TO THE STIMULATOR 08/2014 EGD/COLONOSCOPY-- BOTH NORMAL 01/2017 RIGHT KIDNEY DOUBLE J STENT X2 02/22/[address] GUIDED NEPHROLITHOTOMY AT [facility] 04/08 RIGHT KIDNEY STONE REMOVED 03/2017 EVACUATION CEREBELLAR HEMORRHAGE [facility] 10/2018 FAMILY HISTORY FATHER: , RHEUMATOID, DIAGNOSED WITH DIABETES, UNSPECIFIED HEART DISEASE MOTHER: , RHEUMATOID, DIABETES, UNSPECIFIED HEART DISEASE MATERNAL GRAND MOTHER: BREAST CANCER, OTHER MALIGNANT NEOPLASM OF UNSPECIFIED SITE SIBLINGS: DIABETES PATERNAL GRAND FATHER: DIABETES PATERNAL GRAND MOTHER: DIABETES PATERNAL GRANDMOTHER SKIN CANCER\\\\\\\\N1 SISTER- RHEUMATOID \\\\\\\\\\\\\\/ PSORIATIC ARTHRITISMULTIPLE SIBLINGS WITH HEART DISEASE. SOCIAL HISTORY GENERAL: TOBACCO USE ARE YOU A:FORMER SMOKER HOW LONG HAS IT BEEN SINCE YOU LAST SMOKED?3-6 MONTHS SMOKING CESSATION INFORMATION GIVEN01/18/2018 HIV / HEP-C SCREENING HIV TEST OFFERED TO PATIENT:NO N/A HEP-C TEST OFFERED TO PATIENT:YES DATE OFFERED:06/01/2016 TEST ACCEPTED:NO REASON:PATIENT DECLINED EDUCATION [employer]. DIET: REGULAR. LANGUAGE ICELANDIC. DOMESTIC VIOLENCE DO YOU FEEL SAFE IN YOUR ENVIRONMENT?YES BMI CARE GOAL FOLLOW-UP BELOW NORMAL BMI FOLLOW-UPDIETARY EDUCATION FOR WEIGHT GAIN RECREATIONAL DRUG USE DRUG USE?NO EXERCISE: NO REGULAR EXERCISE. LEARNING BARRIERS / SPECIAL NEEDS CHANGE FROM LAST VISIT?YES URI SYMPTOMS BARRIERS TO LEARNING?NO HEARING IMPAIRED?NO VISION IMPAIRED?YES COGNITIVELY IMPAIRED?NO :CORRECTIVE LENSES READINESS TO LEARN?YES LEARNING PREFERENCES?NO LEARNING CAPABILITIES PRESENT?YES EMOTIONAL BARRIERS?NO SPECIAL DEVICES?NO HARDBOARD COATING MACHINE OPERATOR NEEDED?NO PAIN CLINIC PFS, CLERGY, PUBLIC HEALTH REFERRALS HAS THE PATIENT BEEN EDUCATED REGARDING HIS/HER PLAN OF CARE?YES HAS THE PATIENT BEEN EDUCATED REGARDING PAIN, THE RISK FOR PAIN, THE IMPORTANCE OF EFFECTIVE PAIN MANAGEMENT, AND THE PAIN ASSESSMENT PROCESS?YES LATEX QUESTIONNAIRE LATEX ALLERGY : HAVE YOU EVER DEVELOPED ANY TYPE OF REACTION AFTER HANDLING LATEX PRODUCTS SUCH RUBBER GLOVES, CONDOMS, DIAPHRAGMS, BALLOONS, SOCKS, OR UNDERWEAR?NO LATEX ALLERGY : HAVE YOU EVER DEVELOPED ANY TYPE OF REACTION DURING OR AFTER DENTAL APPOINTMENT, VAGINAL/RECTAL EXAMINATION, SURGICAL PROCEDURE, OR ANY OTHER EXPOSURE?NO LATEX RISK : HAVE YOU EVER HAD ANY DIFFICULTY BREATHING OR HIVES AFTER EATING OR HANDLING ANY FRUITS, OR VEGETABLES; SUCH KIWI, BANANAS, STONE FRUITS, OR CHESTNUTSNO LATEX RISK : DO YOU HAVE A PREVIOUS PERSONAL HISTORY OF MORE THAN NINE SURGERIES, SPINA BIFIDA, OR REPEATED CATHERIZATIONS? NO LATEX RISK : ARE YOU FREQUENTLY EXPOSED TO LATEX PRODUCTS IN YOUR OCCUPATION?NO DATE ASKED : 08/08/2018 CAFFEINE CAFFEINE USE?YES ABOUT 1/2 BOTTLE SODA DAILY ADVANCE DIRECTIVE ADVANCE DIRECTIVE DISCUSSED WITH PATIENT:YES PT NOW HAS A HCP- HOANG MANCUSO (DAUGHTER) SCIENTOLOGY NO QUAKER BELIEFS THAT WOULD IMPACT HEALTH CARE. MARITAL STATUS: . ALCOHOL SCREENING POINTS: 0, INTERPRETATION: NEGATIVE. OCCUPATION: DISABLED. SEXUAL HX HAD SEX IN THE LAST 12 MONTHS (VAGINAL, ORAL, OR ANAL)?: NO, HAVE YOU EVER HAD AN STD?: NO. REVIEWED WITH PATIENT 03/10/18 1327 JSREVIEWED WITH PATIENT 05/10/18 0933 BVREVIEWED WITH PT 08/08/18 0908 BVREVIEWED WITH PT 02/19/19 1106 NLJREVIEWED WITH PATIENT 03/26/19 1039 JS. HOSPITALIZATION/MAJOR DIAGNOSTIC PROCEDURE SURGERY RELATED BLOOD CLOT/SEIZURES 2019 REVIEW OF SYSTEMS REVIEWED BY: PROVIDER: CHELSEA FATIMA . CONSTITUTIONAL: ANY CHANGE IN YOUR MEDICAL CONDITION? NO . CHILLS NO . FEVER NO . INFECTION: DO YOU HAVE NEW INFECTIONS? NO . DO YOU HAVE HISTORY OF MRSA? NO . MUSCULOSKELETAL: ANY NEW PATTERNS OF PAIN OR NUMBNESS? YES, NUMBNESS/TINGLING TO FINGERS ON BILATERAL HANDS - STARTED APPROX 1 MONTH AGO . GASTROENTEROLOGY: ANY NEW CHANGE IN BOWEL CONTROL? NO . GENITOURINARY: ANY NEW CHANGE IN BLADDER CONTROL? NO . IS THERE A CHANCE YOU COULD BE ? NO . HEMATOLOGY/LYMPH: DO YOU TAKE ANY BLOOD THINNERS? (FOR EXAMPLE- COUMADIN, PLAVIX, AGGRENOX, PLATEL, PRADAXA, OR XARELTO) NO . WHEN WAS YOUR LAST DOSE? DATE: TIME: . NEUROLOGY: HAVE YOU FALLEN IN THE PAST 12 MONTHS? NO . ANY NEW EXTREMITY NUMBNESS OR WEAKNESS? NO . CARDIOLOGY: DO YOU HAVE A PACEMAKER OR DEFIBRILLATOR? NO . RESPIRATORY: HAVE YOU BEEN SICK IN THE PAST WEEK? NO . FEVER NO . FLU LIKE SYMPTOMS? NO . COUGH NO . INTEGUMENTARY: DO YOU HAVE ANY RASHES OR OPEN SORES? NO . ALLERGIC/IMMUNO: ARE YOU ALLERGIC TO IV DYE? NO . ANY NEW ALLERGIES? NO . PSYCHIATRIC: DO YOU HAVE THOUGHTS OF HURTING YOURSELF OR SOMEONE ELSE? NO . ARE YOU ABUSED, NEGLECTED, OR IN AN UNSAFE ENVIRONMENT? NO . ENDOCRINOLOGY: ARE YOU DIABETIC? NO . OTHER: DO YOU NEED ANY PRESCRIPTIONS? NO . IF YES, PLEASE LIST: ____ . ANY NEW PROBLEMS WITH YOUR MEDICATIONS? NO . WHEN DID YOU LAST EAT? ____ . WHEN DID YOU LAST DRINK? ____ . WHAT DID YOU LAST DRINK? ____ . NAME OF PERSON DRIVING YOU HOME? ____ . DO YOU HAVE ANY OTHER QUESTIONS OR CONCERNS NO . VITAL SIGNS WT 114.6 LBS, HT 61 IN, BMI 21.65 INDEX, BP 129/70 MM HG, HR 93 /MIN, RR 18 /MIN, TEMP 97.1 F, OXYGEN SAT % 98%, SAFE IN ENV? (Y/N) YES, NA INITIALS MS 10:35, REVIEWED BY: THEO. EXAMINATION GENERAL EXAMINATION: GENERALAWAKE,ALERT ,PLEAASANT . PSYCHAFFECT NORMAL . LUNGS:LUNG [place] ARE CLEAR TO AUSCULTATION BILATERALLY. GOOD MOVEMENT OF AIR . HEART:S1, S2 IN A REGULAR RATE AND RHYTHM. NO SIGNIFICANT MURMURS, RUBS OR GALLOPS NOTED . ASSESSMENTS SPONDYLOSIS OF CERVICAL REGION WITHOUT MYELOPATHY OR RADICULOPATHY - M47.812 (PRIMARY) LOW BACK PAIN - M54.5 TREATMENT SPONDYLOSIS OF CERVICAL REGION WITHOUT MYELOPATHY OR RADICULOPATHY CONTINUE OXYCODONE HCL TABLET, 15 MG, 1 TABLET, ORALLY, Q8H MDD3 START AMITRIPTYLINE HCL TABLET, 25 MG, 1 TO 2 TAB, ORALLY, QHS, 30 DAY(S), 60, REFILLS 2 NOTES: ISTOP REGISTRY REVIEWED AND DEMONSTRATES COMPLLIANCE. BRINGS IN MEDICATIONS WHICH IS APPROPRIATE FOR WHAT WAS DISPENSED. RECENT URINE TOXICOLOGY REVIEWED. NO UNAUTHORIZED MEDICATIONS. NO ILLICIT SUBSTANCES AND PRESCRIBED MEDICATIONS WERE PRESENT. URINE TOX TODAY, RISKS OF NARCOTIC/OPIOD MEDICATIONS INCLUDES BUT IS NOT LIMITED TO RISK OF DEPENDANCE/DEVELOPMENT OF ADDICTION, MOOD DISTURBANCE AND DEPRESSION, OSTEOPOROSIS, HORMONAL AND LABIDAL CHANGES, RESPIRATORY DEPRESSION AND . PATIENT IS ADVISED NOT TO DRIVE OR DRINK ALCOHOL WHILE ON THESE MEDICATIONS. PROCEDURE CODES FA211 ESTABILISHED PATIENT [facility] CHARGE DISPOSITION & COMMUNICATION FOLLOW UP 2 MONTHS (REASON: MED MGMNT) ELECTRONICALLY SIGNED BY AKUA DIEHL ON 04/09/2019 AT 09:18 AM EST DISCLAIMER : THIS IS A VISIT SUMMARY EXTRACTED FROM THE ECLINICALWORKS CHART. IT IS NOT A COPY OF THE ECL[employer]ICALWORKS PROGRESS NOTE. ROBINSON
== END ==
LOC: M PAIN 10:45
PROVIDERS: ATTEND Nurse Practitioner Family
DX: M47.812 Spondylosis without myelopathy or radiculopathy, cervical region (principal); M54.5 Low back pain; M54.2 Cervicalgia; Z79.82 Long term (current) use of aspirin; Z79.891 Long term (current) use of opiate analgesic; Z79.899 Other long term (current) drug therapy; Z87.891 Personal history of nicotine dependence; Z88.8 Allergy status to other drugs, medicaments and biological substances

== ENCOUNTER → 2019-04-08 | Outpatient (REF) | payer MEDICARE, MEDICAID ==
[2019-04-08 14:09] LABS: APPEARANCE, URINE CLOUDY (CLEAR); BACTERIA, URINE AUTO 1+ (NEGATIVE); BILIRUBIN, URINE AUTO NEGATIVE (NEGATIVE); BLOOD, URINE BLOOD NEGATIVE (NEGATIVE); CALCIUM OXALATE CRYSTALS SMALL; COLOR, URINE AMBER (YELLOW); GLUCOSE, URINE (UA) AUTO NEGATIVE (NEGATIVE); KETONE, URINE AUTO TRACE mg/dL (NEGATIVE); LEUKOCYTE ESTERASE, URINE AUTO 1+ (NEGATIVE); MUCUS, URINE SMALL (NEGATIVE); NITRITE, URINE AUTO POSITIVE (NEGATIVE); PROTEIN, URINE AUTO 2+ mg/dL (NEGATIVE); RBC, URINE AUTO 20 /HPF (0-3); SPECIFIC GRAVITY URINE AUTO 1.027 (1.002-1.035); SQUAMOUS EPITHELIAL CELL UR AU 3 /HPF (0-6); TRANSITIONAL EPITHELIAL AUTO 1 /HPF; WBC, URINE AUTO TNTC /HPF (0-3)
== END ==
LOC: M LAB REF 13:54
PROVIDERS: ATTEND Nurse Practitioner Family
DX: N39.9 Disorder of urinary system, unspecified (principal)

== ENCOUNTER → 2019-05-02 | Outpatient (CLI) | payer MEDICAID, MEDICARE ==
[~2019-05-02] MED LIST changes: +AMIT-255 PO; +CELE10TA PO; +FOLGTAB5 PO
--- NOTE | 2019-05-02 16:28 | REP ---
CAROTID ULTRASOUND: Real-time ultrasound evaluation and duplex Doppler interrogation of the extracranial carotid vasculature is performed. There is mild plaquing and narrowing in both carotid bulbs extending into the internal and external carotid arteries. Luminal narrowing is less than 50%. There is no evidence of hemodynamically significant stenosis of either internal carotid artery. Normal flow velocities are seen. The vertebral arteries demonstrate normal direction of flow. RIGHT LEFT Peak systolic velocity ICA 77.1 cm/s 103.1 cm/s End diastolic velocity ICA 33.4 cm/s 39 cm/s Peak systolic velocity CCA 80.1 cm/s 93.1 cm/s Peak systolic velocity ECA 61.6 cm/s 87.4 cm/s ICA/CCA ratio 0.96 1.1 IMPRESSION: Bilateral luminal narrowing of the internal carotid arteries less than 50%. No evidence of hemodynamically significant stenosis. Electronically Signed by Rashaad Gifford MD 05/02/2019 04:20 P
--- NOTE | 2019-05-02 17:44 | REP ---
RIGHT UPPER EXTREMITY DUPLEX DOPPLER ARTERIAL ULTRASOUND: Real-time ultrasound evaluation and duplex Doppler interrogation of the right upper extremity arterial system is performed and compared to prior study of 12/13/2018. Right subclavian artery is patent with normal flow velocity, peak systolic velocity proximally is 187 cm/second with triphasic wave forms throughout. The right axillary artery is also patent with triphasic wave form, 97.1 cm/s. [place] brachial arteries diffusely narrowed particularly in the proximal to mid aspect and the distal end is not visualized and may be occluded. Proximally peak systolic velocity is 130.1 cm/s with triphasic wave form. In the mid aspect peak-systolic velocity is 15.8 cm/s with monophasic wave form. Previously noted bypass graft connecting the distal end of the axillary artery to the distal brachial artery is completely occluded diffusely. A lateral arterial vessels braches off the [place] axillary and brachial artery anastomosis. This courses distally and deep and can not be completely followed. Multifocal occlusion is noted of the proximal to mid right radial artery with portions of occlusion and revascularization with both antegrade and retrograde flow. There are diffusely monophasic wave forms in these vessels. Distal right radial artery demonstrates antegrade flow with velocity of 10 cm/s and monophasic wave form. Ulnar artery demonstrates diffuse monophasic wave form with patency on peak systolic velocity of 41.2 cm/s. IMPRESSION: Moderate stenosis proximal to mid right brachial artery with possible occlusion distally as that portion of the artery is not visualized. Bypass graft from distal axillary artery to distal brachial artery is completely occluded. Large collateral vessels seen originating from the distal end of the right axillary artery. Proximal to mid radial artery demonstrates multifocal occlusion and stenosis with areas of both antegrade and retrograde flow. There is antegrade flow in the distal right radial artery and throughout the right ulnar artery. Unreviewed
== END ==
LOC: M RAD 12:42
PROVIDERS: ATTEND Physician Assistant
DX: I65.23 Occlusion and stenosis of bilateral carotid arteries (principal); S45.1 Injury of brachial artery; W18.30XD Fall on same level, unspecified, subsequent encounter; Y92.9 Unspecified place or not applicable

== ENCOUNTER → 2019-05-11 | Outpatient (REF) | payer MEDICARE, MEDICAID ==
[2019-05-11 18:25] LABS: APPEARANCE, URINE CLEAR (CLEAR); BACTERIA, URINE AUTO 2+ (NEGATIVE); BILIRUBIN, URINE AUTO NEGATIVE (NEGATIVE); BLOOD, URINE BLOOD NEGATIVE (NEGATIVE); COLOR, URINE YELLOW (YELLOW); GLUCOSE, URINE (UA) AUTO NEGATIVE (NEGATIVE); KETONE, URINE AUTO NEGATIVE (NEGATIVE); LEUKOCYTE ESTERASE, URINE AUTO TRACE (NEGATIVE); NITRITE, URINE AUTO NEGATIVE (NEGATIVE); PROTEIN, URINE AUTO NEGATIVE (NEGATIVE); RBC, URINE AUTO 1 /HPF (0-3); SPECIFIC GRAVITY URINE AUTO 1.009 (1.002-1.035); SQUAMOUS EPITHELIAL CELL UR AU 0 /HPF (0-6); UROBILINOGEN, URINE AUTO 0.2 mg/dL (0.0-2.0); WBC, URINE AUTO 8 /HPF (0-3)
== END ==
LOC: M SFHCADAM 16:50
PROVIDERS: ATTEND Family Medicine
DX: R10.2 Pelvic and perineal pain (principal)

== ENCOUNTER → 2019-05-25 | Outpatient (REF) | payer MEDICARE, MEDICAID ==
[2019-05-25 19:37] LABS: BLOOD UREA NITROGEN 14 MG/DL (7-18); CARBON DIOXIDE LEVEL 24 MEQ/L (21-32); CHLORIDE LEVEL 109 MEQ/L (98-107); CREATININE FOR GFR 0.69 MG/DL (0.55-1.30); GLOMERULAR FILTRATION RATE > 60.0 (>45); GLUCOSE, FASTING 103 MG/DL (70-100); POTASSIUM SERUM 3.8 MEQ/L (3.5-5.1); SODIUM LEVEL 142 MEQ/L (136-145)
[2019-05-25 19:46] LABS: HEMATOCRIT 37.8 % (36.0-47.0); HEMOGLOBIN 12.3 g/dl (12.0-15.5); MEAN CORPUSCULAR HEMOGLOBIN 30.7 pg (27.0-33.0); MEAN CORPUSCULAR HGB CONC 32.5 g/dl (32.0-36.5); MEAN CORPUSCULAR VOLUME 94.3 fl (80.0-96.0); PLATELET COUNT, AUTOMATED 151 10^3/uL (150-450); RED BLOOD COUNT 4.01 10^6/uL (4.00-5.40); WHITE BLOOD COUNT 6.2 10^3/uL (4.0-10.0)
== END ==
LOC: M SFHCADAM 14:44
PROVIDERS: ATTEND Family Medicine
DX: D55.0 Anemia due to glucose-6-phosphate dehydrogenase [G6PD] deficiency (principal); M19.90 Unspecified osteoarthritis, unspecified site; R30.0 Dysuria

== ENCOUNTER → 2019-05-25 | Outpatient (REF) | payer MEDICARE, MEDICAID | LOC: M SFHCADAM 19:32 | PROVIDERS: ATTEND Family Medicine | DX: R30.0 Dysuria (principal) ==

== ENCOUNTER → 2019-05-29 | Outpatient (CLI) | payer MEDICARE, MEDICAID ==
[~2019-05-29] MED LIST changes: -MECL-68 PO; +MECL1TAB31 PO; +ONDA-83 PO; -ONDA4TAB5 PO
== END ==
LOC: M PAIN 11:30
PROVIDERS: ATTEND Nurse Practitioner Family
DX: Z53.21 Procedure and treatment not carried out due to patient leaving prior to being seen by health care provider (principal)

== ENCOUNTER → 2019-06-20 | Outpatient (CLI) | payer MEDICARE, MEDICAID ==
--- NOTE | 2019-07-10 06:00 | ECWPNPC ---
PATIENT NAME: ZANDER DUTTA : 1955 GENDER: FEMALE VISIT DATE: 06/20/2019 DISCHARGE DATE: 06/20/19 1241 VISIT LOCKED DATE TIME: PHYSICIAN: CHELSEA WALTERS PHYSICIAN PAGER NO: [phone] RESOURCE: CHELSEA WALTERS REASON FOR APPOINTMENT 1. MED MGMNT HISTORY OF PRESENT ILLNESS HISTORY OF PRESENT ILLNESS: PAIN THE PATIENT DESCRIBES THE PAIN... FALL RISK SCREENING: SCREENING :NO FALLS REPORTED IN THE LAST YEAR CURRENT MEDICATIONS TAKING PROBIOTIC FORMULA TAKING CRANBERRY PLUS PROBIOTIC TAKING TUB TRANSFER BOARD - MISCELLANEOUS DIRECTED _ DX: I62.9 , R26.89 TAKING ALEKSANDR ROLLING WALKER PREMIUM 4 WHEEL WITH BRAKES AND SEAT DX: I62.9 , R26.89 TAKING VITAMIN C 1000 MG TABLET 1 TAB ORALLY ONCE A DAY TAKING VITAMIN D 2000 UNIT TABLET 1 TABLET ORALLY ONCE A DAY TAKING VITAMIN B 12 1000 MCG TABLET 1 TAB(S) ORALLY DAILY TAKING FLONASE 50 MCG/DOSE INHALER 2 SPRAY IN EACH NOSTRIL NASALLY DAILY TAKING ZOFRAN 4 MG TABLET 1 TABLET ORALLY TID PRN NAUSEA TAKING ACETAMINOPHEN 500 MG TABLET 2 TABLET NEEDED ORALLY EVERY 8 HRS TAKING ROPINIROLE HCL 0.25 MG TABLET 1 TAB ORALLY BEFORE BED AND 1 PRN FOR RESLESS LEGS TAKING ASPIRIN 81 81 MG TABLET DELAYED RELEASE 1 TABLET ORALLY ONCE A DAY TAKING AMITRIPTYLINE HCL 25 MG TABLET 1 TO 2 TAB ORALLY QHS TAKING SYMBICORT 80-4.5 MCG/ACT AEROSOL 2 PUFFS INHALATION TWICE A DAY TAKING PROAIR HFA 108 (90 BASE) MCG/ACT AEROSOL SOLUTION 2 PUFFS NEEDED INHALATION EVERY 6 HRS PRN COUGH WHEEZE TAKING POTASSIUM CHLORIDE ER 20 MEQ TABLET EXTENDED RELEASE 1 TABLET WITH FOOD ORALLY DAILY TAKING CHLORTHALIDONE 25 MG TABLET 1/2 TABLET ORALLY ONCE A DAY TAKING CITALOPRAM HYDROBROMIDE 10 MG TABLET 1 TAB ORALLY ONCE A DAY TAKING OXYCODONE HCL 15 MG TABLET 1 TABLET ORALLY Q8H MDD3 NOT-TAKING AMITRIPTYLINE HCL 25 MG TABLET 1-2 TABLETS ORALLY BEFORE BEDTIME, NOTES: DUPLICATE NOT-TAKING HYDROXYZINE HCL 25 MG TABLET 1 CAP ORALLY BEFORE BEDTIME PRN NOT-TAKING NICOTINE 21 MG/24HR PATCH 24 HOUR 1 PATCH TO SKIN TRANSDERMAL ONCE A DAY NOT-TAKING PREDNISONE 2.5 MG TABLET 1 TABLET ORALLY ONCE A DAY NOT-TAKING GABAPENTIN 100 MG CAPSULE TAKE ONE CAPSULE BY MOUTH THREE TIMES A DAY ORAL NOT-TAKING DIVALPROEX SODIUM 125 MG TABLET DELAYED RELEASE 2 TABLET ORALLY FOUR TIMES DAILY NOT-TAKING CEPHALEXIN 500 MG CAPSULE 1 CAPSULE ORALLY EVERY 12 HRS, NOTES: FOR UTI NOT-TAKING PREDNISONE 5 MG TABLET 1/2 TABLET ORALLY ONCE A DAY, NOTES: HAS BEEN ON FOR 1 YEAR NOT-TAKING MAY HAVE CBD OIL NEEDED, NOTES: USES EVERY DAY NOT-TAKING METHOCARBAMOL 500 MG TABLET DIRECTED, 2 TABLETS ORALLY THREE TIMES DAILY NEEDED, NOTES: [facility] ED NOT-TAKING PREDNISONE 10 MG TABLET DIR (ADJUSTMENT TO TAPER) ORALLY 2 TABS DAILY X3D, THEN 1 TAB DAILY X5D NOT-TAKING PREDNISONE 20 MG TABLET 2 TABLETS, TAPER ORALLY , NOTES: [facility] ED NOT-TAKING OXYBUTYNIN CHLORIDE ER 10 MG TABLET EXTENDED RELEASE 24 HOUR 1 TABLET ORALLY ONCE A DAY NOT-TAKING NICODERM CQ 7 MG/24HR PATCH 24 HOUR 1 PATCH TO SKIN TRANSDERMAL ONCE A DAY NOT-TAKING TIZANIDINE HCL 2 MG TABLET 1 TABLET NEEDED ORALLY TAKE 1 IN AM, 2 AT BEDTIME NOT-TAKING NITROFURANTOIN MONOHYD MACRO 100 MG CAPSULE 1 CAPSULE AT BEDTIME WITH FOOD ORALLY ONCE A DAY NOT-TAKING DIFLUCAN 100 MG TABLET 1 TABLET ORALLY BID NOT-TAKING AMOXICILLIN-POT CLAVULANATE 875-125 MG TABLET 1 TABLET ORALLY EVERY 12 HRS NOT-TAKING KEFLEX 500 MG CAPSULE 1 CAPSULE ORALLY EVERY 12 HRS MEDICATION LIST REVIEWED AND RECONCILED WITH THE PATIENT PAST MEDICAL HISTORY G6PD DEFICIENCY-ATORVASTATIN WAS D/C BY HEMATOLOGY 09/08 HEMOLYTIC ANEMIA, REFERRED [facility] HEME/ONC, HAD BONE MARROW BX 06/09. SUSPECTED HEMOLYSIS. (? 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 THYROID NODULE- (THYROIDECTOMY) KIDNEY STONES S/P ESWL 03/2003, STENTS VITAMIN D DEFICIENCY MIGRAINES COPD FEV1 = 1.93 2005 SMOKER GENERALIZED OSTEOARTHRITIS HIPS, NECK, BACK, HANDS LUNG NODULE ON CT CHEST 10/05; F/U PENDING 04/07 50-69% BILAT CAROTID STENOSIS DVT RT UE 1995 BA SWALLOW 01/07: SMALL PULSION ESOPAGEAL DIVERTICULUM, ASPIRATED A DROPLET OF BARIUM, REFLUX PRESENT; SAW ENT/WEIR 2018 RHEUMATOID ARTHRITIS OSTEOPOROSIS HYPERLIPIDEMIA--WAS ON ATORVA, THIS WAS D/C BY HEMATOLOGY (POSSIBLE G6PD DEFIC CONTRIBUTOR) 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, WAS ON DEPAKOTE UNTIL PT D/C 01/08 W/O RECURRENCE ALLERGIES ATORVASTATIN (HIGHER DOSE): LIZAMA - SIDE EFFECTS HAS G6PD DEFICIENCY-- AVOID HEMOLYSIS INDUCERS: HEMOLYSIS - CONTRAINDICATION SURGICAL HISTORY 1995 CORNONARY CATH - NORMAL 1995 RIGHT ARM BRACHIAL BYPASS 1995 DORSAL COLUMN STIMULATOR 1995 CYSTOSCOPY & LEFT URETEROSCOPY WITH LITHO AND STONE EXTRACTION 2004 LEFT URETERAL STENT PLACED, THEN CHANGED DUE TO OBSTRUCTION () 2005 LEFT URETERAL STENT REMOVED 2005 PARTIAL THYROIDECTOMY - NEGATIVE FOR CANCER 2008 EGD/COLONOSCOPY - GASTRIC AND COLON" POLYPS" (PER PATIENT NEEDS F/U IN 5 YEARS) 2010 LEFT URETERAL STENT PLACED 06/2013 DORSAL COLUMN STIMULATOR REMOVED DUE TO SEVERE KIDNEY PROBLEMS FROM STONES (WIRES LEFT IN, THEY WERE REMOVED 10/04) 2004, 2014 PARTIAL HYSTERECTOMY REMOVAL OF THE WIRES TO THE STIMULATOR 08/2014 EGD/COLONOSCOPY-- BOTH NORMAL 01/2017 RIGHT KIDNEY DOUBLE J STENT X2 02/22/[address] GUIDED NEPHROLITHOTOMY AT [facility] 04/08 RIGHT KIDNEY STONE REMOVED 03/2017 EVACUATION CEREBELLAR HEMORRHAGE [facility] 10/2018 FAMILY HISTORY FATHER: , RHEUMATOID, DIAGNOSED WITH DIABETES, UNSPECIFIED HEART DISEASE MOTHER: , RHEUMATOID, DIABETES, UNSPECIFIED HEART DISEASE MATERNAL GRAND MOTHER: BREAST CANCER, OTHER MALIGNANT NEOPLASM OF UNSPECIFIED SITE SIBLINGS: DIABETES PATERNAL GRAND FATHER: DIABETES PATERNAL GRAND MOTHER: DIABETES PATERNAL GRANDMOTHER SKIN CANCER\\\\\\\\N1 SISTER- RHEUMATOID \\\\\\\\\\\\\\/ PSORIATIC ARTHRITISMULTIPLE SIBLINGS WITH HEART DISEASE. SOCIAL HISTORY GENERAL: TOBACCO USE ARE YOU A:CURRENT SMOKER ARE YOU INTERESTED IN QUITTING?READY TO QUIT PREVIOUS QUIT ATTEMPTS?YES, WITHIN THE LAST 6 MONTHS. COUNSELED THE PATIENT ON TOBACCO USE, CESSATION [id number]/29/2020 HOW MANY CIGARETTES A DAY DO YOU SMOKE?5 OR LESS 2 CIGARETTES/DAY HOW OFTEN DO YOU SMOKE CIGARETTES?SOME DAYS, BUT NOT EVERY DAY SMOKING CESSATION INFORMATION GIVEN01/18/2018 HIV / HEP-C SCREENING HIV TEST OFFERED TO PATIENT:NO N/A HEP-C TEST OFFERED TO PATIENT:YES DATE OFFERED:06/01/2016 TEST ACCEPTED:NO REASON:PATIENT DECLINED EDUCATION HIGH SCHOOL. DIET: REGULAR. LANGUAGE SENEGALESE. DOMESTIC VIOLENCE DO YOU FEEL SAFE IN YOUR ENVIRONMENT?YES BMI CARE GOAL FOLLOW-UP BELOW NORMAL BMI FOLLOW-UPDIETARY EDUCATION FOR WEIGHT GAIN RECREATIONAL DRUG USE DRUG USE?NO EXERCISE: NO REGULAR EXERCISE. LEARNING BARRIERS / SPECIAL NEEDS CHANGE FROM LAST VISIT?YES URI SYMPTOMS BARRIERS TO LEARNING?NO HEARING IMPAIRED?NO VISION IMPAIRED?YES COGNITIVELY IMPAIRED?NO :CORRECTIVE LENSES READINESS TO LEARN?YES LEARNING PREFERENCES?NO LEARNING CAPABILITIES PRESENT?YES EMOTIONAL BARRIERS?NO SPECIAL DEVICES?NO PORTABLE SAWYER NEEDED?NO PAIN CLINIC PFS, CLERGY, PUBLIC HEALTH REFERRALS HAS THE PATIENT BEEN EDUCATED REGARDING HIS/HER PLAN OF CARE?YES HAS THE PATIENT BEEN EDUCATED REGARDING PAIN, THE RISK FOR PAIN, THE IMPORTANCE OF EFFECTIVE PAIN MANAGEMENT, AND THE PAIN ASSESSMENT PROCESS?YES LATEX QUESTIONNAIRE LATEX ALLERGY : HAVE YOU EVER DEVELOPED ANY TYPE OF REACTION AFTER HANDLING LATEX PRODUCTS SUCH RUBBER GLOVES, CONDOMS, DIAPHRAGMS, BALLOONS, SOCKS, OR UNDERWEAR?NO LATEX ALLERGY : HAVE YOU EVER DEVELOPED ANY TYPE OF REACTION DURING OR AFTER DENTAL APPOINTMENT, VAGINAL/RECTAL EXAMINATION, SURGICAL PROCEDURE, OR ANY OTHER EXPOSURE?NO LATEX RISK : HAVE YOU EVER HAD ANY DIFFICULTY BREATHING OR HIVES AFTER EATING OR HANDLING ANY FRUITS, OR VEGETABLES; SUCH KIWI, BANANAS, STONE FRUITS, OR CHESTNUTSNO LATEX RISK : DO YOU HAVE A PREVIOUS PERSONAL HISTORY OF MORE THAN NINE SURGERIES, SPINA BIFIDA, OR REPEATED CATHERIZATIONS? NO LATEX RISK : ARE YOU FREQUENTLY EXPOSED TO LATEX PRODUCTS IN YOUR OCCUPATION?NO DATE ASKED : 08/08/2018 CAFFEINE CAFFEINE USE?YES ABOUT 1/2 BOTTLE SODA DAILY ADVANCE DIRECTIVE ADVANCE DIRECTIVE DISCUSSED WITH PATIENT:YES HCP- HOANG MANCUSO (DAUGHTER) CHURCH NO [employer] BELIEFS THAT WOULD IMPACT HEALTH CARE. MARITAL STATUS: . ALCOHOL SCREENING POINTS: 0, INTERPRETATION: NEGATIVE. OCCUPATION: DISABLED. SEXUAL HX HAD SEX IN THE LAST 12 MONTHS (VAGINAL, ORAL, OR ANAL)?: NO, HAVE YOU EVER HAD AN STD?: NO. REVIEWED WITH PATIENT 03/10/18 1327 JSREVIEWED WITH PATIENT 05/10/18 0933 BVREVIEWED WITH PT 08/08/18 0908 BVREVIEWED WITH PT 02/19/19 1106 NLJREVIEWED WITH PATIENT 03/26/19 1039 JSREVIEWED WITH PATIENT 06/20/2019 1212 JS. HOSPITALIZATION/MAJOR DIAGNOSTIC PROCEDURE SURGERY RELATED BLOOD CLOT/SEIZURES 2018 REVIEW OF SYSTEMS REVIEWED BY: PROVIDER: CHELSEA FATIMA . CONSTITUTIONAL: ANY CHANGE IN YOUR MEDICAL CONDITION? YES, STATES SHE STILL HAS BLOOD CLOTS IN HER BRAIN . CHILLS NO . FEVER NO . INFECTION: DO YOU HAVE NEW INFECTIONS? NO . DO YOU HAVE HISTORY OF MRSA? NO . MUSCULOSKELETAL: ANY NEW PATTERNS OF PAIN OR NUMBNESS? YES, RIGHT FINGERS NUMB CONSTANTLY . GASTROENTEROLOGY: ANY NEW CHANGE IN BOWEL CONTROL? NO . GENITOURINARY: ANY NEW CHANGE IN BLADDER CONTROL? NO . IS THERE A CHANCE YOU COULD BE ? NO . HEMATOLOGY/LYMPH: DO YOU TAKE ANY BLOOD THINNERS? (FOR EXAMPLE- COUMADIN, PLAVIX, AGGRENOX, PLATEL, PRADAXA, OR XARELTO) NO . WHEN WAS YOUR LAST DOSE? DATE: TIME: . NEUROLOGY: HAVE YOU FALLEN IN THE PAST 12 MONTHS? NO . ANY NEW EXTREMITY NUMBNESS OR WEAKNESS? YES, LEFT LEG NUMBNESS/WEAKNESS . CARDIOLOGY: DO YOU HAVE A PACEMAKER OR DEFIBRILLATOR? NO . RESPIRATORY: HAVE YOU BEEN SICK IN THE PAST WEEK? NO . FEVER NO . FLU LIKE SYMPTOMS? NO . COUGH NO . INTEGUMENTARY: DO YOU HAVE ANY RASHES OR OPEN SORES? NO . ALLERGIC/IMMUNO: ARE YOU ALLERGIC TO IV DYE? NO . ANY NEW ALLERGIES? NO, MARKED INCORRECTLY ON FORM . PSYCHIATRIC: DO YOU HAVE THOUGHTS OF HURTING YOURSELF OR SOMEONE ELSE? NO . ARE YOU ABUSED, NEGLECTED, OR IN AN UNSAFE ENVIRONMENT? NO . ENDOCRINOLOGY: ARE YOU DIABETIC? NO . OTHER: DO YOU NEED ANY PRESCRIPTIONS? NO . IF YES, PLEASE LIST: ____ . ANY NEW PROBLEMS WITH YOUR MEDICATIONS? NO . WHEN DID YOU LAST EAT? ____ . WHEN DID YOU LAST DRINK? ____ . WHAT DID YOU LAST DRINK? ____ . NAME OF PERSON DRIVING YOU HOME? ____ . DO YOU HAVE ANY OTHER QUESTIONS OR CONCERNS NO . VITAL SIGNS WT 116.8 LBS, HT 61 IN, BMI 22.07 INDEX, BP 156/71 MM HG, HR 85 /MIN, RR 18 /MIN, TEMP 97.6 F, OXYGEN SAT % 99%, SAFE IN ENV? (Y/N) YES, REVIEWED BY: THEO. EXAMINATION GENERAL EXAMINATION: GENERALNO ACUTE DISTRESS, WELL NOURISHED AND HYDRATED. PSYCHAPPROPRIATE MOOD AND AFFECT . LUNGS: LUNG SOUNDS ARE CLEAR . HEART: HEART RATE REGULAR . MUSCULOSKELETAL:*, MUSCLE STRENGTH TESTING 5/5 BILATERAL UPPER EXTREMITIES. . CERVICAL:+ FOR PAIN WITH PALPATION OF CERVICAL SPINE. + FOR PAIN WITH PALPATION OF CERVICAL PARASPINALS.SPECIFIC POINT TENDERNESS NOTED OV C4/5-/C5/6 CERVICAL FACETS WITH EXTENSION AND FACET LOADING.. DIAGNOSTIC TESTS REVIEWED CERVICAL MRI 2015. ASSESSMENTS SPONDYLOSIS OF CERVICAL REGION WITHOUT MYELOPATHY OR RADICULOPATHY - M47.812 (PRIMARY) OTHER HEADACHE SYNDROME - G44.89 TREATMENT SPONDYLOSIS OF CERVICAL REGION WITHOUT MYELOPATHY OR RADICULOPATHY CONTINUE AMITRIPTYLINE HCL TABLET, 25 MG, 1 TO 2 TAB, ORALLY, QHS REFILL OXYCODONE HCL TABLET, 15 MG, 1 TABLET, ORALLY, Q8H MDD3, 30 DAYS, 90, REFILLS 0 START TOPAMAX TABLET, 25 MG, 1 TABLET, ORALLY, ONCE A DAY, 30 DAY(S), 30, REFILLS 5 NOTES: CERVICAL FACET BLOCK, THERAPEUTIC BILATERAL C4-5, C5-6, ISTOP REGISTRY REVIEWED AND DEMONSTRATES COMPLLIANCE. BRINGS IN MEDICATIONS WHICH IS APPROPRIATE FOR WHAT WAS DISPENSED. RECENT URINE TOXICOLOGY REVIEWED. NO UNAUTHORIZED MEDICATIONS. NO ILLICIT SUBSTANCES AND PRESCRIBED MEDICATIONS WERE PRESENT. PREVENTIVE MEDICINE PAIN CLINIC TEACHING: PROCEDURE TEACHING REVIEWED INFORMATION ON THERAPEUTIC CERVICAL FACET BLOCK PROCEDURE WITH PATIENT. ALSO REVIEWED PRE-PROCEDURE INSTRUCTIONS. PATIENT VERBALIZED AN UNDERSTANDING. DESIREE PROCTOR 06/20/2019 1:28:39 PM > . PROCEDURE CODES FA211 ESTABILISHED PATIENT [facility] FACILITY CHARGE DISPOSITION & COMMUNICATION FOLLOW UP POST (REASON: C4-5, C5-6 CFBT BILAT) ELECTRONICALLY SIGNED BY AKUA DIEHL ON 07/09/2019 AT 10:04 AM EST DISCLAIMER : THIS IS A VISIT SUMMARY EXTRACTED FROM THE [facility] CHART. IT IS NOT A COPY OF THE [facility] ([facility] PROGRESS NOTE. ROBINSON
== END ==
LOC: M PAIN 11:00
PROVIDERS: ATTEND Nurse Practitioner Family
DX: M47.812 Spondylosis without myelopathy or radiculopathy, cervical region (principal); G44.89 Other headache syndrome

== ENCOUNTER → 2019-09-12 | Outpatient (CLI) | payer MEDICARE ==
[~2019-09-12] MED LIST changes: +CYCL-707 PO; -CYCL10TA PO; +OXYC-1 PO; -OXYC15TA76 PO
--- NOTE | 2019-09-14 02:57 | ECWPNPC ---
PATIENT NAME: ZANDER DUTTA : 1955 GENDER: FEMALE VISIT DATE: 09/12/2019 DISCHARGE DATE: 09/12/19 1154 VISIT LOCKED DATE TIME: PHYSICIAN: CHELSEA WALTERS PHYSICIAN PAGER NO: [phone] RESOURCE: CHELSEA WALTERS REASON FOR APPOINTMENT 1. POST FACET BLOCK HISTORY OF PRESENT ILLNESS HISTORY OF PRESENT ILLNESS: PATIENT HAS AGREED TO TELEPHONE VISIT TODAY. THIS IS A ROUTINE FOLLOW-UP AND MEDICINE MANAGEMENT FOR CHRONIC NECK AND LOW BACK PAIN. RATING PAIN LEVEL A 7/10 VAS. HAS HAD A LOT OF MEDICAL ISSUES LATELY. SHE WAS AFRAID TO TAKE TOPAMAX AND WAS USING THIS JUST NEEDED OVER THE PAST FEW WEEKS. DISCUSSED MEDICATION AND TREATMENT OPTIONS. HISTORY OF CHRONIC BLOOD CLOT IN RIGHT ARM. HISTORY OF RUPTURED CEREBRAL ANEURYSM. WE WOULD NEED MEDICAL CLEARANCE BEFORE DOING ANY PROCEDURES. PAIN THE PATIENT DESCRIBES THE PAIN... FALL RISK SCREENING: SCREENING :NO FALLS REPORTED IN THE LAST YEAR CURRENT MEDICATIONS TAKING PROBIOTIC FORMULA _ 1 TAB ORALLY DAILY TAKING CRANBERRY PLUS PROBIOTIC - TABLET 1 TAB ORALLY DAILY TAKING TUB TRANSFER BOARD - MISCELLANEOUS DIRECTED _ DX: I62.9 , R26.89 TAKING ALEKSANDR ROLLING WALKER PREMIUM 4 WHEEL WITH BRAKES AND SEAT DX: I62.9 , R26.89 TAKING VITAMIN C 1000 MG TABLET 1 TAB ORALLY ONCE A DAY TAKING VITAMIN D 2000 UNIT TABLET 1 TABLET ORALLY ONCE A DAY TAKING VITAMIN B 12 1000 MCG TABLET 1 TAB(S) ORALLY DAILY TAKING ASPIRIN 81 81 MG TABLET DELAYED RELEASE 1 TABLET ORALLY ONCE A DAY TAKING CITALOPRAM HYDROBROMIDE 10 MG TABLET 1 TAB ORALLY ONCE A DAY TAKING TOPAMAX 25 MG TABLET 1 TABLET ORALLY ONCE A DAY TAKING ACETAMINOPHEN 500 MG TABLET 2 TABLET NEEDED ORALLY EVERY 8 HRS TAKING ROPINIROLE HCL 0.25 MG TABLET 1 TAB ORALLY BEFORE BED AND 1 PRN FOR RESLESS LEGS TAKING AMITRIPTYLINE HCL 25 MG TABLET 1 TO 2 TAB ORALLY QHS TAKING CHLORTHALIDONE 25 MG TABLET 1/2 TABLET ORALLY ONCE A DAY TAKING FLONASE 50 MCG/DOSE INHALER 2 SPRAY IN EACH NOSTRIL NASALLY DAILY TAKING POTASSIUM CHLORIDE ER 20 MEQ TABLET EXTENDED RELEASE 1 TABLET WITH FOOD ORALLY TWICE A DAY, NOTES: PER PATIENT TAKING ONLY ONCE A DAY TAKING PROAIR HFA 108 (90 BASE) MCG/ACT AEROSOL SOLUTION 2 PUFFS NEEDED INHALATION EVERY 6 HRS PRN COUGH WHEEZE TAKING SYMBICORT 80-4.5 MCG/ACT AEROSOL 2 PUFFS INHALATION TWICE A DAY TAKING OXYCODONE HCL 15 MG TABLET 1 TABLET ORALLY Q8H MDD3 TAKING DOXYCYCLINE HYCLATE 100 MG CAPSULE 1 CAPSULE ORALLY TWICE A DAY TAKING GUAIFENESIN-DM 100-10 MG/5ML LIQUID 10 ML NEEDED ORALLY EVERY 4 HRS NOT-TAKING ZOFRAN 4 MG TABLET 1 TABLET ORALLY TID PRN NAUSEA NOT-TAKING AMOXICILLIN-POT CLAVULANATE 875-125 MG TABLET 1 TABLET ORALLY EVERY 12 HRS NOT-TAKING BENZONATATE 100 MG CAPSULE 1 CAPSULE NEEDED ORALLY THREE TIMES A DAY NOT-TAKING AMOXICILLIN-POT CLAVULANATE 875-125 MG TABLET 1 TABLET ORALLY EVERY 12 HRS MEDICATION LIST REVIEWED AND RECONCILED WITH THE PATIENT PAST MEDICAL HISTORY G6PD DEFICIENCY-ATORVASTATIN WAS D/C BY HEMATOLOGY 09/08 HEMOLYTIC ANEMIA, REFERRED [facility] HEME/ONC, HAD BONE MARROW BX 06/09. SUSPECTED HEMOLYSIS. (? 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 THYROID NODULE- (THYROIDECTOMY) KIDNEY STONES S/P ESWL 03/2003, STENTS VITAMIN D DEFICIENCY MIGRAINES COPD FEV1 = 1.93 2005 SMOKER GENERALIZED OSTEOARTHRITIS HIPS, NECK, BACK, HANDS LUNG NODULE ON CT CHEST 10/05; F/U PENDING 04/07 50-69% BILAT CAROTID STENOSIS DVT RT UE 1995 BA SWALLOW 01/07: SMALL PULSION ESOPAGEAL DIVERTICULUM, ASPIRATED A DROPLET OF BARIUM, REFLUX PRESENT; SAW ENT/WEIR 2018 RHEUMATOID ARTHRITIS OSTEOPOROSIS HYPERLIPIDEMIA--WAS ON ATORVA, THIS WAS D/C BY HEMATOLOGY (POSSIBLE G6PD DEFIC CONTRIBUTOR) 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, WAS ON DEPAKOTE UNTIL PT D/C 01/08 W/O RECURRENCE ALLERGIES ATORVASTATIN (HIGHER DOSE): LIZAMA - SIDE EFFECTS HAS G6PD DEFICIENCY-- AVOID HEMOLYSIS INDUCERS: HEMOLYSIS - CONTRAINDICATION SURGICAL HISTORY 1995 CORNONARY CATH - NORMAL 1995 RIGHT ARM BRACHIAL BYPASS 1995 DORSAL COLUMN STIMULATOR 1995 CYSTOSCOPY & LEFT URETEROSCOPY WITH LITHO AND STONE EXTRACTION 2004 LEFT URETERAL STENT PLACED, THEN CHANGED DUE TO OBSTRUCTION () 2005 LEFT URETERAL STENT REMOVED 2005 PARTIAL THYROIDECTOMY - NEGATIVE FOR CANCER 2008 EGD/COLONOSCOPY - GASTRIC AND COLON" POLYPS" (PER PATIENT NEEDS F/U IN 5 YEARS) 2010 LEFT URETERAL STENT PLACED 06/2013 DORSAL COLUMN STIMULATOR REMOVED DUE TO SEVERE KIDNEY PROBLEMS FROM STONES (WIRES LEFT IN, THEY WERE REMOVED 10/04) 2004, 2014 PARTIAL HYSTERECTOMY 1969' REMOVAL OF THE WIRES TO THE STIMULATOR 08/2014 EGD/COLONOSCOPY-- BOTH NORMAL 01/2017 RIGHT KIDNEY DOUBLE J STENT X2 02/22/[address] GUIDED NEPHROLITHOTOMY AT [facility] 04/08 RIGHT KIDNEY STONE REMOVED 03/2017 EVACUATION CEREBELLAR HEMORRHAGE [facility] 10/2018 FAMILY HISTORY FATHER: , RHEUMATOID, DIAGNOSED WITH DIABETES, UNSPECIFIED HEART DISEASE MOTHER: , RHEUMATOID, DIABETES, UNSPECIFIED HEART DISEASE MATERNAL GRAND MOTHER: BREAST CANCER, OTHER MALIGNANT NEOPLASM OF UNSPECIFIED SITE SIBLINGS: DIABETES PATERNAL GRAND FATHER: DIABETES PATERNAL GRAND MOTHER: DIABETES PATERNAL GRANDMOTHER SKIN CANCER\\\\\\\\N1 SISTER- RHEUMATOID \\\\\\\\\\\\\\/ PSORIATIC ARTHRITISMULTIPLE SIBLINGS WITH HEART DISEASE. SOCIAL HISTORY GENERAL: TOBACCO USE ARE YOU A:FORMER SMOKER HOW LONG HAS IT BEEN SINCE YOU LAST SMOKED?3-6 MONTHS LATEX QUESTIONNAIRE LATEX ALLERGY : HAVE YOU EVER DEVELOPED ANY TYPE OF REACTION AFTER HANDLING LATEX PRODUCTS SUCH RUBBER GLOVES, CONDOMS, DIAPHRAGMS, BALLOONS, SOCKS, OR UNDERWEAR?NO LATEX ALLERGY : HAVE YOU EVER DEVELOPED ANY TYPE OF REACTION DURING OR AFTER DENTAL APPOINTMENT, VAGINAL/RECTAL EXAMINATION, SURGICAL PROCEDURE, OR ANY OTHER EXPOSURE?NO LATEX RISK : HAVE YOU EVER HAD ANY DIFFICULTY BREATHING OR HIVES AFTER EATING OR HANDLING ANY FRUITS, OR VEGETABLES; SUCH KIWI, BANANAS, STONE FRUITS, OR CHESTNUTSNO LATEX RISK : DO YOU HAVE A PREVIOUS PERSONAL HISTORY OF MORE THAN NINE SURGERIES, SPINA BIFIDA, OR REPEATED CATHERIZATIONS? NO LATEX RISK : ARE YOU FREQUENTLY EXPOSED TO LATEX PRODUCTS IN YOUR OCCUPATION?NO DATE ASKED : 09/05/2019 BMI CARE GOAL FOLLOW-UP BELOW NORMAL BMI FOLLOW-UPDIETARY EDUCATION FOR WEIGHT GAIN ALCOHOL SCREENING POINTS: 0, INTERPRETATION: NEGATIVE. RECREATIONAL DRUG USE DRUG USE?NO CAFFEINE CAFFEINE USE?YES ABOUT 1/2 BOTTLE SODA DAILY SEXUAL HX HAD SEX IN THE LAST 12 MONTHS (VAGINAL, ORAL, OR ANAL)?: NO, HAVE YOU EVER HAD AN STD?: NO. HIV / HEP-C SCREENING HIV TEST OFFERED TO PATIENT:NO N/A HEP-C TEST OFFERED TO PATIENT:YES DATE OFFERED:06/01/2016 TEST ACCEPTED:NO REASON:PATIENT DECLINED PRESYBETERIAN NO HINDU BELIEFS THAT WOULD IMPACT HEALTH CARE. LANGUAGE NAURUAN. EDUCATION HIGH SCHOOL. LEARNING BARRIERS / SPECIAL NEEDS CHANGE FROM LAST VISIT?NO BARRIERS TO LEARNING?NO HEARING IMPAIRED?NO VISION IMPAIRED?YES COGNITIVELY IMPAIRED?NO :CORRECTIVE LENSES READINESS TO LEARN?YES LEARNING PREFERENCES?NO LEARNING CAPABILITIES PRESENT?YES EMOTIONAL BARRIERS?NO SPECIAL DEVICES?NO LAW INSTRUCTOR NEEDED?NO DOMESTIC VIOLENCE DO YOU FEEL SAFE IN YOUR ENVIRONMENT?YES OCCUPATION: DISABLED. DIET: REGULAR. EXERCISE: NO REGULAR EXERCISE. MARITAL STATUS: . NEW PATIENT PAIN DIARY TODAY'S VISITNOTES 09/12/2019 PATIENT DESCRIBES PAIN :ACHING, HAVE IT ALL THE TIME, [place]ARP FROM 0-10, WHAT LEVEL IS YOUR PAIN TODAY?5 PAIN CLINIC PFS, CLERGY, PUBLIC HEALTH REFERRALS HAS THE PATIENT BEEN EDUCATED REGARDING HIS/HER PLAN OF CARE?YES HAS THE PATIENT BEEN EDUCATED REGARDING PAIN, THE RISK FOR PAIN, THE IMPORTANCE OF EFFECTIVE PAIN MANAGEMENT, AND THE PAIN ASSESSMENT PROCESS?YES ADVANCE DIRECTIVE ADVANCE DIRECTIVE DISCUSSED WITH PATIENT:YES HCP- HOANG MANCUSO (DAUGHTER) HOSPITALIZATION/MAJOR DIAGNOSTIC PROCEDURE SURGERY RELATED BLOOD CLOT/SEIZURES 2018 REVIEW OF SYSTEMS REVIEWED BY: PROVIDER: CHELSEA FATIMA . CONSTITUTIONAL: ANY CHANGE IN YOUR MEDICAL CONDITION? NO . CHILLS NO . FEVER NO . INFECTION: DO YOU HAVE NEW INFECTIONS? YES, SINUS INFECTION - ON ANTIBIOTICS . DO YOU HAVE HISTORY OF MRSA? NO . MUSCULOSKELETAL: ANY NEW PATTERNS OF PAIN OR NUMBNESS? NO . GASTROENTEROLOGY: ANY NEW CHANGE IN BOWEL CONTROL? NO . GENITOURINARY: ANY NEW CHANGE IN BLADDER CONTROL? NO . IS THERE A CHANCE YOU COULD BE ? NO . HEMATOLOGY/LYMPH: DO YOU TAKE ANY BLOOD THINNERS? (FOR EXAMPLE- COUMADIN, PLAVIX, AGGRENOX, PLATEL, PRADAXA, OR XARELTO) NO . WHEN WAS YOUR LAST DOSE? DATE: TIME: . NEUROLOGY: HAVE YOU FALLEN IN THE PAST 12 MONTHS? NO . ANY NEW EXTREMITY NUMBNESS OR WEAKNESS? NO . CARDIOLOGY: DO YOU HAVE A PACEMAKER OR DEFIBRILLATOR? NO . RESPIRATORY: HAVE YOU BEEN SICK IN THE PAST WEEK? YES, SINUS INFECTION . FEVER NO . FLU LIKE SYMPTOMS? NO . COUGH NO . INTEGUMENTARY: DO YOU HAVE ANY RASHES OR OPEN SORES? NO . ALLERGIC/IMMUNO: ARE YOU ALLERGIC TO IV DYE? NO . ANY NEW ALLERGIES? NO . PSYCHIATRIC: DO YOU HAVE THOUGHTS OF HURTING YOURSELF OR SOMEONE ELSE? NO . ARE YOU ABUSED, NEGLECTED, OR IN AN UNSAFE ENVIRONMENT? NO . ENDOCRINOLOGY: ARE YOU DIABETIC? NO . OTHER: DO YOU NEED ANY PRESCRIPTIONS? NO . IF YES, PLEASE LIST: ____ . ANY NEW PROBLEMS WITH YOUR MEDICATIONS? NO . WHEN DID YOU LAST EAT? ____ . WHEN DID YOU LAST DRINK? ____ . WHAT DID YOU LAST DRINK? ____ . NAME OF PERSON DRIVING YOU HOME? ____ . DO YOU HAVE ANY OTHER QUESTIONS OR CONCERNS NO . ASSESSMENTS SPONDYLOSIS OF CERVICAL REGION WITHOUT MYELOPATHY OR RADICULOPATHY - M47.812 (PRIMARY) TREATMENT SPONDYLOSIS OF CERVICAL REGION WITHOUT MYELOPATHY OR RADICULOPATHY CONTINUE OXYCODONE HCL TABLET, 15 MG, 1 TABLET, ORALLY, Q8H MDD3, 30 DAYS, 90, REFILLS 0 INCREASE TOPAMAX TABLET, 25 MG, 1 TO 2, ORALLY, ONCE A DAY, 30 DAYS, 60, REFILLS 1 NOTES: RESTART TOPAMAX 25 MG TABLET 1-2 TABLETS DAILY FOR HEADACHE. WE WILL ATTEMPT TO GET MEDICAL CLEARANCE TO PROCEED WITH CERVICAL FACET BLOCK, THERAPEUTIC DUE TO PATIENT TELLING ME TODAY THAT SHE HAS A BLOOD CLOT IN HER RIGHT ARM THAT HAS BEEN THERE SEVERAL YEARS AND SHE FOLLOWS WITH VASCULAR SURGEON AT [facility]. SHE DOES NOT KNOW THE NAME OF THAT PROVIDER. SHE IS A FEMALE. WE WILL SCHEDULE FOLLOW-UP WITH ME IN 2 MONTHS. TOTAL TIME SPENT DURING TELEPHONE VISIT WAS APPROXIMATELY 11 MINUTES. , ISTOP REGISTRY REVIEWED AND DEMONSTRATES COMPLLIANCE. RECENT URINE TOXICOLOGY REVIEWED. NO UNAUTHORIZED MEDICATIONS. NO ILLICIT SUBSTANCES AND PRESCRIBED MEDICATIONS WERE PRESENT. OTHERS NOTES: NO VITALS OBTAINED DUE TO PHONE VISIT. DISPOSITION & COMMUNICATION FOLLOW UP 2 MONTHS (REASON: MED MGMNT) ELECTRONICALLY SIGNED BY AKUA DIEHL ON 09/13/2019 AT 01:15 PM EDT DISCLAIMER : THIS IS A VISIT SUMMARY EXTRACTED FROM THE [employer] CHART. IT IS NOT A COPY OF THE [employer] PROGRESS NOTE. ROBINSON
== END ==
LOC: M PAIN 10:30
PROVIDERS: ATTEND Nurse Practitioner Family
DX: M47.812 Spondylosis without myelopathy or radiculopathy, cervical region (principal); D55.0 Anemia due to glucose-6-phosphate dehydrogenase [G6PD] deficiency; Z79.82 Long term (current) use of aspirin; Z79.891 Long term (current) use of opiate analgesic; Z79.899 Other long term (current) drug therapy; Z87.891 Personal history of nicotine dependence; Z88.8 Allergy status to other drugs, medicaments and biological substances

== ENCOUNTER 2019-10-01 09:25 | Emergency (ER) | payer MEDICARE ==
[~2019-10-01] VITALS: Ht 154.9 cm; Wt 53.0 kg
[2019-10-01] MEDS ORDERED: OXYC-423 PO (09:33)
[2019-10-01] MEDS ORDERED: LIDOCAINE 2% MDV 20ML VIAL SC ONE (10:15)
[2019-10-01] MEDS ORDERED: ROBA750T4 PO (10:35)
[2019-10-01 10:41] VITALS: BP 143/70
== END 2019-10-01 10:42 | disposition home or self-care (01) ==
LOC: M ED 09:25
DX: S16.1XXA Strain of muscle, fascia and tendon at neck level, initial encounter (principal); Y93.E1 Activity, personal bathing and showering; Y92.002 Bathroom of unspecified non-institutional (private) residence as the place of occurrence of the external cause; Y99.9 Unspecified external cause status; Z87.891 Personal history of nicotine dependence; X58.XXXA Exposure to other specified factors, initial encounter; M25.511 Pain in right shoulder; M79.7 Fibromyalgia

== ENCOUNTER → 2019-10-17 | Outpatient (REF) | payer MEDICARE ==
[~2019-10-17] MED LIST changes: +OXYC-423 PO; +ROBA750T4 PO
[2019-10-17 12:53] LABS: HEMATOCRIT 30.1 % (36.0-47.0); HEMOGLOBIN 10.2 g/dl (12.0-15.5); MEAN CORPUSCULAR HEMOGLOBIN 31.7 pg (27.0-33.0); MEAN CORPUSCULAR HGB CONC 33.9 g/dl (32.0-36.5); MEAN CORPUSCULAR VOLUME 93.5 fl (80.0-96.0); PLATELET COUNT, AUTOMATED 238 10^3/uL (150-450); RED BLOOD COUNT 3.22 10^6/uL (4.00-5.40); WHITE BLOOD COUNT 7.3 10^3/uL (4.0-10.0)
[2019-10-17 13:03] LABS: INR 1.02; PROTHROMBIN TIME 13.1 SECONDS (11.8-14.0)
[2019-10-17 13:04] LABS: PARTIAL THROMBOPLASTIN TIME 36.4 SECONDS (25.0-38.4)
[2019-10-17 13:19] LABS: ALBUMIN 3.9 GM/DL (3.2-5.2); ALT/SGPT 17 U/L (12-78); BILIRUBIN,TOTAL 1.4 MG/DL (0.2-1.0); BLOOD UREA NITROGEN 10 MG/DL (7-18); CALCIUM LEVEL 9.1 MG/DL (8.8-10.2); CARBON DIOXIDE LEVEL 30 MEQ/L (21-32); CHLORIDE LEVEL 105 MEQ/L (98-107); CREATININE FOR GFR 0.83 MG/DL (0.55-1.30); GLOMERULAR FILTRATION RATE > 60.0 (>45); GLUCOSE, FASTING 83 MG/DL (70-100); POTASSIUM SERUM 3.4 MEQ/L (3.5-5.1); SODIUM LEVEL 140 MEQ/L (136-145); TOTAL PROTEIN 6.9 GM/DL (6.4-8.2)
== END ==
LOC: M SFHCADAM 10:27
PROVIDERS: ATTEND Family Medicine
DX: Z01.818 Encounter for other preprocedural examination (principal); D59.9 Acquired hemolytic anemia, unspecified; D55.0 Anemia due to glucose-6-phosphate dehydrogenase [G6PD] deficiency

== ENCOUNTER → 2019-11-08 | Outpatient (REF) | payer MEDICARE ==
[2019-11-08 12:57] LABS: HEMATOCRIT 35.7 % (36.0-47.0); HEMOGLOBIN 11.9 g/dl (12.0-15.5); MEAN CORPUSCULAR HGB CONC 33.3 g/dl (32.0-36.5); PLATELET COUNT, AUTOMATED 146 10^3/uL (150-450); RED BLOOD COUNT 3.72 10^6/uL (4.00-5.40); WHITE BLOOD COUNT 5.8 10^3/uL (4.0-10.0)
[2019-11-08 13:29] LABS: PERCENT SATURATION 40.4 % (13.2-45.0)
[2019-11-09 18:15] LABS: FOLATE 8.1 NG/ML (>5.4)
== END ==
LOC: M SFHCADAM 10:19
PROVIDERS: ATTEND Family Medicine
DX: D59.1 Other autoimmune hemolytic anemias (principal); F17.291 Nicotine dependence, other tobacco product, in remission

== ENCOUNTER → 2019-11-09 | Outpatient (CLI) | payer MEDICARE ==
[~2019-11-09] MED LIST changes: +ACET650T61 PO; -ASPI81TA85 PO; +ASPI81TA86 PO; +CLOP75TA2 PO; +TOPA1TAB PO; -TYLE650T35 PO
--- NOTE | 2019-11-09 09:57 | REP ---
REASON FOR EXAM: Followup lung nodule. COMPARISON: 08/26/2017 CT lung screening examination and 04/07/2016 standard noncontrast enhanced chest CT. The mediastinum and pulmonary jayashree are unchanged. No mass or adenopathy has developed. There are no pleural or pericardial effusions. There is no significant change in the appearance of the imaged upper abdomen or imaged osseus structures. Evaluation of the lung de la o shows emphysematous changes with parenchymal bulla and pleural blebs particularly in the apical regions significantly increased somewhat from the latest prior exam although they are technically different. No new abnormal nodules, masses, or opacities have developed. IMPRESSION: Stable appearing chronic changes. Lungs RADS category 2 exam. Electronically Signed by Lalo Espinoza DO 11/09/2019 01:44 P
== END ==
LOC: M RAD 07:07
PROVIDERS: ATTEND Physician Assistant Medical
DX: J43.9 Emphysema, unspecified (principal)

== ENCOUNTER → 2019-11-20 | Outpatient (CLI) | payer MEDICARE ==
[~2019-11-20] MED LIST changes: -ACET650T61 PO; +ASPI81TA85 PO; -ASPI81TA86 PO; -CLOP75TA2 PO; -TOPA1TAB PO; +TYLE650T35 PO
--- NOTE | 2019-12-04 02:08 | ECWPNPC ---
PATIENT NAME: ZANDER DUTTA : 1955 GENDER: FEMALE VISIT DATE: 11/20/2019 DISCHARGE DATE: 11/20/19 1207 VISIT LOCKED DATE TIME: PHYSICIAN: CHELSEA WALTERS PHYSICIAN PAGER NO: [phone] RESOURCE: CHELSEA WALTERS REASON FOR APPOINTMENT 1. MED MGMNT HISTORY OF PRESENT ILLNESS GENERAL: HERE FOR FOLLOW-UP OF CHRONIC GENERALIZED JOINT PAIN AND BILATERAL SHOULDER PAIN. FINDS CURRENT CHRONIC PAIN MEDICATION IS EFFECTIVE AT REDUCING PAIN AND KEEPING HER FUNCTIONAL. DENIES ADVERSE EFFECTS WITH THESE MEDICATIONS. -. FALL RISK SCREENING: SCREENING :ONE FALL WITH INJURY IN THE PAST YEAR FELL AN THE Qiro KEEP PAIN SCREENING: PATIENT HAS A COMPLAINT OF ACUTE OR CHRONIC PAIN :YES LOCATION OF PAIN:LEFT SHOULDER, RIGHT SHOULDER INTENSITY OF PAIN (SCALE OF 1 TO 10):7 WHAT DOES YOUR PAIN FEEL LIKE:INTERMITTENT, THROBBING, SORE PAIN IS INCREASED BY:OTHERS "JUST COMES AND GOES" NURSING NOTE: -. PAIN CENTER INTAKE QUESTIONS: DO YOU HAVE A HISTORY OF MRSA? :NO DO YOU TAKE A BLOOD THINNERS? :NO DO YOU HAVE ANY BLEEDING DISORDERS? :NO ANY NEW NUMBNESS OR WEAKNESS IN YOUR LEGS OR ARMS? :NO ANY PACEMAKER,DEFIBRILLATOR, OR DORSAL COLUMN STIMULATOR? :NO DO YOU HAVE ANY RASHES OR OPEN SORES? :NO ARE YOU ALLERGIC TO IV DYE? :NO ARE YOU DIABETIC? :NO ANY NEW PROBLEMS WITH YOUR MEDICATIONS? :NO HAVE YOU RECEIVED A VACCINE IN THE PAST 30 DAYS? :NO DO YOU PLAN TO RECEIVE A VACCINE IN THE NEXT 21 DAYS? :NO DO YOU NEED ANY PRESCRIPTION? :NO DO YOU TAKE ANY IMMUNOSUPPRESSIVE MEDICATIONS? :NO IS THERE A CHANCE YOU COULD BE ? :NO ARE YOU BREAST FEEDING? :NO CURRENT MEDICATIONS TAKING PROBIOTIC FORMULA _ 1 TAB ORALLY DAILY TAKING CRANBERRY PLUS PROBIOTIC - TABLET 1 TAB ORALLY DAILY TAKING TUB TRANSFER BOARD - MISCELLANEOUS DIRECTED _ DX: I62.9 , R26.89 TAKING ALEKSANDR ROLLING WALKER PREMIUM 4 WHEEL WITH BRAKES AND SEAT DX: I62.9 , R26.89 TAKING VITAMIN C 1000 MG TABLET 1 TAB ORALLY ONCE A DAY TAKING VITAMIN D 2000 UNIT TABLET 1 TABLET ORALLY ONCE A DAY TAKING VITAMIN B 12 1000 MCG TABLET 1 TAB(S) ORALLY DAILY TAKING ASPIRIN 81 81 MG TABLET DELAYED RELEASE 1 TABLET ORALLY ONCE A DAY TAKING CITALOPRAM HYDROBROMIDE 10 MG TABLET 1 TAB ORALLY ONCE A DAY TAKING ACETAMINOPHEN 500 MG TABLET 2 TABLET NEEDED ORALLY EVERY 8 HRS TAKING POTASSIUM CHLORIDE ER 20 MEQ TABLET EXTENDED RELEASE 1 TABLET WITH FOOD ORALLY TWICE A DAY, NOTES: PER PATIENT TAKING ONLY ONCE A DAY TAKING PROAIR HFA 108 (90 BASE) MCG/ACT AEROSOL SOLUTION 2 PUFFS NEEDED INHALATION EVERY 6 HRS PRN COUGH WHEEZE TAKING GUAIFENESIN-DM 100-10 MG/5ML LIQUID 10 ML NEEDED ORALLY EVERY 4 HRS TAKING PROTONIX 40 MG TABLET DELAYED RELEASE 1 TABLET ORALLY ONCE A DAY TAKING ROPINIROLE HCL 0.25 MG TABLET 1 TAB ORALLY BEFORE BED AND 1 PRN FOR RESLESS LEGS TAKING CHLORTHALIDONE 25 MG TABLET 1/2 TABLET ORALLY ONCE A DAY TAKING FLONASE 50 MCG/DOSE INHALER 2 SPRAY IN EACH NOSTRIL NASALLY DAILY TAKING AMITRIPTYLINE HCL 25 MG TABLET 1 TO 2 TAB ORALLY QHS TAKING TOPAMAX 25 MG TABLET 1 TO 2 ORALLY NEEDED TAKING OXYCODONE HCL 15 MG TABLET 1 TABLET ORALLY Q8H MDD3 TAKING ADVAIR DISKUS 250-50 MCG/DOSE AEROSOL POWDER BREATH ACTIVATED 1 PUFF INHALATION TWICE A DAY, NOTES: NOT STARTED YET NOT-TAKING METHOCARBAMOL 750 MG TABLET 1 TABLET ORALLY EVERY 4 HRS NOT-TAKING DOXYCYCLINE HYCLATE 100 MG CAPSULE 1 CAPSULE ORALLY TWICE A DAY MEDICATION LIST REVIEWED AND RECONCILED WITH THE PATIENT PAST MEDICAL HISTORY G6PD DEFICIENCY-ATORVASTATIN WAS D/C BY HEMATOLOGY 09/08 HEMOLYTIC ANEMIA, REFERRED [facility], HAD BONE MARROW BX 06/09. SUSPECTED HEMOLYSIS. (? 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 THYROID NODULE- (THYROIDECTOMY) KIDNEY STONES S/P ESWL 03/2003, STENTS VITAMIN D DEFICIENCY MIGRAINES COPD FEV1 = 1.93 2005 SMOKER GENERALIZED OSTEOARTHRITIS HIPS, NECK, BACK, HANDS LUNG NODULE ON CT CHEST 10/05; F/U PENDING 04/07 50-69% BILAT CAROTID STENOSIS DVT RT UE 1995 BA SWALLOW 01/07: SMALL PULSION ESOPAGEAL DIVERTICULUM, ASPIRATED A DROPLET OF BARIUM, REFLUX PRESENT; SAW ENT/WEIR 2018 RHEUMATOID ARTHRITIS OSTEOPOROSIS HYPERLIPIDEMIA--WAS ON ATORVA, THIS WAS D/C BY HEMATOLOGY (POSSIBLE G6PD DEFIC CONTRIBUTOR) 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, WAS ON DEPAKOTE UNTIL PT D/C 01/08 W/O RECURRENCE ALLERGIES ATORVASTATIN (HIGHER DOSE): LIZAMA - SIDE EFFECTS HAS G6PD DEFICIENCY-- AVOID HEMOLYSIS INDUCERS: HEMOLYSIS - CONTRAINDICATION SURGICAL HISTORY 1995 CORNONARY CATH - NORMAL 1995 RIGHT ARM BRACHIAL BYPASS 1995 DORSAL COLUMN STIMULATOR 1995 CYSTOSCOPY & LEFT URETEROSCOPY WITH LITHO AND STONE EXTRACTION 2004 LEFT URETERAL STENT PLACED, THEN CHANGED DUE TO OBSTRUCTION () 2005 LEFT URETERAL STENT REMOVED 2005 PARTIAL THYROIDECTOMY - NEGATIVE FOR CANCER 2008 EGD/COLONOSCOPY - GASTRIC AND COLON" POLYPS" (PER PATIENT NEEDS F/U IN 5 YEARS) 2010 LEFT URETERAL STENT PLACED 06/2013 DORSAL COLUMN STIMULATOR REMOVED DUE TO SEVERE KIDNEY PROBLEMS FROM STONES (WIRES LEFT IN, THEY WERE REMOVED 10/04) 2004, 2014 PARTIAL HYSTERECTOMY REMOVAL OF THE WIRES TO THE STIMULATOR 08/2014 EGD/COLONOSCOPY-- BOTH NORMAL 01/2017 RIGHT KIDNEY DOUBLE J STENT X2 02/22/[address] GUIDED NEPHROLITHOTOMY AT [facility] 04/08 RIGHT KIDNEY STONE REMOVED 03/2017 EVACUATION CEREBELLAR HEMORRHAGE [facility] 10/2018 FAMILY HISTORY FATHER: , RHEUMATOID, DIAGNOSED WITH UNSPECIFIED HEART DISEASE, DIABETES MOTHER: , RHEUMATOID, UNSPECIFIED HEART DISEASE, DIABETES MATERNAL GRAND MOTHER: BREAST CANCER, OTHER MALIGNANT NEOPLASM OF UNSPECIFIED SITE SIBLINGS: DIABETES PATERNAL GRAND FATHER: DIABETES PATERNAL GRAND MOTHER: DIABETES PATERNAL GRANDMOTHER SKIN CANCER\\\\\\\\N1 SISTER- RHEUMATOID \\\\\\\\\\\\\\/ PSORIATIC ARTHRITISMULTIPLE SIBLINGS WITH HEART DISEASE. SOCIAL HISTORY GENERAL: TOBACCO USE ARE YOU A:FORMER SMOKER HOW LONG HAS IT BEEN SINCE YOU LAST SMOKED?3-6 MONTHS LATEX QUESTIONNAIRE LATEX ALLERGY : HAVE YOU EVER DEVELOPED ANY TYPE OF REACTION AFTER HANDLING LATEX PRODUCTS SUCH RUBBER GLOVES, CONDOMS, DIAPHRAGMS, BALLOONS, SOCKS, OR UNDERWEAR?NO LATEX ALLERGY : HAVE YOU EVER DEVELOPED ANY TYPE OF REACTION DURING OR AFTER DENTAL APPOINTMENT, VAGINAL/RECTAL EXAMINATION, SURGICAL PROCEDURE, OR ANY OTHER EXPOSURE?NO DATE ASKED : 11/08/2019 LATEX RISK : HAVE YOU EVER HAD ANY DIFFICULTY BREATHING OR HIVES AFTER EATING OR HANDLING ANY FRUITS, OR VEGETABLES; SUCH KIWI, BANANAS, STONE FRUITS, OR CHESTNUTSNO LATEX RISK : DO YOU HAVE A PREVIOUS PERSONAL HISTORY OF MORE THAN NINE SURGERIES, SPINA BIFIDA, OR REPEATED CATHERIZATIONS? NO LATEX RISK : ARE YOU FREQUENTLY EXPOSED TO LATEX PRODUCTS IN YOUR OCCUPATION?NO BMI CARE GOAL FOLLOW-UP BELOW NORMAL BMI FOLLOW-UPDIETARY EDUCATION FOR WEIGHT GAIN ALCOHOL SCREENING POINTS: 0, INTERPRETATION: NEGATIVE. RECREATIONAL DRUG USE DRUG USE?NO CAFFEINE CAFFEINE USE?YES ABOUT 1/2 BOTTLE SODA DAILY SEXUAL HX HAD SEX IN THE LAST 12 MONTHS (VAGINAL, ORAL, OR ANAL)?: NO, HAVE YOU EVER HAD AN STD?: NO. HIV / HEP-C SCREENING HIV TEST OFFERED TO PATIENT:NO N/A HEP-C TEST OFFERED TO PATIENT:YES DATE OFFERED:06/01/2016 TEST ACCEPTED:NO REASON:PATIENT DECLINED ISLAM NO CONFUCIANIST BELIEFS THAT WOULD IMPACT HEALTH CARE. LANGUAGE FINNISH. EDUCATION HIGH SCHOOL. LEARNING BARRIERS / SPECIAL NEEDS CHANGE FROM LAST VISIT?NO BARRIERS TO LEARNING?NO HEARING IMPAIRED?NO VISION IMPAIRED?YES COGNITIVELY IMPAIRED?NO :CORRECTIVE LENSES READINESS TO LEARN?YES LEARNING PREFERENCES?NO LEARNING CAPABILITIES PRESENT?YES EMOTIONAL BARRIERS?NO SPECIAL DEVICES?YES :CANE BILLPOSTER NEEDED?NO DOMESTIC VIOLENCE DO YOU FEEL SAFE IN YOUR ENVIRONMENT?YES OCCUPATION: DISABLED. DIET: REGULAR. EXERCISE: NO REGULAR EXERCISE. MARITAL STATUS: . NEW PATIENT PAIN DIARY TODAY'S VISITNOTES 09/12/2019 PATIENT DESCRIBES PAIN :ACHING, HAVE IT ALL THE TIME, SHARP FROM 0-10, WHAT LEVEL IS YOUR PAIN TODAY?5 PAIN CLINIC PFS, CLERGY, PUBLIC HEALTH REFERRALS HAS THE PATIENT BEEN EDUCATED REGARDING HIS/HER PLAN OF CARE?YES HAS THE PATIENT BEEN EDUCATED REGARDING PAIN, THE RISK FOR PAIN, THE IMPORTANCE OF EFFECTIVE PAIN MANAGEMENT, AND THE PAIN ASSESSMENT PROCESS?YES ADVANCE DIRECTIVE ADVANCE DIRECTIVE DISCUSSED WITH PATIENT:YES HCP- HOANG MANCUSO (DAUGHTER) HOSPITALIZATION/MAJOR DIAGNOSTIC PROCEDURE SURGERY RELATED BLOOD CLOT/SEIZURES 2019 REVIEW OF SYSTEMS CONSTITUTIONAL: ANY RECENT FEVER NO . CHILLS NO . WEIGHT CHANGE OF UNKNOWN REASONS NO . GASTROENTEROLOGY: NEW UNEXPLAINABLE CHANGES IN BOWEL CONTROL NO . CONSTIPATION NO . GENITOURINARY: ANY NEW CHANGE IN BLADDER CONTROL? NO . NEUROLOGY: NEW ONSET DIZZINESS OR NEUROLOGICAL CHANGES NOT MENTIONED NO . NEW NUMBNESS OR PAIN PATTERNS NOT MENTIONED AND PERTINENT TO TODAY'S VISIT NO . CARDIOLOGY: NEW CHEST PRESSURE NO . NEW CHEST PAIN NO . RESPIRATORY: UNEXPLAINABLE COUGH NO . NEW SHORTNESS OF BREATH NO . VITAL SIGNS WT 114.6 LBS, HT 61 IN, BMI 21.65 INDEX, BP 149/66 MM HG, HR 87 /MIN, RR 18 /MIN, TEMP 96.5 F, OXYGEN SAT % 93%, SAFE IN ENV? (Y/N) YES, NA INITIALS AW 1126, REVIEWED BY: KG. EXAMINATION GENERAL EXAMINATION: GENERALAWAKE,ALERT ,PLEASANT . PSYCHAFFECT NORMAL . LUNGS:LUNG MACKAY ARE CLEAR TO AUSCULTATION BILATERALLY. GOOD MOVEMENT OF AIR . HEART:S1, S2 IN A REGULAR RATE AND RHYTHM. NO SIGNIFICANT MURMURS, RUBS OR GALLOPS NOTED . ASSESSMENTS SPONDYLOSIS OF CERVICAL REGION WITHOUT MYELOPATHY OR RADICULOPATHY - M47.812 (PRIMARY) CHRONIC PRESCRIPTION OPIATE USE - Z79.891 TREATMENT SPONDYLOSIS OF CERVICAL REGION WITHOUT MYELOPATHY OR RADICULOPATHY REFILL AMITRIPTYLINE HCL TABLET, 25 MG, 1 TO 2 TAB, ORALLY, QHS, 90 DAY(S), 180, REFILLS 0 REFILL TOPAMAX TABLET, 25 MG, 2 TAB, ORALLY, NEEDED, 90 DAY(S), 180, REFILLS 0 REFILL OXYCODONE HCL TABLET, 15 MG, 1 TABLET, ORALLY, Q8H MDD3 3 MOS SUPPLY CAT D CHRONIC PAIN, 90 DAY(S), 270, REFILLS 0 NOTES: ISTOP REGISTRY REVIEWED AND DEMONSTRATES COMPLLIANCE. BRINGS IN MEDICATIONS WHICH IS APPROPRIATE FOR WHAT WAS DISPENSED. RECENT URINE TOXICOLOGY REVIEWED. NO UNAUTHORIZED MEDICATIONS. NO ILLICIT SUBSTANCES AND PRESCRIBED MEDICATIONS WERE PRESENT. URINE TOX TODAY , RISKS OF NARCOTIC/OPIOD MEDICATIONS INCLUDES BUT IS NOT LIMITED TO RISK OF DEPENDANCE/DEVELOPMENT OF ADDICTION, MOOD DISTURBANCE AND DEPRESSION, OSTEOPOROSIS, HORMONAL AND LABIDAL CHANGES, RESPIRATORY DEPRESSION AND . PATIENT IS ADVISED NOT TO DRIVE OR DRINK ALCOHOL WHILE ON THESE MEDICATIONS. PROCEDURE CODES FA211 ESTABILISHED PATIENT [facility] FACILITY CHARGE DISPOSITION & COMMUNICATION FOLLOW UP 3 MONTHS (REASON: MED MGMNT) ELECTRONICALLY SIGNED BY AKUA DIEHL ON 12/03/2019 AT 03:03 PM EDT DISCLAIMER : THIS IS A VISIT SUMMARY EXTRACTED FROM THE [facility] CHART. IT IS NOT A COPY OF THE [facility] PROGRESS NOTE. RASHAWND
== END ==
LOC: M PAIN 11:30
PROVIDERS: ATTEND Nurse Practitioner Family
DX: M47.812 Spondylosis without myelopathy or radiculopathy, cervical region (principal); Z79.891 Long term (current) use of opiate analgesic

== ENCOUNTER → 2019-12-02 | Outpatient (REF) | payer MEDICAID, MEDICARE ==
[~2019-12-02] MED LIST changes: +ACET650T61 PO; -ASPI81TA85 PO; +ASPI81TA86 PO; +CLOP75TA2 PO; +TOPA1TAB PO; -TYLE650T35 PO
[2019-12-02 17:38] LABS: AMORPHOUS SEDIMENT SMALL (NEGATIVE); APPEARANCE, URINE CLOUDY (CLEAR); BACTERIA, URINE AUTO 3+ (NEGATIVE); BILIRUBIN, URINE AUTO NEGATIVE (NEGATIVE); BLOOD, URINE BLOOD NEGATIVE (NEGATIVE); COLOR, URINE AMBER (YELLOW); GLUCOSE, URINE (UA) AUTO NEGATIVE (NEGATIVE); KETONE, URINE AUTO NEGATIVE (NEGATIVE); LEUKOCYTE ESTERASE, URINE AUTO 3+ (NEGATIVE); MUCUS, URINE SMALL (NEGATIVE); NITRITE, URINE AUTO NEGATIVE (NEGATIVE); PROTEIN, URINE AUTO NEGATIVE (NEGATIVE); RBC, URINE AUTO 7 /HPF (0-3); RENAL EPITHELIAL CELLS 2 /HPF; SPECIFIC GRAVITY URINE AUTO 1.013 (1.002-1.035); SQUAMOUS EPITHELIAL CELL UR AU 3 /HPF (0-6); WBC, URINE AUTO 66 /HPF (0-3)
== END ==
LOC: M LAB REF 17:10
PROVIDERS: ATTEND Physician Assistant Medical
DX: N39.0 Urinary tract infection, site not specified (principal)

== ENCOUNTER → 2019-12-26 | Outpatient (CLI) | payer MEDICARE, MEDICAID ==
--- NOTE | 2020-02-12 09:27 | REP ---
BILATERAL EXTREMITY DUPLEX DOPPLER ARTERIAL ULTRASOUND: HISTORY: Left leg pain and soreness. FINDINGS: Real time ultrasound evaluation and duplex Doppler interrogation of bilateral lower extremity arterial systems is performed. DEBBIE right is 1.05. DEBBIE left is 0.5. Note is made of occlusion of the left common iliac artery. There is revascularization at the left external iliac artery from a deep collateral arterial structure. Otherwise, mild to moderate plaquing is seen diffusely bilaterally. Diffuse triphasic and biphasic wave forms are seen of the right lower extremity. Diffuse monophasic wave forms are seen of the left lower extremity. VELOCITY CHART RIGHT (cm/s) LEFT (cm/s) External iliac artery 165 77.2 Common femoral artery 159 69.3 Profunda 99.5 52.7 Proximal SFA 139 59.7 Mid-SFA 108 39.7 Distal SFA 95.1 39.4 Popliteal 67.3 29.5 Proximal JESSICA 75.8 40.5 Tibioperoneal trunk 59.0 23.1 Proximal CHEMICAL SALES REPRESENTATIVE 82.0 25.9 Distal CHEMICAL SALES REPRESENTATIVE 89.5 38.3 Distal JESSICA 64.9 29.3 MTDD
== END ==
LOC: M RAD 07:06
PROVIDERS: ATTEND Physician Assistant
DX: I70.203 Unspecified atherosclerosis of native arteries of extremities, bilateral legs (principal); R09.89 Other specified symptoms and signs involving the circulatory and respiratory systems

== ENCOUNTER → 2019-12-31 | Outpatient (CLI) | payer MEDICARE, MEDICAID ==
[2020-01-30 14:13] LABS: HEMATOCRIT 32.5 % (36.0-47.0); HEMOGLOBIN 10.9 g/dl (12.0-15.5); MEAN CORPUSCULAR HEMOGLOBIN 31.7 pg (27.0-33.0); MEAN CORPUSCULAR HGB CONC 33.5 g/dl (32.0-36.5); MEAN CORPUSCULAR VOLUME 94.5 fl (80.0-96.0); PLATELET COUNT, AUTOMATED 164 10^3/uL (150-450); RED BLOOD COUNT 3.44 10^6/uL (4.00-5.40)
[2020-02-12 10:39] LABS: BLOOD UREA NITROGEN 13 MG/DL (7-18); CALCIUM LEVEL 9.1 MG/DL (8.8-10.2); CARBON DIOXIDE LEVEL 29 MEQ/L (21-32); CHLORIDE LEVEL 105 MEQ/L (98-107); CREATININE FOR GFR 0.98 MG/DL (0.55-1.30); GLOMERULAR FILTRATION RATE > 60.0 (>45); GLUCOSE, FASTING 75 MG/DL (70-100); POTASSIUM SERUM 3.1 MEQ/L (3.5-5.1); SODIUM LEVEL 142 MEQ/L (136-145)
== END ==
LOC: M LAB 13:15
PROVIDERS: ATTEND Physician Assistant
DX: I70.203 Unspecified atherosclerosis of native arteries of extremities, bilateral legs (principal)

== ENCOUNTER → 2020-01-02 | Outpatient (CLI) | payer MEDICARE, MEDICAID ==
[~2020-01-02] MED LIST changes: +ACETAMINOPHEN 325 MG TAB As Ordered ONE; +ISOVUE-300 61% 50ML VIAL As Ordered ONE; +LIDOCAINE 1% MDV 20ML VIAL As Ordered ONE; +MIDAZOLAM INJ 2MG/2ML VIAL (J2250 PER 1MG) As Ordered ONE; +fentaNYL 100 MCG/2 ML INJECTION (J3010) As Ordered ONE
--- NOTE | 2020-03-28 17:59 | ROOPDOC ---
[facility] Report Of Operation Report of Operation DATE OF PROCEDURE: 01/02/20 PREPROCEDURE DIAGNOSES: Atherosclerosis the [place] artery supply still limiting claudication POSTPROCEDURE DIAGNOSES: Same PROCEDURE: 1. Ultrasound-guided access bilateral common femoral arteries 2. Aortoiliofemoral arteriogram 3. Left lower extremity runoff 4. 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 Stenting left common iliac artery with 8 x 57 express stent 6. Stenting right proximal common iliac artery with 8 x 27 express stent 7. Completion arteriograms 8. Mynx closure bilateral common femoral artery SURGEON: Santiago Meza MD ANESTHESIA: Local anesthesia 10 mL lidocaine. Moderate intravenous conscious sedation was supervised by Dr. Meza. The patient was independently monitored by a registered nurse assigned to the Department of radiology using automated blood pressure, EKG, and pulse oximetry. A detailed sedation record is primarily stored in the hospital information system. The following is a brief sedation record: Start time 10:17, stop time 10:59, Versed 1.5 mg IV, fentanyl 50 g IV, heparin 4000 units IV. CONTRAST: 36 mL Isovue-300 INDICATION FOR PROCEDURE: This is a very pleasant 65-year-old patient with lifestyle limiting claudication of the bilateral lower extremities, left greater than right. Risks benefits and alternatives to an arteriogram potential intervention were explained to the patient she is agreeable to proceed. Informed consent was obtained. INTERPRETATION: 1. The distal aorta is ectatic the patent with mild ectasia and stenosis noted i n the right common iliac artery, widely patent inflow through the hypogastric and right external iliac artery, occlusion of the proximal left common iliac artery, the patent hypogastric and external iliac artery with calcified plaque but no significant stenosis. 2. Left common femoral arteries widely patent with excellent flow through the profunda and the SFA and popliteal artery. The tibial vessels are widely patent although a bit diminutive inside which sluggish flow due to proximal occlusion. 3. After crossing the occlusion in the left iliac artery and predilation with a 6 x 100 balloon, there is flow noted through the vessel but certainly extensive flow-limiting stenosis still present due to chronic occlusion. 4. After proximal iliac artery stents are placed bilaterally, there is widely patent flow through both iliac systems with no significant residual stenosis noted on the left, no dissections no embolizations noted. REPORT OF OPERATION: This patient was brought to the angiographic suite in stable condition. Her bilateral groins were prepped and draped in a sterile fashion. A timeout was performed. Local anesthesia was administered to skin and subcutaneous tissue over both common femoral arteries as sedation was given without complication. Microneedle was used to access left common femoral artery under ultrasound guidance. A wire was passed through this access and a 4 Egyptian sheath was placed and flushed with saline. A Glidewire and a flushing catheter were used to try to gain access to the distal aorta, but there was occlusion in the vessel. A quick arteriogram to the sheath confirmed the occlusion. We then utilized ultrasound to gain access in the right common femoral artery and a similar fashion to the left. A 4 Egyptian sheath was placed and flushed with saline. We then advanced Glidewire and a flushing catheter and the distal aorta. Aortoiliofemoral arteriograms were performed. Please interpretation above. We performed a left lower extremity runoff through the existing left femoral sheath. We then went with a Glidewire and a crossing catheter and attempted to cross through the occlusion in the left iliac system. Eventually, we were able to cross her successfully. Quick contrast injection confirmed we're in the true lumen in the aorta. We then exchange both she is over Glidewire for some Egyptian sheath and flushed sheath with saline. On the left we advanced a 6 x 100 [place] balloon across the iliac occlusion and predilated for a two-minute inflation. Following this there was flow through the vessel no extravasation and we then advanced an 8 x 57 express stent. We protected the other side with an 8 x 27 express stent both were deployed at the same time. Following this there was widely patent flow through both iliac systems with no extravasation embolization or dissections noted. No significant residual stenosis was present. We then deployed Mynx closure devices in both common femoral arteries with good hemostasis. Pressure was held and sterile dressings were applied and the patient was taken to recovery in stable condition. She tolerated the procedure and the sedation well. ESTIMATED BLOOD LOSS: Approximately 5 mL. COMPLICATIONS: None. PLAN: Okay to resume home diet and medications. We will see the patient back in a week to check her groin access sites and her perfusion. No lifting more than 5 pounds or strenuous exercise for 48 hours. We appreciate the opportunity to participate in the care of this patient. SANTIAGO MEZA MD Mar 28, 2020 17:59
== END ==
LOC: M IRPRO 08:35 → M RAD 08:35
PROVIDERS: ATTEND Surgery Vascular Surgery
DX: I70.213 Atherosclerosis of native arteries of extremities with intermittent claudication, bilateral legs (principal); I70.92 Chronic total occlusion of artery of the extremities; M12.9 Arthropathy, unspecified; G90.50 Complex regional pain syndrome I, unspecified; I65.23 Occlusion and stenosis of bilateral carotid arteries; K21.9 Gastro-esophageal reflux disease without esophagitis; M32.9 Systemic lupus erythematosus, unspecified; D64.9 Anemia, unspecified; Z79.82 Long term (current) use of aspirin; Z79.899 Other long term (current) drug therapy
CPT/HCPCS: 37221; 75630; 99152; 99153; C1725; C1760; C1769; C1876; C1887; C1894; J1644; J2250; J3010; Q9967

== ENCOUNTER → 2020-02-05 | Outpatient (CLI) | payer MEDICARE ==
[~2020-02-05] MED LIST changes: -ACETAMINOPHEN 325 MG TAB As Ordered ONE; +E-Z-GAS II EFFERVESCENT PACKET (SODIUM BICARB./CITRIC ACID/SIMETHICONE) As Ordered ONE; +E-Z-HD 98% w/w 340GM SUSP BTL As Ordered ONE; +E-Z-PAQUE 96% w/w SUSP 176GM BTL As Ordered ONE; -ISOVUE-300 61% 50ML VIAL As Ordered ONE; -LIDOCAINE 1% MDV 20ML VIAL As Ordered ONE; -MIDAZOLAM INJ 2MG/2ML VIAL (J2250 PER 1MG) As Ordered ONE; -fentaNYL 100 MCG/2 ML INJECTION (J3010) As Ordered ONE
--- NOTE | 2020-02-21 07:58 | REP ---
ESOPHAGRAM, SINGLE CONTRAST The procedure was performed under the direct supervision of Dr. Wiggins. The images were reviewed with Dr. Wiggins. FINDINGS: A single view PA chest x-ray submitted as a comb tender film. The superior mediastinal structures are midline. There is bilateral perihilar linear fibrosis. The heart size is within normal limits. Liquid barium was given in the erect and prone oblique positions in order to perform a single contrast esophagram examination. The oral and pharyngeal stages of deglutition are unremarkable. There are degenerative changes of the cervical spine which causes mild impression on the posterior esophagus. During esophageal transport, there are tertiary waves demonstrated. There is no esophagitis, stricture, or mucosal ring. There is a small sliding type hiatal hernia. This is unchanged compared to a previous study dated 12/29/2017. Gastroesophageal reflux is not demonstrated on this examination. IMPRESSION: * Tertiary waves. * There is a small sliding type hiatal hernia. 1.5 minutes of fluoroscopy time was utilized for this procedure. [facility]
== END ==
LOC: M RAD 07:45
PROVIDERS: ATTEND Internal Medicine Gastroenterology
DX: R14.2 Eructation (principal)

== ENCOUNTER → 2020-02-07 | Outpatient (CLI) | payer MEDICARE ==
[~2020-02-07] MED LIST changes: -E-Z-GAS II EFFERVESCENT PACKET (SODIUM BICARB./CITRIC ACID/SIMETHICONE) As Ordered ONE; -E-Z-HD 98% w/w 340GM SUSP BTL As Ordered ONE; -E-Z-PAQUE 96% w/w SUSP 176GM BTL As Ordered ONE
--- NOTE | 2020-02-21 08:00 | REP ---
BILATERAL LOWER EXTREMITY ARTERIAL DOPPLER ULTRASOUND HISTORY: Atherosclerosis of the tangirnaq arteries. COMPARISON STUDY: 12/26/2019. On 01/02/2020, the patient underwent bilateral common iliac artery angioplasty and stenting. FINDINGS: Ankle brachial index on the right is 1.1. Ankle brachial index on the left is measured at 0.7. No significant stenosis or occlusion is seen on the right. No occlusion is seen on the left. Monophasic waveforms are noted throughout the lower extremity on the left. No high-grade stenosis is detected. BILATERAL LOWER EXTREMITY ARTERIAL DOPPLER VELOCITY CHART RIGHT (CM/S) LEFT (CM/S) Aortic peak systolic flow velocity (just above the bifurcation) 44 44 BARBIE 134 139 EIA 119 81 MAJOR ASSEMBLY INSPECTOR 170 57 Profunda 58 45 Proximal SFA 142 74 Mid SFA 114 61 Distal SFA 93 60 Popliteal 60 24 Proximal JESSICA 52 30 Tibioperoneal trunk 70 24 Proximal EMT PARAMEDIC 82 17 Distal EMT PARAMEDIC 59 34 Distal JESSICA 57 24 MTDD
== END ==
LOC: M RAD 12:44
PROVIDERS: ATTEND Physician Assistant
DX: I70.203 Unspecified atherosclerosis of native arteries of extremities, bilateral legs (principal); R09.89 Other specified symptoms and signs involving the circulatory and respiratory systems

== ENCOUNTER 2020-02-11 08:18 | Outpatient (CLI) | payer MEDICARE ==
[2020-02-11] VITALS (10 sets, daily range): BP systolic 56–119; BP diastolic 53–59
[~2020-02-11] VITALS: Ht 154.9 cm; Wt 52.4 kg
[~2020-02-11 08:18] MED LIST changes: -TOPA1TAB PO
[2020-02-11] MEDS ORDERED: ACETAMINOPHEN TAB 650MG DOSE (2X325MG) PO ONE (08:30)
[2020-02-11] MEDS ORDERED: riTUXimab (INITIAL INFUSION) IV ONE ×3 (08:30)
[2020-02-11] MEDS ORDERED: diphenhydrAMINE 50MG/ML VIAL (J1200) IV ONE (08:30)
[2020-02-11] MEDS ORDERED: HYDROCORTISONE 100 MG/2 ML VIAL (J1720 PER 1) IV ONE (08:30)
[2020-02-11] MEDS ORDERED: ACETAMINOPHEN TAB 650MG DOSE (2X325MG) As Ordered ONE (09:00)
[2020-02-11] MEDS ORDERED: diphenhydrAMINE 50MG/ML VIAL (J1200) As Ordered ONE (09:00)
[2020-02-11] MEDS ORDERED: HYDROCORTISONE 100 MG/2 ML VIAL (J1720 PER 1) As Ordered ONE (09:30)
[2020-02-11 09:43] LABS: HEMATOCRIT 31.4 % (36.0-47.0); HEMOGLOBIN 10.2 g/dl (12.0-15.5); MEAN CORPUSCULAR HEMOGLOBIN 29.8 pg (27.0-33.0); MEAN CORPUSCULAR HGB CONC 32.5 g/dl (32.0-36.5); MEAN CORPUSCULAR VOLUME 91.8 fl (80.0-96.0); PLATELET COUNT, AUTOMATED 163 10^3/uL (150-450); RED BLOOD COUNT 3.42 10^6/uL (4.00-5.40); WHITE BLOOD COUNT 4.6 10^3/uL (4.0-10.0)
[2020-03-04] MEDS ORDERED: TOPA1TAB PO (11:21)
== END 2020-02-11 13:25 | disposition home or self-care (01) ==
LOC: M INFU 08:18
PROVIDERS: ATTEND Internal Medicine Hematology & Oncology
DX: D59.1 Other autoimmune hemolytic anemias (principal)
CPT/HCPCS: 36415; 85027; 86704; 86706; 96375; 96413; 96415; J1200; J1720; J9312

== ENCOUNTER → 2020-02-13 | Outpatient (CLI) | payer MEDICARE ==
[~2020-02-13] MED LIST changes: +TOPA1TAB PO
--- NOTE | 2020-02-21 08:01 | REP ---
COOKIE SWALLOW The procedure was performed by JADA Dennis, under the direct supervision of Dr. Gifford. The procedure was performed with Rosey Montaño from speech pathology present. 5 mL aliquots of thin, pudding, mixed fruit, soft food, hard food, and pill consistency barium was administered. No aspiration or penetration was visualized throughout the exam. A detailed report of this examination will be provided by speech pathology. 1.7 minutes of fluoroscopy time was utilized for this procedure. This has been dictated by JADA Dennis and Dr. Gifford. [facility]
== END ==
LOC: M ST 14:02
PROVIDERS: ATTEND Internal Medicine Gastroenterology
DX: K21.9 Gastro-esophageal reflux disease without esophagitis (principal)

== ENCOUNTER 2020-02-18 07:52 | Outpatient (CLI) | payer MEDICARE ==
[~2020-02-18] VITALS: Ht 154.9 cm; Wt 52.4 kg
[~2020-02-18 07:52] MED LIST changes: -TOPA1TAB PO
[2020-02-18] MEDS ORDERED: ACETAMINOPHEN TAB 650MG DOSE (2X325MG) PO ONE (08:00)
[2020-02-18] MEDS ORDERED: diphenhydrAMINE 50MG/ML VIAL (J1200) IV ONE (08:00)
[2020-02-18] MEDS ORDERED: RITUXIMAB IV ONE (08:00)
[2020-02-18] MEDS ORDERED: HYDROCORTISONE 100 MG/2 ML VIAL (J1720 PER 1) IV ONE (08:00)
[2020-02-18] MEDS ORDERED: NS IV ONE (08:00)
[2020-02-18 08:28] LABS: HEMATOCRIT 28.5 % (36.0-47.0); HEMOGLOBIN 9.2 g/dl (12.0-15.5); MEAN CORPUSCULAR HEMOGLOBIN 29.5 pg (27.0-33.0); MEAN CORPUSCULAR HGB CONC 32.3 g/dl (32.0-36.5); MEAN CORPUSCULAR VOLUME 91.3 fl (80.0-96.0); PLATELET COUNT, AUTOMATED 153 10^3/uL (150-450); RED BLOOD COUNT 3.12 10^6/uL (4.00-5.40); WHITE BLOOD COUNT 4.4 10^3/uL (4.0-10.0)
[2020-02-18 08:38] VITALS: BP 120/61
[2020-02-18 09:40] VITALS: BP 111/54
[2020-02-18 10:10] VITALS: BP 111/56
[2020-02-18 10:40] VITALS: BP 125/60
[2020-02-18 11:20] VITALS: BP 148/60
[2020-03-04] MEDS ORDERED: TOPA1TAB PO (11:21)
== END 2020-02-18 11:35 | disposition home or self-care (01) ==
LOC: M INFU 07:52
PROVIDERS: ATTEND Internal Medicine Hematology & Oncology
DX: D59.1 Other autoimmune hemolytic anemias (principal)
CPT/HCPCS: 36592; 85027; 85046; 96375; 96413; 96415; J1200; J1720; J9312

== ENCOUNTER 2020-02-25 07:48 | Outpatient (CLI) | payer MEDICARE ==
[~2020-02-25] VITALS: Ht 154.9 cm; Wt 52.0 kg
[~2020-02-25 07:48] MED LIST changes: +ACETAMINOPHEN TAB 650MG DOSE (2X325MG) PO ONE
[2020-02-25 08:00] VITALS: BP 142/68
[2020-02-25] MEDS ORDERED: HYDROCORTISONE 100 MG/2 ML VIAL (J1720 PER 1) IV ONE (08:00)
[2020-02-25] MEDS ORDERED: diphenhydrAMINE 50MG/ML VIAL (J1200) IV ONE (08:00)
[2020-02-25] MEDS ORDERED: riTUXimab (SUBSEQUENT INFUSIONS) IV ONE ×3 (08:00)
[2020-02-25 09:22] VITALS: BP 116/55
[2020-02-25 09:45] VITALS: BP 108/47
[2020-02-25 10:15] VITALS: BP 116/55
[2020-02-25 10:45] VITALS: BP 103/46
[2020-02-25 12:00] VITALS: BP 112/66
[2020-02-25 12:07] LABS: HEMATOCRIT 27.2 % (36.0-47.0); MEAN CORPUSCULAR HEMOGLOBIN 30.7 pg (27.0-33.0); MEAN CORPUSCULAR HGB CONC 33.1 g/dl (32.0-36.5); MEAN CORPUSCULAR VOLUME 92.8 fl (80.0-96.0); PLATELET COUNT, AUTOMATED 148 10^3/uL (150-450); RED BLOOD COUNT 2.93 10^6/uL (4.00-5.40); WHITE BLOOD COUNT 5.3 10^3/uL (4.0-10.0)
[2020-03-04] MEDS ORDERED: TOPA1TAB PO (11:21)
== END 2020-02-25 12:00 | disposition home or self-care (01) ==
LOC: M INFU 07:48
PROVIDERS: ATTEND Internal Medicine Hematology & Oncology
DX: D59.8 Other acquired hemolytic anemias (principal); Z79.899 Other long term (current) drug therapy
CPT/HCPCS: 36415; 85027; 86480; 96375; 96413; 96415; J1200; J1720; J9312

== ENCOUNTER 2020-03-03 07:43 | Outpatient (CLI) | payer MEDICARE ==
[~2020-03-03] VITALS: Ht 154.9 cm; Wt 52.0 kg
[~2020-03-03 07:43] MED LIST changes: -ACETAMINOPHEN TAB 650MG DOSE (2X325MG) PO ONE
[2020-03-03 07:45] VITALS: BP 103/49
[2020-03-03] MEDS ORDERED: riTUXimab (SUBSEQUENT INFUSIONS) IV ONE ×3 (08:00)
[2020-03-03] MEDS ORDERED: ACETAMINOPHEN TAB 650MG DOSE (2X325MG) PO ONE (08:00)
[2020-03-03] MEDS ORDERED: diphenhydrAMINE 50MG/ML VIAL (J1200) IV ONE (08:00)
[2020-03-03] MEDS ORDERED: HYDROCORTISONE 100 MG/2 ML VIAL (J1720 PER 1) IV ONE (08:00)
[2020-03-03 08:47] VITALS: BP 103/49
[2020-03-03 08:47] LABS: HEMATOCRIT 31.1 % (36.0-47.0); MEAN CORPUSCULAR HEMOGLOBIN 29.7 pg (27.0-33.0); MEAN CORPUSCULAR HGB CONC 32.2 g/dl (32.0-36.5); MEAN CORPUSCULAR VOLUME 92.3 fl (80.0-96.0); PLATELET COUNT, AUTOMATED 182 10^3/uL (150-450); RED BLOOD COUNT 3.37 10^6/uL (4.00-5.40); WHITE BLOOD COUNT 5.7 10^3/uL (4.0-10.0)
[2020-03-03 10:00] VITALS: BP 108/49
[2020-03-03 11:00] VITALS: BP 107/55
[2020-03-03 11:45] VITALS: BP 106/52
[2020-03-03 12:00] VITALS: BP 101/51
[2020-03-04] MEDS ORDERED: TOPA1TAB PO (11:21)
== END 2020-03-03 12:00 | disposition home or self-care (01) ==
LOC: M INFU 07:43
PROVIDERS: ATTEND Internal Medicine Hematology & Oncology
DX: D59.8 Other acquired hemolytic anemias (principal); Z79.899 Other long term (current) drug therapy
CPT/HCPCS: 85027; 96365; 96366; 96375; J1200; J1720; J9312

== ENCOUNTER 2020-03-04 14:00 | Outpatient (CLI) | payer MEDICARE ==
[~2020-03-04] VITALS: Ht 154.9 cm; Wt 51.8 kg
[~2020-03-04 14:00] MED LIST changes: +TOPA1TAB PO
[2020-03-04 14:05] VITALS: BP 133/61
[2020-03-04] MEDS: KCL 20MEQ in NS 1000ML 1,000 ML IV SCH ×2 (14:42→16:47)
[2020-03-04 16:29] VITALS: BP 121/58
[2020-03-04 17:30] VITALS: BP 121/60
[2020-03-04 18:50] VITALS: BP 117/60
== END 2020-03-04 18:50 | disposition home or self-care (01) ==
LOC: M INFU 14:00
PROVIDERS: ATTEND Internal Medicine Hematology & Oncology
DX: E87.6 Hypokalemia (principal)
CPT/HCPCS: 36415; 80053; 82784; 83010; 83615; 85025; 85046; 86480; 96365; 96366; G0463

== ENCOUNTER → 2020-03-06 | Outpatient (CLI) | payer MEDICARE ==
--- NOTE | 2020-03-07 16:00 | ECWPNPC ---
PATIENT NAME: ZANDER DUTTA : 1955 GENDER: FEMALE VISIT DATE: 03/06/2020 DISCHARGE DATE: 03/06/20 1214 VISIT LOCKED DATE TIME: PHYSICIAN: CHELSEA WALTERS PHYSICIAN PAGER NO: ACTIVE RESOURCE: CHELSEA WALTERS REASON FOR APPOINTMENT 1. MED MGMT HISTORY OF PRESENT ILLNESS DEPRESSION SCREENING: PHQ-2 (2015 EDITION) LITTLE INTEREST OR PLEASURE IN DOING THINGS?NOT AT ALL FEELING DOWN, DEPRESSED, OR HOPELESS?NOT AT ALL TOTAL SCORE0 GENERAL: HERE FOR FOLLOW-UP OF CHRONIC GENERALIZED JOINT PAIN AND BILATERAL SHOULDER PAIN. FINDS CURRENT CHRONIC PAIN MEDICATION IS EFFECTIVE AT REDUCING PAIN AND KEEPING HER FUNCTIONAL. DENIES ADVERSE EFFECTS WITH THESE MEDICATIONS. STARTED ON TOPAMAX 25 MG TWICE A DAY AT LAST VISIT. REPORTING LESS FREQUENT HEADACHES. - - -. FALL RISK SCREENING: SCREENING :NO FALLS REPORTED IN THE LAST YEAR NONE PAIN SCREENING: PATIENT HAS A COMPLAINT OF ACUTE OR CHRONIC PAIN :YES LOCATION OF PAIN:HEAD, NECK BOTH ARMS INTENSITY OF PAIN (SCALE OF 1 TO 10):5 WHAT DOES YOUR PAIN FEEL LIKE:THROBBING DURATION:CONTINOUS PAIN IS INCREASED BY:ACTIVITIES, OTHERS PAIN IS DECREASED BY:USE OF PAIN MEDICATIONS, OTHERS NURSING NOTE: - -. PAIN CENTER INTAKE QUESTIONS: DO YOU HAVE A HISTORY OF MRSA? :NO DO YOU TAKE A BLOOD THINNERS? :NO DO YOU HAVE ANY BLEEDING DISORDERS? :NO ANY NEW NUMBNESS OR WEAKNESS IN YOUR LEGS OR ARMS? :YES YES ARMS HAS STENTS IN LEGS ANY PACEMAKER,DEFIBRILLATOR, OR DORSAL COLUMN STIMULATOR? :NO DO YOU HAVE ANY RASHES OR OPEN SORES? :NO ARE YOU ALLERGIC TO IV DYE? :NO ARE YOU DIABETIC? :NO ANY NEW PROBLEMS WITH YOUR MEDICATIONS? :NO HAVE YOU RECEIVED A VACCINE IN THE PAST 30 DAYS? :NO DO YOU PLAN TO RECEIVE A VACCINE IN THE NEXT 21 DAYS? :YES WILL GET IT IN MARCH DO YOU NEED ANY PRESCRIPTION? :NO DO YOU TAKE ANY IMMUNOSUPPRESSIVE MEDICATIONS? :NO IS THERE A CHANCE YOU COULD BE ? :NO ARE YOU BREAST FEEDING? :NO CURRENT MEDICATIONS TAKING PROBIOTIC FORMULA _ 1 TAB ORALLY DAILY TAKING CRANBERRY PLUS PROBIOTIC - TABLET 1 TAB ORALLY DAILY TAKING TUB TRANSFER BOARD - MISCELLANEOUS DIRECTED _ DX: I62.9 , R26.89 TAKING VITAMIN D 2000 UNIT TABLET 1 TABLET ORALLY ONCE A DAY TAKING VITAMIN B 12 1000 MCG TABLET 1 TAB(S) ORALLY DAILY TAKING ASPIRIN 81 81 MG TABLET DELAYED RELEASE 1 TABLET ORALLY ONCE A DAY TAKING CITALOPRAM HYDROBROMIDE 10 MG TABLET 1 TAB ORALLY ONCE A DAY TAKING ACETAMINOPHEN 500 MG TABLET 2 TABLET NEEDED ORALLY EVERY 8 HRS TAKING POTASSIUM CHLORIDE ER 20 MEQ TABLET EXTENDED RELEASE 1 TABLET WITH FOOD ORALLY TWICE A DAY, NOTES: PER PATIENT TAKING ONLY ONCE A DAY TAKING PROAIR HFA 108 (90 BASE) MCG/ACT AEROSOL SOLUTION 2 PUFFS NEEDED INHALATION EVERY 6 HRS PRN COUGH WHEEZE TAKING GUAIFENESIN-DM 100-10 MG/5ML LIQUID 10 ML NEEDED ORALLY EVERY 4 HRS TAKING PROTONIX 40 MG TABLET DELAYED RELEASE 1 TABLET ORALLY ONCE A DAY TAKING ROPINIROLE HCL 0.25 MG TABLET 1 TAB ORALLY BEFORE BED AND 1 PRN FOR RESLESS LEGS TAKING CHLORTHALIDONE 25 MG TABLET 1/2 TABLET ORALLY ONCE A DAY TAKING FLONASE 50 MCG/DOSE INHALER 2 SPRAY IN EACH NOSTRIL NASALLY DAILY TAKING AMITRIPTYLINE HCL 25 MG TABLET 1 TO 2 TAB ORALLY QHS TAKING TOPAMAX 25 MG TABLET 2 TAB ORALLY NEEDED TAKING OXYCODONE HCL 15 MG TABLET 1 TABLET ORALLY Q8H MDD3 3 MOS SUPPLY CAT D CHRONIC PAIN NOT-TAKING ALEKSANDR ROLLING WALKER PREMIUM 4 WHEEL WITH BRAKES AND SEAT DX: I62.9 , R26.89 NOT-TAKING VITAMIN C 1000 MG TABLET 1 TAB ORALLY ONCE A DAY NOT-TAKING ADVAIR DISKUS 250-50 MCG/DOSE AEROSOL POWDER BREATH ACTIVATED 1 PUFF INHALATION TWICE A DAY, NOTES: NOT STARTED YET NOT-TAKING METHOCARBAMOL 750 MG TABLET 1 TABLET ORALLY EVERY 4 HRS NOT-TAKING DOXYCYCLINE HYCLATE 100 MG CAPSULE 1 CAPSULE ORALLY TWICE A DAY MEDICATION LIST REVIEWED AND RECONCILED WITH THE PATIENT PAST MEDICAL HISTORY G6PD DEFICIENCY-ATORVASTATIN WAS D/C BY HEMATOLOGY 09/08 HEMOLYTIC ANEMIA, REFERRED [facility]E/[facility]C, HAD BONE MARROW BX 06/09. SUSPECTED HEMOLYSIS. (? 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 THYROID NODULE- (THYROIDECTOMY) KIDNEY STONES S/P ESWL 03/2003, STENTS VITAMIN D DEFICIENCY MIGRAINES COPD FEV1 = 1.93 2006 SMOKER GENERALIZED OSTEOARTHRITIS HIPS, NECK, BACK, HANDS LUNG NODULE ON CT CHEST 10/05; F/U PENDING 04/07 50-69% BILAT CAROTID STENOSIS DVT RT UE 1995 BA SWALLOW 01/07: SMALL PULSION ESOPAGEAL DIVERTICULUM, ASPIRATED A DROPLET OF BARIUM, REFLUX PRESENT; SAW ENT/WEIR 2018 RHEUMATOID ARTHRITIS OSTEOPOROSIS HYPERLIPIDEMIA--WAS ON ATORVA, THIS WAS D/C BY HEMATOLOGY (POSSIBLE G6PD DEFIC CONTRIBUTOR) 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, WAS ON DEPAKOTE UNTIL PT D/C 01/08 W/O RECURRENCE CALCULATED HASBLED BLEEDING RISK 3.8% FOR MAJOR, 7% FOR ANY BLEED (OVERALL CONSIDERED HIGH RISK, PT DECLINES ANTICOAGULATION BASED ON THIS) 12/09 ALLERGIES ATORVASTATIN (HIGHER DOSE): LIZAMA - SIDE EFFECTS HAS G6PD DEFICIENCY-- AVOID HEMOLYSIS INDUCERS: HEMOLYSIS - CONTRAINDICATION SURGICAL HISTORY 1995 CORNONARY CATH - NORMAL 1995 RIGHT ARM BRACHIAL BYPASS 1995 DORSAL COLUMN STIMULATOR 1995 CYSTOSCOPY & LEFT URETEROSCOPY WITH LITHO AND STONE EXTRACTION 2004 LEFT URETERAL STENT PLACED, THEN CHANGED DUE TO OBSTRUCTION () 2005 LEFT URETERAL STENT REMOVED 2005 PARTIAL THYROIDECTOMY - NEGATIVE FOR CANCER 2008 EGD/COLONOSCOPY - GASTRIC AND COLON" POLYPS" (PER PATIENT NEEDS F/U IN 5 YEARS) 2010 LEFT URETERAL STENT PLACED 06/2013 DORSAL COLUMN STIMULATOR REMOVED DUE TO SEVERE KIDNEY PROBLEMS FROM STONES (WIRES LEFT IN, THEY WERE REMOVED 10/04) 2004, 2014 PARTIAL HYSTERECTOMY 1969' REMOVAL OF THE WIRES TO THE STIMULATOR 08/2014 EGD/COLONOSCOPY-- BOTH NORMAL 01/2017 RIGHT KIDNEY DOUBLE J STENT X2 02/22/[address] GUIDED NEPHROLITHOTOMY AT [facility] 04/08 RIGHT KIDNEY STONE REMOVED 03/2017 EVACUATION CEREBELLAR HEMORRHAGE [facility] 10/2018 FAMILY HISTORY FATHER: , RHEUMATOID, DIAGNOSED WITH UNSPECIFIED HEART DISEASE, DIABETES MOTHER: , RHEUMATOID, UNSPECIFIED HEART DISEASE, DIABETES MATERNAL GRAND MOTHER: BREAST CANCER, OTHER MALIGNANT NEOPLASM OF UNSPECIFIED SITE SIBLINGS: DIABETES PATERNAL GRAND FATHER: DIABETES PATERNAL GRAND MOTHER: DIABETES PATERNAL GRANDMOTHER SKIN CANCER\\\\\\\\N1 SISTER- RHEUMATOID \\\\\\\\\\\\\\/ PSORIATIC ARTHRITISMULTIPLE SIBLINGS WITH HEART DISEASE. SOCIAL HISTORY GENERAL: TOBACCO USE ARE YOU A:FORMER SMOKER HOW LONG HAS IT BEEN SINCE YOU LAST SMOKED?3-6 MONTHS LATEX QUESTIONNAIRE LATEX ALLERGY : HAVE YOU EVER DEVELOPED ANY TYPE OF REACTION AFTER HANDLING LATEX PRODUCTS SUCH RUBBER GLOVES, CONDOMS, DIAPHRAGMS, BALLOONS, SOCKS, OR UNDERWEAR?NO LATEX ALLERGY : HAVE YOU EVER DEVELOPED ANY TYPE OF REACTION DURING OR AFTER DENTAL APPOINTMENT, VAGINAL/RECTAL EXAMINATION, SURGICAL PROCEDURE, OR ANY OTHER EXPOSURE?NO LATEX RISK : HAVE YOU EVER HAD ANY DIFFICULTY BREATHING OR HIVES AFTER EATING OR HANDLING ANY FRUITS, OR VEGETABLES; SUCH KIWI, BANANAS, STONE FRUITS, OR CHESTNUTSNO LATEX RISK : DO YOU HAVE A PREVIOUS PERSONAL HISTORY OF MORE THAN NINE SURGERIES, SPINA BIFIDA, OR REPEATED CATHERIZATIONS? NO LATEX RISK : ARE YOU FREQUENTLY EXPOSED TO LATEX PRODUCTS IN YOUR OCCUPATION?NO DATE ASKED : 03/06/2020 BMI CARE GOAL FOLLOW-UP BELOW NORMAL BMI FOLLOW-UPDIETARY EDUCATION FOR WEIGHT GAIN ALCOHOL SCREENING POINTS: 0, INTERPRETATION: NEGATIVE. RECREATIONAL DRUG USE DRUG USE?NO CAFFEINE CAFFEINE USE?YES ABOUT 1/2 BOTTLE SODA DAILY SEXUAL HX HAD SEX IN THE LAST 12 MONTHS (VAGINAL, ORAL, OR ANAL)?: NO, HAVE YOU EVER HAD AN STD?: NO. HIV / HEP-C SCREENING HIV TEST OFFERED TO PATIENT:NO N/A HEP-C TEST OFFERED TO PATIENT:YES DATE OFFERED:06/01/2016 TEST ACCEPTED:NO REASON:PATIENT DECLINED AMISH NO JAIN BELIEFS THAT WOULD IMPACT HEALTH CARE. LANGUAGE ITALIAN. EDUCATION HIGH SCHOOL. LEARNING BARRIERS / SPECIAL NEEDS CHANGE FROM LAST VISIT?NO BARRIERS TO LEARNING?NO HEARING IMPAIRED?NO VISION IMPAIRED?YES COGNITIVELY IMPAIRED?NO :CORRECTIVE LENSES READINESS TO LEARN?YES LEARNING PREFERENCES?NO LEARNING CAPABILITIES PRESENT?YES EMOTIONAL BARRIERS?NO SPECIAL DEVICES?YES :CANE COMMERCIAL LOAN UNDERWRITER NEEDED?NO DOMESTIC VIOLENCE DO YOU FEEL SAFE IN YOUR ENVIRONMENT?YES OCCUPATION: DISABLED. DIET: REGULAR. EXERCISE: NO REGULAR EXERCISE. MARITAL STATUS: . NEW PATIENT PAIN DIARY TODAY'S VISIT NOTES 09/12/2019, PATIENT DESCRIBES PAIN : ACHING, HAVE IT ALL THE TIME, SHARP, FROM 0-10, WHAT LEVEL IS YOUR PAIN TODAY? 5. PAIN CLINIC PFS, CLERGY, PUBLIC HEALTH REFERRALS HAS THE PATIENT BEEN EDUCATED REGARDING HIS/HER PLAN OF CARE?YES HAS THE PATIENT BEEN EDUCATED REGARDING PAIN, THE RISK FOR PAIN, THE IMPORTANCE OF EFFECTIVE PAIN MANAGEMENT, AND THE PAIN ASSESSMENT PROCESS?YES ADVANCE DIRECTIVE ADVANCE DIRECTIVE DISCUSSED WITH PATIENT:YES HCP- HOANG MANCUSO (DAUGHTER) HOSPITALIZATION/MAJOR DIAGNOSTIC PROCEDURE SURGERY RELATED BLOOD CLOT/SEIZURES 2019 REVIEW OF SYSTEMS CONSTITUTIONAL: ANY RECENT FEVER NO . CHILLS NO . WEIGHT CHANGE OF UNKNOWN REASONS NO . GASTROENTEROLOGY: NEW UNEXPLAINABLE CHANGES IN BOWEL CONTROL NO . CONSTIPATION NO . GENITOURINARY: ANY NEW CHANGE IN BLADDER CONTROL? NO . NEUROLOGY: NEW ONSET DIZZINESS OR NEUROLOGICAL CHANGES NOT MENTIONED NO . NEW NUMBNESS OR PAIN PATTERNS NOT MENTIONED AND PERTINENT TO TODAY'S VISIT NO . CARDIOLOGY: NEW CHEST PRESSURE NO . NEW CHEST PAIN NO . RESPIRATORY: UNEXPLAINABLE COUGH NO . NEW SHORTNESS OF BREATH NO . VITAL SIGNS WT 118.4 LBS, HT 61 IN, BMI 22.37 INDEX, BP 133/58 MM HG, HR 89 /MIN, RR 18 /MIN, TEMP 97.6 F, OXYGEN SAT % 96%, SAFE IN ENV? (Y/N) YES, NA INITIALS AW 1138, REVIEWED BY: THEO. EXAMINATION GENERAL EXAMINATION: GENERALAWAKE,ALERT ,PLEASANT . PSYCHAFFECT NORMAL . LUNGS:LUNG MACKAY ARE CLEAR TO AUSCULTATION BILATERALLY. GOOD MOVEMENT OF AIR . HEART:S1, S2 IN A REGULAR RATE AND RHYTHM. NO SIGNIFICANT MURMURS, RUBS OR GALLOPS NOTED . 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 IT IS NOT A COPY OF THE [employer] PROGRESS NOTE. ROBINSON
== END ==
LOC: M PAIN 11:30
PROVIDERS: ATTEND Nurse Practitioner Family
DX: M47.812 Spondylosis without myelopathy or radiculopathy, cervical region (principal); G89.29 Other chronic pain; K21.9 Gastro-esophageal reflux disease without esophagitis; E55.9 Vitamin D deficiency, unspecified; G43.909 Migraine, unspecified, not intractable, without status migrainosus; J44.9 Chronic obstructive pulmonary disease, unspecified; Z86.718 Personal history of other venous thrombosis and embolism; Z87.891 Personal history of nicotine dependence; Z88.8 Allergy status to other drugs, medicaments and biological substances; Z79.82 Long term (current) use of aspirin; Z79.891 Long term (current) use of opiate analgesic; Z79.899 Other long term (current) drug therapy

== ENCOUNTER → 2020-05-21 | Outpatient (CLI) | payer MEDICARE ==
--- NOTE | 2020-05-21 14:18 | REP ---
INDICATION: UNSP ATHSCL MINTO ARTERIES OF EXT, STENOSIS COMPARISON: None. TECHNIQUE: Gifford scale and color Doppler evaluation using linear high frequency transducer Findings: FINDINGS: Two-dimensional gifford scale and color images demonstrate moderate atheromatous plaquing with laminar flow and no appreciable narrowing. Color Doppler interrogation demonstrates normal arterial wave patterns and velocities with no significant spectral broadening. Normal flow direction is appreciated in the bilateral vertebral arteries. ICA peak systolic velocity: Right 118 cm/s; Left 124 cm/s ICA diastolic velocity: Right 40.4 cm/s; Left 47.0 cm/s ECA peak systolic velocity: Right 112 cm/s; Left 106 cm/s CCA peak systolic velocity: Right 88.8 cm/s; Left 117 cm/s ICA/CCA ratio: Right 1.33 cm/s; Left 1.06 cm/s IMPRESSION: No hemodynamically significant areas of narrowing or stenosis appreciated. Based on set standards narrowing falls within the less than 50% range. <Electronically signed by Juarez Pedro > 05/21/20 [id number]
--- NOTE | 2020-05-21 15:22 | REP ---
INDICATION: UNSP ATHSCL [place] ARTERIES OF EXT, STENOSIS. Patient is apparently status post iliac stents. COMPARISON: Comparison study February 07, 2020.. TECHNIQUE: Bilateral lower extremity arterial Doppler ultrasound evaluation. FINDINGS: Ankle brachial indices are essentially normal measured at 1.1 on the right and 0.96 on the left. There is a 2.1 cm Caceres's cyst visible incidentally in the left popliteal soft tissues. Bilateral common iliac artery stents are seen to be patent. Some mild elevation of left common iliac artery velocity is seen, 221 cm/S moderate plaquing is seen bilaterally in the common femoral arteries and proximal superficial femoral arteries. No high-grade stenosis is seen in either lower extremity arterial tree. Phasicity is improved in both legs on the prior study with increased velocities noted bilaterally left more so than right. The left ankle brachial index is improved. Right lower extremity arterial Doppler velocity chart: Abdominal aorta PSV 112 cm/S Right common iliac artery PSV 161 cm/S Right EIA 140 HEADER BOSS 123 Profundal 85 Proximal SFA 125 Mid SFA 110 Distal SFA 125 Popliteal 54 Proximal JESSICA 67 Tibial-peroneal trunk 62 Proximal NAILER MACHINE 30 Distal NAILER MACHINE 63 Distal JESSICA 72 Left lower extremity arterial Doppler velocity chart: Abdominal aorta PSV 112 cm/S Left common iliac artery PSV 221 Left EIA 137 HEADER BOSS 121 Profundal 116 Proximal SFA 128 Mid SFA 137 Distal SFA 136 Popliteal 84 Proximal JESSICA 74 Tibial-peroneal trunk 60 Proximal NAILER MACHINE 73 Distal NAILER MACHINE 100 Distal JESSICA 83 IMPRESSION: Evidence of improvement in circulation bilaterally as above. Patent bilateral common iliac artery stents. Elevated stent velocity left common iliac artery. <Electronically signed by Shar Wiggins > 05/21/20 0800
== END ==
LOC: M RAD 13:07
PROVIDERS: ATTEND Physician Assistant
DX: I70.223 Atherosclerosis of native arteries of extremities with rest pain, bilateral legs (principal); I65.23 Occlusion and stenosis of bilateral carotid arteries; Z98.62 Peripheral vascular angioplasty status; Z95.820 Peripheral vascular angioplasty status with implants and grafts

== ENCOUNTER → 2020-06-06 | Outpatient (CLI) | payer MEDICARE ==
--- NOTE | 2020-06-10 07:16 | ECWPNPC ---
PATIENT NAME: ZANDER DUTTA : 1955 GENDER: FEMALE VISIT DATE: 06/06/2020 DISCHARGE DATE: 06/06/20 1153 VISIT LOCKED DATE TIME: PHYSICIAN: CHELSEA WALTERS PHYSICIAN PAGER NO: ACTIVE RESOURCE: CHELSEA WALTERS REASON FOR APPOINTMENT 1. MED MANAGEMENT HISTORY OF PRESENT ILLNESS GENERAL: HERE FOR FOLLOW-UP OF CHRONIC GENERALIZED JOINT PAIN AND BILATERAL SHOULDER PAIN. FINDS CURRENT CHRONIC PAIN MEDICATION IS EFFECTIVE AT REDUCING PAIN AND KEEPING HER FUNCTIONAL. DENIES ADVERSE EFFECTS WITH THESE MEDICATIONS. - - - -. FALL RISK SCREENING: SCREENING :NO FALLS REPORTED IN THE LAST YEAR PAIN SCREENING: PATIENT HAS A COMPLAINT OF ACUTE OR CHRONIC PAIN :YES LOCATION OF PAIN:NECK, RIGHT SHOULDER INTENSITY OF PAIN (SCALE OF 1 TO 10):6 WHAT DOES YOUR PAIN FEEL LIKE:ACHING, BURNING, SHARP DURATION:INTERMITTENT, AWAKENS FROM SLEEP PAIN IS INCREASED BY:ACTIVITIES, OTHERS LAYING DOWN PAIN IS DECREASED BY:USE OF PAIN MEDICATIONS NURSING NOTE: -. PAIN CENTER INTAKE QUESTIONS: DO YOU HAVE A HISTORY OF MRSA? :NO DO YOU TAKE A BLOOD THINNERS? :NO DO YOU HAVE ANY BLEEDING DISORDERS? :NO ANY NEW NUMBNESS OR WEAKNESS IN YOUR LEGS OR ARMS? :YES STATES WORSENING WEAKNESS IN RIGHT ARM ANY PACEMAKER,DEFIBRILLATOR, OR DORSAL COLUMN STIMULATOR? :NO DO YOU HAVE ANY RASHES OR OPEN SORES? :NO ARE YOU ALLERGIC TO IV DYE? :NO ARE YOU DIABETIC? :NO ANY NEW PROBLEMS WITH YOUR MEDICATIONS? :NO HAVE YOU RECEIVED A VACCINE IN THE PAST 30 DAYS? :NO DO YOU PLAN TO RECEIVE A VACCINE IN THE NEXT 21 DAYS? :YES IF SO WHAT VACCINE AND WHEN? WOULD LIKE COVID VACCINE ONCE AVAILABLE DO YOU NEED ANY PRESCRIPTION? :NO DO YOU TAKE ANY IMMUNOSUPPRESSIVE MEDICATIONS? :NO IS THERE A CHANCE YOU COULD BE ? :NO ARE YOU BREAST FEEDING? :NO CURRENT MEDICATIONS TAKING FLONASE ALLERGY RELIEF 50 MCG/ACT SUSPENSION 2 SPRAYS EACH NOSTRIL NASALLY ONCE A DAY TAKING PROBIOTIC FORMULA _ 1 TAB ORALLY DAILY TAKING CRANBERRY PLUS PROBIOTIC - TABLET 1 TAB ORALLY DAILY TAKING TUB TRANSFER BOARD - MISCELLANEOUS DIRECTED _ DX: I62.9 , R26.89 TAKING VITAMIN D 2000 UNIT TABLET 1 TABLET ORALLY ONCE A DAY TAKING VITAMIN B 12 1000 MCG TABLET 1 TAB(S) ORALLY DAILY TAKING ASPIRIN 81 81 MG TABLET DELAYED RELEASE 1 TABLET ORALLY ONCE A DAY TAKING ACETAMINOPHEN 500 MG TABLET 2 TABLET NEEDED ORALLY EVERY 8 HRS TAKING POTASSIUM CHLORIDE ER 20 MEQ TABLET EXTENDED RELEASE 1 TABLET WITH FOOD ORALLY ONCE A DAY TAKING PROAIR HFA 108 (90 BASE) MCG/ACT AEROSOL SOLUTION 2 PUFFS NEEDED INHALATION EVERY 6 HRS PRN COUGH WHEEZE TAKING AMITRIPTYLINE HCL 25 MG TABLET 2 TAB ORALLY QHS TAKING TOPAMAX 25 MG TABLET 2 TAB ORALLY NEEDED TAKING PROTONIX 20 MG TABLET DELAYED RELEASE 1 TABLET ORALLY ONCE A DAY TAKING CHLORTHALIDONE 25 MG TABLET 1/2 TABLET ORALLY ONCE A DAY TAKING SYMBICORT 80-4.5 MCG/ACT AEROSOL 2 PUFFS INHALATION BID TAKING CITALOPRAM HYDROBROMIDE 10 MG TABLET 1 TAB ORALLY ONCE A DAY TAKING OXYCODONE HCL 15 MG TABLET 1 TABLET ORALLY Q8H MDD3 3 MOS SUPPLY CAT D CHRONIC PAIN TAKING ROPINIROLE HCL 0.25 MG TABLET 1 TAB ORALLY BEFORE BED AND 1 PRN FOR RESLESS LEGS TAKING CHANTIX STARTING MONTH SERJIO 0.5 MG X 11 & 1 MG X 42 TABLET 1 TAB ORALLY DIRECTED TAKING CHANTIX 1 MG TABLET 1 TAB ORALLY BID NOT-TAKING GUAIFENESIN-DM 100-10 MG/5ML LIQUID 10 ML NEEDED ORALLY EVERY 4 HRS NOT-TAKING METHOCARBAMOL 750 MG TABLET 1 TABLET ORALLY EVERY 4 HRS NOT-TAKING FLONASE 50 MCG/DOSE INHALER 2 SPRAY IN EACH NOSTRIL NASALLY DAILY, NOTES: DUPLICATE NOT-TAKING AUGMENTIN 875-125 MG TABLET 1 TABLET ORALLY TWICE A DAY NOT-TAKING ALEKSANDR ROLLING WALKER PREMIUM 4 WHEEL WITH BRAKES AND SEAT DX: I62.9 , R26.89 NOT-TAKING VITAMIN C 1000 MG TABLET 1 TAB ORALLY ONCE A DAY NOT-TAKING ADVAIR DISKUS 250-50 MCG/DOSE AEROSOL POWDER BREATH ACTIVATED 1 PUFF INHALATION TWICE A DAY, NOTES: NOT STARTED YET MEDICATION LIST REVIEWED AND RECONCILED WITH THE PATIENT PAST MEDICAL HISTORY G6PD DEFICIENCY-ATORVASTATIN WAS D/C BY HEMATOLOGY 09/08 HEMOLYTIC ANEMIA, REFERRED [facility]/ONC, HAD BONE MARROW BX 06/09. SUSPECTED HEMOLYSIS. (? 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 THYROID NODULE- (THYROIDECTOMY) KIDNEY STONES S/P ESWL 03/2003, STENTS VITAMIN D DEFICIENCY MIGRAINES COPD FEV1 = 1.93 2005 SMOKER GENERALIZED OSTEOARTHRITIS HIPS, NECK, BACK, HANDS LUNG NODULE ON CT CHEST 10/05; F/U PENDING 04/07 50-69% BILAT CAROTID STENOSIS DVT RT UE 1995 BA SWALLOW 01/07: SMALL PULSION ESOPAGEAL DIVERTICULUM, ASPIRATED A DROPLET OF BARIUM, REFLUX PRESENT; SAW ENT/WEIR 2018 RHEUMATOID ARTHRITIS OSTEOPOROSIS HYPERLIPIDEMIA--WAS ON ATORVA, THIS WAS D/C BY HEMATOLOGY (POSSIBLE G6PD DEFIC CONTRIBUTOR) 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, WAS ON DEPAKOTE UNTIL PT D/C 01/08 W/O RECURRENCE CALCULATED HASBLED BLEEDING RISK 3.8% FOR MAJOR, 7% FOR ANY BLEED (OVERALL CONSIDERED HIGH RISK, PT DECLINES ANTICOAGULATION BASED ON THIS) 12/09 ALLERGIES ATORVASTATIN (HIGHER DOSE): LIZAMA - SIDE EFFECTS HAS G6PD DEFICIENCY-- AVOID HEMOLYSIS INDUCERS: HEMOLYSIS - CONTRAINDICATION SURGICAL HISTORY 1995 CORNONARY CATH - NORMAL 1995 RIGHT ARM BRACHIAL BYPASS 1995 DORSAL COLUMN STIMULATOR 1995 CYSTOSCOPY & LEFT URETEROSCOPY WITH LITHO AND STONE EXTRACTION 2004 LEFT URETERAL STENT PLACED, THEN CHANGED DUE TO OBSTRUCTION () 2005 LEFT URETERAL STENT REMOVED 2005 PARTIAL THYROIDECTOMY - NEGATIVE FOR CANCER 2008 EGD/COLONOSCOPY - GASTRIC AND COLON" POLYPS" (PER PATIENT NEEDS F/U IN 5 YEARS) 2010 LEFT URETERAL STENT PLACED 06/2013 DORSAL COLUMN STIMULATOR REMOVED DUE TO SEVERE KIDNEY PROBLEMS FROM STONES (WIRES LEFT IN, THEY WERE REMOVED 10/04) 2004, 2014 PARTIAL HYSTERECTOMY REMOVAL OF THE WIRES TO THE STIMULATOR 08/2014 EGD/COLONOSCOPY-- BOTH NORMAL 01/2017 RIGHT KIDNEY DOUBLE J STENT X2 02/22/[address] GUIDED NEPHROLITHOTOMY AT [facility] 04/08 RIGHT KIDNEY STONE REMOVED 03/2017 EVACUATION CEREBELLAR HEMORRHAGE [facility] 10/2018 CARDIAC STENTS 01/2020 FAMILY HISTORY FATHER: , RHEUMATOID, DIAGNOSED WITH UNSPECIFIED HEART DISEASE, DIABETES MOTHER: , RHEUMATOID, DIABETES, UNSPECIFIED HEART DISEASE MATERNAL GRAND MOTHER: BREAST CANCER, OTHER MALIGNANT NEOPLASM OF UNSPECIFIED SITE SIBLINGS: DIABETES PATERNAL GRAND FATHER: DIABETES PATERNAL GRAND MOTHER: DIABETES PATERNAL GRANDMOTHER SKIN CANCER\\\\\\\\N1 SISTER- RHEUMATOID \\\\\\\\\\\\\\/ PSORIATIC ARTHRITISMULTIPLE SIBLINGS WITH HEART DISEASE. SOCIAL HISTORY GENERAL: TOBACCO USE ARE YOU A:CURRENT SMOKER STARTING CHANTIX ARE YOU INTERESTED IN QUITTING?READY TO QUIT COUNSELED THE PATIENT ON TOBACCO USE, CESSATION [id number]/15/2021 HOW MANY CIGARETTES A DAY DO YOU SMOKE?6-10 PATIENT COUNSELED ON THE DANGERS OF TOBACCO USE AND URGED TO QUIT:06/06/2020 LATEX QUESTIONNAIRE LATEX ALLERGY : HAVE YOU EVER DEVELOPED ANY TYPE OF REACTION AFTER HANDLING LATEX PRODUCTS SUCH RUBBER GLOVES, CONDOMS, DIAPHRAGMS, BALLOONS, SOCKS, OR UNDERWEAR?NO LATEX ALLERGY : HAVE YOU EVER DEVELOPED ANY TYPE OF REACTION DURING OR AFTER DENTAL APPOINTMENT, VAGINAL/RECTAL EXAMINATION, SURGICAL PROCEDURE, OR ANY OTHER EXPOSURE?NO LATEX RISK : HAVE YOU EVER HAD ANY DIFFICULTY BREATHING OR HIVES AFTER EATING OR HANDLING ANY FRUITS, OR VEGETABLES; SUCH KIWI, BANANAS, STONE FRUITS, OR CHESTNUTSNO LATEX RISK : DO YOU HAVE A PREVIOUS PERSONAL HISTORY OF MORE THAN NINE SURGERIES, SPINA BIFIDA, OR REPEATED CATHERIZATIONS? NO LATEX RISK : ARE YOU FREQUENTLY EXPOSED TO LATEX PRODUCTS IN YOUR OCCUPATION?NO DATE ASKED : 03/06/2020 BMI CARE GOAL FOLLOW-UP BELOW NORMAL BMI FOLLOW-UPDIETARY EDUCATION FOR WEIGHT GAIN ALCOHOL SCREENING POINTS: 0, INTERPRETATION: NEGATIVE. RECREATIONAL DRUG USE DRUG USE?NO CAFFEINE CAFFEINE USE?YES ABOUT 1/2 BOTTLE SODA DAILY SEXUAL HX HAD SEX IN THE LAST 12 MONTHS (VAGINAL, ORAL, OR ANAL)?: NO, HAVE YOU EVER HAD AN STD?: NO. HIV / HEP-C SCREENING HIV TEST OFFERED TO PATIENT:NO N/A HEP-C TEST OFFERED TO PATIENT:YES DATE OFFERED:06/01/2016 TEST ACCEPTED:NO REASON:PATIENT DECLINED MUSLIM NO RELIGION BELIEFS THAT WOULD IMPACT HEALTH CARE. LANGUAGE BELGIAN. EDUCATION HIGH SCHOOL. LEARNING BARRIERS / SPECIAL NEEDS CHANGE FROM LAST VISIT?NO BARRIERS TO LEARNING?NO HEARING IMPAIRED?NO VISION IMPAIRED?YES :CORRECTIVE LENSES COGNITIVELY IMPAIRED?NO READINESS TO LEARN?YES LEARNING PREFERENCES?NO LEARNING CAPABILITIES PRESENT?YES EMOTIONAL BARRIERS?NO SPECIAL DEVICES?YES :CANE SHEET TESTER NEEDED?NO OCCUPATION: DISABLED. DIET: REGULAR. EXERCISE: NO REGULAR EXERCISE. MARITAL STATUS: . PAIN CLINIC PFS, CLERGY, PUBLIC HEALTH REFERRALS HAS THE PATIENT BEEN EDUCATED REGARDING HIS/HER PLAN OF CARE?YES HAS THE PATIENT BEEN EDUCATED REGARDING PAIN, THE RISK FOR PAIN, THE IMPORTANCE OF EFFECTIVE PAIN MANAGEMENT, AND THE PAIN ASSESSMENT PROCESS?YES ADVANCE DIRECTIVE ADVANCE DIRECTIVE DISCUSSED WITH PATIENT:YES HCP- HOANG MANCUSO (DAUGHTER) HOSPITALIZATION/MAJOR DIAGNOSTIC PROCEDURE SURGERY RELATED BLOOD CLOT/SEIZURES 2019 REVIEW OF SYSTEMS CONSTITUTIONAL: ANY RECENT FEVER NO . CHILLS NO . WEIGHT CHANGE OF UNKNOWN REASONS NO . GASTROENTEROLOGY: NEW UNEXPLAINABLE CHANGES IN BOWEL CONTROL NO . CONSTIPATION NO . GENITOURINARY: ANY NEW CHANGE IN BLADDER CONTROL? NO . NEUROLOGY: NEW ONSET DIZZINESS OR NEUROLOGICAL CHANGES NOT MENTIONED NO . NEW NUMBNESS OR PAIN PATTERNS NOT MENTIONED AND PERTINENT TO TODAY'S VISIT NO . CARDIOLOGY: NEW CHEST PRESSURE NO . NEW CHEST PAIN NO . RESPIRATORY: UNEXPLAINABLE COUGH NO . NEW SHORTNESS OF BREATH NO . VITAL SIGNS WT 118.6 LBS, HT 61 IN, BMI 22.41 INDEX, BP 127/72 MM HG, HR 88 /MIN, RR 16 /MIN, TEMP 97.0 F, OXYGEN SAT % 98%, SAFE IN ENV? (Y/N) Y, REVIEWED BY: JSJ. ESTHELA RN. EXAMINATION GENERAL EXAMINATION: GENERALAWAKE,ALERT ,PLEASANT . PSYCHAFFECT NORMAL . LUNGS:LUNG MACKAY ARE CLEAR TO AUSCULTATION BILATERALLY. GOOD MOVEMENT OF AIR . HEART:S1, S2 IN A REGULAR RATE AND RHYTHM. NO SIGNIFICANT MURMURS, RUBS OR GALLOPS NOTED . ASSESSMENTS SPONDYLOSIS OF CERVICAL REGION WITHOUT MYELOPATHY OR RADICULOPATHY - M47.812 (PRIMARY) CHRONIC PRESCRIPTION OPIATE USE - Z79.891 TREATMENT SPONDYLOSIS OF CERVICAL REGION WITHOUT MYELOPATHY OR RADICULOPATHY NOTES: ISTOP REGISTRY REVIEWED AND DEMONSTRATES COMPLLIANCE. BRINGS IN MEDICATIONS WHICH IS APPROPRIATE FOR WHAT WAS DISPENSED. RECENT URINE TOXICOLOGY REVIEWED. NO UNAUTHORIZED MEDICATIONS. NO ILLICIT SUBSTANCES AND PRESCRIBED MEDICATIONS WERE PRESENT. URINE TOXICOLOGY TODAY , RISKS OF NARCOTIC/OPIOD MEDICATIONS INCLUDES BUT IS NOT LIMITED TO RISK OF DEPENDANCE/DEVELOPMENT OF ADDICTION, MOOD DISTURBANCE AND DEPRESSION, OSTEOPOROSIS, HORMONAL AND LABIDAL CHANGES, RESPIRATORY DEPRESSION AND . PATIENT IS ADVISED NOT TO DRIVE OR DRINK ALCOHOL WHILE ON THESE MEDICATIONS. PROCEDURE CODES [id number] ESTABILISHED PATIENT [facility] CHARGE DISPOSITION & COMMUNICATION FOLLOW UP 3 MONTHS (REASON: MED MANAGEMENT/REVIEW URINE TOXICOLOGY) ELECTRONICALLY SIGNED BY AKUA DIEHL ON 06/09/2020 AT 09:39 AM EST DISCLAIMER : THIS IS A VISIT SUMMARY EXTRACTED FROM THE [employer] CHART. IT IS NOT A COPY OF THE [employer] PROGRESS NOTE. ROBINSON
== END ==
LOC: M PAIN 11:30
PROVIDERS: ATTEND Nurse Practitioner Family
DX: M47.812 Spondylosis without myelopathy or radiculopathy, cervical region (principal); D55.0 Anemia due to glucose-6-phosphate dehydrogenase [G6PD] deficiency; K21.9 Gastro-esophageal reflux disease without esophagitis; E89.0 Postprocedural hypothyroidism; E55.9 Vitamin D deficiency, unspecified; G43.909 Migraine, unspecified, not intractable, without status migrainosus; J44.9 Chronic obstructive pulmonary disease, unspecified; F17.210 Nicotine dependence, cigarettes, uncomplicated; M15.0 Primary generalized (osteo)arthritis; Z86.718 Personal history of other venous thrombosis and embolism; M06.9 Rheumatoid arthritis, unspecified; M81.0 Age-related osteoporosis without current pathological fracture; Z79.82 Long term (current) use of aspirin; Z79.891 Long term (current) use of opiate analgesic; Z79.899 Other long term (current) drug therapy; Z88.8 Allergy status to other drugs, medicaments and biological substances

== ENCOUNTER → 2020-06-16 | Outpatient (REF) | payer MEDICARE | LOC: M SFHCPLAZ 13:23 | PROVIDERS: ATTEND Physician Assistant | DX: J01.90 Acute sinusitis, unspecified (principal); R05 Cough; Z20.822 Contact with and (suspected) exposure to COVID-19 ==

== ENCOUNTER → 2020-08-08 | Outpatient (CLI) | payer MEDICARE ==
[~2020-08-08] MED LIST changes: -AMIT10TA PO; +AMIT10TA7 PO
--- NOTE | 2020-08-08 16:34 | REP ---
INDICATION: ABNORMAL BREATH SOUNDS. COMPARISON: 02/01/2018. TECHNIQUE: Upright PA and lateral chest. FINDINGS: The lung de la o are clear. Cardiac size is normal. The jayashree, mediastinum and skeletal structures are unremarkable. There is no interval change. IMPRESSION: Essentially negative PA and lateral chest There is no interval change. <Electronically signed by Rashaad Funes > 08/08/20 [id number]
== END ==
LOC: M ADAMS 13:23
PROVIDERS: ATTEND Family Medicine
DX: R06.89 Other abnormalities of breathing (principal)
CPT/HCPCS: 71046; G0463

== ENCOUNTER → 2020-08-13 | Outpatient (REF) | payer MEDICARE ==
[2020-08-13 17:53] LABS: APPEARANCE, URINE CLOUDY (CLEAR); BACTERIA, URINE AUTO 1+ (NEGATIVE); BILIRUBIN, URINE AUTO NEGATIVE (NEGATIVE); BLOOD, URINE BLOOD NEGATIVE (NEGATIVE); CALCIUM OXALATE CRYSTALS SMALL; COLOR, URINE YELLOW (YELLOW); GLUCOSE, URINE (UA) AUTO NEGATIVE (NEGATIVE); KETONE, URINE AUTO NEGATIVE (NEGATIVE); LEUKOCYTE ESTERASE, URINE AUTO 2+ (NEGATIVE); MUCUS, URINE SMALL (NEGATIVE); NITRITE, URINE AUTO NEGATIVE (NEGATIVE); PROTEIN, URINE AUTO NEGATIVE (NEGATIVE); RBC, URINE AUTO 4 /HPF (0-3); SPECIFIC GRAVITY URINE AUTO 1.021 (1.002-1.035); SQUAMOUS EPITHELIAL CELL UR AU 2 /HPF (0-6); UROBILINOGEN, URINE AUTO 0.2 mg/dL (0.0-2.0); WBC, URINE AUTO 47 /HPF (0-3)
== END ==
LOC: M LAB REF 16:13
PROVIDERS: ATTEND Physician Assistant Medical
DX: N39.0 Urinary tract infection, site not specified (principal)

== ENCOUNTER → 2020-09-04 | Outpatient (CLI) | payer MEDICARE ==
--- NOTE | 2020-09-08 00:29 | ECWPNPC ---
PATIENT NAME: ZANDER DUTTA : 1955 GENDER: FEMALE VISIT DATE: 09/04/2020 DISCHARGE DATE: 09/04/20 1230 VISIT LOCKED DATE TIME: PHYSICIAN: CHELSEA WALTERS PHYSICIAN PAGER NO: ACTIVE RESOURCE: CHELSEA WALTERS REASON FOR APPOINTMENT 1. MED MANAGEMENT/REVIEW URINE TOXICOLOGY HISTORY OF PRESENT ILLNESS GENERAL: HERE FOR FOLLOW-UP OF CHRONIC NECK PAIN AND HEADACHE. PATIENT IS UNCOMFORTABLE TODAY. STATES SHE HAS A HEADACHE EVERY DAY. MEDICATION HELPS A LITTLE BIT THAT SHE TAKES FOR CHRONIC PAIN. REVIEWED MEDICATIONS AND DISCUSSED TREATMENT OPTIONS. -. FALL RISK SCREENING: SCREENING ONE FALL REPORTED IN THE LAST YEAR WITHOUT INJURY.. PAIN SCREENING: PATIENT HAS A COMPLAINT OF ACUTE OR CHRONIC PAIN :NO NURSING NOTE: -. PAIN CENTER INTAKE QUESTIONS: DO YOU HAVE A HISTORY OF MRSA? :NO DO YOU TAKE A BLOOD THINNERS? :NO DO YOU HAVE ANY BLEEDING DISORDERS? :YES ANEMIA ANY NEW NUMBNESS OR WEAKNESS IN YOUR LEGS OR ARMS? :YES WEAKNESS BILATERAL LEGS ANY PACEMAKER,DEFIBRILLATOR, OR DORSAL COLUMN STIMULATOR? :NO DO YOU HAVE ANY RASHES OR OPEN SORES? :NO ARE YOU ALLERGIC TO IV DYE? :NO ARE YOU DIABETIC? :NO ANY NEW PROBLEMS WITH YOUR MEDICATIONS? :NO HAVE YOU RECEIVED A VACCINE IN THE PAST 30 DAYS? :NO DO YOU PLAN TO RECEIVE A VACCINE IN THE NEXT 21 DAYS? :NO DO YOU NEED ANY PRESCRIPTION? :YES TOPAMAX DO YOU TAKE ANY IMMUNOSUPPRESSIVE MEDICATIONS? :NO DO YOU HAVE ANY KIDNEY OR LIVER DISEASE? :YES KIDNEY STONES IS THERE A CHANCE YOU COULD BE ? :NO ARE YOU BREAST FEEDING? :NO CURRENT MEDICATIONS TAKING FLONASE ALLERGY RELIEF 50 MCG/ACT SUSPENSION 2 SPRAYS EACH NOSTRIL NASALLY ONCE A DAY TAKING PROBIOTIC FORMULA _ 1 TAB ORALLY DAILY TAKING CRANBERRY PLUS PROBIOTIC - TABLET 1 TAB ORALLY DAILY TAKING VITAMIN D 2000 UNIT TABLET 1 TABLET ORALLY ONCE A DAY TAKING VITAMIN B 12 1000 MCG TABLET 1 TAB(S) ORALLY DAILY TAKING ASPIRIN 81 81 MG TABLET DELAYED RELEASE 1 TABLET ORALLY ONCE A DAY TAKING ACETAMINOPHEN 500 MG TABLET 2 TABLET NEEDED ORALLY EVERY 8 HRS TAKING PROAIR HFA 108 (90 BASE) MCG/ACT AEROSOL SOLUTION 2 PUFFS NEEDED INHALATION EVERY 6 HRS PRN COUGH WHEEZE TAKING TOPAMAX 25 MG TABLET 2 TAB ORALLY NEEDED TAKING SYMBICORT 80-4.5 MCG/ACT AEROSOL 2 PUFFS INHALATION BID TAKING CITALOPRAM HYDROBROMIDE 10 MG TABLET 1 TAB ORALLY ONCE A DAY TAKING ROPINIROLE HCL 0.25 MG TABLET 1 TAB ORALLY BEFORE BED AND 1 PRN FOR RESLESS LEGS TAKING AMITRIPTYLINE HCL 25 MG TABLET 2 TAB ORALLY QHS TAKING PROTONIX 20 MG TABLET DELAYED RELEASE 1 TABLET ORALLY ONCE A DAY TAKING CHLORTHALIDONE 25 MG TABLET 1/2 TABLET ORALLY ONCE A DAY TAKING POTASSIUM CHLORIDE ER 20 MEQ TABLET EXTENDED RELEASE 1 TABLET WITH FOOD ORALLY ONCE A DAY TAKING OXYCODONE HCL 15 MG TABLET 1 TABLET ORALLY Q8H MDD3 3 MOS SUPPLY CAT D CHRONIC PAIN TAKING REFRESH 1.4-0.6 % SOLUTION DIRECTED OPHTHALMIC NOT-TAKING TUB TRANSFER BOARD - MISCELLANEOUS DIRECTED _ DX: I62.9 , R26.89 NOT-TAKING CHANTIX 1 MG TABLET 1 TAB ORALLY BID UNKNOWN CHANTIX STARTING MONTH SERJIO 0.5 MG X 11 & 1 MG X 42 TABLET 1 TAB ORALLY DIRECTED UNKNOWN AUGMENTIN 875-125 MG TABLET 1 TABLET ORALLY TWICE A DAY UNKNOWN GUAIFENESIN-DM 100-10 MG/5ML LIQUID 10 ML NEEDED ORALLY EVERY 4 HRS UNKNOWN METHOCARBAMOL 750 MG TABLET 1 TABLET ORALLY EVERY 4 HRS UNKNOWN FLONASE 50 MCG/DOSE INHALER 2 SPRAY IN EACH NOSTRIL NASALLY DAILY, NOTES: DUPLICATE UNKNOWN AUGMENTIN 875-125 MG TABLET 1 TABLET ORALLY TWICE A DAY UNKNOWN ALEKSANDR ROLLING WALKER PREMIUM 4 WHEEL WITH BRAKES AND SEAT DX: I62.9 , R26.89 UNKNOWN VITAMIN C 1000 MG TABLET 1 TAB ORALLY ONCE A DAY UNKNOWN ADVAIR DISKUS 250-50 MCG/DOSE AEROSOL POWDER BREATH ACTIVATED 1 PUFF INHALATION TWICE A DAY, NOTES: NOT STARTED YET MEDICATION LIST REVIEWED AND RECONCILED WITH THE PATIENT PAST MEDICAL HISTORY G6PD DEFICIENCY-ATORVASTATIN WAS D/C BY HEMATOLOGY 09/08 HEMOLYTIC ANEMIA, REFERRED [facility]C, HAD BONE MARROW BX 06/09. SUSPECTED HEMOLYSIS. (? 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 THYROID NODULE- (THYROIDECTOMY) KIDNEY STONES S/P ESWL 03/2003, STENTS VITAMIN D DEFICIENCY MIGRAINES COPD FEV1 = 1.93 2006 SMOKER GENERALIZED OSTEOARTHRITIS HIPS, NECK, BACK, HANDS LUNG NODULE ON CT CHEST 10/05; F/U PENDING 04/07 50-69% BILAT CAROTID STENOSIS DVT RT UE 1995 BA SWALLOW 01/07: SMALL PULSION ESOPAGEAL DIVERTICULUM, ASPIRATED A DROPLET OF BARIUM, REFLUX PRESENT; SAW ENT/WEIR 2018 RHEUMATOID ARTHRITIS OSTEOPOROSIS HYPERLIPIDEMIA--WAS ON ATORVA, THIS WAS D/C BY HEMATOLOGY (POSSIBLE G6PD DEFIC CONTRIBUTOR) 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, WAS ON DEPAKOTE UNTIL PT D/C 01/08 W/O RECURRENCE CALCULATED HASBLED BLEEDING RISK 3.8% FOR MAJOR, 7% FOR ANY BLEED (OVERALL CONSIDERED HIGH RISK, PT DECLINES ANTICOAGULATION BASED ON THIS) 12/09 G-6-PD DEFICIENCY CATARACT SURGERY 06/2020; 07/30/2020 ALLERGIES ATORVASTATIN (HIGHER DOSE): LIZAMA - SIDE EFFECTS HAS G6PD DEFICIENCY-- AVOID HEMOLYSIS INDUCERS: HEMOLYSIS - CONTRAINDICATION CHANTIX: NAUSEA/VOMITING, SLEEPINESS - SIDE EFFECTS SURGICAL HISTORY 1995 CORNONARY CATH - NORMAL 1995 RIGHT ARM BRACHIAL BYPASS 1995 DORSAL COLUMN STIMULATOR 1995 CYSTOSCOPY & LEFT URETEROSCOPY WITH LITHO AND STONE EXTRACTION 2004 LEFT URETERAL STENT PLACED, THEN CHANGED DUE TO OBSTRUCTION () 2005 LEFT URETERAL STENT REMOVED 2005 PARTIAL THYROIDECTOMY - NEGATIVE FOR CANCER 2008 EGD/COLONOSCOPY - GASTRIC AND COLON" POLYPS" (PER PATIENT NEEDS F/U IN 5 YEARS) 2010 LEFT URETERAL STENT PLACED 06/2013 DORSAL COLUMN STIMULATOR REMOVED DUE TO SEVERE KIDNEY PROBLEMS FROM STONES (WIRES LEFT IN, THEY WERE REMOVED 10/04) 2004, 2014 PARTIAL HYSTERECTOMY REMOVAL OF THE WIRES TO THE STIMULATOR 08/2014 EGD/COLONOSCOPY-- BOTH NORMAL 01/2017 RIGHT KIDNEY DOUBLE J STENT X2 02/22/[address] GUIDED NEPHROLITHOTOMY AT [facility] 04/08 RIGHT KIDNEY STONE REMOVED 03/2017 EVACUATION CEREBELLAR HEMORRHAGE [facility] 10/2018 CARDIAC STENTS 01/2020 SOCIAL HISTORY GENERAL: TOBACCO USE ARE YOU A:CURRENT SMOKER STARTING CHANTIX HOW MANY CIGARETTES A DAY DO YOU SMOKE?6-10 ARE YOU INTERESTED IN QUITTING?READY TO QUIT PATIENT COUNSELED ON THE DANGERS OF TOBACCO USE AND URGED TO QUIT:06/06/2020 COUNSELED THE PATIENT ON TOBACCO USE, CESSATION [id number]/15/2021 LATEX QUESTIONNAIRE LATEX ALLERGY : HAVE YOU EVER DEVELOPED ANY TYPE OF REACTION AFTER HANDLING LATEX PRODUCTS SUCH RUBBER GLOVES, CONDOMS, DIAPHRAGMS, BALLOONS, SOCKS, OR UNDERWEAR?NO LATEX ALLERGY : HAVE YOU EVER DEVELOPED ANY TYPE OF REACTION DURING OR AFTER DENTAL APPOINTMENT, VAGINAL/RECTAL EXAMINATION, SURGICAL PROCEDURE, OR ANY OTHER EXPOSURE?NO LATEX RISK : HAVE YOU EVER HAD ANY DIFFICULTY BREATHING OR HIVES AFTER EATING OR HANDLING ANY FRUITS, OR VEGETABLES; SUCH KIWI, BANANAS, STONE FRUITS, OR CHESTNUTSNO LATEX RISK : DO YOU HAVE A PREVIOUS PERSONAL HISTORY OF MORE THAN NINE SURGERIES, SPINA BIFIDA, OR REPEATED CATHERIZATIONS? NO LATEX RISK : ARE YOU FREQUENTLY EXPOSED TO LATEX PRODUCTS IN YOUR OCCUPATION?NO DATE ASKED : 09/04/2020 ALCOHOL USE: NO. BMI CARE GOAL FOLLOW-UP BELOW NORMAL BMI FOLLOW-UPDIETARY EDUCATION FOR WEIGHT GAIN ALCOHOL SCREENING POINTS: 0, INTERPRETATION: NEGATIVE. RECREATIONAL DRUG USE DRUG USE?NO CAFFEINE CAFFEINE USE?YES ABOUT 1/2 BOTTLE SODA DAILY SEXUAL HX HAD SEX IN THE LAST 12 MONTHS (VAGINAL, ORAL, OR ANAL)?: NO, HAVE YOU EVER HAD AN STD?: NO. HIV / HEP-C SCREENING HIV TEST OFFERED TO PATIENT:NO N/A HEP-C TEST OFFERED TO PATIENT:YES DATE OFFERED:06/01/2016 TEST ACCEPTED:NO REASON:PATIENT DECLINED CHRISTIAN NO MORAVIAN BELIEFS THAT WOULD IMPACT HEALTH CARE. LANGUAGE [place]. EDUCATION HIGH SCHOOL. LEARNING BARRIERS / SPECIAL NEEDS CHANGE FROM LAST VISIT?NO BARRIERS TO LEARNING?NO HEARING IMPAIRED?NO VISION IMPAIRED?YES :CORRECTIVE LENSES COGNITIVELY IMPAIRED?NO READINESS TO LEARN?YES LEARNING PREFERENCES?NO LEARNING CAPABILITIES PRESENT?YES EMOTIONAL BARRIERS?NO SPECIAL DEVICES?YES :CANE REGULATOR TESTER NEEDED?NO OCCUPATION: DISABLED. DIET: REGULAR. EXERCISE: NO REGULAR EXERCISE. MARITAL STATUS: . - HAS THE PATIENT BEEN EDUCATED REGARDING HIS/HER PLAN OF CARE?YES HAS THE PATIENT BEEN EDUCATED REGARDING PAIN, THE RISK FOR PAIN, THE IMPORTANCE OF EFFECTIVE PAIN MANAGEMENT, AND THE PAIN ASSESSMENT PROCESS?YES ADVANCE DIRECTIVE ADVANCE DIRECTIVE DISCUSSED WITH PATIENT:YES HCP- HOANG MANCUSO (DAUGHTER) HOSPITALIZATION/MAJOR DIAGNOSTIC PROCEDURE SURGERY RELATED BLOOD CLOT/SEIZURES 2018 REVIEW OF SYSTEMS CONSTITUTIONAL: ANY RECENT FEVER NO . CHILLS NO . WEIGHT CHANGE OF UNKNOWN REASONS NO . GASTROENTEROLOGY: NEW UNEXPLAINABLE CHANGES IN BOWEL CONTROL NO . CONSTIPATION NO . GENITOURINARY: ANY NEW CHANGE IN BLADDER CONTROL? NO . NEUROLOGY: NEW ONSET DIZZINESS OR NEUROLOGICAL CHANGES NOT MENTIONED NO . NEW NUMBNESS OR PAIN PATTERNS NOT MENTIONED AND PERTINENT TO TODAY'S VISIT NO . CARDIOLOGY: NEW CHEST PRESSURE NO . PATIENT DENIES NO . RESPIRATORY: UNEXPLAINABLE COUGH NO . NEW SHORTNESS OF BREATH NO . VITAL SIGNS WT 117.8 LBS, HT 61 IN, BMI 22.26 INDEX, BP 125/58 MM HG, HR 89 /MIN, RR 18 /MIN, TEMP 97.3 F, OXYGEN SAT % 92%, SAFE IN ENV? (Y/N) YES, NA INITIALS AW 1131, REVIEWED BY: [place] MA. EXAMINATION GENERAL EXAMINATION: GENERALAWAKE,ALERT ,PLEAASANT . PSYCHAFFECT NORMAL . LUNGS:LUNG MACKAY ARE CLEAR TO AUSCULTATION BILATERALLY. GOOD MOVEMENT OF AIR . HEART:S1, S2 IN A REGULAR RATE AND RHYTHM. NO SIGNIFICANT MURMURS, RUBS OR GALLOPS NOTED . CERVICAL:TRIGGER POINTS: CERVICAL AND TRAPEZIUS BILAT..PAIN IS AGGREVATED WITH ROJM NECK. ASSESSMENTS MYALGIA, OTHER SITE - M79.18 (PRIMARY) TREATMENT MYALGIA, OTHER SITE START CYCLOBENZAPRINE HCL TABLET, 5 MG, 1 TAB, ORALLY, TWICE DAILY, 30 DAY(S), 60, REFILLS 2 REFILL OXYCODONE HCL TABLET, 15 MG, 1 TABLET, ORALLY, Q8H MDD3 3 MOS SUPPLY CAT D CHRONIC PAIN, 90 DAY(S), 270, REFILLS 0 CLINICAL NOTES: PATIENT DECLINED PRINTED MEDICATION MATERIAL. PATIENT VERBALIZED UNDERSTANDING. NINO LAND MA. REFERRAL TO:PHYSICAL THERAPIST REASON:2XWK X 6 WKS,MYOFASCIAL RELEASE,MASSAGE,STRETCHING PROCEDURE CODES [id number] ESTABILISHED PATIENT [facility] CHARGE DISPOSITION & COMMUNICATION FOLLOW UP 3 MONTHS (REASON: F/U PT /F/U NEW MED/UTOX) ELECTRONICALLY SIGNED BY AKUA DIEHL ON 09/07/2020 AT 08:05 PM EDT DISCLAIMER : THIS IS A VISIT SUMMARY EXTRACTED FROM THE [employer] CHART. IT IS NOT A COPY OF THE [employer] PROGRESS NOTE. ROBINSON
== END ==
LOC: M PAIN 11:30
PROVIDERS: ATTEND Nurse Practitioner Family
DX: M79.18 Myalgia, other site (principal); K21.9 Gastro-esophageal reflux disease without esophagitis; E55.9 Vitamin D deficiency, unspecified; G43.909 Migraine, unspecified, not intractable, without status migrainosus; J44.9 Chronic obstructive pulmonary disease, unspecified; F17.210 Nicotine dependence, cigarettes, uncomplicated; M15.0 Primary generalized (osteo)arthritis; E78.5 Hyperlipidemia, unspecified; M81.0 Age-related osteoporosis without current pathological fracture; D75.A Glucose-6-phosphate dehydrogenase (G6PD) deficiency without anemia; Z79.891 Long term (current) use of opiate analgesic; Z79.82 Long term (current) use of aspirin; Z79.899 Other long term (current) drug therapy; Z88.8 Allergy status to other drugs, medicaments and biological substances

== ENCOUNTER → 2020-10-02 | Outpatient (CLI) | payer MEDICARE ==
[~2020-10-02] MED LIST changes: +COVI30VI IM; +CYCL5TAB PO
--- NOTE | 2020-10-03 09:53 | REP ---
INDICATION: ATH [place] ART OF EXT JOHN LEGS, COMPARISON: 05/21/2020. TECHNIQUE: Real time gifford scale and Duplex Doppler evaluation of the bilateral lower extremity arterial vasculature using linear high frequency transducer. FINDINGS: Gifford scale and duplex doppler images demonstrate patent bilateral common iliac stents. There is fgce-[id number] plaquing of bilateral common femoral and proximal superficial femoral arteries with very mild plaquing distal to that bilaterally. There is no evidence of hemodynamically significant stenosis. There is no arterial occlusion. There are diffuse triphasic and biphasic waveforms bilaterally, with monophasic waveform in the left profunda. DEBBIE right 0.9 and left 0.8. Peak systolic velocities (cm/sec) Distal abdominal aorta: 86 Common iliac artery: Right 168; left 178 External iliac artery: Right 178; left 152 Common femoral artery: Right 132; Left 121 Profunda femoris: Right 139; Left 117 SFA (proximal): Right 131; Left 123 SFA (mid): Right 125; Left 153 SFA (distal): Right 125; Left 128 Popliteal artery: Right 71; Left 85 JESSICA (prox.): Right 89; Left 96 Tibioperoneal trunk: Right 75; Left 75 [employer] (prox.): Right 87; Left 51 [employer] (distal): Right 102; Left 75 JESSICA (distal): Right 107; Left 96 IMPRESSION: Atheromatous changes with areas of narrowing but no focal occlusion or stenosis. <Electronically signed by Rashaad Gifford > 10/03/20 0949
== END ==
LOC: M RAD 13:13
PROVIDERS: ATTEND Surgery Vascular Surgery
DX: I73.9 Peripheral vascular disease, unspecified (principal)

== ENCOUNTER 2020-11-01 15:52 | Emergency (ER) | payer MEDICARE ==
[~2020-11-01] VITALS: Ht 154.9 cm; Wt 53.1 kg
[2020-11-01] MEDS ORDERED: POTA1TAB14 (16:23)
[2020-11-01] MEDS ORDERED: AMOX875T2 (16:23)
[2020-11-01] MEDS ORDERED: BENZ200C70 (16:23)
[2020-11-01] MEDS ORDERED: LIDOCAINE 1% MDV 20ML VIAL SC ONE (17:35)
[2020-11-01 18:18] VITALS: BP 112/75
== END 2020-11-01 18:25 | disposition home or self-care (01) ==
LOC: M ED 15:52
DX: L02.212 Cutaneous abscess of back [any part, except buttock and flank] (principal); J44.9 Chronic obstructive pulmonary disease, unspecified; K21.9 Gastro-esophageal reflux disease without esophagitis; D59.12 Cold autoimmune hemolytic anemia; D75.A Glucose-6-phosphate dehydrogenase (G6PD) deficiency without anemia; Z79.899 Other long term (current) drug therapy; Z79.82 Long term (current) use of aspirin; F17.210 Nicotine dependence, cigarettes, uncomplicated

== ENCOUNTER → 2020-11-07 | Outpatient (REF) | payer MEDICARE ==
[~2020-11-07] MED LIST changes: +AMOX875T2; +BENZ200C70; +POTA1TAB14
[2020-11-07 13:00] LABS: HEMATOCRIT 34.5 % (36.0-47.0); HEMOGLOBIN 11.1 g/dl (12.0-15.5); MEAN CORPUSCULAR HGB CONC 32.2 g/dl (32.0-36.5); MEAN CORPUSCULAR VOLUME 96.4 fl (80.0-96.0); PLATELET COUNT, AUTOMATED 149 10^3/uL (150-450); RED BLOOD COUNT 3.58 10^6/uL (4.00-5.40); WHITE BLOOD COUNT 6.1 10^3/uL (4.0-10.0)
== END ==
LOC: M SFHCADAM 10:37
PROVIDERS: ATTEND Family Medicine
DX: L08.9 Local infection of the skin and subcutaneous tissue, unspecified (principal)
CPT/HCPCS: 85027; G0463

== ENCOUNTER → 2020-12-04 | Outpatient (CLI) | payer MEDICARE ==
--- NOTE | 2020-12-05 07:48 | ECWPNPC ---
PATIENT NAME: ZANDER DUTTA : 1955 GENDER: FEMALE VISIT DATE: 12/04/2020 DISCHARGE DATE: 12/04/20 1154 VISIT LOCKED DATE TIME: PHYSICIAN: CHELSEA WALTERS PHYSICIAN PAGER NO: ACTIVE RESOURCE: CHELSEA WALTERS REASON FOR APPOINTMENT 1. F/U PT /F/U NEW MED/UTOX HISTORY OF PRESENT ILLNESS DEPRESSION SCREENING: PHQ-2 (2015 EDITION) LITTLE INTEREST OR PLEASURE IN DOING THINGS?NOT AT ALL FEELING DOWN, DEPRESSED, OR HOPELESS?SEVERAL DAYS TOTAL SCORE1 GENERAL: HERE FOR FOLLOW-UP AND MEDICATION MANAGEMENT FOR PERSISTENT NECK PAIN AND HEADACHES. AT HER LAST VISIT WE STARTED CYCLOBENZAPRINE 5 MG TWICE A DAY. PATIENT REPORTS NO SIGNIFICANT IMPROVEMENT. HAS INTERMITTENT HEADACHES. CURRENTLY ON TOPAMAX 25 MG DAILY. FINDS OXYCODONE 15 MG HELPFUL AT REDUCING PAIN BUT NOT HER HEADACHE PAIN. DISCUSSED MEDICATION TREATMENT PLAN. REPORTING NORMAL BOWEL AND BLADDER FUNCTION. BRINGS IN HER MEDICATION WHICH IS APPROPRIATE FOR WHAT WAS DISPENSED. -. FALL RISK SCREENING: SCREENING ONE FALL IN THE SHOWER , DID NOT GO THE ER FOR THE FALL. PAIN SCREENING: PATIENT HAS A COMPLAINT OF ACUTE OR CHRONIC PAIN :YES LOCATION OF PAIN:HEAD, NECK INTENSITY OF PAIN (SCALE OF 1 TO 10):7 WHAT DOES YOUR PAIN FEEL LIKE:ACHING, CONTINOUS, SHARP DURATION:CONTINOUS, CONSTANT, ALL DAY PAIN IS INCREASED BY:ACTIVITIES PAIN IS DECREASED BY:USE OF PAIN MEDICATIONS NURSING NOTE: -. PAIN CENTER INTAKE QUESTIONS: DO YOU HAVE A HISTORY OF MRSA? :NO DO YOU TAKE A BLOOD THINNERS? :NO DO YOU HAVE ANY BLEEDING DISORDERS? :YES ANEMIA ANY NEW NUMBNESS OR WEAKNESS IN YOUR LEGS OR ARMS? :YES WEAKNESS BILATERAL LEGS ANY PACEMAKER,DEFIBRILLATOR, OR DORSAL COLUMN STIMULATOR? :NO DO YOU HAVE ANY RASHES OR OPEN SORES? :NO ARE YOU ALLERGIC TO IV DYE? :NO ARE YOU DIABETIC? :NO ANY NEW PROBLEMS WITH YOUR MEDICATIONS? :NO HAVE YOU RECEIVED A VACCINE IN THE PAST 30 DAYS? :NO DO YOU PLAN TO RECEIVE A VACCINE IN THE NEXT 21 DAYS? :NO DO YOU NEED ANY PRESCRIPTION? :YES TOPAMAX DO YOU TAKE ANY IMMUNOSUPPRESSIVE MEDICATIONS? :NO DO YOU HAVE ANY KIDNEY OR LIVER DISEASE? :YES KIDNEY STONES IS THERE A CHANCE YOU COULD BE ? :NO ARE YOU BREAST FEEDING? :NO CURRENT MEDICATIONS TAKING FLONASE ALLERGY RELIEF 50 MCG/ACT SUSPENSION 2 SPRAYS EACH NOSTRIL NASALLY ONCE A DAY TAKING PROBIOTIC FORMULA _ 1 TAB ORALLY DAILY TAKING CRANBERRY PLUS PROBIOTIC - TABLET 1 TAB ORALLY DAILY TAKING VITAMIN D 2000 UNIT TABLET 1 TABLET ORALLY ONCE A DAY TAKING VITAMIN B 12 1000 MCG TABLET 1 TAB(S) ORALLY DAILY TAKING ASPIRIN 81 81 MG TABLET DELAYED RELEASE 1 TABLET ORALLY ONCE A DAY TAKING ACETAMINOPHEN 500 MG TABLET 2 TABLET NEEDED ORALLY EVERY 8 HRS TAKING PROAIR HFA 108 (90 BASE) MCG/ACT AEROSOL SOLUTION 2 PUFFS NEEDED INHALATION EVERY 6 HRS PRN COUGH WHEEZE TAKING TOPAMAX 25 MG TABLET 2 TAB ORALLY NEEDED TAKING SYMBICORT 80-4.5 MCG/ACT AEROSOL 2 PUFFS INHALATION BID TAKING CITALOPRAM HYDROBROMIDE 10 MG TABLET 1 TAB ORALLY ONCE A DAY TAKING ROPINIROLE HCL 0.25 MG TABLET 1 TAB ORALLY BEFORE BED AND 1 PRN FOR RESLESS LEGS TAKING AMITRIPTYLINE HCL 25 MG TABLET 2 TAB ORALLY QHS TAKING CHLORTHALIDONE 25 MG TABLET 1/2 TABLET ORALLY ONCE A DAY TAKING POTASSIUM CHLORIDE ER 20 MEQ TABLET EXTENDED RELEASE 1 TABLET WITH FOOD ORALLY ONCE A DAY TAKING REFRESH 1.4-0.6 % SOLUTION DIRECTED OPHTHALMIC TAKING CYCLOBENZAPRINE HCL 5 MG TABLET 1 TAB ORALLY TWICE DAILY TAKING PROTONIX 20 MG TABLET DELAYED RELEASE 1 TABLET ORALLY ONCE A DAY TAKING FLONASE 50 MCG/DOSE INHALER 2 SPRAY IN EACH NOSTRIL NASALLY DAILY, NOTES: DUPLICATE TAKING VITAMIN C 1000 MG TABLET 1 TAB ORALLY ONCE A DAY TAKING OXYCODONE HCL 15 MG TABLET 1 TABLET ORALLY Q8H MDD3 3 MOS SUPPLY CAT D CHRONIC PAIN NOT-TAKING DOXYCYCLINE HYCLATE 100 MG CAPSULE 1 CAPSULE ORALLY BID NOT-TAKING TUB TRANSFER BOARD - MISCELLANEOUS DIRECTED _ DX: I62.9 , R26.89 NOT-TAKING CHANTIX 1 MG TABLET 1 TAB ORALLY BID NOT-TAKING CHANTIX STARTING MONTH SERJIO 0.5 MG X 11 & 1 MG X 42 TABLET 1 TAB ORALLY DIRECTED NOT-TAKING AUGMENTIN 875-125 MG TABLET 1 TABLET ORALLY TWICE A DAY NOT-TAKING GUAIFENESIN-DM 100-10 MG/5ML LIQUID 10 ML NEEDED ORALLY EVERY 4 HRS NOT-TAKING METHOCARBAMOL 750 MG TABLET 1 TABLET ORALLY EVERY 4 HRS NOT-TAKING AUGMENTIN 875-125 MG TABLET 1 TABLET ORALLY TWICE A DAY NOT-TAKING ALEKSANDR ROLLING WALKER PREMIUM 4 WHEEL WITH BRAKES AND SEAT DX: I62.9 , R26.89 NOT-TAKING ADVAIR DISKUS 250-50 MCG/DOSE AEROSOL POWDER BREATH ACTIVATED 1 PUFF INHALATION TWICE A DAY, NOTES: NOT STARTED YET MEDICATION LIST REVIEWED AND RECONCILED WITH THE PATIENT PAST MEDICAL HISTORY G6PD DEFICIENCY-ATORVASTATIN WAS D/C BY HEMATOLOGY 09/08 HEMOLYTIC ANEMIA, REFERRED [facility] HEME/ONC, HAD BONE MARROW BX 06/09. SUSPECTED HEMOLYSIS. (? 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 THYROID NODULE- (THYROIDECTOMY) KIDNEY STONES S/P ESWL 03/2003, STENTS VITAMIN D DEFICIENCY MIGRAINES COPD FEV1 = 1.93 2005 SMOKER GENERALIZED OSTEOARTHRITIS HIPS, NECK, BACK, HANDS LUNG NODULE ON CT CHEST 10/05; F/U PENDING 04/07 50-69% BILAT CAROTID STENOSIS DVT RT UE 1995 BA SWALLOW 01/07: SMALL PULSION ESOPAGEAL DIVERTICULUM, ASPIRATED A DROPLET OF BARIUM, REFLUX PRESENT; SAW ENT/WEIR 2018 RHEUMATOID ARTHRITIS OSTEOPOROSIS HYPERLIPIDEMIA--WAS ON ATORVA, THIS WAS D/C BY HEMATOLOGY (POSSIBLE G6PD DEFIC CONTRIBUTOR) 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, WAS ON DEPAKOTE UNTIL PT D/C 01/08 W/O RECURRENCE CALCULATED HASBLED BLEEDING RISK 3.8% FOR MAJOR, 7% FOR ANY BLEED (OVERALL CONSIDERED HIGH RISK, PT DECLINES ANTICOAGULATION BASED ON THIS) 12/09 G-6-PD DEFICIENCY CATARACT SURGERY 06/2020; 07/30/2020 ALLERGIES ATORVASTATIN (HIGHER DOSE): LIZAMA - SIDE EFFECTS HAS G6PD DEFICIENCY-- AVOID HEMOLYSIS INDUCERS: HEMOLYSIS - CONTRAINDICATION CHANTIX: NAUSEA/VOMITING, SLEEPINESS - SIDE EFFECTS SURGICAL HISTORY 1995 CORNONARY CATH - NORMAL 1995 RIGHT ARM BRACHIAL BYPASS 1995 DORSAL COLUMN STIMULATOR 1995 CYSTOSCOPY & LEFT URETEROSCOPY WITH LITHO AND STONE EXTRACTION 2004 LEFT URETERAL STENT PLACED, THEN CHANGED DUE TO OBSTRUCTION () 2005 LEFT URETERAL STENT REMOVED 2005 PARTIAL THYROIDECTOMY - NEGATIVE FOR CANCER 2008 EGD/COLONOSCOPY - GASTRIC AND COLON" POLYPS" (PER PATIENT NEEDS F/U IN 5 YEARS) 2010 LEFT URETERAL STENT PLACED 06/2013 DORSAL COLUMN STIMULATOR REMOVED DUE TO SEVERE KIDNEY PROBLEMS FROM STONES (WIRES LEFT IN, THEY WERE REMOVED 10/04) 2004, 2014 PARTIAL HYSTERECTOMY REMOVAL OF THE WIRES TO THE STIMULATOR 08/2014 EGD/COLONOSCOPY-- BOTH NORMAL 01/2017 RIGHT KIDNEY DOUBLE J STENT X2 02/22/[address] GUIDED NEPHROLITHOTOMY AT [facility] 04/08 RIGHT KIDNEY STONE REMOVED 03/2017 EVACUATION CEREBELLAR HEMORRHAGE [facility] 10/2018 CARDIAC STENTS 01/2020 CYST ON BACK SOCIAL HISTORY GENERAL: TOBACCO USE ARE YOU A:CURRENT SMOKER ARE YOU INTERESTED IN QUITTING?READY TO QUIT COUNSELED THE PATIENT ON TOBACCO USE, CESSATION [id number]/15/2021 HOW MANY CIGARETTES A DAY DO YOU SMOKE?5 OR LESS HOW SOON AFTER YOU WAKE UP DO YOU SMOKE YOUR FIRST CIGARETTE?AFTER 60 MIN A HALF HOW OFTEN DO YOU SMOKE CIGARETTES?EVERY DAY PATIENT COUNSELED ON THE DANGERS OF TOBACCO USE AND URGED TO QUIT:06/06/2020 LATEX QUESTIONNAIRE LATEX ALLERGY : HAVE YOU EVER DEVELOPED ANY TYPE OF REACTION AFTER HANDLING LATEX PRODUCTS SUCH RUBBER GLOVES, CONDOMS, DIAPHRAGMS, BALLOONS, SOCKS, OR UNDERWEAR?NO LATEX ALLERGY : HAVE YOU EVER DEVELOPED ANY TYPE OF REACTION DURING OR AFTER DENTAL APPOINTMENT, VAGINAL/RECTAL EXAMINATION, SURGICAL PROCEDURE, OR ANY OTHER EXPOSURE?NO LATEX RISK : HAVE YOU EVER HAD ANY DIFFICULTY BREATHING OR HIVES AFTER EATING OR HANDLING ANY FRUITS, OR VEGETABLES; SUCH KIWI, BANANAS, STONE FRUITS, OR CHESTNUTSNO LATEX RISK : DO YOU HAVE A PREVIOUS PERSONAL HISTORY OF MORE THAN NINE SURGERIES, SPINA BIFIDA, OR REPEATED CATHERIZATIONS? NO LATEX RISK : ARE YOU FREQUENTLY EXPOSED TO LATEX PRODUCTS IN YOUR OCCUPATION?NO DATE ASKED : 12/04/2020 ALCOHOL USE: NO. BMI CARE GOAL FOLLOW-UP BELOW NORMAL BMI FOLLOW-UPDIETARY EDUCATION FOR WEIGHT GAIN ALCOHOL SCREENING POINTS: 0, INTERPRETATION: NEGATIVE. RECREATIONAL DRUG USE DRUG USE?NO CAFFEINE CAFFEINE USE?YES ABOUT 1/2 BOTTLE SODA DAILY SEXUAL HX HAD SEX IN THE LAST 12 MONTHS (VAGINAL, ORAL, OR ANAL)?: NO, HAVE YOU EVER HAD AN STD?: NO. HIV / HEP-C SCREENING HIV TEST OFFERED TO PATIENT:NO N/A HEP-C TEST OFFERED TO PATIENT:YES DATE OFFERED:06/01/2016 TEST ACCEPTED:NO REASON:PATIENT DECLINED RESTORATION NO MOSQUE BELIEFS THAT WOULD IMPACT HEALTH CARE. LANGUAGE BULGARIAN. EDUCATION HIGH SCHOOL. 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 DIET: REGULAR. EXERCISE: NO REGULAR EXERCISE. MARITAL STATUS: . - HAS THE PATIENT BEEN EDUCATED REGARDING HIS/HER PLAN OF CARE?YES HAS THE PATIENT BEEN EDUCATED REGARDING PAIN, THE RISK FOR PAIN, THE IMPORTANCE OF EFFECTIVE PAIN MANAGEMENT, AND THE PAIN ASSESSMENT PROCESS?YES ADVANCE DIRECTIVE ADVANCE DIRECTIVE DISCUSSED WITH PATIENT:YES HCP- HOANG MANCUSO (DAUGHTER) HOSPITALIZATION/MAJOR DIAGNOSTIC PROCEDURE SURGERY RELATED BLOOD CLOT/SEIZURES 2019 REVIEW OF SYSTEMS CONSTITUTIONAL: ANY RECENT FEVER NO . CHILLS NO . WEIGHT CHANGE OF UNKNOWN REASONS NO . GASTROENTEROLOGY: NEW UNEXPLAINABLE CHANGES IN BOWEL CONTROL NO . CONSTIPATION NO . GENITOURINARY: ANY NEW CHANGE IN BLADDER CONTROL? NO . NEUROLOGY: NEW ONSET DIZZINESS OR NEUROLOGICAL CHANGES NOT MENTIONED NO . NEW NUMBNESS OR PAIN PATTERNS NOT MENTIONED AND PERTINENT TO TODAY'S VISIT NO . CARDIOLOGY: NEW CHEST PRESSURE NO . PATIENT DENIES NO . RESPIRATORY: UNEXPLAINABLE COUGH NO . NEW SHORTNESS OF BREATH NO . VITAL SIGNS WT 118.6 LBS, HT 61 IN, BMI 22.41 INDEX, BP 115/59 MM HG, HR 85 /MIN, RR 18 /MIN, TEMP 95.0 F, OXYGEN SAT % 100%, SAFE IN ENV? (Y/N) YES, NA INITIALS MI 11:16T.LEE ANN GERARDO. EXAMINATION GENERAL EXAMINATION: GENERALAWAKE,ALERT ,PLEASANT . PSYCHAFFECT NORMAL . LUNGS:LUNG MACKAY ARE CLEAR TO AUSCULTATION BILATERALLY. GOOD MOVEMENT OF AIR . HEART:S1, S2 IN A REGULAR RATE AND RHYTHM. NO SIGNIFICANT MURMURS, RUBS OR GALLOPS NOTED . ASSESSMENTS CHRONIC USE OF OPIATE DRUGS THERAPEUTIC PURPOSES - Z79.899 (PRIMARY) MYALGIA, OTHER SITE - M79.18 TREATMENT CHRONIC USE OF OPIATE DRUGS THERAPEUTIC PURPOSES INCREASE TOPAMAX TABLET, 25 MG, 2 TAB, ORALLY, DAILY, 90 DAY(S), 180 TABLET, REFILLS 1 CONTINUE AMITRIPTYLINE HCL TABLET, 25 MG, 2 TAB, ORALLY, QHS CONTINUE CYCLOBENZAPRINE HCL TABLET, 5 MG, 1 TAB, ORALLY, TWICE DAILY CONTINUE OXYCODONE HCL TABLET, 15 MG, 1 TABLET, ORALLY, Q8H MDD3 3 MOS SUPPLY CAT D CHRONIC PAIN LAB: URINE TEST GROUP VENTURA NANCENigel 12/04/2020 11:51:53 AM > LAST DOSE: PERCOCET 12/04/2020 NOTES: ISTOP REGISTRY REVIEWED AND DEMONSTRATES COMPLLIANCE. BRINGS IN MEDICATIONS WHICH IS APPROPRIATE FOR WHAT WAS DISPENSED. RECENT URINE TOXICOLOGY REVIEWED. NO UNAUTHORIZED MEDICATIONS. NO ILLICIT SUBSTANCES AND PRESCRIBED MEDICATIONS WERE PRESENT. , RISKS OF NARCOTIC/OPIOD MEDICATIONS INCLUDES BUT IS NOT LIMITED TO RISK OF DEPENDANCE/DEVELOPMENT OF ADDICTION, MOOD DISTURBANCE AND DEPRESSION, OSTEOPOROSIS, HORMONAL AND LABIDAL CHANGES, RESPIRATORY DEPRESSION AND . PATIENT IS ADVISED NOT TO DRIVE OR DRINK ALCOHOL WHILE ON THESE MEDICATIONS. PROCEDURE CODES [id number] ESTABILISHED PATIENT [facility] CHARGE DISPOSITION & COMMUNICATION FOLLOW UP 3 MONTHS (REASON: MEDICATION MANAGEMENT/REVIEW URINE TOXICOLOGY/REVIEW RESPONSE TO INCREASE OF TOPAMAX TO 50 MG IN THE MORNING) ELECTRONICALLY SIGNED BY AKUA DIEHL ON 12/04/2020 AT 12:53 PM EDT DISCLAIMER : THIS IS A VISIT SUMMARY EXTRACTED FROM THE [email or web address] CHART. IT IS NOT A COPY OF THE [email or web address] PROGRESS NOTE. ROBINSON
== END ==
LOC: M PAIN 11:30
PROVIDERS: ATTEND Nurse Practitioner Family
DX: M79.18 Myalgia, other site (principal); K21.9 Gastro-esophageal reflux disease without esophagitis; E55.9 Vitamin D deficiency, unspecified; G43.909 Migraine, unspecified, not intractable, without status migrainosus; J44.9 Chronic obstructive pulmonary disease, unspecified; F17.210 Nicotine dependence, cigarettes, uncomplicated; Z88.8 Allergy status to other drugs, medicaments and biological substances; Z79.82 Long term (current) use of aspirin; Z79.891 Long term (current) use of opiate analgesic; Z79.899 Other long term (current) drug therapy

== ENCOUNTER → 2020-12-30 | Outpatient (REF) | payer MEDICARE ==
[~2020-12-30] MED LIST changes: -DOXY100C PO; +DOXY100C3 PO; -ONDA2VL IV; +ONDA40IN IV
[2020-12-30 18:21] LABS: AMORPHOUS SEDIMENT SMALL (NEGATIVE); APPEARANCE, URINE CLOUDY (CLEAR); BACTERIA, URINE AUTO 1+ (NEGATIVE); BILIRUBIN, URINE AUTO NEGATIVE (NEGATIVE); BLOOD, URINE BLOOD NEGATIVE (NEGATIVE); CALCIUM OXALATE CRYSTALS MODERATE; COLOR, URINE YELLOW (YELLOW); GLUCOSE, URINE (UA) AUTO NEGATIVE (NEGATIVE); KETONE, URINE AUTO NEGATIVE (NEGATIVE); LEUKOCYTE ESTERASE, URINE AUTO 2+ (NEGATIVE); MUCUS, URINE SMALL (NEGATIVE); NITRITE, URINE AUTO NEGATIVE (NEGATIVE); PROTEIN, URINE AUTO NEGATIVE (NEGATIVE); RBC, URINE AUTO 1 /HPF (0-3); SQUAMOUS EPITHELIAL CELL UR AU 1 /HPF (0-6); WBC, URINE AUTO 91 /HPF (0-3)
== END ==
LOC: M LAB REF 17:07
PROVIDERS: ATTEND Physician Assistant Medical
DX: N39.0 Urinary tract infection, site not specified (principal)

== ENCOUNTER → 2021-01-15 | Outpatient (CLI) | payer MEDICARE ==
[~2021-01-15] MED LIST changes: +ISOVUE-370 76% 100ML VIAL As Ordered ONE
--- NOTE | 2021-01-15 16:54 | REP ---
INDICATION: EMBOLISM AND THROMBOSIS OF ARTERIES OF THE UPPER E. COMPARISON: Comparison right upper extremity Doppler ultrasound May 02, 2019. TECHNIQUE: Helical scanning is acquired following the intravenous injection of 100 mL of Isovue 370. Axial 3 mm images re-formatted. Coronal and sagittal MPR and coronal MIP images are generated. FINDINGS: There is good opacification of the arterial tree. There is vascular calcification of the great vessel origins and in the transverse aorta but no great vessel stenosis is seen. The right innominate artery shows calcific plaquing but no high-grade stenosis carotid artery on the right is unremarkable. There is some atherosclerotic calcification in the carotid bifurcation on the right. The right subclavian artery is widely patent. The common right axillary artery is patent. There is an abrupt occlusion of the right proximal brachial artery with mildly hypertrophied collaterals extending in the arm consistent with thrombosis and or embolism. This segment of the proximal brachial artery shows multifocal calcific plaquing. The collateral suggest at the occlusion is chronic. The distal brachial artery is not reconstituted until the level of the antecubital fossa. There is contrast enhancement in the forearm arterial tree involving the ulnar artery although this is faint. There is contrast enhancement in the radial artery in the forearm although this is less well seen. 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 Multifocal atherosclerotic calcification. Extensive calcification of the thrombosed mid and distal brachial artery. <Electronically signed by Shar Wiggins > 01/15/21 [id number]
== END ==
LOC: M RAD 14:30
PROVIDERS: ATTEND Surgery Vascular Surgery
DX: I74.2 Embolism and thrombosis of arteries of the upper extremities (principal)
CPT/HCPCS: 73206; Q9967

== ENCOUNTER → 2021-01-20 | Outpatient (REF) | payer MEDICARE, MEDICAID ==
[~2021-01-20] MED LIST changes: -ISOVUE-370 76% 100ML VIAL As Ordered ONE
[2021-01-20 12:47] LABS: APPEARANCE, URINE CLEAR (CLEAR); BACTERIA, URINE AUTO NEGATIVE (NEGATIVE); BILIRUBIN, URINE AUTO NEGATIVE (NEGATIVE); BLOOD, URINE BLOOD NEGATIVE (NEGATIVE); COLOR, URINE YELLOW (YELLOW); GLUCOSE, URINE (UA) AUTO NEGATIVE (NEGATIVE); KETONE, URINE AUTO NEGATIVE (NEGATIVE); LEUKOCYTE ESTERASE, URINE AUTO NEGATIVE (NEGATIVE); NITRITE, URINE AUTO NEGATIVE (NEGATIVE); PROTEIN, URINE AUTO NEGATIVE (NEGATIVE); RBC, URINE AUTO 0 /HPF (0-3); SPECIFIC GRAVITY URINE AUTO 1.004 (1.002-1.035); SQUAMOUS EPITHELIAL CELL UR AU 0 /HPF (0-6); UROBILINOGEN, URINE AUTO 0.2 mg/dL (0.0-2.0); WBC, URINE AUTO 0 /HPF (0-3)
== END ==
LOC: M LAB REF 11:10
PROVIDERS: ATTEND Physician Assistant Medical
DX: N39.0 Urinary tract infection, site not specified (principal)

== ENCOUNTER → 2021-02-04 | Outpatient (REF) | payer MEDICARE, MEDICAID ==
[2021-02-04 18:15] LABS: APPEARANCE, URINE CLEAR (CLEAR); BACTERIA, URINE AUTO NEGATIVE (NEGATIVE); BILIRUBIN, URINE AUTO NEGATIVE (NEGATIVE); BLOOD, URINE BLOOD NEGATIVE (NEGATIVE); COLOR, URINE YELLOW (YELLOW); GLUCOSE, URINE (UA) AUTO NEGATIVE (NEGATIVE); KETONE, URINE AUTO NEGATIVE (NEGATIVE); LEUKOCYTE ESTERASE, URINE AUTO NEGATIVE (NEGATIVE); MUCUS, URINE SMALL (NEGATIVE); NITRITE, URINE AUTO NEGATIVE (NEGATIVE); PROTEIN, URINE AUTO NEGATIVE (NEGATIVE); RBC, URINE AUTO 0 /HPF (0-3); SPECIFIC GRAVITY URINE AUTO 1.004 (1.002-1.035); SQUAMOUS EPITHELIAL CELL UR AU 0 /HPF (0-6); UROBILINOGEN, URINE AUTO 0.2 mg/dL (0.0-2.0); WBC, URINE AUTO 0 /HPF (0-3)
== END ==
LOC: M SMT 16:45
PROVIDERS: ATTEND Urology
DX: N30.00 Acute cystitis without hematuria (principal)
CPT/HCPCS: 51798; 81001; 87086; G0463

== ENCOUNTER → 2021-03-10 | Outpatient (CLI) | payer MEDICARE, MEDICAID ==
[~2021-03-10] MED LIST changes: +ADV250INH INH; +ALLE1TAB23 PO; -BENZ200C70; +BENZ200C70 PO; -POTA1TAB14
--- NOTE | 2021-03-10 11:21 | REP ---
INDICATION: ACUTE CYSTITIS W/O HEMATURIA. COMPARISON: 07/24/2018 the latest prior also without contrast TECHNIQUE: Standard helical technique without intravenous contrast or oral bowel preparatory contrast FINDINGS: The lung bases are unchanged Limited evaluation of the solid intra-abdominal organs and gallbladder show no gross abnormalities or significant changes from the prior exam. There is no evidence of cholelithiasis. Limited evaluation of the pancreas and adrenal glands show no significant changes from the prior exam. Benign left adrenal gland thickening is again noted status quo. The inferior pole nephroliths seen previously on the right are no longer present. A single 3 mm size calcification has developed in the interpolar region of the left kidney. This is not causing obstructive phenomena. There is no significant change in appearance of the abdominal aorta or para-regions. There is no evidence of free fluid or free air. There is no significant change in appearance of the bowel loops or the mesenteries. There is no evidence of a mass or adenopathy. There are no urinary bladder calcifications. There are bilateral pelvic phleboliths status quo. Bone window technique throughout the examination shows the osseous structures to be stable. IMPRESSION: 1. Single nonobstructing left nephrolith as described above. 2. Calcifications seen previously in the right kidney are no longer present. 3. There is no evidence of acute disease. Other findings as described above. <Electronically signed by Lalo Espinoza > 03/10/21 [id number]
== END ==
LOC: M PLAIMG 10:42
PROVIDERS: ATTEND Urology
DX: N30.00 Acute cystitis without hematuria (principal)

== ENCOUNTER → 2021-03-13 | Outpatient (REF) | payer MEDICARE, MEDICAID ==
[2021-03-13 14:03] LABS: APPEARANCE, URINE CLEAR (CLEAR); BACTERIA, URINE AUTO NEGATIVE (NEGATIVE); BILIRUBIN, URINE AUTO NEGATIVE (NEGATIVE); BLOOD, URINE BLOOD NEGATIVE (NEGATIVE); COLOR, URINE YELLOW (YELLOW); GLUCOSE, URINE (UA) AUTO NEGATIVE (NEGATIVE); KETONE, URINE AUTO NEGATIVE (NEGATIVE); LEUKOCYTE ESTERASE, URINE AUTO NEGATIVE (NEGATIVE); MUCUS, URINE SMALL (NEGATIVE); NITRITE, URINE AUTO NEGATIVE (NEGATIVE); PROTEIN, URINE AUTO NEGATIVE (NEGATIVE); RBC, URINE AUTO 1 /HPF (0-3); SPECIFIC GRAVITY URINE AUTO 1.014 (1.002-1.035); SQUAMOUS EPITHELIAL CELL UR AU 1 /HPF (0-6); UROBILINOGEN, URINE AUTO 0.2 mg/dL (0.0-2.0); WBC, URINE AUTO 1 /HPF (0-3)
== END ==
LOC: M SMT 13:24
PROVIDERS: ATTEND Urology
DX: Z87.440 Personal history of urinary (tract) infections (principal); Z79.899 Other long term (current) drug therapy

== ENCOUNTER → 2021-03-18 | Outpatient (REF) | payer MEDICARE, MEDICAID | LOC: M SFHCADAM 14:48 | PROVIDERS: ATTEND Physician Assistant | DX: R05.9 Cough, unspecified (principal) ==

== ENCOUNTER → 2021-03-18 | Outpatient (CLI) | payer MEDICARE, MEDICAID ==
--- NOTE | 2021-03-18 16:14 | REP ---
INDICATION: COUGH. COMPARISON: Multiple the latest 08/08/2020 TECHNIQUE: PA and lateral FINDINGS: There is bullous emphysematous change in the upper lung de la o status quo. The cardiomediastinal silhouette is unchanged. The heart is not enlarged. Lung de la o are stable. There are no new abnormal nodules or opacities. Pleural angles remain sharp. The osseous structures are stable and intact. IMPRESSION: There is no acute cardiopulmonary disease. <Electronically signed by Lalo Espinoza > 03/18/21 [id number]
== END ==
LOC: M ADAMS 15:10
PROVIDERS: ATTEND Physician Assistant
DX: R05.9 Cough, unspecified (principal)
CPT/HCPCS: 71046; 87426; G0463; U0003

== ENCOUNTER → 2021-05-12 | Outpatient (REF) | payer MEDICARE, MEDICAID ==
[~2021-05-12] MED LIST changes: +ATOR40TA75 PO; +DIVA125C6 GT; -DIVA1CAP GT
== END ==
LOC: M LAB REF 15:58
PROVIDERS: ATTEND Physician Assistant
DX: C44.311 Basal cell carcinoma of skin of nose (principal)
CPT/HCPCS: 11102; 88305; G0463

== ENCOUNTER → 2021-06-05 | Outpatient (CLI) | payer MEDICARE, MEDICAID | LOC: M PAIN 13:45 | PROVIDERS: ATTEND Anesthesiology | DX: M54.2 Cervicalgia (principal); M79.10 Myalgia, unspecified site; M79.18 Myalgia, other site; D55.0 Anemia due to glucose-6-phosphate dehydrogenase [G6PD] deficiency; D68.62 Lupus anticoagulant syndrome; K21.9 Gastro-esophageal reflux disease without esophagitis; E55.9 Vitamin D deficiency, unspecified; F17.210 Nicotine dependence, cigarettes, uncomplicated; G43.909 Migraine, unspecified, not intractable, without status migrainosus; M15.0 Primary generalized (osteo)arthritis; E78.5 Hyperlipidemia, unspecified; Z79.891 Long term (current) use of opiate analgesic; Z86.73 Personal history of transient ischemic attack (TIA), and cerebral infarction without residual deficits; Z88.8 Allergy status to other drugs, medicaments and biological substances; Z79.82 Long term (current) use of aspirin; Z79.899 Other long term (current) drug therapy ==

== ENCOUNTER → 2021-06-16 | Outpatient (REF) | payer MEDICARE, MEDICAID | LOC: M LAB REF 17:07 | PROVIDERS: ATTEND Dermatology | DX: Z48.02 Encounter for removal of sutures (principal) ==

== ENCOUNTER → 2021-06-23 | Outpatient (CLI) | payer MEDICARE, MEDICAID | LOC: M TMPAIN 09:00 → M PAIN 09:00 | PROVIDERS: ATTEND Anesthesiology | DX: M54.2 Cervicalgia (principal); M79.10 Myalgia, unspecified site; M79.18 Myalgia, other site; D55.0 Anemia due to glucose-6-phosphate dehydrogenase [G6PD] deficiency; D68.62 Lupus anticoagulant syndrome; K21.9 Gastro-esophageal reflux disease without esophagitis; E55.9 Vitamin D deficiency, unspecified; F17.210 Nicotine dependence, cigarettes, uncomplicated; G43.909 Migraine, unspecified, not intractable, without status migrainosus; Z79.891 Long term (current) use of opiate analgesic; M15.0 Primary generalized (osteo)arthritis; E78.5 Hyperlipidemia, unspecified; Z86.73 Personal history of transient ischemic attack (TIA), and cerebral infarction without residual deficits; Z88.8 Allergy status to other drugs, medicaments and biological substances; Z79.82 Long term (current) use of aspirin; Z79.899 Other long term (current) drug therapy ==

== ENCOUNTER → 2021-06-23 | Outpatient (CLI) | payer MEDICARE, MEDICAID | LOC: M RAD 06-16 08:49 | PROVIDERS: ATTEND Anesthesiology | DX: M54.2 Cervicalgia (principal) ==

== ENCOUNTER → 2021-07-03 | Outpatient (CLI) | payer MEDICARE, MEDICAID ==
[2021-07-03 11:36] LABS: BASO # 0.1 10^3/uL (0.0-0.2); EOS # 0.1 10^3/uL (0.0-0.5); HEMATOCRIT 35.8 % (36.0-47.0); HEMOGLOBIN 11.4 g/dl (12.0-15.5); LYMPH # 0.7 10^3/uL (1.5-5.0); LYMPH % 13.9 % (24.0-44.0); MEAN CORPUSCULAR HEMOGLOBIN 29.8 pg (27.0-33.0); MEAN CORPUSCULAR HGB CONC 31.8 g/dl (32.0-36.5); MEAN CORPUSCULAR VOLUME 93.7 fl (80.0-96.0); MONO # 0.4 10^3/uL (0.0-0.8); MONO % 7.7 % (2.0-8.0); NEUTROPHILS # 3.8 10^3/uL (1.5-8.5); NEUTROPHILS % 74.6 % (36.0-66.0); PLATELET COUNT, AUTOMATED 140 10^3/uL (150-450); RED BLOOD COUNT 3.82 10^6/uL (4.00-5.40)
[2021-07-03 11:50] LABS: INR 0.89; PROTHROMBIN TIME 12.4 SECONDS (12.7-14.5)
[2021-07-03 11:51] LABS: PARTIAL THROMBOPLASTIN TIME 31.7 SECONDS (25.9-37.0)
[2021-07-03 12:12] LABS: BLOOD UREA NITROGEN 15 MG/DL (7-18); CARBON DIOXIDE LEVEL 26 MEQ/L (21-32); CHLORIDE LEVEL 110 MEQ/L (98-107); CREATININE FOR GFR 0.72 MG/DL (0.55-1.30); GLOMERULAR FILTRATION RATE > 60.0 (>45); GLUCOSE, FASTING 98 MG/DL (70-100); SODIUM LEVEL 144 MEQ/L (136-145)
== END ==
LOC: M LAB 10:21
PROVIDERS: ATTEND Surgery Vascular Surgery
DX: Z01.818 Encounter for other preprocedural examination (principal); I70.218 Atherosclerosis of native arteries of extremities with intermittent claudication, other extremity; D68.9 Coagulation defect, unspecified

== ENCOUNTER → 2021-07-15 | Outpatient (CLI) | payer MEDICARE, MEDICAID | LOC: M LABSMTC 11:15 | PROVIDERS: ATTEND Surgery Vascular Surgery | DX: Z11.52 Encounter for screening for COVID-19 (principal) ==

== ENCOUNTER → 2021-08-19 | Outpatient (REF) | payer MEDICARE | LOC: M LABDRWAD 16:32 | PROVIDERS: ATTEND Internal Medicine Medical Oncology | DX: D55.0 Anemia due to glucose-6-phosphate dehydrogenase [G6PD] deficiency (principal) ==

== ENCOUNTER → 2021-08-19 | Outpatient (REF) | payer MEDICARE ==
[2021-08-19 12:50] LABS: HEMATOCRIT 30.2 % (36.0-47.0); HEMOGLOBIN 10.4 g/dl (12.0-15.5); MEAN CORPUSCULAR HEMOGLOBIN 31.6 pg (27.0-33.0); MEAN CORPUSCULAR HGB CONC 34.4 g/dl (32.0-36.5); MEAN CORPUSCULAR VOLUME 91.8 fl (80.0-96.0); PLATELET COUNT, AUTOMATED 144 10^3/uL (150-450); RED BLOOD COUNT 3.29 10^6/uL (4.00-5.40); WHITE BLOOD COUNT 6.4 10^3/uL (4.0-10.0)
[2021-08-19 13:46] LABS: ALBUMIN 3.9 GM/DL (3.2-5.2); ALT/SGPT 28 U/L (12-78); BILIRUBIN,TOTAL 2.4 MG/DL (0.2-1.0); BLOOD UREA NITROGEN 11 MG/DL (7-18); CALCIUM LEVEL 8.8 MG/DL (8.8-10.2); CARBON DIOXIDE LEVEL 29 MEQ/L (21-32); CHLORIDE LEVEL 105 MEQ/L (98-107); FERRITIN 449 NG/ML (8-252); FOLATE > 24.0 NG/ML (>5.4); GLOMERULAR FILTRATION RATE > 60.0 (>45); GLUCOSE, FASTING 84 MG/DL (70-100); IRON (FE) 68 UG/DL (50-170); PERCENT SATURATION 32.9 % (13.2-45.0); POTASSIUM SERUM 3.2 MEQ/L (3.5-5.1); SODIUM LEVEL 139 MEQ/L (136-145); TOTAL IRON BINDING CAPACITY 207 UG/DL (250-450); TOTAL PROTEIN 6.4 GM/DL (6.4-8.2); VITAMIN B12 LEVEL > 2000 PG/ML (247-911)
== END ==
LOC: M SFHCADAM 09:39
PROVIDERS: ATTEND Family Medicine
DX: R04.0 Epistaxis (principal); D59.9 Acquired hemolytic anemia, unspecified; Z98.890 Other specified postprocedural states

== ENCOUNTER → 2021-09-17 | Outpatient (CLI) | payer MEDICARE ==
[~2021-09-17] MED LIST changes: +CLOP75TA2; +XARE2.5T
== END ==
LOC: M PAIN 14:15
PROVIDERS: ATTEND Anesthesiology
DX: M54.2 Cervicalgia (principal); M79.10 Myalgia, unspecified site; M79.18 Myalgia, other site; M47.812 Spondylosis without myelopathy or radiculopathy, cervical region; D55.0 Anemia due to glucose-6-phosphate dehydrogenase [G6PD] deficiency; K21.9 Gastro-esophageal reflux disease without esophagitis; D68.62 Lupus anticoagulant syndrome; E55.9 Vitamin D deficiency, unspecified; G43.909 Migraine, unspecified, not intractable, without status migrainosus; J44.9 Chronic obstructive pulmonary disease, unspecified; F17.210 Nicotine dependence, cigarettes, uncomplicated; M15.0 Primary generalized (osteo)arthritis; R91.1 Solitary pulmonary nodule; M06.9 Rheumatoid arthritis, unspecified; M81.0 Age-related osteoporosis without current pathological fracture; E78.5 Hyperlipidemia, unspecified; Z86.73 Personal history of transient ischemic attack (TIA), and cerebral infarction without residual deficits; R32 Unspecified urinary incontinence; Z85.828 Personal history of other malignant neoplasm of skin; Z79.01 Long term (current) use of anticoagulants; Z79.02 Long term (current) use of antithrombotics/antiplatelets; Z79.82 Long term (current) use of aspirin; Z79.899 Other long term (current) drug therapy; Z79.891 Long term (current) use of opiate analgesic; Z88.8 Allergy status to other drugs, medicaments and biological substances

== ENCOUNTER 2021-09-23 10:01 | Outpatient (CLI) | payer MEDICARE ==
[~2021-09-23] VITALS: Ht 154.9 cm; Wt 53.9 kg
[2021-09-23 10:17] VITALS: BP 149/66
[2021-09-23] MEDS ORDERED: IMMUNE GLOBULIN 10% 10 GM in IV 1 EA IV ONE (10:35)
[2021-09-23] MEDS ORDERED: ACETAMINOPHEN TAB 650MG DOSE (2X325MG) PO ONE (10:35)
[2021-09-23] MEDS ORDERED: IMMUNE GLOBULIN 10% 40 GM in IV 1 EA IV ONE (10:35)
[2021-09-23] MEDS ORDERED: FAMOTIDINE 20 MG TAB PO ONE (10:40)
[2021-09-23] MEDS ORDERED: diphenhydrAMINE 25MG CAP PO ONE (10:40)
[2021-09-23 11:14] VITALS: BP 122/57
[2021-09-23 12:14] VITALS: BP 147/69
[2021-09-23 15:45] VITALS: BP 161/67
== END 2021-09-23 15:45 | disposition home or self-care (01) ==
LOC: M INFU 10:01
PROVIDERS: ATTEND Internal Medicine Medical Oncology
DX: D59.9 Acquired hemolytic anemia, unspecified (principal)
CPT/HCPCS: 96365; 96366; J1459

== ENCOUNTER 2021-09-24 10:12 | Outpatient (CLI) | payer MEDICAID, MEDICARE ==
[~2021-09-24] VITALS: Ht 154.9 cm; Wt 54.5 kg
[~2021-09-24 10:12] MED LIST changes: +ACETAMINOPHEN TAB 650MG DOSE (2X325MG) PO ONE; +FAMOTIDINE 20 MG TAB PO ONE; +IMMUNE GLOBULIN 10% 10 GM in IV 1 EA IV ONE; +IMMUNE GLOBULIN 10% 40 GM in IV 1 EA IV ONE; +diphenhydrAMINE 25MG CAP PO ONE
[2021-09-24] MEDS ORDERED: diphenhydrAMINE 25MG CAP PO ONE (10:30)
[2021-09-24] MEDS ORDERED: IMMUNE GLOBULIN 10% 40 GM in IV 1 EA IV ONE (10:30)
[2021-09-24] MEDS ORDERED: ACETAMINOPHEN TAB 650MG DOSE (2X325MG) PO ONE (10:30)
[2021-09-24] MEDS ORDERED: FAMOTIDINE 20 MG TAB PO ONE (10:30)
[2021-09-24] MEDS ORDERED: IMMUNE GLOBULIN 10% 10 GM in IV 1 EA IV ONE (10:30)
[2021-09-24 11:00] VITALS: BP 124/59
[2021-09-24 11:31] VITALS: BP 137/62
[2021-09-24 12:29] VITALS: BP 150/67
[2021-09-24 13:30] VITALS: BP 141/56
[2021-09-24 16:25] VITALS: BP 152/68
== END 2021-09-24 16:25 | disposition home or self-care (01) ==
LOC: M INFU 10:12
PROVIDERS: ATTEND Internal Medicine Medical Oncology
DX: D59.9 Acquired hemolytic anemia, unspecified (principal); Z88.8 Allergy status to other drugs, medicaments and biological substances
CPT/HCPCS: 96365; 96366; J1459

== ENCOUNTER → 2021-10-01 | Outpatient (REF) | payer MEDICARE ==
[~2021-10-01] MED LIST changes: -ACETAMINOPHEN TAB 650MG DOSE (2X325MG) PO ONE; +CEFU1TAB22 PO; -CLOP75TA2; -FAMOTIDINE 20 MG TAB PO ONE; -IMMUNE GLOBULIN 10% 10 GM in IV 1 EA IV ONE; -IMMUNE GLOBULIN 10% 40 GM in IV 1 EA IV ONE; +PANT20TA6 PO; -XARE2.5T; +XARE2.5T PO; -diphenhydrAMINE 25MG CAP PO ONE
== END ==
LOC: M SFHCADAM 16:03
PROVIDERS: ATTEND Family Medicine
DX: R05.9 Cough, unspecified (principal)

== ENCOUNTER → 2021-10-01 | Outpatient (CLI) | payer MEDICARE | LOC: M ADAMS 14:21 | PROVIDERS: ATTEND Family Medicine | DX: R05.9 Cough, unspecified (principal) ==

== ENCOUNTER 2021-10-04 20:05 | Inpatient (IN) | payer MEDICARE ==
[~2021-10-04] VITALS: Ht 154.9 cm; Wt 54.2 kg
[~2021-10-04 20:05] MED LIST changes: -CEFU1TAB22 PO; -PANT20TA6 PO
[2021-10-04] MEDS ORDERED: ONDANSETRON 4MG/2ML VIAL IV ONE (21:10)
[2021-10-04 21:51] LABS: CK-MB VALUE MASS 1.5 NG/ML (<3.6); MB/CK RELATIVE INDEX 1.81 (< OR =4)
[2021-10-04 21:56] LABS: INR 0.99; PROTHROMBIN TIME 13.5 SECONDS (12.7-14.5)
[2021-10-04 21:57] LABS: ALT/SGPT 46 U/L (12-78); AMYLASE 70 U/L (25-115); BILIRUBIN,DIRECT 0.2 MG/DL (0.0-0.2); BILIRUBIN,TOTAL 1.1 MG/DL (0.2-1.0); BLOOD UREA NITROGEN 12 MG/DL (7-18); CARBON DIOXIDE LEVEL 25 MEQ/L (21-32); CHLORIDE LEVEL 108 MEQ/L (98-107); CREATININE FOR GFR 0.79 MG/DL (0.55-1.30); GLOMERULAR FILTRATION RATE > 60.0 (>45); GLUCOSE, FASTING 105 MG/DL (70-100); LIPASE 31 U/L (73-393); NT-PRO BNP 195 PG/ML (<125); POTASSIUM SERUM 5.2 MEQ/L (3.5-5.1); SODIUM LEVEL 141 MEQ/L (136-145)
[2021-10-04] MEDS ORDERED: METOCLOPRAMIDE INJ 10MG/2ML VIAL (J2765 PER 1) IV ONE (22:05)
[2021-10-04] MEDS ORDERED: ISOVUE-370 76% 100ML VIAL As Ordered ONE (22:09)
[2021-10-04 23:06] LABS: BASO % 0.2 % (0.0-1.0); EOS % 0.1 % (0.0-3.0); HEMATOCRIT 42.8 % (36.0-47.0); HEMOGLOBIN 13.6 g/dl (12.0-15.5); LYMPH # 0.4 10^3/uL (1.5-5.0); LYMPH % 3.5 % (24.0-44.0); MEAN CORPUSCULAR HEMOGLOBIN 30.2 pg (27.0-33.0); MEAN CORPUSCULAR HGB CONC 31.8 g/dl (32.0-36.5); MEAN CORPUSCULAR VOLUME 95.1 fl (80.0-96.0); MONO # 0.3 10^3/uL (0.0-0.8); MONO % 3.2 % (2.0-8.0); NEUTROPHILS # 9.3 10^3/uL (1.5-8.5); NEUTROPHILS % 92.6 % (36.0-66.0); PLATELET COUNT, AUTOMATED 125 10^3/uL (150-450); WHITE BLOOD COUNT 10.1 10^3/uL (4.0-10.0)
[2021-10-04] MEDS ORDERED: hydrALAZINE 20MG/ML 1ML VIAL (J0360 PER 20MG) IV ONE (23:20)
[2021-10-04 23:29] LABS: CK-MB VALUE MASS 1.5 NG/ML (<3.6); MB/CK RELATIVE INDEX 3.85 (< OR =4)
[2021-10-04] MEDS ORDERED: NS 1,000 ML IV SCH (23:35)
[2021-10-04] MEDS ORDERED: MORPHINE 4 MG/ML 1ML VIAL/SYRINGE IV ONE (23:35)
[2021-10-04] MEDS ORDERED: PIPERACILLIN/TAZOBACTAM SOD 3.375 GM in D5W MINI-BAG PLUS 50 ML IV ONE (23:40)
[2021-10-05] VITALS (7 sets, daily range): BP systolic 144–188; BP diastolic 65–82
[2021-10-05] MEDS ORDERED: PANT20TA6 PO (00:53)
[2021-10-05] MEDS ORDERED: CELE10TA PO (00:53)
[2021-10-05] MEDS ORDERED: ACET-683 PO (00:53)
[2021-10-05] MEDS ORDERED: CEFU1TAB22 PO (00:53)
[2021-10-05] MEDS ORDERED: FOLI1TAB11 PO (00:53)
[2021-10-05 00:55] LABS: RSV AMPLIFICATION NEGATIVE (NEGATIVE)
[2021-10-05] MEDS ORDERED: HOME MED LIST COMPLETE! XX SCH (00:55)
[2021-10-05] MEDS ORDERED: MORPHINE 4 MG/ML 1ML VIAL/SYRINGE IV ONE (01:50)
[2021-10-05] MEDS: HYDROMORPHONE HCL 0.5 MG/ 0.5 ML SYRINGE (J1170 PER 1) IV PRN ×2 (02:41→06:22)
[2021-10-05] MEDS ORDERED: LABETALOL 100MG/20ML VIAL IV STA (02:47)
[2021-10-05] MEDS: NS 1,000 ML IV SCH ×2 (03:06→13:35)
[2021-10-05] MEDS: COMBIVENT RESPIMAT 100-20MCG INHALER 4GM INH SCH ×6 (04:00→23:49)
[2021-10-05 06:00] LABS: HEMATOCRIT 39.3 % (36.0-47.0); HEMOGLOBIN 12.8 g/dl (12.0-15.5); MEAN CORPUSCULAR HGB CONC 32.6 g/dl (32.0-36.5); MEAN CORPUSCULAR VOLUME 92.3 fl (80.0-96.0); PLATELET COUNT, AUTOMATED 129 10^3/uL (150-450); RED BLOOD COUNT 4.26 10^6/uL (4.00-5.40); WHITE BLOOD COUNT 9.3 10^3/uL (4.0-10.0)
[2021-10-05] MEDS ORDERED: PANTOPRAZOLE 40MG VIAL IV SCH ×2 (06:00→09:00)
[2021-10-05 06:12] LABS: INR 1.01; PROTHROMBIN TIME 13.7 SECONDS (12.7-14.5)
[2021-10-05 06:13] LABS: PARTIAL THROMBOPLASTIN TIME 37.2 SECONDS (25.9-37.0)
[2021-10-05 06:20] LABS: BLOOD UREA NITROGEN 10 MG/DL (7-18); CALCIUM LEVEL 8.6 MG/DL (8.8-10.2); CARBON DIOXIDE LEVEL 25 MEQ/L (21-32); CHLORIDE LEVEL 107 MEQ/L (98-107); CREATININE FOR GFR 0.54 MG/DL (0.55-1.30); GLOMERULAR FILTRATION RATE > 60.0 (>45); GLUCOSE, FASTING 132 MG/DL (70-100); MAGNESIUM LEVEL 1.8 MG/DL (1.8-2.4); PHOSPHORUS LEVEL 3.7 MG/DL (2.5-4.9); POTASSIUM SERUM 3.5 MEQ/L (3.5-5.1); SODIUM LEVEL 138 MEQ/L (136-145)
[2021-10-05] MEDS ORDERED: ADVAIR HFA 230/21MCG INHALER INH SCH (08:00)
[2021-10-05] MEDS: PIPERACILLIN/TAZOBACTAM SOD 3.375 GM in D5W MINI-BAG PLUS 50 ML IV SCH ×3 (08:12→18:19)
[2021-10-05] MEDS ORDERED: FOLIC ACID 1 MG TAB PO SCH (09:00)
[2021-10-05] MEDS ORDERED: ATORVASTATIN 20 MG TAB PO SCH (09:00)
[2021-10-05] MEDS ORDERED: POTASSIUM CHLORIDE 10MEQ SR TABLET PO SCH (09:00)
[2021-10-05] MEDS ORDERED: CYANOCOBALAMIN 500 MCG TAB PO SCH (09:00)
[2021-10-05] MEDS ORDERED: CHLORTHALIDONE 12.5MG PER 1/2 TABLET PO SCH (09:00)
[2021-10-05] MEDS ORDERED: PANTOPRAZOLE 20 MG TAB PO SCH ×2 (09:00→21:00)
[2021-10-05] MEDS ORDERED: rOPINIRole 0.25 MG TAB(REQUIP) PO PRN (09:40)
[2021-10-05] MEDS: MORPHINE 4 MG/ML 1ML VIAL/SYRINGE IV PRN ×3 (10:25→19:37)
[2021-10-05] MEDS: ASPIRIN 81MG ENTERIC TABLET PO SCH (10:25)
[2021-10-05] MEDS: CLOPIDOGREL 75 MG TAB PO SCH (10:26)
[2021-10-05] MEDS: CitaloPRAM (CeleXA) 10 MG TABLET PO SCH (12:01)
[2021-10-05] MEDS ORDERED: GI COCKTAIL 50ML BTL(HYOSCYAMINE/MAALOX/LIDOCAINE VISCOUS)(1:3:1) PO ONE (13:00)
[2021-10-05] MEDS: ADVAIR HFA 115/21MCG INHALER INH SCH ×2 (14:48→20:02)
[2021-10-05 19:44] LABS: HEMATOCRIT 39.8 % (36.0-47.0); HEMOGLOBIN 13.3 g/dl (12.0-15.5)
[2021-10-05] MEDS: PANTOPRAZOLE 40MG VIAL IV SCH (20:15)
[2021-10-05] MEDS: FLUTICASONE PROP 0.05% NASAL SPRAY 16 GM (FLONASE) SCH (20:16)
[2021-10-05] MEDS: AMITRIPTYLINE 25MG TABLET PO SCH (20:16)
[2021-10-05] MEDS ORDERED: ALPRAZolam 0.25 MG TAB PO ONE (21:15)
[2021-10-06] VITALS (9 sets, daily range): BP systolic 133–188; BP diastolic 63–84
[2021-10-06] MEDS: PIPERACILLIN/TAZOBACTAM SOD 3.375 GM in D5W MINI-BAG PLUS 50 ML IV SCH ×5 (00:16→18:03)
[2021-10-06] MEDS: NS 1,000 ML IV SCH (00:16)
[2021-10-06] MEDS: oxyCODONE 5MG TAB PO PRN ×2 (01:54→13:42)
[2021-10-06] MEDS: COMBIVENT RESPIMAT 100-20MCG INHALER 4GM INH SCH ×5 (04:05→20:02)
[2021-10-06] MEDS: ACETAMINOPHEN 500 MG TAB PO PRN ×2 (04:25→18:04)
[2021-10-06 05:40] LABS: BASO % 0.3 % (0.0-1.0); HEMATOCRIT 41.6 % (36.0-47.0); HEMOGLOBIN 13.9 g/dl (12.0-15.5); LYMPH # 0.6 10^3/uL (1.5-5.0); LYMPH % 6.8 % (24.0-44.0); MEAN CORPUSCULAR HEMOGLOBIN 30.3 pg (27.0-33.0); MEAN CORPUSCULAR HGB CONC 33.4 g/dl (32.0-36.5); MEAN CORPUSCULAR VOLUME 90.6 fl (80.0-96.0); MONO # 0.4 10^3/uL (0.0-0.8); MONO % 4.5 % (2.0-8.0); NEUTROPHILS # 7.6 10^3/uL (1.5-8.5); NEUTROPHILS % 88.2 % (36.0-66.0); PLATELET COUNT, AUTOMATED 134 10^3/uL (150-450); RED BLOOD COUNT 4.59 10^6/uL (4.00-5.40); WHITE BLOOD COUNT 8.6 10^3/uL (4.0-10.0)
[2021-10-06 06:19] LABS: ALBUMIN 3.7 GM/DL (3.2-5.2); ALT/SGPT 46 U/L (12-78); BILIRUBIN,TOTAL 1.1 MG/DL (0.2-1.0); BLOOD UREA NITROGEN 9 MG/DL (7-18); CALCIUM LEVEL 8.3 MG/DL (8.8-10.2); CARBON DIOXIDE LEVEL 25 MEQ/L (21-32); CHLORIDE LEVEL 102 MEQ/L (98-107); CREATININE FOR GFR 0.53 MG/DL (0.55-1.30); GLOMERULAR FILTRATION RATE > 60.0 (>45); GLUCOSE, FASTING 114 MG/DL (70-100); MAGNESIUM LEVEL 1.9 MG/DL (1.8-2.4); POTASSIUM SERUM 3.3 MEQ/L (3.5-5.1); SODIUM LEVEL 135 MEQ/L (136-145); TOTAL PROTEIN 7.4 GM/DL (6.4-8.2)
[2021-10-06] MEDS ORDERED: POTASSIUM CHLORIDE 10% LIQ 20 MEQ/15 ML UDC PO ONE (06:45)
[2021-10-06] MEDS: ADVAIR HFA 115/21MCG INHALER INH SCH ×2 (08:08→20:07)
[2021-10-06] MEDS: KCL 40MEQ in NS 1000ML 1,000 ML IV SCH ×2 (08:23→22:43)
[2021-10-06] MEDS: PANTOPRAZOLE 40MG VIAL IV SCH ×2 (08:23→20:12)
[2021-10-06] MEDS: ASPIRIN 81MG ENTERIC TABLET PO SCH (08:24)
[2021-10-06] MEDS: CLOPIDOGREL 75 MG TAB PO SCH (08:24)
[2021-10-06] MEDS: ONDANSETRON 4MG/2ML VIAL IV SCH ×3 (08:28→20:12)
[2021-10-06] MEDS: SUCRALFATE SUSP 1GM/10ML UD PO SCH ×2 (12:04→18:03)
[2021-10-06] MEDS: hydrALAZINE 20MG/ML 1ML VIAL (J0360 PER 20MG) IV PRN ×2 (16:40→20:12)
[2021-10-06] MEDS: FLUTICASONE PROP 0.05% NASAL SPRAY 16 GM (FLONASE) SCH (20:13)
[2021-10-06] MEDS ORDERED: LORazepam 0.5 MG TAB PO ONE (22:20)
[2021-10-07] VITALS: BP 160/88
[2021-10-07] MEDS: COMBIVENT RESPIMAT 100-20MCG INHALER 4GM INH SCH ×6 (00:03→19:22)
[2021-10-07] MEDS: SUCRALFATE SUSP 1GM/10ML UD PO SCH ×4 (01:28→17:48)
[2021-10-07] MEDS: oxyCODONE 5MG TAB PO PRN ×3 (01:29→18:34)
[2021-10-07] MEDS: PIPERACILLIN/TAZOBACTAM SOD 3.375 GM in D5W MINI-BAG PLUS 50 ML IV SCH ×4 (01:30→18:33)
[2021-10-07 04:00] VITALS: BP 134/71
[2021-10-07] MEDS: ONDANSETRON 4MG/2ML VIAL IV SCH ×4 (04:10→20:15)
[2021-10-07 06:12] LABS: LDH LACTATE DEHYDROGENASE 235 U/L (84-246)
[2021-10-07 07:36] LABS: BLOOD UREA NITROGEN 6 MG/DL (7-18); CALCIUM LEVEL 8.5 MG/DL (8.8-10.2); CARBON DIOXIDE LEVEL 27 MEQ/L (21-32); CHLORIDE LEVEL 105 MEQ/L (98-107); CREATININE FOR GFR 0.61 MG/DL (0.55-1.30); GLOMERULAR FILTRATION RATE > 60.0 (>45); GLUCOSE, FASTING 115 MG/DL (70-100); POTASSIUM SERUM 3.7 MEQ/L (3.5-5.1); SODIUM LEVEL 137 MEQ/L (136-145)
[2021-10-07 08:00] VITALS: BP 147/40
[2021-10-07] MEDS ORDERED: rOPINIRole 0.25 MG TAB(REQUIP) PO PRN (08:25)
[2021-10-07] MEDS: ASPIRIN 81MG ENTERIC TABLET PO SCH (08:48)
[2021-10-07] MEDS: CLOPIDOGREL 75 MG TAB PO SCH (08:48)
[2021-10-07] MEDS: PANTOPRAZOLE 40MG VIAL IV SCH ×2 (08:48→20:15)
[2021-10-07] MEDS: ACETAMINOPHEN 500 MG TAB PO PRN ×2 (08:49→15:49)
[2021-10-07] MEDS: ADVAIR HFA 115/21MCG INHALER INH SCH ×2 (09:00→19:25)
[2021-10-07] MEDS: CitaloPRAM (CeleXA) 10 MG TABLET PO SCH (12:05)
[2021-10-07 16:00] VITALS: BP 175/90
[2021-10-07] MEDS: NIFEdipine 10 MG CAP PO SCH (17:48)
[2021-10-07 18:15] VITALS: BP 170/76
[2021-10-07] MEDS: AMITRIPTYLINE 25MG TABLET PO SCH (20:15)
[2021-10-07] MEDS: FLUTICASONE PROP 0.05% NASAL SPRAY 16 GM (FLONASE) SCH (23:53)
[2021-10-08] MEDS: PIPERACILLIN/TAZOBACTAM SOD 3.375 GM in D5W MINI-BAG PLUS 50 ML IV SCH ×2 (01:24→06:35)
[2021-10-08] MEDS: SUCRALFATE SUSP 1GM/10ML UD PO SCH ×2 (01:25→06:34)
[2021-10-08] MEDS: NIFEdipine 10 MG CAP PO SCH ×2 (01:30→06:00)
[2021-10-08] MEDS: ONDANSETRON 4MG/2ML VIAL IV SCH (02:54)
[2021-10-08] MEDS: oxyCODONE 5MG TAB PO PRN (03:25)
[2021-10-08] MEDS: COMBIVENT RESPIMAT 100-20MCG INHALER 4GM INH SCH ×3 (04:00→07:20)
[2021-10-08 05:48] VITALS: BP 132/58
[2021-10-08 06:00] VITALS: BP 152/50
[2021-10-08 06:58] LABS: BASO % 0.4 % (0.0-1.0); EOS % 0.2 % (0.0-3.0); HEMATOCRIT 39.2 % (36.0-47.0); HEMOGLOBIN 13.1 g/dl (12.0-15.5); LYMPH # 0.5 10^3/uL (1.5-5.0); LYMPH % 8.9 % (24.0-44.0); MEAN CORPUSCULAR HEMOGLOBIN 30.7 pg (27.0-33.0); MEAN CORPUSCULAR HGB CONC 33.4 g/dl (32.0-36.5); MEAN CORPUSCULAR VOLUME 91.8 fl (80.0-96.0); MONO # 0.5 10^3/uL (0.0-0.8); MONO % 8.9 % (2.0-8.0); NEUTROPHILS # 4.4 10^3/uL (1.5-8.5); NEUTROPHILS % 81.2 % (36.0-66.0); PLATELET COUNT, AUTOMATED 126 10^3/uL (150-450); RED BLOOD COUNT 4.27 10^6/uL (4.00-5.40); WHITE BLOOD COUNT 5.4 10^3/uL (4.0-10.0)
[2021-10-08 07:12] LABS: BLOOD UREA NITROGEN 7 MG/DL (7-18); CALCIUM LEVEL 8.8 MG/DL (8.8-10.2); CARBON DIOXIDE LEVEL 28 MEQ/L (21-32); CHLORIDE LEVEL 103 MEQ/L (98-107); CREATININE FOR GFR 0.58 MG/DL (0.55-1.30); GLOMERULAR FILTRATION RATE > 60.0 (>45); GLUCOSE, FASTING 104 MG/DL (70-100); POTASSIUM SERUM 3.1 MEQ/L (3.5-5.1); SODIUM LEVEL 139 MEQ/L (136-145)
[2021-10-08] MEDS: ADVAIR HFA 115/21MCG INHALER INH SCH (07:20)
[2021-10-08] MEDS ORDERED: BISACODYL 10 MG SUPP PR ONE (07:55)
[2021-10-08] MEDS ORDERED: POTASSIUM CHLORIDE 10% LIQ 20 MEQ/15 ML UDC PO ONE (08:00)
[2021-10-08] MEDS ORDERED: PANT20TA6 PO (08:01)
[2021-10-08] MEDS ORDERED: METR-265 PO (08:07)
[2021-10-08] MEDS ORDERED: AMLO1TAB24 PO (08:07)
[2021-10-08] MEDS ORDERED: CIPR500T39 PO (08:07)
[2021-10-08] MEDS ORDERED: SUCR1TA PO (08:07)
[2021-10-08] MEDS: ASPIRIN 81MG ENTERIC TABLET PO SCH (08:29)
[2021-10-08] MEDS: CitaloPRAM (CeleXA) 10 MG TABLET PO SCH (08:29)
[2021-10-08] MEDS: CLOPIDOGREL 75 MG TAB PO SCH (08:30)
[2021-10-08 08:36] VITALS: BP 156/62
[2021-10-08] MEDS ORDERED: PANTOPRAZOLE 40MG TAB (PROTONIX) PO SCH (09:00)
== END 2021-10-08 09:22 | disposition home or self-care (01) | DRG 392 ==
LOC: M ED 20:05 → M ED INP 10-05 00:43 → ENRESERV 10-05 01:49 → M PCU 10-05 02:30 → M MSPAV 10-07 18:12
PROVIDERS: ADMIT Internal Medicine; ATTEND Internal Medicine Nephrology
DX: K21.00 Gastro-esophageal reflux disease with esophagitis, without bleeding (principal); K51.00 Ulcerative (chronic) pancolitis without complications; D59.19 Other autoimmune hemolytic anemia; D68.59 Other primary thrombophilia; J44.0 Chronic obstructive pulmonary disease with (acute) lower respiratory infection; D59.12 Cold autoimmune hemolytic anemia; I77.4 Celiac artery compression syndrome; K92.0 Hematemesis; F17.210 Nicotine dependence, cigarettes, uncomplicated; F32.A Depression, unspecified; R51.9 Headache, unspecified; M81.0 Age-related osteoporosis without current pathological fracture; E87.6 Hypokalemia; I10 Essential (primary) hypertension; M54.9 Dorsalgia, unspecified; I70.1 Atherosclerosis of renal artery; G25.81 Restless legs syndrome; R04.0 Epistaxis; J20.9 Acute bronchitis, unspecified; Z79.82 Long term (current) use of aspirin; Z79.02 Long term (current) use of antithrombotics/antiplatelets; Z79.899 Other long term (current) drug therapy; Z86.718 Personal history of other venous thrombosis and embolism; Z86.73 Personal history of transient ischemic attack (TIA), and cerebral infarction without residual deficits; Z87.442 Personal history of urinary calculi

== ENCOUNTER → 2021-11-24 | Outpatient (CLI) | payer MEDICAID, MEDICARE ==
[~2021-11-24] MED LIST changes: +AMLO1TAB24 PO; +AMLO25TA PO; +CEFU1TAB22 PO; +CIPR500T39 PO; +E-Z-GAS II EFFERVESCENT PACKET (SODIUM BICARB./CITRIC ACID/SIMETHICONE) As Ordered ONE; +E-Z-HD 98% w/w 340GM SUSP BTL As Ordered ONE; +E-Z-PAQUE 96% w/w SUSP 176GM BTL As Ordered ONE; +METR-265 PO; +PANT20TA6 PO; +PROBCAP14 PO; +SUCR1TA PO; +VITA200012 PO
== END ==
LOC: M RAD 07:36
PROVIDERS: ATTEND Internal Medicine Gastroenterology
DX: R47.02 Dysphasia (principal)

== ENCOUNTER → 2021-12-03 | Outpatient (REF) | payer MEDICARE ==
[~2021-12-03] MED LIST changes: -E-Z-GAS II EFFERVESCENT PACKET (SODIUM BICARB./CITRIC ACID/SIMETHICONE) As Ordered ONE; -E-Z-HD 98% w/w 340GM SUSP BTL As Ordered ONE; -E-Z-PAQUE 96% w/w SUSP 176GM BTL As Ordered ONE; +SUCR1TAB56 PO; +VALA500T5 PO
[2021-12-03 14:00] LABS: APPEARANCE, URINE HAZY (CLEAR); BACTERIA, URINE AUTO 1+ (NEGATIVE); BILIRUBIN, URINE AUTO NEGATIVE (NEGATIVE); BLOOD, URINE BLOOD NEGATIVE (NEGATIVE); COLOR, URINE AMBER (YELLOW); GLUCOSE, URINE (UA) AUTO NEGATIVE (NEGATIVE); KETONE, URINE AUTO TRACE mg/dL (NEGATIVE); LEUKOCYTE ESTERASE, URINE AUTO 1+ (NEGATIVE); MUCUS, URINE SMALL (NEGATIVE); NITRITE, URINE AUTO NEGATIVE (NEGATIVE); PROTEIN, URINE AUTO 1+ mg/dL (NEGATIVE); RBC, URINE AUTO 3 /HPF (0-3); SQUAMOUS EPITHELIAL CELL UR AU 7 /HPF (0-6); WBC, URINE AUTO 78 /HPF (0-3)
== END ==
LOC: M SFHCPLAZ 13:19
PROVIDERS: ATTEND Physician Assistant
DX: N30.00 Acute cystitis without hematuria (principal)

== ENCOUNTER 2021-12-08 19:18 | Inpatient (IN) | payer MEDICARE ==
[~2021-12-08] VITALS: Ht 160 cm; Wt 52.1 kg
[~2021-12-08 19:18] MED LIST changes: -SUCR1TAB56 PO; -VALA500T5 PO
[2021-12-08] MEDS ORDERED: PANT20TA6 PO (19:46)
[2021-12-08] MEDS ORDERED: AMLO1TAB24 PO (19:46)
[2021-12-08 20:02] VITALS: BP 154/78
[2021-12-08 20:10] LABS: BASO % 0.8 % (0.0-1.0); EOS # 0.2 10^3/uL (0.0-0.5); EOS % 2.9 % (0.0-3.0); HEMATOCRIT 32.5 % (36.0-47.0); HEMOGLOBIN 10.7 g/dl (12.0-15.5); LYMPH # 0.7 10^3/uL (1.5-5.0); LYMPH % 14.5 % (24.0-44.0); MEAN CORPUSCULAR HEMOGLOBIN 29.6 pg (27.0-33.0); MEAN CORPUSCULAR HGB CONC 32.9 g/dl (32.0-36.5); MONO # 0.3 10^3/uL (0.0-0.8); MONO % 5.1 % (2.0-8.0); NEUTROPHILS # 3.9 10^3/uL (1.5-8.5); NEUTROPHILS % 76.1 % (36.0-66.0); PLATELET COUNT, AUTOMATED 153 10^3/uL (150-450); RED BLOOD COUNT 3.61 10^6/uL (4.00-5.40); WHITE BLOOD COUNT 5.1 10^3/uL (4.0-10.0)
[2021-12-08 20:21] LABS: INR 1.07; PROTHROMBIN TIME 14.3 SECONDS (12.7-14.5)
[2021-12-08 20:32] LABS: BLOOD UREA NITROGEN 11 MG/DL (7-18); CALCIUM LEVEL 9.4 MG/DL (8.8-10.2); CARBON DIOXIDE LEVEL 27 MEQ/L (21-32); CHLORIDE LEVEL 108 MEQ/L (98-107); CREATININE FOR GFR 0.74 MG/DL (0.55-1.30); GLOMERULAR FILTRATION RATE > 60.0 (>45); GLUCOSE, FASTING 108 MG/DL (70-100); SODIUM LEVEL 141 MEQ/L (136-145)
[2021-12-08] MEDS ORDERED: POTASSIUM CHLORIDE 10MEQ SR TABLET PO ONE (20:35)
[2021-12-08] MEDS ORDERED: ISOVUE-370 76% 100ML VIAL As Ordered ONE (20:41)
[2021-12-08 20:53] LABS: CK-MB VALUE MASS 1.9 NG/ML (<3.6); MB/CK RELATIVE INDEX 2.71 (< OR =4)
[2021-12-08] MEDS ORDERED: AMITRIPTYLINE 25MG TABLET PO ONE (21:45)
[2021-12-08] MEDS ORDERED: oxyCODONE 5MG TAB PO ONE (21:45)
[2021-12-08 22:02] LABS: RSV AMPLIFICATION NEGATIVE (NEGATIVE)
[2021-12-09] MEDS ORDERED: SUCR1TAB56 PO (01:43)
[2021-12-09] MEDS ORDERED: HOME MED LIST COMPLETE! XX SCH (01:45)
[2021-12-09] MEDS ORDERED: rOPINIRole 0.25 MG TAB(REQUIP) PO PRN (02:20)
[2021-12-09] MEDS ORDERED: ACETAMINOPHEN 500 MG TAB PO PRN (02:20)
[2021-12-09 02:38] VITALS: BP 149/67
[2021-12-09] MEDS ORDERED: PILL CUTTER 1 EACH XX PRN (02:50)
[2021-12-09] MEDS: NS 1,000 ML IV SCH ×3 (03:22→22:20)
[2021-12-09 04:00] VITALS: BP 126/58
[2021-12-09 06:54] LABS: BLOOD UREA NITROGEN 10 MG/DL (7-18); CALCIUM LEVEL 8.9 MG/DL (8.8-10.2); CARBON DIOXIDE LEVEL 28 MEQ/L (21-32); CHLORIDE LEVEL 111 MEQ/L (98-107); CREATININE FOR GFR 0.52 MG/DL (0.55-1.30); GLOMERULAR FILTRATION RATE > 60.0 (>45); GLUCOSE, FASTING 95 MG/DL (70-100); POTASSIUM SERUM 3.2 MEQ/L (3.5-5.1); SODIUM LEVEL 144 MEQ/L (136-145)
[2021-12-09] MEDS ORDERED: POTASSIUM CHLORIDE 10MEQ SR TABLET PO ONE (07:30)
[2021-12-09] MEDS: ADVAIR HFA 115/21MCG INHALER INH SCH ×2 (09:16→19:26)
[2021-12-09] MEDS: SUCRALFATE 1 GM TAB PO SCH ×3 (10:28→20:48)
[2021-12-09] MEDS: CLOPIDOGREL 75 MG TAB PO SCH (10:28)
[2021-12-09] MEDS: CHLORTHALIDONE 12.5MG PER 1/2 TABLET PO SCH (10:28)
[2021-12-09] MEDS: ASPIRIN 81MG ENTERIC TABLET PO SCH (10:28)
[2021-12-09] MEDS: PANTOPRAZOLE 20 MG TAB PO SCH ×2 (10:28→20:47)
[2021-12-09] MEDS: CitaloPRAM (CeleXA) 10 MG TABLET PO SCH (10:29)
[2021-12-09] MEDS: ATORVASTATIN 20 MG TAB PO SCH (10:29)
[2021-12-09] MEDS: amLODIPine 5 MG TAB PO SCH (10:30)
[2021-12-09] MEDS: oxyCODONE 5MG TAB PO PRN ×2 (10:43→18:59)
[2021-12-09 12:00] VITALS: BP 128/61
[2021-12-09] MEDS: RIVAROXABAN 10MG TAB (XARELTO) PO SCH ×2 (14:03→20:48)
[2021-12-09] MEDS: predniSONE 20 MG TAB PO SCH (15:54)
[2021-12-09 20:00] VITALS: BP 118/59
[2021-12-09] MEDS: POLYVINYL ALCOHOL OPHTH SOLN 15 ML(LIQUITEARS) OS SCH (20:48)
[2021-12-09] MEDS ORDERED: AMITRIPTYLINE 25MG TABLET PO SCH (21:00)
[2021-12-09] MEDS: valACYclovir HCL 500 MG TAB PO SCH (22:19)
[2021-12-10 04:00] VITALS: BP 103/53
[2021-12-10 07:59] LABS: HEMATOCRIT 32.1 % (36.0-47.0); HEMOGLOBIN 10.1 g/dl (12.0-15.5); MEAN CORPUSCULAR HEMOGLOBIN 29.4 pg (27.0-33.0); MEAN CORPUSCULAR HGB CONC 31.5 g/dl (32.0-36.5); MEAN CORPUSCULAR VOLUME 93.6 fl (80.0-96.0); PLATELET COUNT, AUTOMATED 152 10^3/uL (150-450); RED BLOOD COUNT 3.43 10^6/uL (4.00-5.40); WHITE BLOOD COUNT 5.3 10^3/uL (4.0-10.0)
[2021-12-10 08:37] LABS: ALBUMIN 3.3 GM/DL (3.2-5.2); ALT/SGPT 15 U/L (12-78); BILIRUBIN,TOTAL 0.9 MG/DL (0.2-1.0); BLOOD UREA NITROGEN 8 MG/DL (7-18); CALCIUM LEVEL 8.9 MG/DL (8.8-10.2); CARBON DIOXIDE LEVEL 22 MEQ/L (21-32); CHLORIDE LEVEL 114 MEQ/L (98-107); GLOMERULAR FILTRATION RATE > 60.0 (>45); GLUCOSE, FASTING 121 MG/DL (70-100); POTASSIUM SERUM 4.2 MEQ/L (3.5-5.1); SODIUM LEVEL 143 MEQ/L (136-145); TOTAL PROTEIN 5.6 GM/DL (6.4-8.2)
[2021-12-10] MEDS: ADVAIR HFA 115/21MCG INHALER INH SCH (08:54)
[2021-12-10] MEDS: ATORVASTATIN 20 MG TAB PO SCH (09:30)
[2021-12-10] MEDS: CHLORTHALIDONE 12.5MG PER 1/2 TABLET PO SCH (09:30)
[2021-12-10] MEDS: CitaloPRAM (CeleXA) 10 MG TABLET PO SCH (09:30)
[2021-12-10] MEDS: ASPIRIN 81MG ENTERIC TABLET PO SCH (09:30)
[2021-12-10] MEDS: CLOPIDOGREL 75 MG TAB PO SCH (09:30)
[2021-12-10] MEDS: SUCRALFATE 1 GM TAB PO SCH (09:30)
[2021-12-10] MEDS: valACYclovir HCL 500 MG TAB PO SCH (09:30)
[2021-12-10] MEDS: PANTOPRAZOLE 20 MG TAB PO SCH (09:30)
[2021-12-10] MEDS: predniSONE 20 MG TAB PO SCH (09:30)
[2021-12-10 09:32] VITALS: BP 134/63
[2021-12-10] MEDS: amLODIPine 5 MG TAB PO SCH (09:32)
[2021-12-10] MEDS: oxyCODONE 5MG TAB PO PRN (09:33)
[2021-12-10] MEDS: POLYVINYL ALCOHOL OPHTH SOLN 15 ML(LIQUITEARS) OS SCH ×2 (09:36→14:01)
[2021-12-10] MEDS: NS 1,000 ML IV SCH (10:15)
[2021-12-10] MEDS ORDERED: PRED20TA PO (12:42)
[2021-12-10] MEDS ORDERED: VALA500T5 PO (12:42)
[2021-12-10] MEDS: RIVAROXABAN 10MG TAB (XARELTO) PO SCH (14:01)
== END 2021-12-10 14:18 | disposition home or self-care (01) | DRG 74 ==
LOC: M ED 19:18 → M ED INP 22:39 → M 4MAIN 12-09 02:36
PROVIDERS: ADMIT Internal Medicine; ATTEND Family Medicine
DX: G51.0 Bell's palsy (principal); D68.61 Antiphospholipid syndrome; F11.20 Opioid dependence, uncomplicated; I73.9 Peripheral vascular disease, unspecified; J44.9 Chronic obstructive pulmonary disease, unspecified; I10 Essential (primary) hypertension; F17.210 Nicotine dependence, cigarettes, uncomplicated; F32.A Depression, unspecified; K21.9 Gastro-esophageal reflux disease without esophagitis; G25.81 Restless legs syndrome; D75.A Glucose-6-phosphate dehydrogenase (G6PD) deficiency without anemia; G52.7 Disorders of multiple cranial nerves; G93.89 Other specified disorders of brain; R13.10 Dysphagia, unspecified; E87.6 Hypokalemia; Z95.820 Peripheral vascular angioplasty status with implants and grafts; Z86.73 Personal history of transient ischemic attack (TIA), and cerebral infarction without residual deficits; Z79.82 Long term (current) use of aspirin; Z79.01 Long term (current) use of anticoagulants; Z79.899 Other long term (current) drug therapy; Z88.8 Allergy status to other drugs, medicaments and biological substances

== ENCOUNTER → 2021-12-25 | Outpatient (CLI) | payer MEDICARE ==
[~2021-12-25] MED LIST changes: +SUCR1TAB56 PO; +VALA500T5 PO
== END ==
LOC: M PAIN 10:00
PROVIDERS: ATTEND Anesthesiology
DX: M54.2 Cervicalgia (principal); M79.10 Myalgia, unspecified site; M79.18 Myalgia, other site; M47.812 Spondylosis without myelopathy or radiculopathy, cervical region; D55.0 Anemia due to glucose-6-phosphate dehydrogenase [G6PD] deficiency; K21.9 Gastro-esophageal reflux disease without esophagitis; D68.62 Lupus anticoagulant syndrome; E55.9 Vitamin D deficiency, unspecified; G43.909 Migraine, unspecified, not intractable, without status migrainosus; J44.9 Chronic obstructive pulmonary disease, unspecified; F17.210 Nicotine dependence, cigarettes, uncomplicated; M15.0 Primary generalized (osteo)arthritis; R91.1 Solitary pulmonary nodule; M06.9 Rheumatoid arthritis, unspecified; M81.0 Age-related osteoporosis without current pathological fracture; E78.5 Hyperlipidemia, unspecified; Z86.73 Personal history of transient ischemic attack (TIA), and cerebral infarction without residual deficits; R32 Unspecified urinary incontinence; Z85.828 Personal history of other malignant neoplasm of skin; Z79.01 Long term (current) use of anticoagulants; Z79.02 Long term (current) use of antithrombotics/antiplatelets; Z79.82 Long term (current) use of aspirin; Z79.899 Other long term (current) drug therapy; Z79.891 Long term (current) use of opiate analgesic; Z88.8 Allergy status to other drugs, medicaments and biological substances

== ENCOUNTER → 2021-12-28 | Outpatient (CLI) | payer MEDICARE | LOC: M PAIN 10:00 | PROVIDERS: ATTEND Anesthesiology | DX: Z79.891 Long term (current) use of opiate analgesic (principal) ==

== ENCOUNTER → 2021-12-31 | Outpatient (REF) | payer MEDICARE ==
[2021-12-31 19:04] LABS: APPEARANCE, URINE MANUAL CLOUDY (CLEAR); COLOR, URINE MANUAL DK YELLOW (YELLOW)
[2021-12-31 19:07] LABS: BILIRUBIN, URINE MANUAL NEGATIVE (NEGATIVE); BLOOD URINE MANUAL POSITIVE (NEGATIVE); GLUCOSE, URINE (UA) MANUAL NEGATIVE (NEGATIVE); KETONE, URINE MANUAL 1+ mg/dL (NEGATIVE); LEUKOCYTE ESTERASE, URINE MAN POSITIVE (NEGATIVE); NITRITE, URINE MANUAL NEGATIVE (NEGATIVE); PROTEIN, URINE MANUAL 2+ mg/dL (NEGATIVE); UROBILINOGEN, URINE MANUAL NORMAL (NORMAL)
[2021-12-31 19:26] LABS: BACTERIA, URINE LARGE AMOUNT; HYALINE CAST, URINE NONE SEEN /lpf (0-1); SQUAMOUS EPITHELIAL CELL URINE MOD AMOUNT /hpf (SMALL AMT); WBC, URINE TNTC /hpf (0-3)
== END ==
LOC: M SMT 16:40
PROVIDERS: ATTEND Urology
DX: R31.0 Gross hematuria (principal)

== ENCOUNTER → 2022-02-09 | Outpatient (REF) | payer MEDICARE | LOC: M SFHCADAM 12:57 | PROVIDERS: ATTEND Physician Assistant Medical | DX: R05.9 Cough, unspecified (principal) ==

== ENCOUNTER → 2022-03-16 | Outpatient (CLI) | payer MEDICARE | LOC: M PAIN 15:30 | PROVIDERS: ATTEND Anesthesiology | DX: M54.2 Cervicalgia (principal); M79.18 Myalgia, other site; M79.10 Myalgia, unspecified site; M47.812 Spondylosis without myelopathy or radiculopathy, cervical region; D55.0 Anemia due to glucose-6-phosphate dehydrogenase [G6PD] deficiency; K21.9 Gastro-esophageal reflux disease without esophagitis; D68.62 Lupus anticoagulant syndrome; E55.9 Vitamin D deficiency, unspecified; G43.909 Migraine, unspecified, not intractable, without status migrainosus; J44.9 Chronic obstructive pulmonary disease, unspecified; F17.210 Nicotine dependence, cigarettes, uncomplicated; M15.0 Primary generalized (osteo)arthritis; R91.1 Solitary pulmonary nodule; M06.9 Rheumatoid arthritis, unspecified; M81.0 Age-related osteoporosis without current pathological fracture; E78.5 Hyperlipidemia, unspecified; Z86.73 Personal history of transient ischemic attack (TIA), and cerebral infarction without residual deficits; R32 Unspecified urinary incontinence; Z85.828 Personal history of other malignant neoplasm of skin; Z79.01 Long term (current) use of anticoagulants; Z79.02 Long term (current) use of antithrombotics/antiplatelets; Z79.82 Long term (current) use of aspirin; Z79.899 Other long term (current) drug therapy; Z79.891 Long term (current) use of opiate analgesic; Z88.8 Allergy status to other drugs, medicaments and biological substances ==

== ENCOUNTER → 2022-03-24 | Outpatient (CLI) | payer MEDICARE ==
[~2022-03-24] MED LIST changes: +PROHANCE 279.3MG/ML 15ML VIAL As Ordered ONE
== END ==
LOC: M RAD 14:15
PROVIDERS: ATTEND Surgery Vascular Surgery
DX: I70.1 Atherosclerosis of renal artery (principal)
CPT/HCPCS: A9576; C8902

== ENCOUNTER → 2022-04-23 | Outpatient (CLI) | payer MEDICARE ==
[~2022-04-23] MED LIST changes: +NITR100C2; -PROHANCE 279.3MG/ML 15ML VIAL As Ordered ONE
[2022-04-23 13:04] LABS: BASO # 0.1 10^3/uL (0.0-0.2); BASO % 0.8 % (0.0-1.0); EOS # 0.1 10^3/uL (0.0-0.5); HEMATOCRIT 42.5 % (36.0-47.0); HEMOGLOBIN 13.6 g/dl (12.0-15.5); LYMPH # 0.9 10^3/uL (1.5-5.0); LYMPH % 14.6 % (24.0-44.0); MEAN CORPUSCULAR HEMOGLOBIN 29.6 pg (27.0-33.0); MEAN CORPUSCULAR VOLUME 92.4 fl (80.0-96.0); MONO # 0.4 10^3/uL (0.0-0.8); MONO % 5.8 % (2.0-8.0); NEUTROPHILS # 4.6 10^3/uL (1.5-8.5); NEUTROPHILS % 76.5 % (36.0-66.0); PLATELET COUNT, AUTOMATED 161 10^3/uL (150-450)
[2022-04-23 13:13] LABS: INR 0.95; PROTHROMBIN TIME 12.9 SECONDS (12.5-14.5)
[2022-04-23 13:14] LABS: PARTIAL THROMBOPLASTIN TIME 30.7 SECONDS (24.8-34.2)
[2022-04-23 14:13] LABS: BLOOD UREA NITROGEN 21 MG/DL (9-23); CALCIUM LEVEL 9.3 MG/DL (8.3-10.6); CARBON DIOXIDE LEVEL 28 MMOL/L (20-31); CHLORIDE LEVEL 106 MMOL/L (98-107); CREATININE FOR GFR 0.96 MG/DL (0.55-1.30); GLOMERULAR FILTRATION RATE > 60.0 (>45); GLUCOSE, FASTING 80 MG/DL (74-106); POTASSIUM SERUM 4.5 MMOL/L (3.5-5.1); SODIUM LEVEL 141 MMOL/L (136-145)
== END ==
LOC: M LAB 12:05
PROVIDERS: ATTEND Surgery Vascular Surgery
DX: Z01.818 Encounter for other preprocedural examination (principal); I73.9 Peripheral vascular disease, unspecified; I70.1 Atherosclerosis of renal artery; D69.8 Other specified hemorrhagic conditions

== ENCOUNTER → 2022-05-25 | Outpatient (CLI) | payer MEDICARE | LOC: M PAIN 08:45 | PROVIDERS: ATTEND Nurse Practitioner Family | DX: M54.2 Cervicalgia (principal); M79.18 Myalgia, other site; G89.29 Other chronic pain; K21.9 Gastro-esophageal reflux disease without esophagitis; G43.909 Migraine, unspecified, not intractable, without status migrainosus; J44.9 Chronic obstructive pulmonary disease, unspecified; M06.9 Rheumatoid arthritis, unspecified; F17.210 Nicotine dependence, cigarettes, uncomplicated; Z88.8 Allergy status to other drugs, medicaments and biological substances; Z79.01 Long term (current) use of anticoagulants; Z79.82 Long term (current) use of aspirin; Z79.899 Other long term (current) drug therapy ==

== ENCOUNTER → 2022-06-18 | Outpatient (CLI) | payer MEDICARE, MEDICAID | LOC: M RAD 13:47 | PROVIDERS: ATTEND Psychiatry & Neurology Neurology | DX: I67.1 Cerebral aneurysm, nonruptured (principal); M54.81 Occipital neuralgia; I61.1 Nontraumatic intracerebral hemorrhage in hemisphere, cortical ==

== ENCOUNTER → 2022-07-07 | Outpatient (CLI) | payer MEDICARE | LOC: M PAIN 14:15 | PROVIDERS: ATTEND Anesthesiology | DX: M50.10 Cervical disc disorder with radiculopathy, unspecified cervical region (principal); M79.18 Myalgia, other site; G89.29 Other chronic pain; K21.9 Gastro-esophageal reflux disease without esophagitis; G43.909 Migraine, unspecified, not intractable, without status migrainosus; J44.9 Chronic obstructive pulmonary disease, unspecified; M06.9 Rheumatoid arthritis, unspecified; F17.210 Nicotine dependence, cigarettes, uncomplicated; Z88.8 Allergy status to other drugs, medicaments and biological substances; Z79.01 Long term (current) use of anticoagulants; Z79.82 Long term (current) use of aspirin; Z79.899 Other long term (current) drug therapy ==

== ENCOUNTER → 2022-07-08 | Outpatient (CLI) | payer MEDICARE, MEDICAID | LOC: M RAD 10:33 | PROVIDERS: ATTEND Internal Medicine Medical Oncology | DX: Z87.891 Personal history of nicotine dependence (principal) ==

== ENCOUNTER → 2022-07-14 | Outpatient (CLI) | payer MEDICARE, MEDICAID ==
[~2022-07-14] MED LIST changes: +CEPH500C PO; -OXYC-403 PO; -OXYC-404 PO; +OXYC-673 PO; +OXYC20TA64 PO
== END ==
LOC: M ADAMS 10:19
PROVIDERS: ATTEND Family Medicine
DX: R05.1 Acute cough (principal); R09.89 Other specified symptoms and signs involving the circulatory and respiratory systems

== ENCOUNTER → 2022-08-12 | Outpatient (CLI) | payer MEDICARE, MEDICAID | LOC: M PLARAD 14:27 | PROVIDERS: ATTEND Psychiatry & Neurology Neurology | DX: I67.1 Cerebral aneurysm, nonruptured (principal); I61.1 Nontraumatic intracerebral hemorrhage in hemisphere, cortical; M54.81 Occipital neuralgia ==

== ENCOUNTER → 2022-08-13 | Outpatient (CLI) | payer MEDICARE, MEDICAID | LOC: M WHC 13:17 | PROVIDERS: ATTEND Internal Medicine Medical Oncology | DX: R22.0 Localized swelling, mass and lump, head (principal) ==

== ENCOUNTER → 2022-08-13 | Outpatient (CLI) | payer MEDICARE, MEDICAID ==
[2022-08-13 16:04] LABS: BLOOD UREA NITROGEN 12 MG/DL (9-23); CREATININE FOR GFR 0.78 MG/DL (0.55-1.30); GLOMERULAR FILTRATION RATE > 60.0 (>45)
== END ==
LOC: M LAB 14:25
PROVIDERS: ATTEND Physician Assistant Medical
DX: R22.0 Localized swelling, mass and lump, head (principal)

== ENCOUNTER → 2022-08-19 | Outpatient (CLI) | payer MEDICARE, MEDICAID ==
[~2022-08-19] MED LIST changes: +ISOVUE-370 76% 100ML VIAL As Ordered ONE
== END ==
LOC: M RAD 07:34
PROVIDERS: ATTEND Physician Assistant Medical
DX: R22.1 Localized swelling, mass and lump, neck (principal)
CPT/HCPCS: 70491; Q9967

== ENCOUNTER → 2022-08-21 | Outpatient (REF) | payer MEDICARE, MEDICAID ==
[~2022-08-21] MED LIST changes: -ISOVUE-370 76% 100ML VIAL As Ordered ONE
[2022-08-21 17:42] LABS: APPEARANCE, URINE CLOUDY (CLEAR); BACTERIA, URINE AUTO 1+ (NEGATIVE); BILIRUBIN, URINE AUTO NEGATIVE (NEGATIVE); BLOOD, URINE BLOOD NEGATIVE (NEGATIVE); COLOR, URINE AMBER (YELLOW); GLUCOSE, URINE (UA) AUTO NEGATIVE (NEGATIVE); KETONE, URINE AUTO TRACE mg/dL (NEGATIVE); LEUKOCYTE ESTERASE, URINE AUTO 1+ (NEGATIVE); MUCUS, URINE SMALL (NEGATIVE); NITRITE, URINE AUTO POSITIVE (NEGATIVE); PROTEIN, URINE AUTO 2+ mg/dL (NEGATIVE); RBC, URINE AUTO 35 /HPF (0-3); SPECIFIC GRAVITY URINE AUTO 1.019 (1.002-1.035); SQUAMOUS EPITHELIAL CELL UR AU 4 /HPF (0-6); WBC, URINE AUTO TNTC /HPF (0-3)
== END ==
LOC: M LAB REF 17:20
PROVIDERS: ATTEND Physician Assistant Medical
DX: N39.0 Urinary tract infection, site not specified (principal)

== ENCOUNTER → 2022-08-26 | Outpatient (CLI) | payer MEDICARE, MEDICAID | LOC: M PAIN 15:00 | PROVIDERS: ATTEND Anesthesiology | DX: M54.2 Cervicalgia (principal); M79.10 Myalgia, unspecified site; M79.18 Myalgia, other site; M47.812 Spondylosis without myelopathy or radiculopathy, cervical region; K21.9 Gastro-esophageal reflux disease without esophagitis; E04.1 Nontoxic single thyroid nodule; G43.909 Migraine, unspecified, not intractable, without status migrainosus; J44.9 Chronic obstructive pulmonary disease, unspecified; M15.0 Primary generalized (osteo)arthritis; M06.9 Rheumatoid arthritis, unspecified; M81.0 Age-related osteoporosis without current pathological fracture; E78.5 Hyperlipidemia, unspecified; Z85.828 Personal history of other malignant neoplasm of skin; D55.0 Anemia due to glucose-6-phosphate dehydrogenase [G6PD] deficiency; G90.59 Complex regional pain syndrome I of other specified site; F17.210 Nicotine dependence, cigarettes, uncomplicated; Z79.891 Long term (current) use of opiate analgesic; Z79.82 Long term (current) use of aspirin; Z79.02 Long term (current) use of antithrombotics/antiplatelets; Z79.01 Long term (current) use of anticoagulants; Z79.899 Other long term (current) drug therapy; Z88.8 Allergy status to other drugs, medicaments and biological substances ==

== ENCOUNTER → 2022-09-01 | Outpatient (REF) | payer MEDICARE, MEDICAID | LOC: M SFHCADAM 11:09 | PROVIDERS: ATTEND Family Medicine | DX: E83.42 Hypomagnesemia (principal) ==

== ENCOUNTER → 2022-09-09 | Outpatient (CLI) | payer MEDICARE, MEDICAID ==
[~2022-09-09] MED LIST changes: +ALBU8.5H INH; +AMIT25TA17 PO; +CITA10TA7 PO; +FLUT50SP17
[2022-09-09 16:17] LABS: BLOOD UREA NITROGEN 10 MG/DL (9-23); CALCIUM LEVEL 9.2 MG/DL (8.3-10.6); CARBON DIOXIDE LEVEL 30 MMOL/L (20-31); CHLORIDE LEVEL 106 MMOL/L (98-107); CREATININE FOR GFR 0.89 MG/DL (0.55-1.30); GLOMERULAR FILTRATION RATE > 60.0 (>45); GLUCOSE, FASTING 105 MG/DL (74-106); MAGNESIUM LEVEL 1.6 MG/DL (1.8-2.4); POTASSIUM SERUM 3.6 MMOL/L (3.5-5.1); SODIUM LEVEL 142 MMOL/L (136-145)
== END ==
LOC: M PLALAB 13:59
PROVIDERS: ATTEND Family Medicine
DX: E83.42 Hypomagnesemia (principal)

== ENCOUNTER 2022-09-13 10:36 | Day surgery (SDC) | payer MEDICARE, MEDICAID ==
[~2022-09-13] VITALS: Ht 154.9 cm; Wt 52.1 kg
[2022-09-13] MEDS ORDERED: ROCURONIUM BROMIDE 50MG/5ML VIAL As Ordered ONE (12:51)
[2022-09-13] MEDS ORDERED: LIDOCAINE 2% 100MG/5ML SDV (FOR ANES.) As Ordered ONE (12:51)
[2022-09-13] MEDS ORDERED: propofoL 200 MG/20 ML VIAL As Ordered ONE (12:51)
[2022-09-13] MEDS ORDERED: ONDANSETRON 4MG 2ML VIAL As Ordered ONE (12:51)
[2022-09-13] MEDS ORDERED: SUGAMMADEX SODIUM 500 MG/5 ML VIAL (BRIDION) As Ordered ONE (12:51)
[2022-09-13] MEDS ORDERED: fentaNYL 100 MCG/2 ML INJECTION As Ordered ONE (12:58)
[2022-09-13] MEDS ORDERED: MIDAZOLAM INJ 2MG/2ML VIAL As Ordered ONE (12:58)
[2022-09-13] MEDS ORDERED: LIDOCAINE W/EPINEPHRINE 1% 20ML VIAL As Ordered ONE (13:33)
[2022-09-13] MEDS ORDERED: METHYLENE BLUE 0.5% (5MG/ML) 10 ML AMP (PROVAYBLUE) As Ordered ONE (13:33)
[2022-09-13] MEDS ORDERED: OXYMETAZOLINE 0.05% NASAL SPRAY (AFRIN) As Ordered ONE (13:33)
[2022-09-13] MEDS ORDERED: ACETAMINOPHEN 1000MG 100ML IV BAG As Ordered ONE (14:03)
[2022-09-13] MEDS ORDERED: oxyCODONE 5MG TAB PO PRN (14:55)
[2022-09-13] MEDS ORDERED: LR 1,000 ML IV SCH (14:55)
[2022-09-13] MEDS ORDERED: ONDANSETRON 4MG 2ML VIAL IV PRN (14:55)
[2022-09-13] MEDS ORDERED: fentaNYL 100 MCG/2 ML INJECTION IV PRN (14:55)
[2022-09-13 15:55] VITALS: BP 121/88
== END 2022-09-13 15:57 | disposition home or self-care (01) ==
LOC: M SDC 10:36
PROVIDERS: ATTEND Otolaryngology
DX: C32.1 Malignant neoplasm of supraglottis (principal); J44.9 Chronic obstructive pulmonary disease, unspecified; R32 Unspecified urinary incontinence; Z86.73 Personal history of transient ischemic attack (TIA), and cerebral infarction without residual deficits; Z86.718 Personal history of other venous thrombosis and embolism; Z87.442 Personal history of urinary calculi; K21.9 Gastro-esophageal reflux disease without esophagitis; D58.9 Hereditary hemolytic anemia, unspecified; M32.9 Systemic lupus erythematosus, unspecified; F41.9 Anxiety disorder, unspecified; R51.9 Headache, unspecified; M19.90 Unspecified osteoarthritis, unspecified site; F17.210 Nicotine dependence, cigarettes, uncomplicated; D55.0 Anemia due to glucose-6-phosphate dehydrogenase [G6PD] deficiency; Z79.899 Other long term (current) drug therapy; Z79.51 Long term (current) use of inhaled steroids; Z79.02 Long term (current) use of antithrombotics/antiplatelets; Z79.01 Long term (current) use of anticoagulants; Z79.82 Long term (current) use of aspirin; Z79.891 Long term (current) use of opiate analgesic
CPT/HCPCS: 31535; 87102; 88305; J0131; J1100; J2250; J2405; J3010; Q9968

== ENCOUNTER → 2022-09-29 | Outpatient (CLI) | payer MEDICARE, MEDICAID ==
[~2022-09-29] MED LIST changes: +POTA-298 PO; -POTA1TAB14 PO
== END ==
LOC: M ONCR 10:29
PROVIDERS: ATTEND General Practice
DX: C10.1 Malignant neoplasm of anterior surface of epiglottis (principal); D75.A Glucose-6-phosphate dehydrogenase (G6PD) deficiency without anemia; F17.210 Nicotine dependence, cigarettes, uncomplicated; G47.33 Obstructive sleep apnea (adult) (pediatric); M19.90 Unspecified osteoarthritis, unspecified site; M81.8 Other osteoporosis without current pathological fracture; Z71.6 Tobacco abuse counseling; Z79.01 Long term (current) use of anticoagulants; Z79.02 Long term (current) use of antithrombotics/antiplatelets; Z79.51 Long term (current) use of inhaled steroids; Z79.891 Long term (current) use of opiate analgesic; Z79.899 Other long term (current) drug therapy; Z86.73 Personal history of transient ischemic attack (TIA), and cerebral infarction without residual deficits; Z87.442 Personal history of urinary calculi
CPT/HCPCS: 31575; 99406; G0463

== ENCOUNTER → 2022-10-20 | Outpatient (RCR) | payer MEDICARE, MEDICAID ==
[~2022-10-20] MED LIST changes: +CHLO1.4S7 PO; +CIPR750T2 PO; -K-TA10TA2 PO; +OXYC1TAB23 PO; +POTA-165 PO
== END ==
LOC: M ONCR 10-07 13:44
PROVIDERS: ATTEND General Practice
DX: C10.1 Malignant neoplasm of anterior surface of epiglottis (principal)

== ENCOUNTER → 2022-11-01 | Outpatient (CLI) | payer MEDICARE, MEDICAID | LOC: M PAIN 14:45 | PROVIDERS: ATTEND Nurse Practitioner Family | DX: M79.10 Myalgia, unspecified site (principal); M50.10 Cervical disc disorder with radiculopathy, unspecified cervical region; M79.18 Myalgia, other site; G89.29 Other chronic pain; K21.9 Gastro-esophageal reflux disease without esophagitis; G43.909 Migraine, unspecified, not intractable, without status migrainosus; J44.9 Chronic obstructive pulmonary disease, unspecified; M06.9 Rheumatoid arthritis, unspecified; E78.5 Hyperlipidemia, unspecified; F17.210 Nicotine dependence, cigarettes, uncomplicated; Z88.8 Allergy status to other drugs, medicaments and biological substances; Z79.01 Long term (current) use of anticoagulants; Z79.82 Long term (current) use of aspirin; Z79.899 Other long term (current) drug therapy; Z79.02 Long term (current) use of antithrombotics/antiplatelets; Z79.891 Long term (current) use of opiate analgesic ==

== ENCOUNTER → 2022-11-19 | Outpatient (RCR) | payer MEDICARE, MEDICAID ==
[2022-11-08 12:09] LABS: APPEARANCE, URINE HAZY (CLEAR); BACTERIA, URINE AUTO NEGATIVE (NEGATIVE); BILIRUBIN, URINE AUTO NEGATIVE (NEGATIVE); BLOOD, URINE BLOOD NEGATIVE (NEGATIVE); COLOR, URINE YELLOW (YELLOW); GLUCOSE, URINE (UA) AUTO NEGATIVE (NEGATIVE); KETONE, URINE AUTO NEGATIVE (NEGATIVE); LEUKOCYTE ESTERASE, URINE AUTO 2+ (NEGATIVE); MUCUS, URINE SMALL (NEGATIVE); NITRITE, URINE AUTO NEGATIVE (NEGATIVE); PROTEIN, URINE AUTO NEGATIVE (NEGATIVE); RBC, URINE AUTO 3 /HPF (0-3); SQUAMOUS EPITHELIAL CELL UR AU 3 /HPF (0-6); WBC, URINE AUTO 154 /HPF (0-3)
== END ==
LOC: M ONCR 10-21 12:55
PROVIDERS: ATTEND General Practice
DX: C10.1 Malignant neoplasm of anterior surface of epiglottis (principal); Z79.899 Other long term (current) drug therapy

== ENCOUNTER 2022-12-09 10:14 | Outpatient (RCR) | payer MEDICARE, MEDICAID ==
[~2022-12-09 10:14] MED LIST changes: -AMIT25TA17 PO; +AMIT25TA19 PO; +MORP-69 PO; +NICO14DI6 TOP; -ROPI0.253 PO; +ROPI5TAB19 PO
[2022-12-17] MEDS ORDERED: OXYC30TA72 PO (11:29)
== END 2022-12-20 ==
LOC: M ONCR 10:14
PROVIDERS: ATTEND General Practice
DX: C10.1 Malignant neoplasm of anterior surface of epiglottis (principal)

== ENCOUNTER → 2022-12-10 | Outpatient (CLI) | payer MEDICARE, MEDICAID ==
[~2022-12-10] MED LIST changes: +OXYC30TA72 PO
== END ==
LOC: M PAIN 15:45
PROVIDERS: ATTEND Nurse Practitioner Family
DX: M79.10 Myalgia, unspecified site (principal); M50.10 Cervical disc disorder with radiculopathy, unspecified cervical region; M79.18 Myalgia, other site; G89.29 Other chronic pain; K21.9 Gastro-esophageal reflux disease without esophagitis; G43.909 Migraine, unspecified, not intractable, without status migrainosus; J44.9 Chronic obstructive pulmonary disease, unspecified; M06.9 Rheumatoid arthritis, unspecified; E78.5 Hyperlipidemia, unspecified; D75.A Glucose-6-phosphate dehydrogenase (G6PD) deficiency without anemia; Z87.891 Personal history of nicotine dependence; Z88.8 Allergy status to other drugs, medicaments and biological substances; Z79.01 Long term (current) use of anticoagulants; Z79.82 Long term (current) use of aspirin; Z79.899 Other long term (current) drug therapy; Z79.02 Long term (current) use of antithrombotics/antiplatelets; Z79.891 Long term (current) use of opiate analgesic

== ENCOUNTER → 2022-12-17 | Outpatient (CLI) | payer MEDICARE, MEDICAID ==
[~2022-12-17] MED LIST changes: +AMIT25TA17 PO; -AMIT25TA19 PO
== END ==
LOC: M ONCR 10:49
PROVIDERS: ATTEND General Practice
DX: C10.1 Malignant neoplasm of anterior surface of epiglottis (principal); L58.9 Radiodermatitis, unspecified; Z79.891 Long term (current) use of opiate analgesic; Z92.3 Personal history of irradiation

== ENCOUNTER → 2022-12-31 | Outpatient (CLI) | payer MEDICARE, MEDICAID ==
[~2022-12-31] MED LIST changes: -AMIT25TA17 PO; +AMIT25TA19 PO; +OXYC15TA66 PO
== END ==
LOC: M ONCR 10:16
PROVIDERS: ATTEND General Practice
DX: C10.1 Malignant neoplasm of anterior surface of epiglottis (principal); Z92.3 Personal history of irradiation

== ENCOUNTER → 2023-01-13 | Outpatient (CLI) | payer MEDICARE, MEDICAID | LOC: M PAIN 09:30 | PROVIDERS: ATTEND Nurse Practitioner Family | DX: M54.2 Cervicalgia (principal); G89.29 Other chronic pain; D55.0 Anemia due to glucose-6-phosphate dehydrogenase [G6PD] deficiency; J44.9 Chronic obstructive pulmonary disease, unspecified; K21.9 Gastro-esophageal reflux disease without esophagitis; M81.0 Age-related osteoporosis without current pathological fracture; E78.5 Hyperlipidemia, unspecified; M79.10 Myalgia, unspecified site; M79.18 Myalgia, other site; G43.909 Migraine, unspecified, not intractable, without status migrainosus; M06.9 Rheumatoid arthritis, unspecified; Z87.891 Personal history of nicotine dependence; Z88.8 Allergy status to other drugs, medicaments and biological substances; Z79.01 Long term (current) use of anticoagulants; Z79.82 Long term (current) use of aspirin; Z79.899 Other long term (current) drug therapy; Z79.02 Long term (current) use of antithrombotics/antiplatelets; Z79.891 Long term (current) use of opiate analgesic ==

== ENCOUNTER → 2023-01-14 | Outpatient (CLI) | payer MEDICARE, MEDICAID | LOC: M ONCR 10:43 | PROVIDERS: ATTEND General Practice | DX: Z01.89 Encounter for other specified special examinations (principal); R07.0 Pain in throat; Z92.3 Personal history of irradiation; Z79.891 Long term (current) use of opiate analgesic ==

== ENCOUNTER → 2023-01-27 | Outpatient (REF) | payer MEDICARE, MEDICAID ==
[~2023-01-27] MED LIST changes: +MECL-209 PO; -MECL1TAB31 PO
[2023-01-27 15:29] LABS: HEMATOCRIT 38.1 % (36.0-47.0); HEMOGLOBIN 12.2 g/dl (12.0-15.5); MEAN CORPUSCULAR HEMOGLOBIN 29.9 pg (27.0-33.0); MEAN CORPUSCULAR VOLUME 93.4 fl (80.0-96.0); PLATELET COUNT, AUTOMATED 153 10^3/uL (150-450); RED BLOOD COUNT 4.08 10^6/uL (4.00-5.40); WHITE BLOOD COUNT 5.3 10^3/uL (4.0-10.0)
[2023-01-27 15:55] LABS: ALBUMIN 4.1 G/DL (3.2-5.2); ALKALINE PHOSPHATASE 66 U/L (46-116); ALT/SGPT 11 U/L (7.0-40); AST/SGOT < 8 U/L (<34); BILIRUBIN,TOTAL 0.9 MG/DL (0.3-1.2); BLOOD UREA NITROGEN 15 MG/DL (9-23); CALCIUM LEVEL 9.3 MG/DL (8.3-10.6); CARBON DIOXIDE LEVEL 29 MMOL/L (20-31); CHLORIDE LEVEL 105 MMOL/L (98-107); CREATININE FOR GFR 0.78 MG/DL (0.55-1.30); GLOMERULAR FILTRATION RATE > 60.0 (>45); GLUCOSE, FASTING 69 MG/DL (74-106); POTASSIUM SERUM 3.7 MMOL/L (3.5-5.1); SODIUM LEVEL 138 MMOL/L (136-145); TOTAL PROTEIN 6.7 G/DL (5.7-8.2)
[2023-01-27 15:57] LABS: FREE T4 0.95 NG/DL (0.89-1.76); THYROID STIMULATING HORMONE 2.432 uIU/ML (0.55-4.78)
== END ==
LOC: M SFHCADAM 13:35
PROVIDERS: ATTEND Family Medicine
DX: R51.9 Headache, unspecified (principal); D59.9 Acquired hemolytic anemia, unspecified; G90.59 Complex regional pain syndrome I of other specified site; R63.4 Abnormal weight loss

== ENCOUNTER → 2023-01-31 | Outpatient (CLI) | payer MEDICAID, MEDICARE | LOC: M PLAIMG 10:33 | PROVIDERS: ATTEND Family Medicine | DX: R51.9 Headache, unspecified (principal) ==

== ENCOUNTER → 2023-02-08 | Outpatient (CLI) | payer MEDICARE | LOC: M PLAIMG 10:09 | PROVIDERS: ATTEND Nurse Practitioner Family | DX: M50.10 Cervical disc disorder with radiculopathy, unspecified cervical region (principal) ==

== ENCOUNTER → 2023-02-15 | Outpatient (CLI) | payer MEDICARE, MEDICAID ==
[~2023-02-15] MED LIST changes: -ALLE1TAB23 PO; +BUPR150T12 PO; +FEXO-157 PO; -FLUT50SP17; +FLUTISP
== END ==
LOC: M ONCM 09:12
PROVIDERS: ATTEND Dietitian, Registered
DX: Z53.8 Procedure and treatment not carried out for other reasons (principal)

== ENCOUNTER → 2023-03-02 | Outpatient (CLI) | payer MEDICARE, MEDICAID ==
[~2023-03-02] MED LIST changes: +ALLE1TAB23 PO; -BUPR150T12 PO; -FEXO-157 PO; +FLUT50SP17; -FLUTISP
== END ==
LOC: M RAD 06:23
PROVIDERS: ATTEND Surgery Vascular Surgery
DX: I70.203 Unspecified atherosclerosis of native arteries of extremities, bilateral legs (principal); Z95.828 Presence of other vascular implants and grafts

== ENCOUNTER → 2023-03-08 | Outpatient (CLI) | payer MEDICARE, MEDICAID | LOC: M ONCM 13:39 | PROVIDERS: ATTEND Dietitian, Registered | DX: C10.1 Malignant neoplasm of anterior surface of epiglottis (principal); Z71.3 Dietary counseling and surveillance; Z68.1 Body mass index [BMI] 19.9 or less, adult; R68.2 Dry mouth, unspecified ==

== ENCOUNTER → 2023-03-15 | Outpatient (CLI) | payer MEDICARE, MEDICAID | LOC: M PAIN 16:00 | PROVIDERS: ATTEND Nurse Practitioner Family | DX: M79.18 Myalgia, other site (principal); G89.29 Other chronic pain; M54.2 Cervicalgia; D55.0 Anemia due to glucose-6-phosphate dehydrogenase [G6PD] deficiency; J44.9 Chronic obstructive pulmonary disease, unspecified; K21.9 Gastro-esophageal reflux disease without esophagitis; M81.0 Age-related osteoporosis without current pathological fracture; E78.5 Hyperlipidemia, unspecified; M79.10 Myalgia, unspecified site; G43.909 Migraine, unspecified, not intractable, without status migrainosus; M06.9 Rheumatoid arthritis, unspecified; Z87.891 Personal history of nicotine dependence; Z88.8 Allergy status to other drugs, medicaments and biological substances; Z79.01 Long term (current) use of anticoagulants; Z79.82 Long term (current) use of aspirin; Z79.899 Other long term (current) drug therapy; Z79.02 Long term (current) use of antithrombotics/antiplatelets; Z79.891 Long term (current) use of opiate analgesic ==

== ENCOUNTER → 2023-03-22 | Outpatient (CLI) | payer MEDICAID, MEDICARE | LOC: M RAD 09:33 | PROVIDERS: ATTEND Surgery Vascular Surgery | DX: I70.203 Unspecified atherosclerosis of native arteries of extremities, bilateral legs (principal); I70.218 Atherosclerosis of native arteries of extremities with intermittent claudication, other extremity ==

== ENCOUNTER → 2023-03-25 | Outpatient (CLI) | payer MEDICARE, MEDICAID | LOC: M PAIN 10:30 | PROVIDERS: ATTEND Nurse Practitioner Family | DX: M79.12 Myalgia of auxiliary muscles, head and neck (principal); D55.0 Anemia due to glucose-6-phosphate dehydrogenase [G6PD] deficiency; M79.18 Myalgia, other site; G89.29 Other chronic pain; M54.2 Cervicalgia; J44.9 Chronic obstructive pulmonary disease, unspecified; K21.9 Gastro-esophageal reflux disease without esophagitis; M81.0 Age-related osteoporosis without current pathological fracture; E78.5 Hyperlipidemia, unspecified; M79.10 Myalgia, unspecified site; G43.909 Migraine, unspecified, not intractable, without status migrainosus; M06.9 Rheumatoid arthritis, unspecified; Z87.891 Personal history of nicotine dependence; Z88.8 Allergy status to other drugs, medicaments and biological substances; Z79.01 Long term (current) use of anticoagulants; Z79.82 Long term (current) use of aspirin; Z79.899 Other long term (current) drug therapy; Z79.02 Long term (current) use of antithrombotics/antiplatelets; Z79.891 Long term (current) use of opiate analgesic ==

== ENCOUNTER → 2023-04-04 | Outpatient (CLI) | payer MEDICARE, MEDICAID | LOC: M PLARAD 13:28 | PROVIDERS: ATTEND General Practice | DX: C10.1 Malignant neoplasm of anterior surface of epiglottis (principal) | CPT/HCPCS: 78815; A9552 ==

== ENCOUNTER → 2023-04-20 | Outpatient (CLI) | payer MEDICARE, MEDICAID ==
[~2023-04-20] MED LIST changes: +BUPR150T12 PO
== END ==
LOC: M ONCR 10:02
PROVIDERS: ATTEND General Practice
DX: C10.1 Malignant neoplasm of anterior surface of epiglottis (principal); F17.210 Nicotine dependence, cigarettes, uncomplicated; Z71.2 Person consulting for explanation of examination or test findings; Z79.01 Long term (current) use of anticoagulants; Z79.02 Long term (current) use of antithrombotics/antiplatelets; Z79.51 Long term (current) use of inhaled steroids; Z79.82 Long term (current) use of aspirin; Z79.891 Long term (current) use of opiate analgesic; Z79.899 Other long term (current) drug therapy; Z92.3 Personal history of irradiation
CPT/HCPCS: 31575; 99406; G0463

== ENCOUNTER → 2023-06-07 | Outpatient (REF) | payer MEDICARE, MEDICAID ==
[~2023-06-07] MED LIST changes: -ALLE1TAB23 PO; +FEXO-157 PO; -FLUT50SP17; +FLUTISP; +VARE1TAB7 PO
[2023-06-07 15:21] LABS: HEMOGLOBIN 12.3 g/dl (12.0-15.5); MEAN CORPUSCULAR HEMOGLOBIN 30.6 pg (27.0-33.0); MEAN CORPUSCULAR HGB CONC 32.4 g/dl (32.0-36.5); MEAN CORPUSCULAR VOLUME 94.5 fl (80.0-96.0); PLATELET COUNT, AUTOMATED 146 10^3/uL (150-450); RED BLOOD COUNT 4.02 10^6/uL (4.00-5.40); WHITE BLOOD COUNT 4.4 10^3/uL (4.0-10.0)
[2023-06-07 15:22] LABS: BLOOD UREA NITROGEN 10 MG/DL (9-23); CALCIUM LEVEL 9.3 MG/DL (8.3-10.6); CARBON DIOXIDE LEVEL 32 MMOL/L (20-31); CHLORIDE LEVEL 106 MMOL/L (98-107); CREATININE FOR GFR 0.76 MG/DL (0.55-1.30); GLOMERULAR FILTRATION RATE > 60.0 (>45); GLUCOSE, FASTING 80 MG/DL (74-106); POTASSIUM SERUM 3.7 MMOL/L (3.5-5.1); SODIUM LEVEL 141 MMOL/L (136-145)
== END ==
LOC: M SFHCADAM 10:37
PROVIDERS: ATTEND Family Medicine
DX: I72.5 Aneurysm of other precerebral arteries (principal); M54.81 Occipital neuralgia; G44.89 Other headache syndrome; Z86.79 Personal history of other diseases of the circulatory system

== ENCOUNTER → 2023-06-10 | Outpatient (CLI) | payer MEDICARE, MEDICAID ==
[~2023-06-10] MED LIST changes: +PREDOPD OU
== END ==
LOC: M PAIN 14:30
PROVIDERS: ATTEND Nurse Practitioner Family
DX: M79.12 Myalgia of auxiliary muscles, head and neck (principal); M79.18 Myalgia, other site; M54.50 Low back pain, unspecified; M25.551 Pain in right hip; M25.552 Pain in left hip; G89.29 Other chronic pain; D55.0 Anemia due to glucose-6-phosphate dehydrogenase [G6PD] deficiency; K21.9 Gastro-esophageal reflux disease without esophagitis; E55.9 Vitamin D deficiency, unspecified; G43.909 Migraine, unspecified, not intractable, without status migrainosus; J44.9 Chronic obstructive pulmonary disease, unspecified; M15.9 Polyosteoarthritis, unspecified; M06.9 Rheumatoid arthritis, unspecified; M81.0 Age-related osteoporosis without current pathological fracture; G90.50 Complex regional pain syndrome I, unspecified; Z87.891 Personal history of nicotine dependence; Z88.8 Allergy status to other drugs, medicaments and biological substances; Z79.82 Long term (current) use of aspirin; Z79.02 Long term (current) use of antithrombotics/antiplatelets; Z79.01 Long term (current) use of anticoagulants; Z79.891 Long term (current) use of opiate analgesic; Z79.899 Other long term (current) drug therapy; Z86.718 Personal history of other venous thrombosis and embolism

== ENCOUNTER → 2023-06-10 | Outpatient (CLI) | payer MEDICARE, MEDICAID ==
[~2023-06-10] MED LIST changes: +PROHANCE 279.3MG/ML 5ML VIAL As Ordered ONE
== END ==
LOC: M RAD 08:28
PROVIDERS: ATTEND Family Medicine
DX: I72.5 Aneurysm of other precerebral arteries (principal); M54.81 Occipital neuralgia; G44.89 Other headache syndrome; Z86.79 Personal history of other diseases of the circulatory system; G93.89 Other specified disorders of brain; R90.82 White matter disease, unspecified; M79.12 Myalgia of auxiliary muscles, head and neck; M79.18 Myalgia, other site; M25.551 Pain in right hip; M25.552 Pain in left hip; G89.29 Other chronic pain; M15.9 Polyosteoarthritis, unspecified; M06.9 Rheumatoid arthritis, unspecified; G90.50 Complex regional pain syndrome I, unspecified
CPT/HCPCS: 70544; 70553; A9576; G0463

== ENCOUNTER 2023-06-21 21:21 | Inpatient (IN) | payer MEDICAID, MEDICARE ==
[~2023-06-21] VITALS: Ht 154.9 cm; Wt 52.6 kg
[~2023-06-21 21:21] MED LIST changes: -FLUC100T3 PO; -ISOVUE-370 76% 100ML VIAL As Ordered ONE; -LOTE0.5G OU; -VARE0.5T PO
[2023-06-21] MEDS ORDERED: NS 1,000 ML IV SCH (22:30)
[2023-06-21] MEDS: fentaNYL 100 MCG/2 ML INJECTION IV PRN (23:00)
[2023-06-21] MEDS: GASTROGRAFIN SOLUTION 30ML PO SCH ×2 (23:00→23:37)
[2023-06-21 23:22] LABS: BASO % 0.1 % (0.0-1.0); HEMATOCRIT 42.7 % (36.0-47.0); HEMOGLOBIN 14.4 g/dl (12.0-15.5); LYMPH # 0.1 10^3/uL (1.5-5.0); LYMPH % 0.9 % (24.0-44.0); MEAN CORPUSCULAR HEMOGLOBIN 30.3 pg (27.0-33.0); MEAN CORPUSCULAR HGB CONC 33.7 g/dl (32.0-36.5); MEAN CORPUSCULAR VOLUME 89.9 fl (80.0-96.0); MONO # 0.6 10^3/uL (0.0-0.8); MONO % 4.2 % (2.0-8.0); NEUTROPHILS # 14.2 10^3/uL (1.5-8.5); NEUTROPHILS % 94.4 % (36.0-66.0); PLATELET COUNT, AUTOMATED 158 10^3/uL (150-450); RED BLOOD COUNT 4.75 10^6/uL (4.00-5.40)
[2023-06-22 00:06] LABS: BLOOD UREA NITROGEN 17 MG/DL (9-23); CALCIUM LEVEL 9.1 MG/DL (8.3-10.6); CARBON DIOXIDE LEVEL 26 MMOL/L (20-31); CHLORIDE LEVEL 104 MMOL/L (98-107); CREATININE FOR GFR 0.52 MG/DL (0.55-1.30); GLOMERULAR FILTRATION RATE > 60.0 (>45); GLUCOSE, FASTING 229 MG/DL (74-106); POTASSIUM SERUM 3.7 MMOL/L (3.5-5.1); SODIUM LEVEL 138 MMOL/L (136-145)
[2023-06-22] MEDS ORDERED: ISOVUE-370 76% 100ML VIAL As Ordered ONE (00:10)
[2023-06-22] MEDS ORDERED: CIPROFLOXACIN 400 MG in IV 1 EA IV ONE (01:30)
[2023-06-22] MEDS ORDERED: metroNIDAZOLE 500 MG in IV 1 EA IV ONE (01:30)
[2023-06-22] MEDS: fentaNYL 100 MCG/2 ML INJECTION IV PRN (01:47)
[2023-06-22] MEDS ORDERED: ONDANSETRON 4MG 2ML VIAL IV ONE (02:00)
[2023-06-22] MEDS ORDERED: ONDA-83 PO (03:15)
[2023-06-22] MEDS ORDERED: BUPR150T12 PO (03:15)
[2023-06-22] MEDS ORDERED: FLUC100T3 PO ×2 (03:15)
[2023-06-22] MEDS ORDERED: FOLI1TAB11 PO (03:15)
[2023-06-22] MEDS ORDERED: VARE0.5T PO (03:22)
[2023-06-22] MEDS ORDERED: LOTE0.5G OU (03:22)
[2023-06-22] MEDS ORDERED: ACETAMINOPHEN TAB 650MG DOSE (2X325MG) PO PRN (03:35)
[2023-06-22] MEDS ORDERED: MOM 30ML SUSPENSION UDC PO PRN (03:35)
[2023-06-22] MEDS ORDERED: zolPIDEM TARTRATE 5 MG TAB PO PRN (03:35)
[2023-06-22] MEDS ORDERED: MAALOX 30 ML SUSP *UDC PO PRN (03:35)
[2023-06-22] MEDS ORDERED: AMITRIPTYLINE 50 MG TAB PO ONE (03:40)
[2023-06-22] MEDS ORDERED: HOME MED LIST COMPLETE! XX SCH (03:45)
[2023-06-22] MEDS: NS 1,000 ML IV SCH ×2 (03:59→11:32)
[2023-06-22] MEDS ORDERED: ALBUTEROL 90 MCG/ACT 8GM HFA INHALER INH PRN (04:15)
[2023-06-22] MEDS ORDERED: rOPINIRole 0.25 MG TAB(REQUIP) PO PRN (04:15)
[2023-06-22] MEDS ORDERED: PILL CUTTER 1 EACH XX PRN (04:20)
[2023-06-22] MEDS: PIPERACILLIN/TAZOBACTAM SOD 3.375 GM in D5W MINI-BAG PLUS 50 ML IV SCH ×4 (04:42→22:51)
[2023-06-22 05:00] LABS: AMYLASE 232 U/L (30-118)
[2023-06-22 05:01] LABS: ALBUMIN 4.4 G/DL (3.2-5.2); ALKALINE PHOSPHATASE 123 U/L (46-116); ALT/SGPT 15 U/L (7.0-40); AST/SGOT 17 U/L (<34); BILIRUBIN,DIRECT 0.5 MG/DL (<0.4); BILIRUBIN,TOTAL 1.7 MG/DL (0.3-1.2); TOTAL PROTEIN 7.3 G/DL (5.7-8.2)
[2023-06-22] MEDS ORDERED: diphenhydrAMINE 50MG CAP PO ONE (05:15)
[2023-06-22 06:00] VITALS: BP 156/64; TEMP 98.8; O2SAT 98
[2023-06-22 08:05] LABS: APPEARANCE, URINE CLEAR (CLEAR); BACTERIA, URINE AUTO NEGATIVE (NEGATIVE); BILIRUBIN, URINE AUTO NEGATIVE (NEGATIVE); BLOOD, URINE BLOOD 1+ (NEGATIVE); COLOR, URINE YELLOW (YELLOW); GLUCOSE, URINE (UA) AUTO 1+ mg/dL (NEGATIVE); KETONE, URINE AUTO NEGATIVE (NEGATIVE); LEUKOCYTE ESTERASE, URINE AUTO NEGATIVE (NEGATIVE); NITRITE, URINE AUTO NEGATIVE (NEGATIVE); PROTEIN, URINE AUTO 1+ mg/dL (NEGATIVE); RBC, URINE AUTO 7 /HPF (0-3); SPECIFIC GRAVITY URINE AUTO 1.014 (1.002-1.035); SQUAMOUS EPITHELIAL CELL UR AU 0 /HPF (0-6); UROBILINOGEN, URINE AUTO 0.2 mg/dL (0.0-2.0); WBC, URINE AUTO 0 /HPF (0-3)
[2023-06-22] MEDS: PANTOPRAZOLE 40MG VIAL IV SCH (08:17)
[2023-06-22] MEDS: CYANOCOBALAMIN 500 MCG TAB PO SCH (08:17)
[2023-06-22] MEDS: DOCUSATE SODIUM 100MG CAPSULE PO SCH ×2 (08:18→20:53)
[2023-06-22] MEDS: ATORVASTATIN 20 MG TAB PO SCH (08:18)
[2023-06-22] MEDS: ASPIRIN 81MG ENTERIC TABLET PO SCH (08:18)
[2023-06-22] MEDS: buPROPion **XL** TABLET 150MG (WELLBUTRIN XL) PO SCH (08:18)
[2023-06-22] MEDS: CLOPIDOGREL 75 MG TAB PO SCH (08:19)
[2023-06-22] MEDS: CitaloPRAM (CeleXA) 10 MG TABLET PO SCH (08:19)
[2023-06-22] MEDS: FOLIC ACID 1MG TAB PO SCH (08:19)
[2023-06-22] MEDS: POTASSIUM CHLORIDE 10MEQ SR TABLET PO SCH (08:19)
[2023-06-22] MEDS: oxyCODONE 5MG TAB PO PRN ×2 (08:20→18:23)
[2023-06-22] MEDS: PROMETHAZINE 25 MG TAB PO PRN ×2 (08:23→18:24)
[2023-06-22] MEDS: ADVAIR HFA 115/21MCG INHALER INH SCH ×2 (08:40→20:34)
[2023-06-22] MEDS ORDERED: CHLORTHALIDONE 12.5MG PER 1/2 TABLET PO SCH (09:00)
[2023-06-22] MEDS ORDERED: amLODIPine 5 MG TAB PO SCH (09:00)
[2023-06-22] MEDS ORDERED: XARELTO 2.5 MG PO SCH (09:00)
[2023-06-22] MEDS: prednisoLONE ACET 1% OPHTH SUSP 5ML OU SCH ×2 (09:54→20:55)
[2023-06-22] MEDS: FLUTICASONE PROP 0.05% NASAL SPRAY 16 GM (FLONASE) SCH (09:54)
[2023-06-22] MEDS ORDERED: HYDROMORPHONE HCL 0.5 MG/ 0.5 ML SYRINGE IV ONE (13:05)
[2023-06-22 14:00] VITALS: BP 137/64; TEMP 97.9; O2SAT 96
[2023-06-22] MEDS: KETOROLAC 30 MG/ML 1ML VIAL IV SCH ×2 (14:10→19:37)
[2023-06-22 14:17] LABS: C REACTIVE PROTEIN QUANTITATIV 5.1 MG/DL (<1.0)
[2023-06-22 14:22] LABS: ALBUMIN 3.6 G/DL (3.2-5.2); ALKALINE PHOSPHATASE 87 U/L (46-116); ALT/SGPT 13 U/L (7.0-40); AST/SGOT 9 U/L (<34); BILIRUBIN,TOTAL 1.4 MG/DL (0.3-1.2); BLOOD UREA NITROGEN 12 MG/DL (9-23); CALCIUM LEVEL 8.3 MG/DL (8.3-10.6); CARBON DIOXIDE LEVEL 28 MMOL/L (20-31); CHLORIDE LEVEL 101 MMOL/L (98-107); CREATININE FOR GFR 0.49 MG/DL (0.55-1.30); GLOMERULAR FILTRATION RATE > 60.0 (>45); GLUCOSE, FASTING 171 MG/DL (74-106); SODIUM LEVEL 136 MMOL/L (136-145); TOTAL PROTEIN 6.2 G/DL (5.7-8.2)
[2023-06-22 14:24] LABS: BASO % 0.2 % (0.0-1.0); EOS % 0.1 % (0.0-3.0); HEMATOCRIT 39.6 % (36.0-47.0); HEMOGLOBIN 13.3 g/dl (12.0-15.5); LYMPH # 0.3 10^3/uL (1.5-5.0); LYMPH % 1.8 % (24.0-44.0); MEAN CORPUSCULAR HEMOGLOBIN 30.4 pg (27.0-33.0); MEAN CORPUSCULAR HGB CONC 33.6 g/dl (32.0-36.5); MEAN CORPUSCULAR VOLUME 90.4 fl (80.0-96.0); MONO # 0.5 10^3/uL (0.0-0.8); MONO % 3.4 % (2.0-8.0); NEUTROPHILS # 12.8 10^3/uL (1.5-8.5); PLATELET COUNT, AUTOMATED 137 10^3/uL (150-450); RED BLOOD COUNT 4.38 10^6/uL (4.00-5.40); WHITE BLOOD COUNT 13.6 10^3/uL (4.0-10.0)
[2023-06-22 14:26] LABS: PROCALCITONIN 0.62 ng/ml
[2023-06-22] MEDS ORDERED: NS 1,000 ML IV ONE (19:30)
[2023-06-22] MEDS: AMITRIPTYLINE 50 MG TAB PO SCH (20:53)
[2023-06-22 22:00] VITALS: BP 140/59; TEMP 98.4; O2SAT 90
[2023-06-23] MEDS: KETOROLAC 30 MG/ML 1ML VIAL IV SCH ×2 (01:11→08:29)
[2023-06-23] MEDS: NS 1,000 ML IV SCH ×2 (03:12→03:35)
[2023-06-23] MEDS: PROMETHAZINE 25 MG TAB PO PRN ×3 (03:13→18:28)
[2023-06-23] MEDS: oxyCODONE 5MG TAB PO PRN (03:14)
[2023-06-23] MEDS: PIPERACILLIN/TAZOBACTAM SOD 3.375 GM in D5W MINI-BAG PLUS 50 ML IV SCH ×4 (04:38→22:30)
[2023-06-23 07:36] LABS: BASO % 0.2 % (0.0-1.0); HEMOGLOBIN 11.6 g/dl (12.0-15.5); LYMPH # 0.3 10^3/uL (1.5-5.0); LYMPH % 2.3 % (24.0-44.0); MEAN CORPUSCULAR HGB CONC 33.1 g/dl (32.0-36.5); MEAN CORPUSCULAR VOLUME 90.4 fl (80.0-96.0); MONO # 0.9 10^3/uL (0.0-0.8); MONO % 6.5 % (2.0-8.0); NEUTROPHILS # 12.1 10^3/uL (1.5-8.5); NEUTROPHILS % 90.4 % (36.0-66.0); PLATELET COUNT, AUTOMATED 125 10^3/uL (150-450); RED BLOOD COUNT 3.87 10^6/uL (4.00-5.40); WHITE BLOOD COUNT 13.3 10^3/uL (4.0-10.0)
[2023-06-23 08:14] LABS: ALBUMIN 3.3 G/DL (3.2-5.2); ALKALINE PHOSPHATASE 71 U/L (46-116); ALT/SGPT 12 U/L (7.0-40); AST/SGOT 12 U/L (<34); BILIRUBIN,TOTAL 1.4 MG/DL (0.3-1.2); BLOOD UREA NITROGEN 9 MG/DL (9-23); CARBON DIOXIDE LEVEL 28 MMOL/L (20-31); CHLORIDE LEVEL 105 MMOL/L (98-107); CREATININE FOR GFR 0.57 MG/DL (0.55-1.30); GLOMERULAR FILTRATION RATE > 60.0 (>45); GLUCOSE, FASTING 116 MG/DL (74-106); MAGNESIUM LEVEL 1.7 MG/DL (1.8-2.4); SODIUM LEVEL 140 MMOL/L (136-145); TOTAL PROTEIN 5.5 G/DL (5.7-8.2)
[2023-06-23] MEDS: ADVAIR HFA 115/21MCG INHALER INH SCH ×2 (08:25→20:32)
[2023-06-23] MEDS: buPROPion **XL** TABLET 150MG (WELLBUTRIN XL) PO SCH (08:29)
[2023-06-23] MEDS: DOCUSATE SODIUM 100MG CAPSULE PO SCH (08:29)
[2023-06-23] MEDS: PANTOPRAZOLE 40MG VIAL IV SCH (08:29)
[2023-06-23] MEDS: CYANOCOBALAMIN 500 MCG TAB PO SCH (08:29)
[2023-06-23] MEDS: CitaloPRAM (CeleXA) 10 MG TABLET PO SCH (08:30)
[2023-06-23] MEDS: ASPIRIN 81MG ENTERIC TABLET PO SCH (08:30)
[2023-06-23] MEDS: FOLIC ACID 1MG TAB PO SCH (08:30)
[2023-06-23] MEDS: ATORVASTATIN 20 MG TAB PO SCH (08:30)
[2023-06-23] MEDS: CLOPIDOGREL 75 MG TAB PO SCH ×3 (08:30→11:20)
[2023-06-23] MEDS: prednisoLONE ACET 1% OPHTH SUSP 5ML OU SCH ×2 (08:31→20:18)
[2023-06-23] MEDS: FLUTICASONE PROP 0.05% NASAL SPRAY 16 GM (FLONASE) SCH (08:31)
[2023-06-23] MEDS: POTASSIUM CHLORIDE 10MEQ SR TABLET PO SCH (08:31)
[2023-06-23] MEDS ORDERED: POTASSIUM CHLORIDE 10MEQ SR TABLET PO ONE ×2 (09:00→11:00)
[2023-06-23] MEDS ORDERED: MAG SULF 1GM/100ML (MAG RUN) 1 GM in IV 1 EA IV ONE (09:00)
[2023-06-23] MEDS ORDERED: SENOKOT S TAB PO ONE (09:15)
[2023-06-23] MEDS ORDERED: CALCIUM GLUCONATE 1,000 MG in D5W MINI-BAG PLUS 100 ML IV ONE (10:00)
[2023-06-23] MEDS ORDERED: MORPHINE 4 MG/ML 1ML VIAL IV ONE (10:20)
[2023-06-23] MEDS ORDERED: PERCOCET 5MG/325MG TAB PO PRN (10:25)
[2023-06-23] MEDS ORDERED: SENOKOT S TAB PO PRN (10:25)
[2023-06-23] MEDS ORDERED: MOM 30ML SUSPENSION UDC PO PRN (10:25)
[2023-06-23 10:32] LABS: HEMATOCRIT 36.6 % (36.0-47.0); HEMOGLOBIN 11.8 g/dl (12.0-15.5)
[2023-06-23] MEDS: ENOXAPARIN 40MG/0.4ML SYRINGE (J1650 PER 10MG) SC SCH ×2 (12:05→20:18)
[2023-06-23] MEDS: LR 1,000 ML IV SCH (13:50)
[2023-06-23 14:16] VITALS: BP 150/62; TEMP 99.1; O2SAT 97
[2023-06-23] MEDS: PERCOCET 5MG/325MG TAB PO PRN ×2 (14:16→20:17)
[2023-06-23] MEDS ORDERED: RIVAROXABAN 15MG TAB (XARELTO) PO SCH (18:00)
[2023-06-23] MEDS: AMITRIPTYLINE 50 MG TAB PO SCH (20:16)
[2023-06-23 20:35] LABS: CALCIUM LEVEL 8.3 MG/DL (8.3-10.6); MAGNESIUM LEVEL 1.9 MG/DL (1.8-2.4); POTASSIUM SERUM 3.4 MMOL/L (3.5-5.1)
[2023-06-23 21:29] VITALS: BP 163/61; TEMP 99.3; O2SAT 94
[2023-06-24] MEDS: PERCOCET 5MG/325MG TAB PO PRN ×4 (02:13→20:22)
[2023-06-24] MEDS: LR 1,000 ML IV SCH ×2 (04:23→08:09)
[2023-06-24] MEDS: PIPERACILLIN/TAZOBACTAM SOD 3.375 GM in D5W MINI-BAG PLUS 50 ML IV SCH ×4 (05:20→23:15)
[2023-06-24 05:36] LABS: BASO % 0.2 % (0.0-1.0); HEMATOCRIT 33.6 % (36.0-47.0); HEMOGLOBIN 11.2 g/dl (12.0-15.5); LYMPH # 0.3 10^3/uL (1.5-5.0); LYMPH % 3.3 % (24.0-44.0); MEAN CORPUSCULAR HEMOGLOBIN 29.7 pg (27.0-33.0); MEAN CORPUSCULAR HGB CONC 33.3 g/dl (32.0-36.5); MEAN CORPUSCULAR VOLUME 89.1 fl (80.0-96.0); MONO # 0.4 10^3/uL (0.0-0.8); MONO % 4.5 % (2.0-8.0); NEUTROPHILS # 8.9 10^3/uL (1.5-8.5); NEUTROPHILS % 91.5 % (36.0-66.0); PLATELET COUNT, AUTOMATED 124 10^3/uL (150-450); RED BLOOD COUNT 3.77 10^6/uL (4.00-5.40); WHITE BLOOD COUNT 9.8 10^3/uL (4.0-10.0)
[2023-06-24 06:00] VITALS: BP 160/58; TEMP 99.1; O2SAT 97
[2023-06-24] MEDS: ADVAIR HFA 115/21MCG INHALER INH SCH ×2 (07:42→20:32)
[2023-06-24] MEDS: CYANOCOBALAMIN 500 MCG TAB PO SCH (08:04)
[2023-06-24] MEDS: buPROPion **XL** TABLET 150MG (WELLBUTRIN XL) PO SCH (08:04)
[2023-06-24] MEDS: CLOPIDOGREL 75 MG TAB PO SCH (08:04)
[2023-06-24] MEDS: ASPIRIN 81MG ENTERIC TABLET PO SCH (08:04)
[2023-06-24] MEDS: POTASSIUM CHLORIDE 10MEQ SR TABLET PO SCH (08:04)
[2023-06-24] MEDS: ATORVASTATIN 20 MG TAB PO SCH (08:04)
[2023-06-24] MEDS: FOLIC ACID 1MG TAB PO SCH (08:05)
[2023-06-24] MEDS: CitaloPRAM (CeleXA) 10 MG TABLET PO SCH (08:05)
[2023-06-24] MEDS: ENOXAPARIN 40MG/0.4ML SYRINGE (J1650 PER 10MG) SC SCH ×2 (08:05→20:21)
[2023-06-24] MEDS: PANTOPRAZOLE 40MG VIAL IV SCH (08:05)
[2023-06-24] MEDS: prednisoLONE ACET 1% OPHTH SUSP 5ML OU SCH ×2 (08:06→20:25)
[2023-06-24] MEDS: FLUTICASONE PROP 0.05% NASAL SPRAY 16 GM (FLONASE) SCH (08:06)
[2023-06-24] MEDS ORDERED: HYDROMORPHONE HCL 0.5 MG/ 0.5 ML SYRINGE IV ONE (08:35)
[2023-06-24] MEDS ORDERED: ISOVUE-370 76% 100ML VIAL As Ordered ONE (08:43)
[2023-06-24] MEDS ORDERED: MAG SULF 1GM/100ML (MAG RUN) 1 GM in IV 1 EA IV ONE (09:00)
[2023-06-24] MEDS ORDERED: KCL 10MEQ/100ML SWI (KRUN) 10 MEQ in IV 1 EA IV ONE (10:00)
[2023-06-24] MEDS: PROMETHAZINE 25 MG TAB PO PRN ×2 (11:12→20:28)
[2023-06-24] MEDS ORDERED: LR 1,000 ML IV ONE (11:25)
[2023-06-24] MEDS ORDERED: SENOKOT S TAB PO PRN (11:45)
[2023-06-24] MEDS ORDERED: HYDROMORPHONE HCL 0.5 MG/ 0.5 ML SYRINGE IV PRN (11:50)
[2023-06-24] MEDS ORDERED: NALOXONE INJ 0.4MG/1ML VIAL IV PRN (11:50)
[2023-06-24] MEDS ORDERED: PERCOCET 5MG/325MG TAB PO PRN (11:55)
[2023-06-24] MEDS ORDERED: PERCOCET 5MG/325MG TAB PO SCH (12:00)
[2023-06-24 12:35] LABS: BLOOD UREA NITROGEN 6 MG/DL (9-23); CALCIUM LEVEL 8.2 MG/DL (8.3-10.6); CARBON DIOXIDE LEVEL 28 MMOL/L (20-31); CHLORIDE LEVEL 104 MMOL/L (98-107); CREATININE FOR GFR 0.46 MG/DL (0.55-1.30); GLOMERULAR FILTRATION RATE > 60.0 (>45); GLUCOSE, FASTING 113 MG/DL (74-106); MAGNESIUM LEVEL 2.5 MG/DL (1.8-2.4); POTASSIUM SERUM 3.4 MMOL/L (3.5-5.1); SODIUM LEVEL 138 MMOL/L (136-145)
[2023-06-24] MEDS: METAMUCIL (PSYLLIUM) PACKET PO SCH (13:00)
[2023-06-24] MEDS ORDERED: MORPHINE 2 MG/ML 1ML VIAL IV PRN (13:15)
[2023-06-24 14:00] VITALS: BP 170/69; TEMP 97.9; O2SAT 98
[2023-06-24] MEDS ORDERED: KCL 20MEQ IN D5/0.2%NS 1000ML 1,000 ML IV SCH (14:00)
[2023-06-24 18:09] VITALS: BP 167/64
[2023-06-24] MEDS ORDERED: atenoloL 25 MG TAB PO ONE (18:15)
[2023-06-24] MEDS: LIDOCAINE 5% OINT 30GM TUBE TOP SCH (18:48)
[2023-06-24] MEDS: AMITRIPTYLINE 50 MG TAB PO SCH (20:22)
[2023-06-24 22:00] VITALS: BP 155/57; TEMP 99.7; O2SAT 98
[2023-06-25] MEDS: PERCOCET 5MG/325MG TAB PO PRN (03:40)
[2023-06-25] MEDS: PIPERACILLIN/TAZOBACTAM SOD 3.375 GM in D5W MINI-BAG PLUS 50 ML IV SCH (05:14)
[2023-06-25 06:00] VITALS: BP 161/57; TEMP 98.1; O2SAT 96
[2023-06-25 06:45] LABS: BASO % 0.4 % (0.0-1.0); EOS % 0.3 % (0.0-3.0); HEMATOCRIT 36.1 % (36.0-47.0); HEMOGLOBIN 12.2 g/dl (12.0-15.5); LYMPH # 0.3 10^3/uL (1.5-5.0); LYMPH % 4.7 % (24.0-44.0); MEAN CORPUSCULAR HEMOGLOBIN 29.7 pg (27.0-33.0); MEAN CORPUSCULAR HGB CONC 33.8 g/dl (32.0-36.5); MEAN CORPUSCULAR VOLUME 87.8 fl (80.0-96.0); MONO # 0.3 10^3/uL (0.0-0.8); NEUTROPHILS # 6.1 10^3/uL (1.5-8.5); NEUTROPHILS % 89.2 % (36.0-66.0); PLATELET COUNT, AUTOMATED 139 10^3/uL (150-450); RED BLOOD COUNT 4.11 10^6/uL (4.00-5.40); WHITE BLOOD COUNT 6.8 10^3/uL (4.0-10.0)
[2023-06-25] MEDS: ADVAIR HFA 115/21MCG INHALER INH SCH (07:57)
[2023-06-25] MEDS: PANTOPRAZOLE 40MG VIAL IV SCH (08:53)
[2023-06-25] MEDS: METAMUCIL (PSYLLIUM) PACKET PO SCH (08:53)
[2023-06-25] MEDS: ASPIRIN 81MG ENTERIC TABLET PO SCH (08:53)
[2023-06-25] MEDS: ATORVASTATIN 20 MG TAB PO SCH (08:53)
[2023-06-25] MEDS: ENOXAPARIN 40MG/0.4ML SYRINGE (J1650 PER 10MG) SC SCH (08:53)
[2023-06-25] MEDS: buPROPion **XL** TABLET 150MG (WELLBUTRIN XL) PO SCH (08:53)
[2023-06-25] MEDS: FOLIC ACID 1MG TAB PO SCH (08:54)
[2023-06-25] MEDS: CitaloPRAM (CeleXA) 10 MG TABLET PO SCH (08:54)
[2023-06-25] MEDS: CLOPIDOGREL 75 MG TAB PO SCH (08:54)
[2023-06-25] MEDS: CYANOCOBALAMIN 500 MCG TAB PO SCH (08:54)
[2023-06-25] MEDS: POTASSIUM CHLORIDE 10MEQ SR TABLET PO SCH (08:54)
[2023-06-25] MEDS: FLUTICASONE PROP 0.05% NASAL SPRAY 16 GM (FLONASE) SCH (08:57)
[2023-06-25] MEDS: prednisoLONE ACET 1% OPHTH SUSP 5ML OU SCH (08:57)
[2023-06-25 08:58] VITALS: BP 118/58
[2023-06-25] MEDS: LIDOCAINE 5% OINT 30GM TUBE TOP SCH (08:58)
[2023-06-25] MEDS ORDERED: atenoloL 25 MG TAB PO SCH (09:00)
[2023-06-25] MEDS ORDERED: AMOX875T2 PO (09:32)
[2023-06-25] MEDS ORDERED: MOM30SS2 PO (09:32)
[2023-06-25] MEDS ORDERED: PROT1TAB2 PO (09:32)
[2023-06-25] MEDS ORDERED: PERCOCET PO (09:32)
[2023-06-25] MEDS ORDERED: SENN-52 PO (09:32)
[2023-06-25 10:53] VITALS: BP 153/80
[2023-06-26] MEDS ORDERED: POTASSIUM CHLORIDE 10MEQ SR TABLET PO SCH (09:00)
== END 2023-06-25 11:25 | disposition home or self-care (01) | DRG 392 ==
LOC: M ED 21:21 → M ED INP 06-22 03:31 → M MSPAV 06-22 04:35
PROVIDERS: ADMIT Family Medicine; ATTEND General Practice
DX: A09 Infectious gastroenteritis and colitis, unspecified (principal); F11.20 Opioid dependence, uncomplicated; E87.20 Acidosis, unspecified; I77.4 Celiac artery compression syndrome; K55.1 Chronic vascular disorders of intestine; J44.9 Chronic obstructive pulmonary disease, unspecified; G89.29 Other chronic pain; M54.9 Dorsalgia, unspecified; D55.0 Anemia due to glucose-6-phosphate dehydrogenase [G6PD] deficiency; K21.9 Gastro-esophageal reflux disease without esophagitis; E55.9 Vitamin D deficiency, unspecified; M15.0 Primary generalized (osteo)arthritis; I65.23 Occlusion and stenosis of bilateral carotid arteries; Z86.718 Personal history of other venous thrombosis and embolism; M06.9 Rheumatoid arthritis, unspecified; M81.0 Age-related osteoporosis without current pathological fracture; E78.5 Hyperlipidemia, unspecified; G43.909 Migraine, unspecified, not intractable, without status migrainosus; G50.0 Trigeminal neuralgia; I70.1 Atherosclerosis of renal artery; I73.9 Peripheral vascular disease, unspecified; Z79.02 Long term (current) use of antithrombotics/antiplatelets; Z85.828 Personal history of other malignant neoplasm of skin; Z79.82 Long term (current) use of aspirin; Z79.01 Long term (current) use of anticoagulants; Z79.899 Other long term (current) drug therapy; Z86.73 Personal history of transient ischemic attack (TIA), and cerebral infarction without residual deficits; Z87.442 Personal history of urinary calculi; Z85.818 Personal history of malignant neoplasm of other sites of lip, oral cavity, and pharynx; Z87.891 Personal history of nicotine dependence

== ENCOUNTER → 2023-06-21 | Outpatient (CLI) | payer MEDICARE, MEDICAID ==
[~2023-06-21] MED LIST changes: +FLUC100T3 PO; +LOTE0.5G OU; -PROHANCE 279.3MG/ML 5ML VIAL As Ordered ONE; +VARE0.5T PO
== END ==
LOC: M RAD 06:13
PROVIDERS: ATTEND Physician Assistant
DX: I70.1 Atherosclerosis of renal artery (principal)

== ENCOUNTER → 2023-06-21 | Outpatient (CLI) | payer MEDICARE, MEDICAID ==
[~2023-06-21] MED LIST changes: +ISOVUE-370 76% 100ML VIAL As Ordered ONE
== END ==
LOC: M RAD 08:49
PROVIDERS: ATTEND General Practice
DX: C10.1 Malignant neoplasm of anterior surface of epiglottis (principal)
CPT/HCPCS: 70491; Q9967

== ENCOUNTER → 2023-06-29 | Outpatient (CLI) | payer MEDICARE, MEDICAID ==
[~2023-06-29] MED LIST changes: +FLUC100T3 PO; +LOTE0.5G OU; +MOM30SS2 PO; +PERCOCET PO; +PROT1TAB2 PO; +SENN-52 PO; +VARE0.5T PO
[2023-06-29 13:21] LABS: BASO % 0.7 % (0.0-1.0); EOS # 0.1 10^3/uL (0.0-0.5); EOS % 1.7 % (0.0-3.0); HEMATOCRIT 37.4 % (36.0-47.0); HEMOGLOBIN 12.4 g/dl (12.0-15.5); LYMPH # 0.6 10^3/uL (1.5-5.0); LYMPH % 10.2 % (24.0-44.0); MEAN CORPUSCULAR HEMOGLOBIN 29.6 pg (27.0-33.0); MEAN CORPUSCULAR HGB CONC 33.2 g/dl (32.0-36.5); MEAN CORPUSCULAR VOLUME 89.3 fl (80.0-96.0); MONO # 0.5 10^3/uL (0.0-0.8); MONO % 8.9 % (2.0-8.0); NEUTROPHILS # 4.4 10^3/uL (1.5-8.5); NEUTROPHILS % 74.2 % (36.0-66.0); PLATELET COUNT, AUTOMATED 205 10^3/uL (150-450); RED BLOOD COUNT 4.19 10^6/uL (4.00-5.40); WHITE BLOOD COUNT 5.9 10^3/uL (4.0-10.0)
[2023-06-29 13:48] LABS: BLOOD UREA NITROGEN 12 MG/DL (9-23); CALCIUM LEVEL 9.2 MG/DL (8.3-10.6); CARBON DIOXIDE LEVEL 33 MMOL/L (20-31); CHLORIDE LEVEL 103 MMOL/L (98-107); CREATININE FOR GFR 0.57 MG/DL (0.55-1.30); GLOMERULAR FILTRATION RATE > 60.0 (>45); GLUCOSE, FASTING 94 MG/DL (74-106); POTASSIUM SERUM 3.3 MMOL/L (3.5-5.1); SODIUM LEVEL 140 MMOL/L (136-145)
== END ==
LOC: M LAB 12:52
PROVIDERS: ATTEND Physician Assistant
DX: K52.9 Noninfective gastroenteritis and colitis, unspecified (principal)

== ENCOUNTER → 2023-06-29 | Outpatient (REF) | payer MEDICARE, MEDICAID | LOC: M SFHCADAM 11:09 | PROVIDERS: ATTEND Physician Assistant | DX: K52.9 Noninfective gastroenteritis and colitis, unspecified (principal) ==

== ENCOUNTER → 2023-07-11 | Outpatient (CLI) | payer MEDICAID, MEDICARE, OTHER ==
[~2023-07-11] MED LIST changes: -POTA20EL PO; +POTA20LI16 PO
== END ==
LOC: M ONCR 11:28
PROVIDERS: ATTEND General Practice
DX: Z08 Encounter for follow-up examination after completed treatment for malignant neoplasm (principal); Z85.21 Personal history of malignant neoplasm of larynx; K55.1 Chronic vascular disorders of intestine; Z71.2 Person consulting for explanation of examination or test findings; Z79.01 Long term (current) use of anticoagulants; Z79.02 Long term (current) use of antithrombotics/antiplatelets; Z79.51 Long term (current) use of inhaled steroids; Z79.899 Other long term (current) drug therapy; Z92.3 Personal history of irradiation
CPT/HCPCS: 31575; G0463

== ENCOUNTER → 2023-08-05 | Outpatient (CLI) | payer MEDICARE ==
[~2023-08-05] MED LIST changes: +PROHANCE 279.3MG/ML 5ML VIAL As Ordered ONE
== END ==
LOC: M RAD 11:06
PROVIDERS: ATTEND Physician Assistant
DX: K76.89 Other specified diseases of liver (principal); M54.50 Low back pain, unspecified; G89.29 Other chronic pain
CPT/HCPCS: 74183; A9576

== ENCOUNTER → 2023-08-17 | Outpatient (REF) | payer MEDICARE, MEDICAID ==
[~2023-08-17] MED LIST changes: -PROHANCE 279.3MG/ML 5ML VIAL As Ordered ONE
[2023-08-17 14:21] LABS: HEMATOCRIT 38.1 % (36.0-47.0); HEMOGLOBIN 12.5 g/dl (12.0-15.5); MEAN CORPUSCULAR HEMOGLOBIN 30.9 pg (27.0-33.0); MEAN CORPUSCULAR HGB CONC 32.8 g/dl (32.0-36.5); MEAN CORPUSCULAR VOLUME 94.3 fl (80.0-96.0); PLATELET COUNT, AUTOMATED 193 10^3/uL (150-450); RED BLOOD COUNT 4.04 10^6/uL (4.00-5.40); WHITE BLOOD COUNT 6.1 10^3/uL (4.0-10.0)
[2023-08-17 14:44] LABS: C REACTIVE PROTEIN QUANTITATIV < 0.40 MG/DL (<1.0)
[2023-08-17 14:45] LABS: ALBUMIN 4.2 G/DL (3.2-5.2); ALKALINE PHOSPHATASE 67 U/L (46-116); ALT/SGPT < 9 U/L (7.0-40); AST/SGOT < 8 U/L (<34); BILIRUBIN,TOTAL 0.8 MG/DL (0.3-1.2); BLOOD UREA NITROGEN 24 MG/DL (9-23); CALCIUM LEVEL 9.6 MG/DL (8.3-10.6); CARBON DIOXIDE LEVEL 29 MMOL/L (20-31); CHLORIDE LEVEL 107 MMOL/L (98-107); CREATININE FOR GFR 0.75 MG/DL (0.55-1.30); GLOMERULAR FILTRATION RATE > 60.0 (>45); GLUCOSE, FASTING 71 MG/DL (74-106); POTASSIUM SERUM 3.5 MMOL/L (3.5-5.1); SODIUM LEVEL 141 MMOL/L (136-145); TOTAL PROTEIN 6.6 G/DL (5.7-8.2)
== END ==
LOC: M SFHCADAM 10:07
PROVIDERS: ATTEND Family Medicine
DX: R51.9 Headache, unspecified (principal); Z79.899 Other long term (current) drug therapy

== ENCOUNTER → 2023-09-09 | Outpatient (CLI) | payer MEDICARE, MEDICAID | LOC: M RAD 12:16 | PROVIDERS: ATTEND Internal Medicine Medical Oncology | DX: Z12.2 Encounter for screening for malignant neoplasm of respiratory organs (principal); F17.210 Nicotine dependence, cigarettes, uncomplicated; R91.8 Other nonspecific abnormal finding of lung field; T14.90XD Injury, unspecified, subsequent encounter ==

== ENCOUNTER → 2023-09-09 | Outpatient (REF) | payer MEDICARE, MEDICAID | LOC: M SFHCDERM 16:35 | PROVIDERS: ATTEND Physician Assistant | DX: T14.90XD Injury, unspecified, subsequent encounter (principal) ==

== ENCOUNTER → 2023-10-11 | Outpatient (CLI) | payer MEDICARE, MEDICAID ==
[~2023-10-11] MED LIST changes: +TRIAMCINOLONE ACETONIDE SUSP 40MG/ML 1ML VIAL As Ordered ONE; +diazePAM 5MG TABLET As Ordered ONE; +oxyCODONE 5MG TAB As Ordered ONE
== END ==
LOC: M PAIN 08:15
PROVIDERS: ATTEND Anesthesiology
DX: M79.18 Myalgia, other site (principal); E78.5 Hyperlipidemia, unspecified; K21.9 Gastro-esophageal reflux disease without esophagitis; E55.9 Vitamin D deficiency, unspecified; G43.909 Migraine, unspecified, not intractable, without status migrainosus; J44.9 Chronic obstructive pulmonary disease, unspecified; M15.0 Primary generalized (osteo)arthritis; M06.9 Rheumatoid arthritis, unspecified; M81.0 Age-related osteoporosis without current pathological fracture; Z79.02 Long term (current) use of antithrombotics/antiplatelets; Z79.01 Long term (current) use of anticoagulants; Z79.891 Long term (current) use of opiate analgesic; Z79.899 Other long term (current) drug therapy; Z86.73 Personal history of transient ischemic attack (TIA), and cerebral infarction without residual deficits; F17.210 Nicotine dependence, cigarettes, uncomplicated; Z88.8 Allergy status to other drugs, medicaments and biological substances
CPT/HCPCS: 20553; J0665; J3301

== ENCOUNTER → 2023-11-22 | Outpatient (CLI) | payer MEDICARE, MEDICAID ==
[~2023-11-22] MED LIST changes: +ONDA-282 PO; -ONDA4TAB6 PO; +TRET0.02; -TRIAMCINOLONE ACETONIDE SUSP 40MG/ML 1ML VIAL As Ordered ONE; -diazePAM 5MG TABLET As Ordered ONE; -oxyCODONE 5MG TAB As Ordered ONE
== END ==
LOC: M PAIN 11:15
PROVIDERS: ATTEND Nurse Practitioner Family
DX: M54.2 Cervicalgia (principal); M79.18 Myalgia, other site; Z79.891 Long term (current) use of opiate analgesic; D75.A Glucose-6-phosphate dehydrogenase (G6PD) deficiency without anemia; F17.200 Nicotine dependence, unspecified, uncomplicated; Z79.01 Long term (current) use of anticoagulants; Z79.02 Long term (current) use of antithrombotics/antiplatelets; Z79.51 Long term (current) use of inhaled steroids; Z79.899 Other long term (current) drug therapy; Z88.8 Allergy status to other drugs, medicaments and biological substances

== ENCOUNTER → 2023-11-23 | Outpatient (REF) | payer MEDICARE, MEDICAID ==
[2023-11-23 14:29] LABS: BASO % 0.9 % (0.0-1.0); EOS # 0.1 10^3/uL (0.0-0.5); EOS % 2.1 % (0.0-3.0); HEMATOCRIT 39.9 % (36.0-47.0); HEMOGLOBIN 13.1 g/dl (12.0-15.5); LYMPH # 0.6 10^3/uL (1.5-5.0); LYMPH % 12.9 % (24.0-44.0); MEAN CORPUSCULAR HEMOGLOBIN 31.6 pg (27.0-33.0); MEAN CORPUSCULAR HGB CONC 32.8 g/dl (32.0-36.5); MEAN CORPUSCULAR VOLUME 96.4 fl (80.0-96.0); MONO # 0.3 10^3/uL (0.0-0.8); MONO % 7.5 % (2.0-8.0); NEUTROPHILS # 3.3 10^3/uL (1.5-8.5); NEUTROPHILS % 75.9 % (36.0-66.0); PLATELET COUNT, AUTOMATED 151 10^3/uL (150-450); RED BLOOD COUNT 4.14 10^6/uL (4.00-5.40); WHITE BLOOD COUNT 4.3 10^3/uL (4.0-10.0)
[2023-11-23 14:33] LABS: ALKALINE PHOSPHATASE 80 U/L (46-116); ALT/SGPT 13 U/L (7.0-40); AST/SGOT < 8 U/L (<34); BILIRUBIN,TOTAL 0.6 MG/DL (0.3-1.2); BLOOD UREA NITROGEN 11 MG/DL (9-23); CALCIUM LEVEL 9.3 MG/DL (8.3-10.6); CARBON DIOXIDE LEVEL 30 MMOL/L (20-31); CHLORIDE LEVEL 107 MMOL/L (98-107); CHOLESTEROL LEVEL 177 MG/DL (<200); CHOLESTEROL RISK RATIO 2.84 (<5); CREATININE FOR GFR 0.61 MG/DL (0.55-1.30); GLOMERULAR FILTRATION RATE > 60.0 (>45); GLUCOSE, FASTING 88 MG/DL (74-106); HDL CHOLESTEROL 62.2 MG/DL (>40); NON-HDL-C 114.8 MG/DL; POTASSIUM SERUM 3.5 MMOL/L (3.5-5.1); SODIUM LEVEL 141 MMOL/L (136-145); TOTAL PROTEIN 6.5 G/DL (5.7-8.2); TRIGLYCERIDES LEVEL 104 MG/DL (<150)
[2023-11-23 14:34] LABS: FERRITIN 234.2 NG/ML (7.3-270.7); THYROID STIMULATING HORMONE 5.569 uIU/ML (0.55-4.78)
[2023-11-23 14:35] LABS: FREE T4 0.98 NG/DL (0.89-1.76)
[2023-11-23 14:47] LABS: HEMOGLOBIN A1c 4.6 % (4.0-6.0)
== END ==
LOC: M SFHCADAM 08:44
PROVIDERS: ATTEND Family Medicine
DX: D61.818 Other pancytopenia (principal); E78.5 Hyperlipidemia, unspecified; D59.9 Acquired hemolytic anemia, unspecified; Z13.1 Encounter for screening for diabetes mellitus; K55.1 Chronic vascular disorders of intestine

== ENCOUNTER → 2024-01-03 | Outpatient (CLI) | payer MEDICARE, MEDICAID ==
[~2024-01-03] MED LIST changes: +BUTR10DI TOP; -FEXO-157 PO; +FEXO-63 PO
== END ==
LOC: M PAIN 09:45
PROVIDERS: ATTEND Nurse Practitioner Family
DX: M54.2 Cervicalgia (principal); Z79.891 Long term (current) use of opiate analgesic; M79.18 Myalgia, other site; G89.29 Other chronic pain; D55.0 Anemia due to glucose-6-phosphate dehydrogenase [G6PD] deficiency; K21.9 Gastro-esophageal reflux disease without esophagitis; E55.9 Vitamin D deficiency, unspecified; G43.909 Migraine, unspecified, not intractable, without status migrainosus; J44.9 Chronic obstructive pulmonary disease, unspecified; M15.0 Primary generalized (osteo)arthritis; M06.9 Rheumatoid arthritis, unspecified; M81.0 Age-related osteoporosis without current pathological fracture; E78.5 Hyperlipidemia, unspecified; Z79.02 Long term (current) use of antithrombotics/antiplatelets; Z79.899 Other long term (current) drug therapy; Z79.01 Long term (current) use of anticoagulants; F17.210 Nicotine dependence, cigarettes, uncomplicated; Z88.8 Allergy status to other drugs, medicaments and biological substances

== ENCOUNTER → 2024-01-17 | Outpatient (CLI) | payer MEDICARE, MEDICAID | LOC: M ONCR 09:40 | PROVIDERS: ATTEND General Practice | DX: C10.1 Malignant neoplasm of anterior surface of epiglottis (principal); Z71.6 Tobacco abuse counseling; Z92.3 Personal history of irradiation; F17.210 Nicotine dependence, cigarettes, uncomplicated; Z79.02 Long term (current) use of antithrombotics/antiplatelets; Z79.51 Long term (current) use of inhaled steroids; Z79.01 Long term (current) use of anticoagulants; Z79.899 Other long term (current) drug therapy | CPT/HCPCS: 31575; 99406; G0463 ==

== ENCOUNTER → 2024-01-26 | Outpatient (REF) | payer MEDICARE, MEDICAID ==
[2024-01-26 14:21] LABS: APPEARANCE, URINE CLOUDY (CLEAR); BACTERIA, URINE AUTO 3+ (NEGATIVE); BILIRUBIN, URINE AUTO NEGATIVE (NEGATIVE); BLOOD, URINE BLOOD NEGATIVE (NEGATIVE); COLOR, URINE YELLOW (YELLOW); GLUCOSE, URINE (UA) AUTO NEGATIVE (NEGATIVE); KETONE, URINE AUTO NEGATIVE (NEGATIVE); LEUKOCYTE ESTERASE, URINE AUTO 3+ (NEGATIVE); MUCUS, URINE SMALL (NEGATIVE); NITRITE, URINE AUTO NEGATIVE (NEGATIVE); PROTEIN, URINE AUTO NEGATIVE (NEGATIVE); RBC, URINE AUTO 4 /HPF (0-3); SPECIFIC GRAVITY URINE AUTO 1.016 (1.002-1.035); SQUAMOUS EPITHELIAL CELL UR AU 5 /HPF (0-6); UROBILINOGEN, URINE AUTO 0.2 mg/dL (0.0-2.0); WBC, URINE AUTO TNTC /HPF (0-3)
== END ==
LOC: M LAB REF 12:47
PROVIDERS: ATTEND Physician Assistant
DX: N39.0 Urinary tract infection, site not specified (principal)

== ENCOUNTER 2024-02-16 09:23 | Outpatient (RCR) | payer MEDICARE, MEDICAID | END 2024-02-20 | LOC: M PT 09:23 | PROVIDERS: ATTEND Nurse Practitioner Family | DX: M79.10 Myalgia, unspecified site (principal); M54.2 Cervicalgia ==

== ENCOUNTER → 2024-02-23 | Outpatient (REF) | payer MEDICARE, MEDICAID ==
[2024-02-23 19:03] LABS: BLOOD UREA NITROGEN 10 MG/DL (9-23); CALCIUM LEVEL 9.4 MG/DL (8.3-10.6); CARBON DIOXIDE LEVEL 31 MMOL/L (20-31); CHLORIDE LEVEL 107 MMOL/L (98-107); CREATININE FOR GFR 0.66 MG/DL (0.55-1.30); GLOMERULAR FILTRATION RATE > 60.0 (>39); GLUCOSE, FASTING 82 MG/DL (74-106); POTASSIUM SERUM 3.5 MMOL/L (3.5-5.1); SODIUM LEVEL 141 MMOL/L (136-145)
== END ==
LOC: M LABDRWAD 17:47 → M LAB REF 17:47
PROVIDERS: ATTEND Surgery Vascular Surgery
DX: I73.9 Peripheral vascular disease, unspecified (principal); F17.200 Nicotine dependence, unspecified, uncomplicated

== ENCOUNTER → 2024-03-01 | Outpatient (CLI) | payer MEDICARE, MEDICAID | LOC: M PAIN 11:15 | PROVIDERS: ATTEND Nurse Practitioner Family | DX: M54.2 Cervicalgia (principal); Z79.891 Long term (current) use of opiate analgesic; M79.18 Myalgia, other site; G89.29 Other chronic pain; D55.0 Anemia due to glucose-6-phosphate dehydrogenase [G6PD] deficiency; K21.9 Gastro-esophageal reflux disease without esophagitis; E55.9 Vitamin D deficiency, unspecified; G43.909 Migraine, unspecified, not intractable, without status migrainosus; J44.9 Chronic obstructive pulmonary disease, unspecified; M15.0 Primary generalized (osteo)arthritis; M06.9 Rheumatoid arthritis, unspecified; M81.0 Age-related osteoporosis without current pathological fracture; E78.5 Hyperlipidemia, unspecified; Z79.02 Long term (current) use of antithrombotics/antiplatelets; Z79.899 Other long term (current) drug therapy; Z79.01 Long term (current) use of anticoagulants; F17.210 Nicotine dependence, cigarettes, uncomplicated; Z88.8 Allergy status to other drugs, medicaments and biological substances ==

== ENCOUNTER → 2024-03-20 | Outpatient (REF) | payer MEDICARE, MEDICAID | LOC: M SFHCPLAZ 13:01 | PROVIDERS: ATTEND Physician Assistant Medical | DX: J06.9 Acute upper respiratory infection, unspecified (principal) ==

== ENCOUNTER → 2024-03-21 | Outpatient (REF) | payer MEDICARE, MEDICAID | LOC: M SFHCPLAZ 17:05 | PROVIDERS: ATTEND Physician Assistant Medical | DX: J02.9 Acute pharyngitis, unspecified (principal) ==

== ENCOUNTER → 2024-04-18 | Outpatient (REF) | payer MEDICARE, MEDICAID ==
[~2024-04-18] MED LIST changes: -ADV250INH INH; +ADVA1AER9 INH; -CYCL5TAB PO; +CYCL5TAB4 PO; +NYST-38 PO
== END ==
LOC: M SFHCDERM 17:50
PROVIDERS: ATTEND Physician Assistant
DX: L82.1 Other seborrheic keratosis (principal)

== ENCOUNTER → 2024-04-23 | Outpatient (CLI) | payer MEDICARE, MEDICAID ==
[~2024-04-23] MED LIST changes: +ADV250INH INH; -ADVA1AER9 INH
== END ==
LOC: M PLAIMG 10:04
PROVIDERS: ATTEND Family Medicine
DX: J32.8 Other chronic sinusitis (principal)

== ENCOUNTER → 2024-04-24 | Outpatient (CLI) | payer MEDICARE, MEDICAID ==
[~2024-04-24] MED LIST changes: -ADV250INH INH; +ADVA1AER9 INH
[2024-04-24 11:28] LABS: FREE T4 0.98 NG/DL (0.89-1.76)
[2024-04-24 11:30] LABS: FREE T3 3.7 PG/ML (2.3-4.2)
[2024-04-24 14:03] LABS: THYROID STIMULATING HORMONE 4.971 uIU/ML (0.55-4.78)
== END ==
LOC: M ONCR 09:38
PROVIDERS: ATTEND General Practice
DX: C10.1 Malignant neoplasm of anterior surface of epiglottis (principal); F17.210 Nicotine dependence, cigarettes, uncomplicated; Z92.3 Personal history of irradiation; Z79.02 Long term (current) use of antithrombotics/antiplatelets; Z79.51 Long term (current) use of inhaled steroids; Z79.899 Other long term (current) drug therapy
CPT/HCPCS: 31575; 36415; 84439; 84443; 84481; 99406; G0463

== ENCOUNTER → 2024-04-26 | Outpatient (CLI) | payer MEDICARE | LOC: M PAIN 10:15 | PROVIDERS: ATTEND Nurse Practitioner Family | DX: M79.18 Myalgia, other site (principal); M47.812 Spondylosis without myelopathy or radiculopathy, cervical region; M50.10 Cervical disc disorder with radiculopathy, unspecified cervical region; G89.29 Other chronic pain; D55.0 Anemia due to glucose-6-phosphate dehydrogenase [G6PD] deficiency; K21.9 Gastro-esophageal reflux disease without esophagitis; E55.9 Vitamin D deficiency, unspecified; G43.909 Migraine, unspecified, not intractable, without status migrainosus; M15.0 Primary generalized (osteo)arthritis; M81.0 Age-related osteoporosis without current pathological fracture; E78.5 Hyperlipidemia, unspecified; Z79.01 Long term (current) use of anticoagulants; Z79.891 Long term (current) use of opiate analgesic; Z79.899 Other long term (current) drug therapy; Z88.8 Allergy status to other drugs, medicaments and biological substances ==

== ENCOUNTER → 2024-05-10 | Outpatient (CLI) | payer MEDICARE ==
[~2024-05-10] MED LIST changes: +TRIAMCINOLONE ACETONIDE SUSP 40MG/ML 1ML VIAL As Ordered ONE
== END ==
LOC: M PAIN 08:00
PROVIDERS: ATTEND Anesthesiology
DX: M79.12 Myalgia of auxiliary muscles, head and neck (principal); M79.18 Myalgia, other site; G89.29 Other chronic pain; M47.812 Spondylosis without myelopathy or radiculopathy, cervical region; M50.10 Cervical disc disorder with radiculopathy, unspecified cervical region; D55.0 Anemia due to glucose-6-phosphate dehydrogenase [G6PD] deficiency; K21.9 Gastro-esophageal reflux disease without esophagitis; E55.9 Vitamin D deficiency, unspecified; G43.909 Migraine, unspecified, not intractable, without status migrainosus; M15.0 Primary generalized (osteo)arthritis; M81.0 Age-related osteoporosis without current pathological fracture; E78.5 Hyperlipidemia, unspecified; F17.200 Nicotine dependence, unspecified, uncomplicated; Z79.01 Long term (current) use of anticoagulants; Z79.891 Long term (current) use of opiate analgesic; Z79.899 Other long term (current) drug therapy; Z88.8 Allergy status to other drugs, medicaments and biological substances
CPT/HCPCS: 20553; J0665; J3301

== ENCOUNTER → 2024-06-18 | Outpatient (CLI) | payer MEDICARE, MEDICAID ==
[~2024-06-18] MED LIST changes: -TRIAMCINOLONE ACETONIDE SUSP 40MG/ML 1ML VIAL As Ordered ONE
== END ==
LOC: M PLAIMG 10:55
PROVIDERS: ATTEND Family Medicine
DX: I72.5 Aneurysm of other precerebral arteries (principal)

== ENCOUNTER → 2024-06-24 | Outpatient (REF) | payer MEDICARE, MEDICAID ==
[2024-06-24 18:34] LABS: APPEARANCE, URINE CLOUDY (CLEAR); BACTERIA, URINE AUTO NEGATIVE (NEGATIVE); BILIRUBIN, URINE AUTO NEGATIVE (NEGATIVE); BLOOD, URINE BLOOD NEGATIVE (NEGATIVE); COLOR, URINE AMBER (YELLOW); GLUCOSE, URINE (UA) AUTO NEGATIVE (NEGATIVE); KETONE, URINE AUTO NEGATIVE (NEGATIVE); LEUKOCYTE ESTERASE, URINE AUTO 3+ (NEGATIVE); MUCUS, URINE SMALL (NEGATIVE); NITRITE, URINE AUTO NEGATIVE (NEGATIVE); PROTEIN, URINE AUTO 1+ mg/dL (NEGATIVE); RBC, URINE AUTO 6 /HPF (0-3); SPECIFIC GRAVITY URINE AUTO 1.019 (1.002-1.035); SQUAMOUS EPITHELIAL CELL UR AU 3 /HPF (0-6); UROBILINOGEN, URINE AUTO 0.2 mg/dL (0.0-2.0); WBC, URINE AUTO TNTC /HPF (0-3)
== END ==
LOC: M LAB REF 18:15
PROVIDERS: ATTEND Physician Assistant Medical
DX: N39.0 Urinary tract infection, site not specified (principal)

== ENCOUNTER → 2024-06-25 | Outpatient (CLI) | payer MEDICARE | LOC: M PAIN 11:30 | PROVIDERS: ATTEND Nurse Practitioner Family | DX: M54.2 Cervicalgia (principal); G89.29 Other chronic pain; K21.9 Gastro-esophageal reflux disease without esophagitis; E55.9 Vitamin D deficiency, unspecified; G43.909 Migraine, unspecified, not intractable, without status migrainosus; J44.9 Chronic obstructive pulmonary disease, unspecified; E78.5 Hyperlipidemia, unspecified; M06.9 Rheumatoid arthritis, unspecified; M81.0 Age-related osteoporosis without current pathological fracture; D55.0 Anemia due to glucose-6-phosphate dehydrogenase [G6PD] deficiency; F17.200 Nicotine dependence, unspecified, uncomplicated; Z79.02 Long term (current) use of antithrombotics/antiplatelets; Z79.891 Long term (current) use of opiate analgesic; Z79.01 Long term (current) use of anticoagulants; Z79.899 Other long term (current) drug therapy; Z88.8 Allergy status to other drugs, medicaments and biological substances ==

== ENCOUNTER → 2024-07-24 | Outpatient (CLI) | payer MEDICARE, MEDICAID | LOC: M ONCR 10:20 | PROVIDERS: ATTEND General Practice | DX: C10.1 Malignant neoplasm of anterior surface of epiglottis (principal); D55.0 Anemia due to glucose-6-phosphate dehydrogenase [G6PD] deficiency; F17.218 Nicotine dependence, cigarettes, with other nicotine-induced disorders; Z92.3 Personal history of irradiation; Z79.02 Long term (current) use of antithrombotics/antiplatelets; Z79.51 Long term (current) use of inhaled steroids; Z79.899 Other long term (current) drug therapy; Z79.01 Long term (current) use of anticoagulants; Z63.4 Disappearance and death of family member ==

== ENCOUNTER → 2024-08-16 | Outpatient (REF) | payer MEDICARE, MEDICAID | LOC: M SFHCADAM 12:59 | PROVIDERS: ATTEND Physician Assistant | DX: J01.00 Acute maxillary sinusitis, unspecified (principal) ==

== ENCOUNTER → 2024-08-21 | Outpatient (CLI) | payer MEDICARE, MEDICAID | LOC: M ADAMS 13:23 | PROVIDERS: ATTEND Physician Assistant | DX: M54.31 Sciatica, right side (principal) ==

== ENCOUNTER → 2024-09-13 | Outpatient (CLI) | payer MEDICARE, MEDICAID | LOC: M RAD 08:53 | PROVIDERS: ATTEND Internal Medicine Medical Oncology | DX: F17.210 Nicotine dependence, cigarettes, uncomplicated (principal) ==

== ENCOUNTER 2024-09-18 09:41 | Outpatient (RCR) | payer MEDICARE, MEDICAID | END 2024-09-19 | LOC: M PT 09:41 | PROVIDERS: ATTEND Nurse Practitioner Family | DX: M79.10 Myalgia, unspecified site (principal); M54.16 Radiculopathy, lumbar region; Z79.899 Other long term (current) drug therapy ==

== ENCOUNTER 2024-10-02 20:07 | Emergency (ER) | payer MEDICARE, MEDICAID ==
[~2024-10-02] VITALS: Ht 154.9 cm; Wt 48.2 kg
[~2024-10-02 20:07] MED LIST changes: -TRET0.02; +TRET0.046
[2024-10-02 21:03] LABS: BASO % 0.7 % (0.0-1.0); EOS # 0.1 10^3/uL (0.0-0.5); EOS % 2.1 % (0.0-3.0); HEMATOCRIT 37.4 % (36.0-47.0); HEMOGLOBIN 12.5 g/dl (12.0-15.5); LYMPH # 0.7 10^3/uL (1.5-5.0); LYMPH % 12.4 % (24.0-44.0); MEAN CORPUSCULAR HEMOGLOBIN 30.9 pg (27.0-33.0); MEAN CORPUSCULAR HGB CONC 33.4 g/dl (32.0-36.5); MEAN CORPUSCULAR VOLUME 92.3 fl (80.0-96.0); MONO # 0.4 10^3/uL (0.0-0.8); MONO % 7.4 % (2.0-8.0); NEUTROPHILS # 4.3 10^3/uL (1.5-8.5); PLATELET COUNT, AUTOMATED 126 10^3/uL (150-450); RED BLOOD COUNT 4.05 10^6/uL (4.00-5.40); WHITE BLOOD COUNT 5.6 10^3/uL (4.0-10.0)
[2024-10-02] MEDS: oxyCODONE 5MG TAB PO ONE (21:07)
[2024-10-02 21:27] LABS: BLOOD UREA NITROGEN 13 MG/DL (9-23); CALCIUM LEVEL 8.9 MG/DL (8.3-10.6); CARBON DIOXIDE LEVEL 28 MMOL/L (20-31); CHLORIDE LEVEL 107 MMOL/L (98-107); CREATININE FOR GFR 0.66 MG/DL (0.55-1.30); GLOMERULAR FILTRATION RATE > 90.0 (>39); GLUCOSE, FASTING 98 MG/DL (74-106); POTASSIUM SERUM 3.2 MMOL/L (3.5-5.1); SODIUM LEVEL 141 MMOL/L (136-145)
[2024-10-02 22:11] LABS: INR 1.52; PARTIAL THROMBOPLASTIN TIME 46.5 SECONDS (24.8-34.2); PROTHROMBIN TIME 18.6 SECONDS (12.5-14.5)
[2024-10-02] MEDS ORDERED: TRET0.046 TOP (22:30)
[2024-10-02] MEDS ORDERED: HOME MED LIST COMPLETE! XX SCH (22:35)
[2024-10-02 23:22] VITALS: BP 165/78; TEMP 97.9; O2SAT 98
== END 2024-10-02 23:23 | disposition home or self-care (01) ==
LOC: EDBD 20:07 → M ED 20:07
DX: S51.012A Laceration without foreign body of left elbow, initial encounter (principal); Y92.9 Unspecified place or not applicable; Y93.9 Activity, unspecified; Y99.9 Unspecified external cause status; W19.XXXA Unspecified fall, initial encounter; K21.9 Gastro-esophageal reflux disease without esophagitis; J44.9 Chronic obstructive pulmonary disease, unspecified; F17.210 Nicotine dependence, cigarettes, uncomplicated; Z88.8 Allergy status to other drugs, medicaments and biological substances; Z79.1 Long term (current) use of non-steroidal anti-inflammatories (NSAID); Z79.01 Long term (current) use of anticoagulants; Z79.899 Other long term (current) drug therapy; Z79.51 Long term (current) use of inhaled steroids

== ENCOUNTER → 2024-11-30 | Outpatient (CLI) | payer MEDICARE, MEDICAID ==
[~2024-11-30] MED LIST changes: +AMIT10TA11 PO; -AMIT10TA7 PO; +FLUC10TA PO; +TRET0.046 TOP
== END ==
LOC: M PLAIMG 10:38
PROVIDERS: ATTEND Nurse Practitioner Family
DX: M16.11 Unilateral primary osteoarthritis, right hip (principal); M25.551 Pain in right hip

== ENCOUNTER → 2024-12-25 | Outpatient (CLI) | payer MEDICARE, MEDICAID | LOC: M WHC 10:49 | PROVIDERS: ATTEND Internal Medicine Medical Oncology | DX: Z12.31 Encounter for screening mammogram for malignant neoplasm of breast (principal); R92.313 Mammographic fatty tissue density, bilateral breasts ==

== ENCOUNTER → 2024-12-26 | Outpatient (CLI) | payer MEDICARE, MEDICAID | LOC: M PLAIMG 10:08 | PROVIDERS: ATTEND Nurse Practitioner Family | DX: M24.151 Other articular cartilage disorders, right hip (principal); M70.61 Trochanteric bursitis, right hip; M16.11 Unilateral primary osteoarthritis, right hip; M25.451 Effusion, right hip; M25.551 Pain in right hip ==

== ENCOUNTER → 2025-01-10 | Outpatient (CLI) | payer MEDICARE, MEDICAID | LOC: M PLARAD 10:27 | PROVIDERS: ATTEND Neurological Surgery | DX: I67.1 Cerebral aneurysm, nonruptured (principal); M62.81 Muscle weakness (generalized) ==

== ENCOUNTER → 2025-02-05 | Outpatient (REF) | payer MEDICARE, MEDICAID ==
[2025-02-05 12:45] LABS: APPEARANCE, URINE HAZY (CLEAR); BACTERIA, URINE AUTO 1+ (NEGATIVE); BILIRUBIN, URINE AUTO NEGATIVE (NEGATIVE); BLOOD, URINE BLOOD 1+ (NEGATIVE); GLUCOSE, URINE (UA) AUTO NEGATIVE (NEGATIVE); KETONE, URINE AUTO NEGATIVE (NEGATIVE); LEUKOCYTE ESTERASE, URINE AUTO 3+ (NEGATIVE); NITRITE, URINE AUTO NEGATIVE (NEGATIVE); PROTEIN, URINE AUTO NEGATIVE (NEGATIVE); RBC, URINE AUTO 18 /HPF (0-3); SPECIFIC GRAVITY URINE AUTO 1.012 (1.002-1.035); SQUAMOUS EPITHELIAL CELL UR AU 1 /HPF (0-6); UROBILINOGEN, URINE AUTO 0.2 mg/dL (0.0-2.0); WBC, URINE AUTO 106 /HPF (0-3)
== END ==
LOC: M LAB REF 11:49
PROVIDERS: ATTEND Physician Assistant Medical
DX: N39.0 Urinary tract infection, site not specified (principal)

== ENCOUNTER → 2025-02-13 | Outpatient (REF) | payer MEDICARE, MEDICAID ==
[2025-02-13 14:42] LABS: APPEARANCE, URINE CLEAR (CLEAR); BACTERIA, URINE AUTO NEGATIVE (NEGATIVE); BILIRUBIN, URINE AUTO NEGATIVE (NEGATIVE); BLOOD, URINE BLOOD NEGATIVE (NEGATIVE); GLUCOSE, URINE (UA) AUTO NEGATIVE (NEGATIVE); KETONE, URINE AUTO NEGATIVE (NEGATIVE); LEUKOCYTE ESTERASE, URINE AUTO NEGATIVE (NEGATIVE); MUCUS, URINE SMALL (NEGATIVE); NITRITE, URINE AUTO POSITIVE (NEGATIVE); PROTEIN, URINE AUTO NEGATIVE (NEGATIVE); RBC, URINE AUTO 2 /HPF (0-3); SPECIFIC GRAVITY URINE AUTO 1.016 (1.002-1.035); SQUAMOUS EPITHELIAL CELL UR AU 2 /HPF (0-6); UROBILINOGEN, URINE AUTO 4.0 mg/dL (0.0-2.0); WBC, URINE AUTO 3 /HPF (0-3)
== END ==
LOC: M SMT 12:24
PROVIDERS: ATTEND Nurse Practitioner Family
DX: R31.0 Gross hematuria (principal)

== ENCOUNTER → 2025-02-14 | Outpatient (CLI) | payer MEDICARE, MEDICAID | LOC: M PLAIMG 15:27 | PROVIDERS: ATTEND Pain Medicine Interventional Pain Medicine | DX: M48.02 Spinal stenosis, cervical region (principal) ==

== ENCOUNTER → 2025-03-04 | Outpatient (REF) | payer MEDICARE, MEDICAID ==
[2025-03-04 13:55] LABS: APPEARANCE, URINE HAZY (CLEAR); BACTERIA, URINE AUTO NEGATIVE (NEGATIVE); BILIRUBIN, URINE AUTO 1+ (NEGATIVE); BLOOD, URINE BLOOD NEGATIVE (NEGATIVE); GLUCOSE, URINE (UA) AUTO NEGATIVE (NEGATIVE); KETONE, URINE AUTO TRACE mg/dL (NEGATIVE); LEUKOCYTE ESTERASE, URINE AUTO TRACE (NEGATIVE); MUCUS, URINE SMALL (NEGATIVE); NITRITE, URINE AUTO POSITIVE (NEGATIVE); PROTEIN, URINE AUTO 1+ mg/dL (NEGATIVE); RBC, URINE AUTO 18 /HPF (0-3); SPECIFIC GRAVITY URINE AUTO 1.021 (1.002-1.035); SQUAMOUS EPITHELIAL CELL UR AU 3 /HPF (0-6); UROBILINOGEN, URINE AUTO 4.0 mg/dL (0.0-2.0); WBC, URINE AUTO 82 /HPF (0-3)
== END ==
LOC: M SMT 13:14
PROVIDERS: ATTEND Nurse Practitioner Family
DX: R39.9 Unspecified symptoms and signs involving the genitourinary system (principal)

== ENCOUNTER → 2025-03-04 | Outpatient (CLI) | payer MEDICARE, MEDICAID | LOC: M PLAIMG 12:45 | PROVIDERS: ATTEND Family Medicine | DX: N20.0 Calculus of kidney (principal); R31.0 Gross hematuria ==

== ENCOUNTER → 2025-03-14 | Outpatient (CLI) | payer MEDICARE, MEDICAID ==
[2025-03-14 10:32] LABS: CALCIUM LEVEL 8.9 MG/DL (8.3-10.6); CARBON DIOXIDE LEVEL 27 MMOL/L (20-31); CHLORIDE LEVEL 109 MMOL/L (98-107); CREATININE FOR GFR 0.67 MG/DL (0.55-1.30); GLOMERULAR FILTRATION RATE > 90.0 (>39); POTASSIUM SERUM 3.8 MMOL/L (3.5-5.1); SODIUM LEVEL 143 MMOL/L (136-145)
== END ==
LOC: M LAB 08:58
PROVIDERS: ATTEND Nurse Practitioner Family
DX: R31.0 Gross hematuria (principal)

== ENCOUNTER → 2025-03-15 | Outpatient (CLI) | payer MEDICARE, MEDICAID ==
[~2025-03-15] MED LIST changes: +ISOVUE-370 76% 100 ML VIAL As Ordered ONE
== END ==
LOC: M RAD 08:58
PROVIDERS: ATTEND Nurse Practitioner Family
DX: R31.0 Gross hematuria (principal); N20.0 Calculus of kidney; K22.89 Other specified disease of esophagus
CPT/HCPCS: 74178; Q9967

== ENCOUNTER 2025-04-25 08:33 | Emergency (ER) | payer MEDICARE, MEDICAID ==
[~2025-04-25] VITALS: Ht 152.4 cm; Wt 47.3 kg
[~2025-04-25 08:33] MED LIST changes: -ISOVUE-370 76% 100 ML VIAL As Ordered ONE; -OXYC20TA64 PO; +OXYC20TA66 PO
[2025-04-25] MEDS: IPRATROPIUM 0.5 MG/ALBUTEROL 2.5 MG INH SOL UD 3 ML NEB PRN (09:35)
[2025-04-25 09:59] LABS: VENOUS BASE EXCESS -1.2 (-2.0-2.0); VENOUS HCO3 23.5 MMOL/L (23.0-27.0); VENOUS O2 SATURATION 79.9 % (60.0-80.0); VENOUS PARTIAL PRESSURE CO2 39.6 mmHg (38.0-50.0); VENOUS PARTIAL PRESSURE O2 41.3 mmHg (30.0-50.0); VENOUS PH 7.392 UNITS (7.330-7.430); VENOUS STANDARD HCO3 23.1 MMOL/L; VENOUS TOTAL CO2 24.8 MMOL/L (24.0-28.0)
[2025-04-25 10:06] LABS: BASO # 0.0 10^3/uL (0.0-0.2); BASO % 0.3 % (0.0-1.0); EOS # 0.0 10^3/uL (0.0-0.5); EOS % 0.5 % (0.0-3.0); LYMPH # 0.4 10^3/uL (1.5-5.0); LYMPH % 4.5 % (24.0-44.0); MONO # 0.5 10^3/uL (0.0-0.8); MONO % 5.9 % (2.0-8.0); NEUTROPHILS # 6.9 10^3/uL (1.5-8.5); NEUTROPHILS % 88.4 % (36.0-66.0); PLATELET COUNT, AUTOMATED 122 10^3/uL (150-450)
[2025-04-25] MEDS: ACETAMINOPHEN 500 MG TAB PO ONE (10:32)
[2025-04-25 10:34] LABS: ALT/SGPT 10 U/L (7.0-40); AST/SGOT 24 U/L (<34); CALCIUM LEVEL 8.9 MG/DL (8.3-10.6); CARBON DIOXIDE LEVEL 28 MMOL/L (20-31); CHLORIDE LEVEL 104 MMOL/L (98-107); CK-MB VALUE MASS 2.3 NG/ML (<3.6); CREATININE FOR GFR 0.60 MG/DL (0.55-1.30); GLOMERULAR FILTRATION RATE > 90.0 (>39); POTASSIUM SERUM 4.1 MMOL/L (3.5-5.1); SODIUM LEVEL 139 MMOL/L (136-145)
[2025-04-25 10:37] LABS: THYROXINE (T4) 6.1 UG/DL (4.5-10.9)
[2025-04-25 10:41] LABS: CPK CREATINE PHOSPHOKINASE 36 U/L (34-145); MB/CK RELATIVE INDEX 6.38 (< OR =4)
[2025-04-25 11:19] LABS: CK-MB VALUE MASS 2.1 NG/ML (<3.6)
[2025-04-25 11:20] LABS: CPK CREATINE PHOSPHOKINASE 34 U/L (34-145); MB/CK RELATIVE INDEX 6.17 (< OR =4)
[2025-04-25] MEDS ORDERED: MYRB50TA PO (11:50)
[2025-04-25] MEDS ORDERED: HOME MED LIST COMPLETE! XX SCH (11:55)
[2025-04-25] MEDS ORDERED: ISOVUE-370 76% 100 ML VIAL As Ordered ONE (12:02)
[2025-04-25 15:07] LABS: KETONE, URINE AUTO RFX TRACE mg/dL (NEGATIVE); LEUKOCYTE ESTERASE UR AUTO RFX NEGATIVE (NEGATIVE); MUCUS, URINE RFX SMALL (NEGATIVE); NITRITE, URINE AUTO RFX NEGATIVE (NEGATIVE); RBC, URINE AUTO RFX 2 /HPF (0-3); SQUAM EPITHELIAL CELL UR AURFX 1 /HPF (0-6); WBC, URINE AUTO RFX 1 /HPF (0-3)
[2025-04-25] MEDS ORDERED: FLUC100T3 (15:40)
[2025-04-25 15:55] VITALS: BP 142/61; TEMP 97.5; O2SAT 91
== END 2025-04-25 16:05 | disposition home or self-care (01) ==
LOC: M ED 08:33
DX: J44.9 Chronic obstructive pulmonary disease, unspecified (principal); B37.0 Candidal stomatitis; E78.5 Hyperlipidemia, unspecified; Z85.21 Personal history of malignant neoplasm of larynx; Z92.3 Personal history of irradiation; F17.200 Nicotine dependence, unspecified, uncomplicated; Z79.899 Other long term (current) drug therapy; Z79.51 Long term (current) use of inhaled steroids
CPT/HCPCS: 71045; 71275; 80048; 80076; 81001; 82550; 82553; 82803; 83605; 83880; 84436; 84443; 84484; 85025; 87040; 87486; 87581; 87633; 87798; 87880; 93005; 93041; 94640; 94760; 96374; 99285; J2919; Q9967

== ENCOUNTER → 2025-05-20 | Day surgery (SDC) | payer MEDICARE, MEDICAID ==
[~2025-05-20] VITALS: Ht 152.4 cm; Wt 45.4 kg
[~2025-05-20] MED LIST changes: +FLUC100T3; +FLUT1BLS5; +LIDOCAINE 2% 100 MG/5 ML SDV (FOR ANES.) As Ordered ONE; +MYRB50TA PO; +[UNRECOGNIZED DRUG - CODE] TD
[2025-05-20 09:16] VITALS: TEMP 97.7
[2025-05-20 09:26] VITALS: BP 132/60; O2SAT 97
== END | disposition home or self-care (01) ==
LOC: M OPP 07:40
PROVIDERS: ATTEND Surgery
DX: Z12.11 Encounter for screening for malignant neoplasm of colon (principal); D12.5 Benign neoplasm of sigmoid colon; R93.3 Abnormal findings on diagnostic imaging of other parts of digestive tract; Z72.0 Tobacco use; Z79.899 Other long term (current) drug therapy; Z86.73 Personal history of transient ischemic attack (TIA), and cerebral infarction without residual deficits; Z88.8 Allergy status to other drugs, medicaments and biological substances